=== PATIENT | male | born 1995 | race Caucasian/White ===

== ENCOUNTER 2018-08-29 15:13 | Emergency (ER) | payer MEDICAID, SELFPAY ==
[2018-08-29] VITALS (42 sets, daily range): BP systolic 125–147; BP diastolic 75–93; PULSE 83–142; RESP 9–20; TEMP 36.1; O2SAT 85–98
[2018-08-29] MEDS: Ondansetron 4 MG/2 ML VIAL IVP (15:46)
[2018-08-29] MEDS: Normal Saline 1,000 ML 1000 ML IV ×2 (15:48→17:58)
--- NOTE | 2018-08-29 15:54 | NUR.NOTE ---
MD Harden is at the bedside currently.
--- NOTE | 2018-08-29 16:07 | DI.CT_ITS ---
SYMPTOMS/DIAGNOSIS: LT SIDED ABD PAIN, ? PANCREATITIS/ABSCESS, ? FREE AIR CT SCAN OF THE ABDOMEN AND PELVIS: CT scan of the abdomen and pelvis was performed following the uneventful administration of intravenous contrast material. Comparison is 09/16/16. The lung bases are clear. There is diffuse decreased attenuation of the liver consistent with fatty infiltration. No evidence of hepatic mass is seen. The portal and superior mesenteric veins are patent. The gallbladder is negative. No biliary ductal dilatation is present. The pancreas, spleen, adrenal glands, kidneys, ureters and bladder are all unremarkable. The reproductive organs are unremarkable. The bowel shows no evidence of obstruction or inflammation. There is a normal appendix present. The abdominal aorta is of normal caliber. No significant abdominal or pelvic adenopathy, ascites or pneumoperitoneum is present. The bones are intact. IMPRESSION: 1. No evidence of an acute abdomen. 2. Hepatic steatosis.
--- NOTE | 2018-08-29 16:09 | DI.RAD_ITS ---
SYMPTOMS/DIAGNOSIS: VOMITING BLOOD, H/O ETOH ABUSE, ? FREE AIR, ? PNEUMONIA CHEST X-RAY: Portable AP view. The heart size and pulmonary vasculature are within normal limits. The lungs are clear. No effusions or pneumothoraces are identified. There is a nasogastric tube which passes into the stomach. IMPRESSION: Nasogastric tube passing into the stomach. No acute pulmonary process.
--- NOTE | 2018-08-29 16:10 | ED.GENADUL_ITS ---
Discharge Plan Disposition Patient Disposition: AGAINST MEDICAL ADVICE Condition: Fair Discharge Details Chief Complaint: ETOHWithdr Clinical Impression: Alcohol withdrawal, Hematemesis, Alcohol abuse, Transaminitis, Fatty infiltration of liver Primary Care Provider: Hernesto Beverly ED Provider: Sandi Harden Home Meds and New Rx's Prescriptions: No Action trazodone 100 mg tablet 200 mg PO HS Qty: 60 RF: 5 dextroamphetamine-amphetamine [Adderall XR] 20 mg capsule,extended release 24hr 20 mg PO DAILY Qty: 30 RF: 0 Discharge Instructions Instructions: Abuse of Alcohol (ED), Alcohol Withdrawal (ED), Hematemesis (ED) Additional Instructions: If you decide to stop drinking, you should stop drinking safely and slowly on the direction of a physician or rehab. Drink plenty of fluids and eat a well-balanced diet. Follow-up with your primary care doctor in 2 days for reevaluation. Return here immediately with any worsening or new concerning symptoms. Discharge Data Discharge Physician: Sandi Harden Medical Decision Making 23-year-old male who presents with vomiting bile and occasionally bright red blood daily for the past 3 months. States he has drank heavily daily for the past 10 years. Last drink last night. Blood pressure hypertensive, heart rate tachycardic, afebrile on arrival. Patient appears pale and tremulous. Patient vomited once in the waiting room which was bright red blood-tinged. He had one more episode of vomiting in the room without blood. His abdomen is diffusely mildly tender, increased in the left upper quadrant. Negative asterixis. Differential diagnosis includes upper GI bleed from peptic ulcer, esophageal varices, gastritis, acute alcohol withdrawal, anemia. Will place an IV, bolus IV fluids, labs, type and screen, EKG, chest x-ray, CT abdomen and pelvis, Ativan, Protonix IV and NG tube. EKG notes a rate of 103, sinus tachycardia, no acute ST elevation or depression. QTc 432. QRS 106. 1645 --NG-tube in place for approximately 60 minutes and no blood return. NG tube removed. 1715 --labs and imaging reviewed white blood cell count 15. Hemoglobin 13.8. Platelets 206. Anion gap 23.6. Bicarb 21.4. Creatinine 1.28. Magnesium 1.7. Glucose 221. AST 272. ALT 234. Troponin negative. Lipase 356. Chest x- ray and CT abdomen negative for acute findings. CT abdomen noted diffuse fatty infiltration of the liver. 1724 --Pt still shaky but heart rate improved to 90s, BP 132/82. Recommended to pt that he stay for admission for alcohol withdrawal but he is refusing. Explained to pt that we do not have beds here but we would transfer to another facility. States he does not want to stay. Will give another dose of Ativan at this time. Magnesium to finish running within the next 45 minutes. Patient states he plans on leaving with his grandmother taking him home. States he ran out of alcohol today and has no plans of stopping alcohol and hopes his grandparents stop to get alcohol on the way home. 1909 --magnesium bolus finished. Grandmother is here. Patient still is refusing to stay. His shaking has improved. His heart rate is 90s. BP 138/ 83. Patient still recommended to stay for acute alcohol withdrawal but he is refusing. The risks of and disability due to alcohol withdrawal were explained and patient fully understands and demonstrates capacity to make decisions and is refusing to stay. AMA form signed. Patient states he has outpatient resources for rehab and detox. Will send home with 1 dose of Ativan p.o. Patient instructed to call his primary care doctor on Friday to schedule follow-up appointment for reevaluation. He is instructed to return here immediately if worse. HPI General Mode of arrival: ambulatory . Date/Time Provider Initiated Documentation: 08/29/18 15:35 . Limitations to Documentation: no limitations . Information obtained by: patient . HPI Narrative: Patient is a 23-year-old male who presents to the ED with a complaint of vomiting daily for the past 3 months. Patient states he generally vomits between 2-4 times daily which consist mainly of bile and occasionally blood. States he usually vomits small amounts of bright red blood approximately 1-3 mL 3-4 times weekly. Patient vomited blood while out in the ED. He vomited once more while here in the room without blood. Patient states he drinks approximately 4-5 cans of 25 ounce beers daily. States he drank a 12 pack yesterday. States his last drink was last night. States he has no desire to stop drinking. Denies suicidal ideation. States he was last in rehab for her one 1 year ago and is not used heroin since then. He denies any other drug use. He denies fever, diarrhea, back pain, chest pain or abdominal pain. Patient states he has not sought any treatment for the symptoms over the past 3 months. States he came here today because his grandmother recommended that he be checked out. States he has been having normal bowel movements without diarrhea and brown in color. States a few weeks ago he was having black stools but this has resolved. Past medical history: ADHD, depression, narcotic drug abuse Surgical history: Right wrist surgery Social history: Smokes tobacco, daily alcohol use approximately 4-5 cans of 12 ounce beers daily, denies drug use Medications: Trazodone, Adderall Allergies: None PCP: Dr. Beverly Related Data Home Medications Medication Instructions Recorded Confirmed trazodone 100 mg tablet 200 mg PO HS #60 tab-cap 07/15/18 08/29/18 dextroamphetamine-amphetamine ER 20 mg PO DAILY #30 cap 08/03/18 08/29/18 20 mg 24hr capsule,extend release Previous Rx's Medication Instructions Recorded trazodone 100 mg tablet 200 mg PO HS #60 tab-cap 07/15/18 dextroamphetamine-amphetamine ER 20 mg PO DAILY #30 cap 08/03/18 20 mg 24hr capsule,extend release Allergies Allergy/AdvReac Type Severity Reaction Status Date / Time Sulfa (Sulfonamide Allergy Unknown Hives Unverified 08/29/18 15:27 Antibiotics) General Stated Complaint: ETOHWithdr YESSENIA: 3 Review of Systems Review of Systems All systems reviewed & are unremarkable except as noted in HPI and below Constitutional Denies chills, Denies excessive sweating, Denies fatigue, Denies fever(s), Denies weakness and Denies weight loss Eyes Reports system reviewed and no additional complaints, except as docu and Denies blurry vision ENT Denies vertigo, Denies dizziness, Denies otalgia, Denies nasal congestion, Denies sore throat and Denies throat swelling Cardiovascular Denies chest pain, Denies syncope, Denies rapid heart rate and Denies dyspnea Respiratory Denies dyspnea Gastrointestinal Denies abdominal pain, Denies diarrhea and Reports vomiting Genitourinary Denies hematuria, Denies dysuria and Denies flank pain Musculoskeletal Denies back pain and Denies joint swelling Integumentary/Breasts Denies lesions and Denies rash Neurologic Denies behavioral changes, Denies confusion, Denies vertigo, Denies dizziness, Denies syncope and Denies weakness Psychiatric Denies behavioral changes, Denies confusion and Denies depression Endocrine Denies excessive sweating and Denies fatigue Hematologic/Lymphatic Denies easy bruising and Denies lymphadenopathy Allergic/Immunologic Denies throat swelling PFSH Social History household members: other details: LIVES WTIH FATHER Smoking/Tobacco Use Status: Current every day alcohol intake: current alcohol intake frequency: 0-2 drinks per day substance use type: marijuana Surgical History Fracture, Open Treatment Exam Const General: cooperative and other (pale, shaky) Orientation: alert, awake and oriented x3 HENMT Head: normal to inspection Ears: hearing grossly normal bilaterally, external ears normal and TM's normal bilaterally General nose exam: external nose normal Face and sinus: normal facial exam Mouth: mucous membranes dry and other (dried bright red blood noted at L side of mouth ) Teeth and gingiva: dentition normal Throat: posterior oropharynx normal Eyes General: appearance normal, both eyes and all related structures Eyelids: eyelids normal Pupils: PERRL EOM: EOM intact bilaterally Neck Neck: normal visual inspection Lymphatic: no lymphadenopathy noted Chest Chest: normal inspection of the chest Resp Effort & Inspection: normal respiratory effort and able to speak in complete sentences Auscultation: clear to auscultation bilaterally Cardio Rate: tachycardic Rhythm: regular rhythm GI Inspection: normal to inspection Palpation: soft, not firm, no guarding, no hepatosplenomegaly, no masses and tender (mild - diffusely, worse in LUQ) Auscultation: normal bowel sounds Back/Spine/Pelvis Back: no CVA tenderness Skin General skin exam: no rashes or lesions noted Neuro General: alert, awake and oriented x3 Cognition: normal cognition Speech: speech normal Gait: normal gait Motor: muscle tone normal throughout Sensory Exam: no sensory deficits noted Other: no asterixis. + clonus b/l LE. Extrem General: normal to inspection, full ROM, normal capillary refill and no edema Psych Appearance: grossly normal Mental Status: mental status grossly normal Speech and Movement: speech and movement normal Affect: normal affect Thought Process: normal Course Laboratory Tests Range/Units 08/29/18 08/29/18 08/29/18 15:50 15:50 16:40 WBC (4.4-10.8) k/cumm 15.25 H RBC (4.50-6.00) m/cumm 4.54 Hgb (13.5-17.5) g/dL 13.8 Hct (40.0-50.0) % 40.4 MCV (80-95) fL 89.0 MCH (27.0-33.0) pg 30.4 MCHC (32.0-36.0) g/dL 34.2 RDW (11.8-14.1) % 13.3 Plt Count (130-400) x1000/uL 206 MPV (8.0-11.0) fL 10.7 Immature Gran % 0.2 Neutrophils % 83.9 Lymphocytes % 8.5 Monocytes % 7.1 Eosinophils % 0.0 Basophils % 0.3 Absolute Neutrophils (1.2-6.7) k/cumm 12.79 H Absolute Lymphocytes (1.2-3.4) k/cumm 1.30 Absolute Monocytes (0.11-0.7) k/cumm 1.08 H Absolute Eosinophils (0.0-0.7) k/cumm 0.00 Absolute Basophils (0.0-0.2) k/cumm 0.05 Sodium (136-145) mmol/L 134 L Potassium (3.5-5.1) mmol/L 4.0 Chloride (98-107) mmol/L 89 L Carbon Dioxide (21.0-32.0) mmol/L 21.4 Anion Gap (3-11) mmol/L 23.6 H BUN (7-18) mg/dL 12 Creatinine (0.70-1.30) mg/dL 1.28 Estimated GFR/1.73 m2 (mL/min/1.73m2) >= 60.00 Glucose (70-100) mg/dL 221 H Calcium (8.5-10.1) mg/dL 10.1 Magnesium (1.8-2.4) mg/dL 1.7 L Total Bilirubin (0.2-1.0) mg/dL 1.0 AST (15-37) U/L 272 H ALT (12-78) U/L 234 H Alkaline Phosphatase (46-116) U/L 116 Troponin I (0.00-0.06) ng/mL < 0.02 Total Protein (6.4-8.2) g/dL 8.6 H Albumin (3.4-5.0) g/dL 4.5 Lipase (73-393) U/L 356 Patient ABO/Rh A Positive Antibody Screen Negative Vital Signs Temperature 97.0 F L 08/29/18 15:24 Pulse 142 H 08/29/18 15:24 Respiratory Rate 16 08/29/18 15:24 Blood Pressure 147/89 H 08/29/18 15:24 Pulse Oximetry 94 L 08/29/18 15:24 Temperature 97.0 F L 08/29/18 15:24 Temperature Source Skin 08/29/18 15:24 Pulse 142 H 08/29/18 15:24 Respiratory Rate 16 08/29/18 15:24 Respiratory Effort Non-Labored 08/29/18 15:24 Respiratory Pattern Normal 08/29/18 15:55 Blood Pressure 147/89 H 08/29/18 15:24 Blood Pressure Position Sitting 08/29/18 15:24 Pulse Oximetry 94 L 08/29/18 15:24 Oxygen Delivery Method Room Air 08/29/18 15:24 Oxygen Flow Rate 0 08/29/18 15:24 Pain Level 0 08/29/18 15:24
[2018-08-29 16:21] LABS: Abs Immature Grans 0.03 k/cumm (0.0-0.09); Absolute Monocyte Count 1.08 k/cumm (0.11-0.7); Basophils % 0.3; HCT 40.4 % (40.0-50.0); HGB 13.8 g/dL (13.5-17.5); Immature Grans % 0.2; Lymphocytes % 8.5; Mean Corp. HGB Concentration 34.2 g/dL (32.0-36.0); Mean Corpuscular Hemoglobin 30.4 pg (27.0-33.0); Mean Platelet Volume 10.7 fL (8.0-11.0); Monocytes % 7.1; Neutrophils % 83.9; Platelet Count 206 x1000/uL (130-400); RBC 4.54 m/cumm (4.50-6.00); RBC Distribution Width 13.3 % (11.8-14.1); White Blood Cell Count 15.25 k/cumm (4.4-10.8)
[2018-08-29] MEDS: LORazepam 2 MG/ML VIAL 0.5 MG IVP (16:24)
[2018-08-29] MEDS: Pantoprazole 40 MG VIAL IVP (16:25)
--- NOTE | 2018-08-29 16:34 | DI.VRAD_ITS ---
EXAM: XR Chest, 1 View EXAM DATE/TIME: 08/29/2018 4:13 PM CLINICAL HISTORY: 23 years old, male; Signs and symptoms; Other: Vomiting blood, h/o ETOH abuse, R/O free air TECHNIQUE: XR of the chest, 1 view. COMPARISON: CR ABD FLAT UPRIGHT PA CHEST 08/14/2016 9:48 PM FINDINGS: Nasogastric tube extending into the stomach. No focal pulmonary consolidation. Cardiomediastinal silhouette within normal limits. No evidence of extraluminal air beneath the diaphragm. Costophrenic angles are sharp. IMPRESSION: 1. Nasogastric tube within the stomach. 2. No evidence of acute cardiopulmonary disease. Dictated and Authenticated by: Roberth Ching MD. Ordering:BREE CLEARY MD
[2018-08-29 16:41] LABS: Absolute Basophil Count 0.05 k/cumm (0.0-0.2); Absolute Neutrophil Count 12.79 k/cumm (1.2-6.7)
[2018-08-29 16:45] LABS: ALT 234 U/L (12-78); AST 272 U/L (15-37); Albumin 4.5 g/dL (3.4-5.0); Alkaline Phosphatase 116 U/L (46-116); Anion Gap 23.6 mmol/L (3-11); BUN 12 mg/dL (7-18); CO2 21.4 mmol/L (21.0-32.0); CREATININE 1.28 mg/dL (0.70-1.30); Calcium 10.1 mg/dL (8.5-10.1); Chloride 89 mmol/L (98-107); Glucose 221 mg/dL (70-100); Lipase 356 U/L (73-393); Magnesium 1.7 mg/dL (1.8-2.4); Sodium 134 mmol/L (136-145); Total Protein 8.6 g/dL (6.4-8.2)
--- NOTE | 2018-08-29 16:47 | NUR.NOTE ---
no blood from NG tube, tube discontinued with 's [employer] order.
[2018-08-29 16:50] LABS: Troponin I < 0.02 ng/mL (0.00-0.06)
[2018-08-29] MEDS: Omnipaque 350 MG/ML 100 ML BTL IJ (16:55)
--- NOTE | 2018-08-29 16:57 | NUR.NOTE ---
Pt. to CT scan.
--- NOTE | 2018-08-29 17:21 | DI.VRAD_ITS ---
EXAM: CT Abdomen and Pelvis With Intravenous Contrast EXAM DATE/TIME: 08/29/2018 4:08 PM CLINICAL HISTORY: 23 years old, male; Pain; Abdominal pain; Localized; Left; Patient HX: L sided abdominal pain; Additional info: R/O pancreatitis/abscess TECHNIQUE: Axial computed tomography images of the abdomen and pelvis with intravenous contrast. Coronal and sagittal reformatted images were created and reviewed. COMPARISON: CT CHEST ABD PELVIS WITH CONTRAST 07/12/2017 6:45 PM FINDINGS: Diffuse fatty infiltration of the liver. Appendix is normal. Otherwise normal appearing solid organs. No intestinal obstruction. No obstructive uropathy. No free fluid. No free air. No inflammatory changes. IMPRESSION: No specific etiology identified for the patient's symptoms. Dictated and Authenticated by: Roberth Ching MD. Ordering:BREE CLEARY MD
[2018-08-29] MEDS: MAGNESIUM SULFATE 1 GM/100 ML BAG IVPB (17:24)
[2018-08-29] MEDS: LORazepam 2 MG/ML VIAL (17:41)
--- NOTE | 2018-08-29 17:42 | NUR.NOTE ---
Md Harden at the bedside discussing risks of going home. Pt verbalizes understanding of risks of detoxing at home. 0.5mg IVP ativan adminsterd as ordered, pt. is okay waiting for IV magnesium to infuse (about 45 minutes left) prior to being discharged AMA.
[2018-08-29] MEDS: LORazepam 0.5 MG TAB PO (19:34)
== END 2018-08-29 19:34 | disposition left against medical advice (07) ==
PROVIDERS: Emergency Provider Physician Assistant; PCP Family Medicine
DX: F10.239 Alcohol dependence with withdrawal, unspecified (principal); K92.0 Hematemesis; R74.0 Nonspecific elevation of levels of transaminase and lactic acid dehydrogenase [LDH]; K70.0 Alcoholic fatty liver; R00.0 Tachycardia, unspecified; E83.42 Hypomagnesemia; Z53.29 Procedure and treatment not carried out because of patient's decision for other reasons
CPT/HCPCS: 36415; 77001; 80053; 83690; 86850; 86900; 86901; 93005; 96361; 96365; 96375; 96376; 99285; 74177; 83735; 84484; 85025; 93010; J2060; J2405; J3475; J3490

== ENCOUNTER 2018-09-04 08:49 | Outpatient (CLI) | payer MEDICAID, SELFPAY ==
[2018-09-07 10:58] LABS: Hepatitis A Antibody IgM Negative (NEGAT); Hepatitis B Core Antibody Negative (NEGAT); Hepatitis B surface Ag Negative (NEGAT); Hepatitis C Ab w Rflx HCV PCR Negative (NEGAT)
== END 2018-09-04 09:09 ==
PROVIDERS: Nurse Practitioner Family; PCP Family Medicine; Visit Provider Family Medicine
DX: F10.20 Alcohol dependence, uncomplicated (principal); Z11.59 Encounter for screening for other viral diseases
CPT/HCPCS: 36415; 86704; 86709; 86803; 87340

== ENCOUNTER 2018-11-09 13:43 | Emergency (ER) | payer MEDICAID, SELFPAY ==
[2018-11-09] VITALS (43 sets, daily range): BP systolic 128–151; BP diastolic 86–99; PULSE 79–135; RESP 9–24; TEMP 36.3–37.1; O2SAT 95–99
--- NOTE | 2018-11-09 13:59 | W.ED.GENAD ---
Discharge Plan Disposition Patient Disposition: HOME Discharge Details Chief Complaint: OD/Poison Clinical Impression: Alcoholism, Acute dehydration, Elevated liver enzymes Primary Care Provider: Hernesto Beverly ED Provider: Sloan Ballesteros Home Meds and New Rx's Prescriptions: New ondansetron 4 mg film 4 mg PO BID 5 Days Qty: 10 RF: 0 Continued trazodone 100 mg tablet 200 mg PO HS Qty: 60 RF: 5 dextroamphetamine-amphetamine [Adderall XR] 20 mg capsule,extended release 24hr 20 mg PO DAILY MDD 20mg Qty: 30 RF: 0 Discontinued dextroamphetamine-amphetamine [Adderall XR] 20 mg capsule,extended release 24hr 20 mg PO DAILY Qty: 30 RF: 0 Discharge Instructions Instructions: Dehydration (ED) Additional Instructions: Please drink small amounts of fluid often to stay hydrated. You have blood tests pending. Be sure to follow-up with your doctor. Use Zofran as prescribed. Please contact your primary care physician to arrange follow-up. Return to the ER for any worsening or new concerning symptoms. Referrals: [facility] [Outside] Sloan Ballesteros MD [Emergency Provider] - Hernesto Beverly [Primary Care Provider] - Discharge Data Discharge Date/Time-TO BE ENTERED AT DEPARTURE: 11/09/18 19:12 Medical Decision Making <Raymundo Cai MD - Last Filed: 11/09/18 14:18> ECG Data Attestation: I personally reviewed and interpreted this ECG (s) as follows: Prior ECG tracings: not available for review Interpretation: sinus rhythm (tachycardia), rate of 106, pr 130, qtc 427 <KINA Chaudhry - Last Filed: 11/10/18 08:07> Patient 23-year-old male presenting today with chief complaint of withdrawal symptoms. Is endorsing tremulousness and nausea. Lasted alcohol 2 hours ago which time he reports he had 2 beers. He did use heroin this morning. Denies any new source of heroin. He denies any chest pain or shortness of breath. Endorses chronic nausea and daily vomiting. Presents at this time his grandmother encouraged him to seek treatment. Patient denies thoughts of self harm, suicidal ideation or thoughts of harming others. On exam, patient appears anxious and moving frequently. He denies any thoughts of self-harm or harming others. He is tachycardic on exam with a rate in the 130s. Patient is hypertensive at 151/96. EKG was reviewed by Dr. Cai. Advised significant for sinus tachycardia but does not note any other acute abnormalities. Labs obtained concerning for low platelets of 114, this is atypical for the patient. Sodium is low at 129, chloride 88, carbon dioxide 19.6, anion gap of 21.4. AST, ALT elevated. These were elevated when he was seen last in August with similar values at that time. Alk phos is minimally elevated at 143. Heart rate improved after 2 L of IV saline, heart rate is currently 88. With the change in labs, plan to obtain a VBG with concern for alcoholic ketoacidosis. Patient appears much calmer, he is I discussed risks associated with his current lifestyle choices. 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 However, at this time he does not feel that he would be successful with rehab and is not interested in going. His family is pushing him to go and he reports that he will continue to consider this. He has enrolled himself previously and knows how to do this again when he is ready. Declined speaking with Discussed case with Dr. Ballesteros who is taking over care at the end of my shift. Ordered repeat BMP, patient has received approximately 2.5L of fluid as well as hepatitis panel. HPI <Raymundo Cai MD - Last Filed: 11/09/18 14:18> General Date/Time Provider Initiated Documentation: 11/09/18 13:44. Related Data Home Medications Medication Instructions Recorded Confirmed trazodone 100 mg tablet 200 mg PO HS #60 tab-cap 07/15/18 11/11/18 dextroamphetamine-amphetamine ER 20 mg PO DAILY #30 cap MDD 20mg 11/04/18 11/11/18 20 mg 24hr capsule,extend release ondansetron 4 mg PO BID 5 Days #10 each 11/09/18 11/11/18 Previous Rx's Medication Instructions Recorded trazodone 100 mg tablet 200 mg PO HS #60 tab-cap 07/15/18 dextroamphetamine-amphetamine ER 20 mg PO DAILY #30 cap MDD 20mg 11/04/18 20 mg 24hr capsule,extend release ondansetron 4 mg PO BID 5 Days #10 each 11/09/18 Allergies Allergy/AdvReac Type Severity Reaction Status Date / Time Sulfa (Sulfonamide Allergy Unknown Hives Unverified 11/11/18 08:56 Antibiotics) <KINA Chaudhry - Last Filed: 11/10/18 08:07> General Mode of arrival: ambulatory. Limitations to Documentation: no limitations. Information obtained by: patient and family. HPI Narrative: Patient is a 23 year old male, brought in by grandmother she concern for withdrawal. Reports that he uses heroin daily, he did use this morning. Also endorses drinking a 12 pack of Budweiser daily. States he last drank 2 beers approximately 2 hours prior to arrival. Endorses feeling tremulous and nauseated. States that he vomits every morning but that this is typical and has been ongoing for at least the past year. Reports that he has not drink at this large amount of alcohol since the age of 13. Endorses occasional hematemesis but none recently. He was seen here in August for similar episode. However, at that time, he was primarily complaining of hematemesis. He did not receive treatment after that. He reports he was last in rehab presently a year and a half ago with a short episode of sobriety. He denies any chest pain or shortness of breath. Aside from his one episode of emesis this morning, which she reports is typical, no further vomiting today. Denies any abdominal pain. No change in bowel or bladder habit. Denies any recent illness, no cough, cold, fevers or chills. He presents today secondary to his grandmother being concerned for his overall health and continued alcohol and drug abuse. General Stated Complaint: OD/Poison YESSENIA: 2 <KINA Chaudhry - Last Filed: 11/10/18 08:07> Constitutional Reports as per HPI, Denies chills, Denies fever(s), Denies headache(s) and Denies weakness Eyes Reports as per HPI, Denies eye discharge and Denies irritation ENT Denies headache(s) Cardiovascular Reports as per HPI, Denies chest pain and Denies dyspnea Respiratory Reports as per HPI, Denies cough and Denies dyspnea Gastrointestinal Reports as per HPI, Denies abdominal pain, Denies change in bowel habits, Reports nausea, Reports vomiting and Reports hematemesis Genitourinary Reports system reviewed and no additional complaints, except as docu (denies change in urinary habits) Integumentary/Breasts Reports as per HPI and Denies rash Neurologic Denies headache(s) and Denies weakness Psychiatric Denies anxiety, Denies change in appetite, Denies homicidal ideation and Denies suicidal ideation PFSH <Raymundo Cai MD - Last Filed: 11/09/18 14:18> Surgical History Fracture, Open Treatment Social History household members: other details: LIVES WTIH FATHER Smoking/Tobacco Use Status: Current every day alcohol intake: current alcohol intake frequency: 0-2 drinks per day substance use type: marijuana <KINA Chaudhry - Last Filed: 11/10/18 08:07> Const General: cooperative, healthy appearing, comfortable, no acute distress, well developed, well groomed and anxious Nutritional Appearance: average body habitus and well nourished Orientation: alert and awake [facility] Head: normal to inspection, normocephalic and atraumatic Ears: hearing grossly normal bilaterally, external ears normal and TM's normal bilaterally General nose exam: external nose normal and nares normal Face and sinus: normal facial exam, sinuses nontender and face symmetric Mouth: oral mucosae normal, lip normal, tongue normal, oropharynx normal and mucous membranes dry (patient appears dry on exam) Teeth and gingiva: dentition normal Throat: posterior oropharynx normal, tonsils normal and uvula midline Eyes General: appearance normal, both eyes and all related structures Neck Neck: normal visual inspection, full ROM, no lymphadenopathy and no meningeal signs Resp Effort & Inspection: normal respiratory effort, able to speak in complete sentences and no respiratory distress Auscultation: clear to auscultation bilaterally, no rales, no rhonchi and no wheezes Cardio Rate: regular rate and tachycardic Rhythm: regular rhythm Heart Sounds: S1 normal and S2 normal GI Inspection: normal to inspection Palpation: soft, no hepatosplenomegaly, no guarding and nontender Auscultation: normal bowel sounds Skin General skin exam: no rashes or lesions noted Neuro General: alert and awake Cognition: normal cognition Speech: speech normal Gait: normal gait Psych Appearance: grossly normal and well kempt Mental Status: mental status grossly normal Speech and Movement: speech and movement normal Mood: anxious mood <KINA Chaudhry - Last Filed: 11/10/18 08:07> Vital Signs Temperature 36.3 C L 11/09/18 13:44 Pulse 135 H 11/09/18 13:44 Respiratory Rate 16 11/09/18 13:44 Blood Pressure 151/96 H 11/09/18 13:44 Pulse Oximetry 95 11/09/18 13:44 Temperature 36.3 C L 11/09/18 13:44 Temperature Source Skin 11/09/18 13:44 Pulse 135 H 11/09/18 13:44 Respiratory Rate 16 11/09/18 13:44 Blood Pressure 151/96 H 11/09/18 13:44 Blood Pressure Position Sitting 11/09/18 13:44 Pulse Oximetry 95 11/09/18 13:44 Oxygen Delivery Method Room Air 11/09/18 13:44 Oxygen Flow Rate 0 11/09/18 13:44 Pain Level 0 11/09/18 13:44 Sign Out <Raymundo Cai MD - Last Filed: 11/09/18 14:18> Sign Out Data: Sign Out Comment: Care transitioned to Dr. Ballesteros with repeat BMP pending. Currently receiving IV hydration. Last updated by Soumya Goncalves PA at 11/09/18 16:35 Post-Handoff Eval: Patient received IV fluids Repeat BMP shows much improved anion gap. Tolerating PO intake. Reassessed and well appearing and requesting discharge. I reviewed all results with patient. Counseling on need for lifestyle changes was provided, patient was encouraged to seek rehab services and I referred him to [facility]. He seems minimally interested in rehab. Disposition decision was made weighing the risks and benefits of hospitalization versus outpatient treatment, the risk for further decompensation, and the patient's wishes. The patient was stable and requested discharge. Prior to discharge, my usual and customary return precautions were reviewed with the patient - this included follow-up instructions and reason to return to the emergency department if condition worsens, does not improve as expected, or other new concerns arise.
--- NOTE | 2018-11-09 14:15 | ED.GENADUL_ITS ---
Discharge Plan Disposition Patient Disposition: HOME Discharge Details Chief Complaint: OD/Poison Clinical Impression: Alcoholism, Acute dehydration, Elevated liver enzymes Primary Care Provider: Hernesto Beverly ED Provider: Sloan Ballesteros Home Meds and New Rx's Prescriptions: New ondansetron 4 mg film 4 mg PO BID 5 Days Qty: 10 RF: 0 Continued trazodone 100 mg tablet 200 mg PO HS Qty: 60 RF: 5 dextroamphetamine-amphetamine [Adderall XR] 20 mg capsule,extended release 24hr 20 mg PO DAILY MDD 20mg Qty: 30 RF: 0 Discontinued dextroamphetamine-amphetamine [Adderall XR] 20 mg capsule,extended release 24hr 20 mg PO DAILY Qty: 30 RF: 0 Discharge Instructions Instructions: Dehydration (ED) Additional Instructions: Please drink small amounts of fluid often to stay hydrated. You have blood tests pending. Be sure to follow-up with your doctor. Use Zofran as prescribed. Please contact your primary care physician to arrange follow-up. Return to the ER for any worsening or new concerning symptoms. Referrals: [facility] [Outside] Sloan Ballesteros MD [Emergency Provider] - Hernesto Beverly [Primary Care Provider] - Discharge Data Discharge Date/Time-TO BE ENTERED AT DEPARTURE: 11/09/18 19:12 Medical Decision Making <Raymundo Cai MD - Last Filed: 11/09/18 14:18> ECG Data Attestation: I personally reviewed and interpreted this ECG (s) as follows: Prior ECG tracings: not available for review Interpretation: sinus rhythm (tachycardia), rate of 106, pr 130, qtc 427 <KINA Chaudhry - Last Filed: 11/10/18 08:07> Patient 23-year-old male presenting today with chief complaint of withdrawal symptoms. Is endorsing tremulousness and nausea. Lasted alcohol 2 hours ago which time he reports he had 2 beers. He did use heroin this morning. Denies any new source of heroin. He denies any chest pain or shortness of breath. Endorses chronic nausea and daily vomiting. Presents at this time his grandmother encouraged him to seek treatment. Patient denies thoughts of self harm, suicidal ideation or thoughts of harming others. On exam, patient appears anxious and moving frequently. He denies any thoughts of self-harm or harming others. He is tachycardic on exam with a rate in the 130s. Patient is hypertensive at 151/96. EKG was reviewed by Dr. Cai. Advised significant for sinus tachycardia but does not note any other acute abnormalities. Labs obtained concerning for low platelets of 114, this is atypical for the patient. Sodium is low at 129, chloride 88, carbon dioxide 19.6, anion gap of 21.4. AST, ALT elevated. These were elevated when he was seen last in August with similar values at that time. Alk phos is minimally elevated at 143. Heart rate improved after 2 L of IV saline, heart rate is currently 88. With the change in labs, plan to obtain a VBG with concern for alcoholic ketoacidosis. Patient appears much calmer, he is I discussed risks associated with his current lifestyle choices. 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 However, at this time he does not feel that he would be successful with rehab and is not interested in going. His family is pushing him to go and he reports that he will continue to consider this. He has enrolled himself previously and knows how to do this again when he is ready. Declined speaking with Discussed case with Dr. Ballesteros who is taking over care at the end of my shift. Ordered repeat BMP, patient has received approximately 2.5L of fluid as well as hepatitis panel. HPI <Raymundo Cai MD - Last Filed: 11/09/18 14:18> General Date/Time Provider Initiated Documentation: 11/09/18 13:44 . Related Data Home Medications Medication Instructions Recorded Confirmed trazodone 100 mg tablet 200 mg PO HS #60 tab-cap 07/15/18 11/11/18 dextroamphetamine-amphetamine ER 20 mg PO DAILY #30 cap MDD 20mg 11/04/18 11/11/18 20 mg 24hr capsule,extend release ondansetron 4 mg PO BID 5 Days #10 each 11/09/18 11/11/18 Previous Rx's Medication Instructions Recorded trazodone 100 mg tablet 200 mg PO HS #60 tab-cap 07/15/18 dextroamphetamine-amphetamine ER 20 mg PO DAILY #30 cap MDD 20mg 11/04/18 20 mg 24hr capsule,extend release ondansetron 4 mg PO BID 5 Days #10 each 11/09/18 Allergies Allergy/AdvReac Type Severity Reaction Status Date / Time Sulfa (Sulfonamide Allergy Unknown Hives Unverified 11/11/18 08:56 Antibiotics) <KINA Chaudhry - Last Filed: 11/10/18 08:07> General Mode of arrival: ambulatory . Limitations to Documentation: no limitations . Information obtained by: patient and family . HPI Narrative: Patient is a 23 year old male, brought in by grandmother she concern for withdrawal. Reports that he uses heroin daily, he did use this morning. Also endorses drinking a 12 pack of Budweiser daily. States he last drank 2 beers approximately 2 hours prior to arrival. Endorses feeling tremulous and nauseated. States that he vomits every morning but that this is typical and has been ongoing for at least the past year. Reports that he has not drink at this large amount of alcohol si nce the age of 13. Endorses occasional hematemesis but none recently. He was seen here in August for similar episode. However, at that time, he was primarily complaining of hematemesis. He did not receive treatment after that. He reports he was last in rehab presently a year and a half ago with a short episode of sobriety. He denies any chest pain or shortness of breath. Aside from his one episode of emesis this morning, which she reports is typical, no further vomiting today. Denies any abdominal pain. No change in bowel or bladder habit. Denies any recent illness, no cough, cold, fevers or chills. He presents today secondary to his grandmother being concerned for his overall health and continued alcohol and drug abuse. General Stated Complaint: OD/Poison YESSENIA: 2 <KINA Chaudhry - Last Filed: 11/10/18 08:07> Constitutional Reports as per HPI, Denies chills, Denies fever(s), Denies headache(s) and Denies weakness Eyes Reports as per HPI, Denies eye discharge and Denies irritation ENT Denies headache(s) Cardiovascular Reports as per HPI, Denies chest pain and Denies dyspnea Respiratory Reports as per HPI, Denies cough and Denies dyspnea Gastrointestinal Reports as per HPI, Denies abdominal pain, Denies change in bowel habits, Reports nausea, Reports vomiting and Reports hematemesis Genitourinary Reports system reviewed and no additional complaints, except as docu (denies change in urinary habits) Integumentary/Breasts Reports as per HPI and Denies rash Neurologic Denies headache(s) and Denies weakness Psychiatric Denies anxiety, Denies change in appetite, Denies homicidal ideation and Denies suicidal ideation PFSH <Raymundo Cai MD - Last Filed: 11/09/18 14:18> Surgical History Fracture, Open Treatment Social History household members: other details: LIVES WTIH FATHER Smoking/Tobacco Use Status: Current every day alcohol intake: current alcohol intake frequency: 0-2 drinks per day substance use type: marijuana <KINA Chaudhry - Last Filed: 11/10/18 08:07> Const General: cooperative, healthy appearing, comfortable, no acute distress, well developed, well groomed and anxious Nutritional Appearance: average body habitus and well nourished Orientation: alert and awake [facility] Head: normal to inspection, normocephalic and atraumatic Ears: hearing grossly normal bilaterally, external ears normal and TM's normal bilaterally General nose exam: external nose normal and nares normal Face and sinus: normal facial exam, sinuses nontender and face symmetric Mouth: oral mucosae normal, lip normal, tongue normal, oropharynx normal and mucous membranes dry (patient appears dry on exam) Teeth and gingiva: dentition normal Throat: posterior oropharynx normal, tonsils normal and uvula midline Eyes General: appearance normal, both eyes and all related structures Neck Neck: normal visual inspection, full ROM, no lymphadenopathy and no meningeal signs Resp Effort & Inspection: normal respiratory effort, able to speak in complete sentences and no respiratory distress Auscultation: clear to auscultation bilaterally, no rales, no rhonchi and no wheezes Cardio Rate: regular rate and tachycardic Rhythm: regular rhythm Heart Sounds: S1 normal and S2 normal GI Inspection: normal to inspection Palpation: soft, no hepatosplenomegaly, no guarding and nontender Auscultation: normal bowel sounds Skin General skin exam: no rashes or lesions noted Neuro General: alert and awake Cognition: normal cognition Speech: speech normal Gait: normal gait Psych Appearance: grossly normal and well kempt Mental Status: mental status grossly normal Speech and Movement: speech and movement normal Mood: anxious mood <KINA Chaudhry - Last Filed: 11/10/18 08:07> Vital Signs Temperature 36.3 C L 11/09/18 13:44 Pulse 135 H 11/09/18 13:44 Respiratory Rate 16 11/09/18 13:44 Blood Pressure 151/96 H 11/09/18 13:44 Pulse Oximetry 95 11/09/18 13:44 Temperature 36.3 C L 11/09/18 13:44 Temperature Source Skin 11/09/18 13:44 Pulse 135 H 11/09/18 13:44 Respiratory Rate 16 11/09/18 13:44 Blood Pressure 151/96 H 11/09/18 13:44 Blood Pressure Position Sitting 11/09/18 13:44 Pulse Oximetry 95 11/09/18 13:44 Oxygen Delivery Method Room Air 11/09/18 13:44 Oxygen Flow Rate 0 11/09/18 13:44 Pain Level 0 11/09/18 13:44 Sign Out <Raymundo Cai MD - Last Filed: 11/09/18 14:18> Sign Out Data: Sign Out Comment: Care transitioned to Dr. Ballesteros with repeat BMP pending. Currently receiving IV hydration. Last updated by Soumya Goncalves PA at 11/09/18 16:35 Post-Handoff Eval: Patient received IV fluids Repeat BMP shows much improved anion gap. Tolerating PO intake. Reassessed and well appearing and requesting discharge. I reviewed all results with patient. Counseling on need for lifestyle changes was provided, patient was encouraged to seek rehab services and I referred him to [facility]. He seems minimally interested in rehab. Disposition decision was made weighing the risks and benefits of hospitalization versus outpatient treatment, the risk for further decompensation, and the patient's wishes. The patient was stable and requested discharge. Prior to discharge, my usual and customary return precautions were reviewed with the patient - this included follow-up instructions and reason to return to the emergency department if condition worsens, does not improve as expected, or other new concerns arise.
[2018-11-09] MEDS: LORazepam 2 MG/ML VIAL 1 MG IVP (14:29)
[2018-11-09] MEDS: Normal Saline 1,000 ML 1000 ML IV ×2 (14:30→15:20)
[2018-11-09] MEDS: Normal Saline Flush 10 ML SYR IVP (14:30)
[2018-11-09] MEDS: Ondansetron O.D.T. 4 MG TABEF PO (14:31)
[2018-11-09 14:33] LABS: Abs Immature Grans 0.01 k/cumm (0.0-0.09); Absolute Basophil Count 0.03 k/cumm (0.0-0.2); Absolute Eosinophil Count 0.02 k/cumm (0.0-0.7); Absolute Lymphocyte Count 0.74 k/cumm (1.2-3.4); Absolute Monocyte Count 0.42 k/cumm (0.11-0.7); Absolute Neutrophil Count 5.13 k/cumm (1.2-6.7); Basophils % 0.5; Eosinophils % 0.3; HCT 40.8 % (40.0-50.0); HGB 14.1 g/dL (13.5-17.5); Immature Grans % 0.2; Lymphocytes % 11.7; Mean Corp. HGB Concentration 34.6 g/dL (32.0-36.0); Mean Corpuscular Hemoglobin 31.1 pg (27.0-33.0); Mean Corpuscular Volume 90.1 fL (80-95); Mean Platelet Volume 10.4 fL (8.0-11.0); Monocytes % 6.6; Neutrophils % 80.7; Platelet Count 114 x1000/uL (130-400); RBC 4.53 m/cumm (4.50-6.00); RBC Distribution Width 13.7 % (11.8-14.1); White Blood Cell Count 6.35 k/cumm (4.4-10.8)
[2018-11-09 14:46] LABS: ALT 231 U/L (12-78); AST 263 U/L (15-37); Albumin 4.2 g/dL (3.4-5.0); Alkaline Phosphatase 143 U/L (46-116); Anion Gap 21.4 mmol/L (3-11); BUN 11 mg/dL (7-18); Bilirubin, Total 1.5 mg/dL (0.2-1.0); CO2 19.6 mmol/L (21.0-32.0); CREATININE 1.12 mg/dL (0.70-1.30); Chloride 88 mmol/L (98-107); Glucose 159 mg/dL (70-100); Lipase 130 U/L (73-393); Sodium 129 mmol/L (136-145); Total Protein 8.6 g/dL (6.4-8.2)
[2018-11-09 14:53] LABS: Troponin I < 0.02 ng/mL (0.00-0.06)
[2018-11-09 14:55] LABS: Acetaminophen < 2 ug/mL (10-30)
[2018-11-09 15:24] LABS: Bilirubin Small (Negative); Blood Trace-lysed (Negative); Clarity Clear; Glucose Negative (Negative); Ketones >=160 mg/dL (Negative); Leukocyte Esterase Negative (Negative); Nitrite Negative (Negative); Specific Gravity 1.025 (1.005-1.025)
[2018-11-09 15:35] LABS: Bacteria Rare HPF (Negative); Epithelial Cells Rare HPF (Negative); RBC 0-2 (0-2); WBC 0-2 HPF (0-5)
[2018-11-09 15:36] LABS: C & S Indicated? No; Casts 0-2 Hyaline LPF (Negative); Crystals Negative HPF (Negative); Mucus Trace (Negative)
[2018-11-09 15:39] LABS: BE (Venous) -1.1 mmol/L (-3-3); HCO3 (Venous) 24 mmol/L (22-28); O2 Sat (Venous) 88 % (70-80); TCO2 (Venous) 22 mmol/L (22-29); pCO2 (Venous) 39 mm/Hg (34-47); pO2 (Venous) 57 mm/Hg (28-44)
[2018-11-09] MEDS: Lactated Ringers 1,000 ML 500 ML IV (15:54)
[2018-11-09 16:20] LABS: *AMPHETAMINES SCREEN URINE POSITIVE (Negative); *BARBITURATES SCREEN URINE Negative (Negative); *BENZODIAZEPINES SCREEN URINE Negative (Negative); Cannabinoids THC Negative (Negative); Cocaine Screen,Urine Negative (Negative); METHADONE URINE SCREEN Negative (Negative); OPIATES URINE SCREEN POSITIVE (Negative)
[2018-11-09 16:26] LABS: Tricyclic Antidepressants Negative (Negative)
[2018-11-09 16:47] LABS: ETHANOL BLOOD < 3.0 mg/dL (<3)
[2018-11-09 17:15] LABS: Anion Gap 12.6 mmol/L (3-11); BUN 9 mg/dL (7-18); CO2 23.4 mmol/L (21.0-32.0); CREATININE 0.73 mg/dL (0.70-1.30); Calcium 8.8 mg/dL (8.5-10.1); Chloride 96 mmol/L (98-107); Glucose 75 mg/dL (70-100); Potassium 4.1 mmol/L (3.5-5.1); Sodium 132 mmol/L (136-145)
--- NOTE | 2018-11-10 09:48 | NUR.NOTE ---
Nursing Note: Called prescription in to [facility] as written except change as ODT instead of film. Per Dr. Cai. Sabiha Hernández.
[2018-11-11 11:36] LABS: Hepatitis A Antibody IgM Negative (NEGAT); Hepatitis B Core Antibody Negative (NEGAT); Hepatitis B surface Ag Negative (NEGAT); Hepatitis C Ab w Rflx HCV PCR Negative (NEGAT)
== END 2018-11-09 19:12 | disposition home or self-care (01) ==
PROVIDERS: Physician Assistant; Emergency Provider Student in an Organized Health Care Education/Training Program; PCP Family Medicine
DX: R11.2 Nausea with vomiting, unspecified (principal); R00.0 Tachycardia, unspecified; R03.0 Elevated blood-pressure reading, without diagnosis of hypertension; E86.0 Dehydration; F10.20 Alcohol dependence, uncomplicated; F11.23 Opioid dependence with withdrawal; R74.0 Nonspecific elevation of levels of transaminase and lactic acid dehydrogenase [LDH]; R74.8 Abnormal levels of other serum enzymes
CPT/HCPCS: 36415; 80048; 80053; 80307; 82805; 83690; 86704; 86709; 86803; 87340; 93005; 96361; 96374; 99284; 80320; 80329; 81003; 81015; 83735; 84484; 85025; 93010; 99285; J2060

== ENCOUNTER 2018-12-29 10:54 | Outpatient (CLI) | payer MEDICAID, SELFPAY ==
[2018-12-29 13:09] LABS: ALT 35 U/L (12-78); AST 23 U/L (15-37)
== END 2018-12-29 11:14 ==
PROVIDERS: PCP Family Medicine; Visit Provider Family Medicine
DX: R74.8 Abnormal levels of other serum enzymes (principal)
CPT/HCPCS: 36415; 84450; 84460

== ENCOUNTER 2019-02-21 15:54 | Observation (INO) | payer MEDICAID, SELFPAY ==
[2019-02-21] VITALS (37 sets, daily range): BP systolic 110–176; BP diastolic 47–111; PULSE 76–180; RESP 7–24; TEMP 36.4–36.7; O2SAT 88–98
--- NOTE | 2019-02-21 15:59 | W.ED.GENAD ---
Discharge Plan Disposition Patient Disposition: [facility] INPATIENT Condition: Improving Discharge Details Chief Complaint: AMS/LOC Clinical Impression: Polysubstance abuse Admit Date/Time: 02/21/19 17:44 Admit Provider: Raymundo Lopez Attending Provider: Raymundo Lopez Primary Care Provider: Hernesto Beverly ED Provider: Pedro Layton Discharge Data Discharge Date/Time-TO BE ENTERED AT DEPARTURE: 02/21/19 19:01 Medical Decision Making 24-year-old male who was found unresponsive in his home by family members. EMS was called and patient awoke to an agitated and combative states that he wanted to kill himself by jumping out the back of the ambulance. He is agitated and combative on arrival, is clearly a danger to himself. He is placed in restraints and given Haldol for agitation. He did calm following this and IV access was established, screening laboratories obtained as part of his medical work-up. He is given a liter of fluid. The patient's mother, Ms. Ventura, states that his sister found a spoon and needle in his belongings and she is fearful he may have relapsed into opiate abuse. Differential diagnosis includes acute psychosis with depression, polysubstance abuse, alcohol intoxication, dehydration, with slight abnormality. Diagnostics reveal alcohol level of 345, sodium 146 and potassium 3.1, chloride 106, bicarb 25, BUN 7, creatinine 0.9, anion gap of 14. AST is 27, ALT 19. Urine drug screen pending. Given the patients level of intoxication, voiced thoughts of self harm, his medical screening/stabilization will require further observation and metabolization of alcohol. Case discussed with Dr Lopez and patient admitted. ECG Data Attestation: I personally reviewed and interpreted this ECG (s) as follows: Interpretation: sinus tachycardia with a rate of 110, QRS is narrow, there is slight J-point elevation present in lead V2, no acute ST segment elevation. HPI General Mode of arrival: EMS. Date/Time Provider Initiated Documentation: 02/21/19 16:36. Limitations to Documentation: altered mental status. Information obtained by: EMS. History of Present Illness 24 year old M presents to the emergency department with the chief complaint of Intoxication and voicing of suicidality at home, described as moderate, Patient started experiencing this unknown No relieving factors improve symptom(s), No exacerbating factors reported . Patient did receive the following treatments prior to arrival, none Related Data Home Medications Medication Instructions Recorded Confirmed trazodone 100 mg tablet 200 mg PO HS #60 tab-cap 07/15/18 02/21/19 dextroamphetamine-amphetamine ER 20 mg PO DAILY #30 cap MDD 20mg 01/21/19 02/21/19 20 mg 24hr capsule,extend release Previous Rx's Medication Instructions Recorded trazodone 100 mg tablet 200 mg PO HS #60 tab-cap 07/15/18 dextroamphetamine-amphetamine ER 20 mg PO DAILY #30 cap MDD 20mg 01/21/19 20 mg 24hr capsule,extend release Allergies Allergy/AdvReac Type Severity Reaction Status Date / Time Sulfa (Sulfonamide Allergy Unknown Hives Unverified 02/12/19 08:38 Antibiotics) General YESSENIA: 2 Review of Systems Review of Systems Patient not cooperative with review of systems Unobtainable due to mental status PFSH Medical History Polysubstance abuse (Acute) Attention deficit disorder (Chronic 04/15/18) Alcoholism (Chronic 08/15/17) Exposure to hepatitis C (Acute) Surgical History Fracture, Open Treatment Social History Smoking/Tobacco Use Status: Current every day Tobacco: How many years used: 10 Alcohol Intake: current Alcohol Intake frequency: 3 or more drinks per day Alcohol type: hard liquor Drug use: Daily Substance use type: marijuana, crack/cocaine, heroin and amphetamines Household members: other Details: LIVES WT Paternal Do you feel safe in your relationship?: Yes Exam Narrative Exam Narrative: GEN: awake, alert. Combative and fighting with paramedics and police HEAD: Normocephalic, atraumatic ENT: Mucous membranes dry, oropharynx unremarkable, External ear exam unremarkable EYES: PERRL, EOMI. myotic bilaterally. Conjunctival injection bilaterally. Abrasion R eyelid. No periorbital swelling or tenderness NECK: Full ROM, no CODIE, no menigismus CHEST/RESP: Nontender, clear to auscultation bilateral, no wheeze/rhonchi/rales CARDIOVASCULAR: Tachycardia, no murmur, rub pat. 2+ Rad pulse bilateral ABDOMEN: Soft, nontender, no mass. +Bowel sounds EXT: Full ROM, no edema, no rash Neuro: Grossly normal neurologic exam, agitated and combative at times. Psych: Speech fluent, thoughts tangential, affect labile
--- NOTE | 2019-02-21 16:03 | ED.GENADUL_ITS ---
Discharge Plan Disposition Patient Disposition: [facility] INPATIENT Condition: Improving Discharge Details Chief Complaint: AMS/LOC Clinical Impression: Polysubstance abuse Admit Date/Time: 02/21/19 17:44 Admit Provider: Raymundo Lopez Attending Provider: Raymundo Lopez Primary Care Provider: Hernesto Beverly ED Provider: Pedro Layton Discharge Data Discharge Date/Time-TO BE ENTERED AT DEPARTURE: 02/21/19 19:01 Medical Decision Making 24-year-old male who was found unresponsive in his home by family members. EMS was called and patient awoke to an agitated and combative states that he wanted to kill himself by jumping out the back of the ambulance. He is agitated and combative on arrival, is clearly a danger to himself. He is placed in restraints and given Haldol for agitation. He did calm following this and IV access was established, screening laboratories obtained as part of his medical work-up. He is given a liter of fluid. The patient's mother, Ms. Ventura, states that his sister found a spoon and needle in his belongings and she is fearful he may have relapsed into opiate abuse. Differential diagnosis includes acute psychosis with depression, polysubstance abuse, alcohol intoxication, dehydration, with slight abnormality. Diagnostics reveal alcohol level of 345, sodium 146 and potassium 3.1, chloride 106, bicarb 25, BUN 7, creatinine 0.9, anion gap of 14. AST is 27, ALT 19. Urine drug screen pending. Given the patients level of intoxication, voiced thoughts of self harm, his medical screening/stabilization will require further observation and metabolization of alcohol. Case discussed with Dr Lopez and patient admitted. ECG Data Attestation: I personally reviewed and interpreted this ECG (s) as follows: Interpretation: sinus tachycardia with a rate of 110, QRS is narrow, there is slight J-point elevation present in lead V2, no acute ST segment elevation. HPI General Mode of arrival: EMS . Date/Time Provider Initiated Documentation: 02/21/19 16:36 . Limitations to Documentation: altered mental status . Information obtained by: EMS . History of Present Illness 24 year old M presents to the emergency department with the chief complaint of Intoxication and voicing of suicidality at home, described as moderate, Patient started experiencing this unknown No relieving factors improve symptom(s), No exacerbating factors reported . Patient did receive the following treatments prior to arrival, none Related Data Home Medications Medication Instructions Recorded Confirmed trazodone 100 mg tablet 200 mg PO HS #60 tab-cap 07/15/18 02/21/19 dextroamphetamine-amphetamine ER 20 mg PO DAILY #30 cap MDD 20mg 01/21/19 02/21/19 20 mg 24hr capsule,extend release Previous Rx's Medication Instructions Recorded trazodone 100 mg tablet 200 mg PO HS #60 tab-cap 07/15/18 dextroamphetamine-amphetamine ER 20 mg PO DAILY #30 cap MDD 20mg 01/21/19 20 mg 24hr capsule,extend release Allergies Allergy/AdvReac Type Severity Reaction Status Date / Time Sulfa (Sulfonamide Allergy Unknown Hives Unverified 02/12/19 08:38 Antibiotics) General YESSENIA: 2 Review of Systems Review of Systems Patient not cooperative with review of systems Unobtainable due to mental status PFSH Medical History Polysubstance abuse (Acute) Attention deficit disorder (Chronic 04/15/18) Alcoholism (Chronic 08/15/17) Exposure to hepatitis C (Acute) Surgical History Fracture, Open Treatment Social History Smoking/Tobacco Use Status: Current every day Tobacco: How many years used: 10 Alcohol Intake: current Alcohol Intake frequency: 3 or more drinks per day Alcohol type: hard liquor Drug use: Daily Substance use type: marijuana, crack/cocaine, heroin and amphetamines Household members: other Details: LIVES WT Paternal Do you feel safe in your relationship?: Yes Exam Narrative Exam Narrative: GEN: awake, alert. Combative and fighting with paramedics and police HEAD: Normocephalic, atraumatic ENT: Mucous membranes dry, oropharynx unremarkable, External ear exam unremarkable EYES: PERRL, EOMI. myotic bilaterally. Conjunctival injection bilaterally. Abrasion R eyelid. No periorbital swelling or tenderness NECK: Full ROM, no CODIE, no menigismus CHEST/RESP: Nontender, clear to auscultation bilateral, no wheeze/rhonchi/rales CARDIOVASCULAR: Tachycardia, no murmur, rub pat. 2+ Rad pulse bilateral ABDOMEN: Soft, nontender, no mass. +Bowel sounds EXT: Full ROM, no edema, no rash Neuro: Grossly normal neurologic exam, agitated and combative at times. Psych: Speech fluent, thoughts tangential, affect labile
[2019-02-21] MEDS: Haloperidol 5 MG/ML VIAL IM ×2 (16:17→22:49)
[2019-02-21] MEDS: Normal Saline 1,000 ML 1000 ML IV (16:35)
[2019-02-21 16:44] LABS: Abs Immature Grans 0.01 k/cumm (0.0-0.09); Absolute Basophil Count 0.04 k/cumm (0.0-0.2); Absolute Eosinophil Count 0.01 k/cumm (0.0-0.7); Absolute Lymphocyte Count 1.47 k/cumm (1.2-3.4); Absolute Monocyte Count 0.28 k/cumm (0.11-0.7); Absolute Neutrophil Count 4.28 k/cumm (1.2-6.7); Basophils % 0.7; Eosinophils % 0.2; HCT 41.6 % (40.0-50.0); Immature Grans % 0.2; Lymphocytes % 24.1; Mean Corp. HGB Concentration 33.7 g/dL (32.0-36.0); Mean Corpuscular Hemoglobin 30.6 pg (27.0-33.0); Mean Platelet Volume 9.3 fL (8.0-11.0); Monocytes % 4.6; Neutrophils % 70.2; Platelet Count 256 x1000/uL (130-400); RBC 4.57 m/cumm (4.50-6.00); RBC Distribution Width 14.2 % (11.8-14.1); White Blood Cell Count 6.09 k/cumm (4.4-10.8)
[2019-02-21 17:01] LABS: Salicylate 4.8 mg/dL (2.8-20.0)
[2019-02-21 17:03] LABS: ALT 19 U/L (12-78); AST 27 U/L (15-37); Acetaminophen < 2 ug/mL (10-30); Albumin 3.7 g/dL (3.4-5.0); Alkaline Phosphatase 100 U/L (46-116); Anion Gap 14.2 mmol/L (3-11); BUN 7 mg/dL (7-18); Bilirubin, Total 0.1 mg/dL (0.2-1.0); CO2 25.8 mmol/L (21.0-32.0); CREATININE 0.99 mg/dL (0.70-1.30); Calcium 7.9 mg/dL (8.5-10.1); Chloride 106 mmol/L (98-107); ETHANOL BLOOD 345.8 mg/dL (<3); Glucose 112 mg/dL (70-100); Potassium 3.1 mmol/L (3.5-5.1); Sodium 146 mmol/L (136-145); TSH 1.57 uIU/mL (0.358-3.74); Total Protein 7.6 g/dL (6.4-8.2)
[2019-02-21] MEDS: POTASSIUM CHLORIDE/0.9% NACL 1,000 ML 150 MEQ IV ×2 (17:35→23:54)
[2019-02-21 19:39] LABS: Bilirubin Negative (Negative); Blood Trace-intact (Negative); Clarity Clear; Glucose Negative (Negative); Ketones Negative (Negative); Leukocyte Esterase Negative (Negative); Nitrite Negative (Negative); Urobilinogen 0.2 EU/dL (Up TO 0.2)
[2019-02-21 19:47] LABS: *AMPHETAMINES SCREEN URINE Negative (Negative); *BARBITURATES SCREEN URINE Negative (Negative); *BENZODIAZEPINES SCREEN URINE Negative (Negative); Bacteria Rare HPF (Negative); C & S Indicated? No; Cannabinoids THC POSITIVE (Negative); Casts Negative LPF (Negative); Cocaine Screen,Urine Negative (Negative); Crystals Negative HPF (Negative); Epithelial Cells Rare HPF (Negative); METHADONE URINE SCREEN Negative (Negative); Mucus Trace (Negative); OPIATES URINE SCREEN Negative (Negative); Other Cells Negative (Negative); RBC 0-2 (0-2); WBC 0-2 HPF (0-5)
[2019-02-21 19:49] LABS: Tricyclic Antidepressants Negative (Negative)
--- NOTE | 2019-02-21 20:27 | HPE_ITS ---
Date of service: 02/21/19 Time of Service: 20:06 Assessment and Plan (1) Alteration in patient safety due to identified suicide risk: Current visit: Yes Status: Acute Patient with a history of polysubstance abuse who comes in intoxicated. He is displaying irrational thought processes, including trying to jump from moving ambulance. He then denies any problems with depression or suicidality, he then states he would blow his head off if he could. He then states that if he wanted to kill himself he would have done it by now. Plan at this point is to monitor in the ICU on observation with hopes that a more coherent picture will evolve once he is no longer intoxicated. Plan is for mental health consult in the a.m. once he is no longer intoxicated. (2) Polysubstance abuse: Current visit: Yes Status: Acute He states he is used multiple substances including today. He shows me track parson on his right arm including one right wrist that he says was the one he used today. Monitor for withdrawal symptoms (3) Attention deficit disorder: Current visit: Yes Status: Chronic Dr. Beverly has him on daily Adderall. We will continue with his usual daily medications including Adderall in the a.m. and Seroquel at night. (4) Alcoholism: Current visit: Yes Status: Chronic He states he has had problems with alcohol for many years. He is just out of rehab facility in November 2018. He and his mother discussed going back into a rehab facility in [place]. Will place on CIWA scoring and treat with benzodiazepines as needed. (5) Discharge planning issues: Current visit: Yes Status: Acute Plan is to admit to observation status. He is at risk for impulsive behavior years. At this point if he does try to leave we would need to likely restrain him until he is no longer intoxicated and is seen by mental health. History of Present Illness Chief Complaint: Suicidality/intoxication Narrative: This is a 24-year-old man with a known history of polysubstance abuse. He was just discharged from [facility] for an inpatient rehabilitation stay in November 2018. He admits that he has relapsed. He has been drinking alcohol on a daily basis. He is also back to using injection drugs, anything I can get. He states today he used injection drugs, he believes it was heroin, as well as 2 pints of 5 O'Clock vodka. He was markedly intoxicated and passed out. His parents found him to be unarousable and alerted EMS. When EMS arrived he became agitated and did not want to be transported to the hospital. In route to the hospital he apparently tried to escape the ambulance. He required restraints. In the emergency room he continued to be agitated and aggressive. He required continued restraints and ultimately received some Haldol. He did eventually calm down and was able to come out of restraints and was able to converse with caregivers. He is currently conversing with his mother. He is being monitored overnight in the ICU pending mental health evaluation for suicidality in the a.m. Review of Systems Review of Systems Intoxicated but alert and talkative. Constitutional Reports difficulty sleeping Eyes Denies loss of vision ENT Reports system reviewed and no additional complaints, except as docu Cardiovascular Reports system reviewed and no additional complaints, except as docu Respiratory Reports system reviewed and no additional complaints, except as docu Gastrointestinal Reports system reviewed and no additional complaints, except as docu Genitourinary Reports urinary hesitancy Comments: States he has trouble voiding Musculoskeletal Reports system reviewed and no additional complaints, except as docu Integumentary/Breasts Reports system reviewed and no additional complaints, except as docu Neurologic Reports system reviewed and no additional complaints, except as docu and Denies loss of vision Psychiatric Reports abnormal sleep pattern, Reports anxiety and Reports depression (Denies depression but says he would blow his head off) Endocrine Reports system reviewed and no additional complaints, except as docu Hematologic/Lymphatic Reports system reviewed and no additional complaints, except as docu and Denies easy bruising Allergic/Immunologic Reports system reviewed and no additional complaints, except as docu [facility] Medical History Polysubstance abuse (Acute) Attention deficit disorder (Chronic 04/15/18) Alcoholism (Chronic 08/15/17) Exposure to hepatitis C (Acute) Surgical History Fracture, Open Treatment Social History Smoking/Tobacco Use Status: Current every day Tobacco: How many years used: 10 Alcohol Intake: current Alcohol Intake frequency: 3 or more drinks per day Alcohol type: hard liquor Drug use: Daily Substance use type: marijuana, crack/cocaine, heroin and amphetamines Household members: other Details: LIVES WTIH Paternal GM Do you feel safe in your relationship?: Yes Meds Home Medications Medication Instructions Recorded Confirmed Type trazodone 100 mg tablet 200 mg PO HS #60 tab-cap 07/15/18 02/21/19 Rx dextroamphetamine-amphetamine ER 20 mg PO DAILY #30 cap MDD 20mg 01/21/19 02/21/19 Rx 20 mg 24hr capsule,extend release Allergies Allergy/AdvReac Type Severity Reaction Status Date / Time Sulfa (Sulfonamide Allergy Unknown Hives Unverified 02/12/19 08:38 Antibiotics) Exam Narrative Exam Narrative: Smells of alcohol. Defiant but cooperative, sitting in bed conversing with his mother Const General: comfortable and no acute distress Nutritional Appearance: average body habitus Orientation: alert and awake HENMT Head: normal to inspection and abrasion (Over right eyelid) Ears: hearing grossly normal bilaterally Face and sinus: normal facial exam Mouth: oral mucosae normal Eyes General: appearance normal, both eyes and all related structures Neck Neck: normal visual inspection Chest Chest: normal inspection of the chest Resp Effort & Inspection: normal respiratory effort Auscultation: clear to auscultation bilaterally Cardio Rate: regular rate Rhythm: regular rhythm Heart Sounds: S1 normal and S2 normal GI Inspection: normal to inspection Palpation: soft and nontender Back/Spine/Pelvis Back: no CVA tenderness Cervical Spine: normal cervical lordosis Thoracic/Lumbar Spine: thoracic and lumbar spine normal to inspection Skin General skin exam: no rashes or lesions noted Neuro General: moves all extremities Extrem General: normal to inspection Psych Appearance: grossly normal Speech and Movement: speech and movement normal Mood: labile mood and irritable mood Affect: labile affect, animated and anxious affect Attitude: guarded Thought Process: illogical Thought Content: no delusions, no hallucinations and suicidality Insight: limited Judgment: limited Results Labs : 02/21/19 16:29 02/21/19 16:29 Laboratory Results - last 24 hr 02/21/19 02/21/19 02/21/19 16:29 16:29 16:29 WBC 6.09 RBC 4.57 Hgb 14.0 Hct 41.6 MCV 91.0 MCH 30.6 MCHC 33.7 RDW 14.2 H Plt Count 256 MPV 9.3 Immature Gran % 0.2 Neutrophils % 70.2 Lymphocytes % 24.1 Monocytes % 4.6 Eosinophils % 0.2 Basophils % 0.7 Absolute Neutrophils 4.28 Absolute Lymphocytes 1.47 Absolute Monocytes 0.28 Absolute Eosinophils 0.01 Absolute Basophils 0.04 Sodium 146 H Potassium 3.1 L Chloride 106 Carbon Dioxide 25.8 Anion Gap 14.2 H BUN 7 Creatinine 0.99 Estimated GFR/1.73 m2 >= 60.00 Glucose 112 H Calcium 7.9 L Total Bilirubin 0.1 L AST 27 ALT 19 Alkaline Phosphatase 100 Total Protein 7.6 Albumin 3.7 TSH 1.57 Urine Color Urine Clarity Urine pH Ur Specific [place] Urine Protein Urine Ketones Urine Blood Urine Nitrite Urine Bilirubin Urine Urobilinogen Ur Leukocyte Esterase Urine RBC Urine WBC Ur Epithelial Cells Urine Crystals Urine Bacteria Urine Casts Urine Mucus Urine Other Ur Culture Indicated? Urine Glucose Salicylates 4.8 Urine Opiates Screen Urine Methadone Screen Acetaminophen < 2 L Ur Barbiturates Screen Ur Tricyclics Screen Ur Amphetamines Screen U Benzodiazepines Scrn Urine Cocaine Screen Ur THC Screen Ethyl Alcohol 345.8 02/21/19 02/21/19 19:15 19:15 WBC RBC Hgb Hct MCV MCH MCHC RDW Plt Count MPV Immature Gran % Neutrophils % Lymphocytes % Monocytes % Eosinophils % Basophils % Absolute Neutrophils Absolute Lymphocytes Absolute Monocytes Absolute Eosinophils Absolute Basophils Sodium Potassium Chloride Carbon Dioxide Anion Gap BUN Creatinine Estimated GFR/1.73 m2 Glucose Calcium Total Bilirubin AST ALT Alkaline Phosphatase Total Protein Albumin TSH Urine Color Yellow Urine Clarity Clear Urine pH 6.0 Ur Specific [place] 1.020 Urine Protein 30 H Urine Ketones Negative Urine Blood Trace-intact H Urine Nitrite Negative Urine Bilirubin Negative Urine Urobilinogen 0.2 Ur Leukocyte Esterase Negative Urine RBC 0-2 Urine WBC 0-2 Ur Epithelial Cells Rare Urine Crystals Negative Urine Bacteria Rare Urine Casts Negative Urine Mucus Trace Urine Other Negative Ur Culture Indicated? No Urine Glucose Negative Salicylates Urine Opiates Screen Negative Urine Methadone Screen Negative Acetaminophen Ur Barbiturates Screen Negative Ur Tricyclics Screen Negative Ur Amphetamines Screen Negative U Benzodiazepines Scrn Negative Urine Cocaine Screen Negative Ur THC Screen Positive Ethyl Alcohol Last Vital Signs Temp 36.4 C L 02/21/19 18:17 Pulse 96 H 02/21/19 18:53 Resp 12 02/21/19 18:17 BP 121/60 02/21/19 18:53 Pulse Ox 98 02/21/19 18:17
[2019-02-21] MEDS: traZODone 50 MG TAB 200 MG PO (23:27)
[2019-02-22] VITALS (24 sets, daily range): BP systolic 117–173; BP diastolic 61–96; PULSE 44–84; RESP 11–20; TEMP 36.5–37; O2SAT 90–98
[2019-02-22] MEDS: LORazepam 1 MG TAB PO/SL ×4 (04:42→20:08)
[2019-02-22] MEDS: POTASSIUM CHLORIDE/0.9% NACL 1,000 ML 150 MEQ IV (06:17)
[2019-02-22 07:00] LABS: Abs Immature Grans 0.01 k/cumm (0.0-0.09); Absolute Basophil Count 0.03 k/cumm (0.0-0.2); Absolute Eosinophil Count 0.08 k/cumm (0.0-0.7); Absolute Lymphocyte Count 2.24 k/cumm (1.2-3.4); Absolute Monocyte Count 0.68 k/cumm (0.11-0.7); Absolute Neutrophil Count 4.36 k/cumm (1.2-6.7); Basophils % 0.4; Eosinophils % 1.1; HGB 12.8 g/dL (13.5-17.5); Immature Grans % 0.1; Lymphocytes % 30.3; Mean Corp. HGB Concentration 32.8 g/dL (32.0-36.0); Mean Corpuscular Hemoglobin 30.2 pg (27.0-33.0); Mean Platelet Volume 9.6 fL (8.0-11.0); Monocytes % 9.2; Neutrophils % 58.9; Platelet Count 218 x1000/uL (130-400); RBC 4.24 m/cumm (4.50-6.00); RBC Distribution Width 14.2 % (11.8-14.1)
[2019-02-22 07:10] LABS: ALT 19 U/L (12-78); AST 37 U/L (15-37); Albumin 2.9 g/dL (3.4-5.0); Alkaline Phosphatase 93 U/L (46-116); Anion Gap 10.6 mmol/L (3-11); BUN 6 mg/dL (7-18); Bilirubin, Total 0.3 mg/dL (0.2-1.0); CO2 26.4 mmol/L (21.0-32.0); CREATININE 0.83 mg/dL (0.70-1.30); Calcium 8.3 mg/dL (8.5-10.1); Chloride 105 mmol/L (98-107); Glucose 84 mg/dL (70-100); Potassium 3.8 mmol/L (3.5-5.1); Sodium 142 mmol/L (136-145); Total Protein 6.4 g/dL (6.4-8.2)
[2019-02-22] MEDS: Multivitamin TAB 1 TAB PO (08:20)
[2019-02-22] MEDS: Thiamine 100 MG TAB PO (08:20)
[2019-02-22] MEDS: Acetaminophen 325 MG TAB PO (08:20)
[2019-02-22] MEDS: Folic Acid 1 MG TAB PO (08:20)
[2019-02-22] MEDS: Potassium Chloride 20 MEQ TABCR PO (09:48)
[2019-02-22] MEDS: Magnesium Oxide 400 MG TAB PO (09:48)
--- NOTE | 2019-02-22 12:27 | PHARADMIT ---
Admission Pharmacy Clinical Review POLYSUBSTANCE ABUSE, SUICIDALITY Code Status Full Code Current Weight 70 kg Renally Cleared and Narrow Therapeutic Index Meds CrCl~133ml/min QTc Value / Action Taken QTC 473 (Abnormal for age) Taking Trazodone BP Control, Fever BP 137/90 Afebrile CIWA 8 Electrolytes reviewed K+ 3.8, (dc'd IVF's with KCL) No Mag level ordered got 20meq po x1 Mag 400mg po x1 DVT Prophylaxis none Opiate Usage / Scheduled Bowel Regimen Ordered none Plt/SCr for Heparin / Enoxaparin Plt 218 SCr 0.83 INR for Warfarin H/H stable, WBC/Bands H/H 12.8/39.0 WBC 7.40 Antibiotic appropriateness Cultures and Sensitivities n/a Surgical ABX d/c within 24 hr DM control / Insulin Dosing n/a Heart Failure (Check EF%) (JOSE's, B-Block, Diuretics) BG 84 IV to PO Switch Home Meds Reviewed all ordered Home Meds Not Ordered Comments refused Adderall XR dose this morning Lorazepam ordered for CIWA protocol Mental health consult-medically cleared Alcohol level on admission 345-recently discharged from rehab facility
--- NOTE | 2019-02-22 12:35 | PGE_ITS ---
Date of Service Date of service: 02/22/19 Time of Service: 12:30 Assessment and Plan (1) Alcoholism: Current visit: Yes Status: Chronic Initally intoxicated with an alcohol level of 345, appears at his baseline this morning. Showing no signs of withdrawl, but remains on CIWA protocol. Continue to monitor. (2) Alteration in patient safety due to identified suicide risk: Current visit: Yes Status: Acute Being evaluated by Mental Health. (3) DVT prophylaxis: Current visit: Yes Status: Acute SCD's. Subjective Interval history since last seen: 24-year-old man with a past history of EtOH and polysubstance abuse, admitted from [facility] Emergency Department with diagnosis of Acute Alcohol Intoxication with SI. Mr. Caban Has a prior history of Polysubstance and EtOH abuse, and ADD. The patient presented to the ED via EMS with noted intoxication. He was discharged from [facility] for an inpatient rehab in 11/2018, since which time he has reportedly resumed drinking alcohol. He also admits to [facility], and reportedly used heroin prior to this admission, although his admission UDS is negative for Opiates. The patient was brought in after being found unarousable by his parents. EMS reported finding the patient agitated, in fact attempting to escape the ambulance en route to the hospital. He initially required restraints in the ED due to agitation and aggressive behavior, and required Haldol as well. This morning the patient is feeling vastly improved. Mental Health has been consulted and will be meeting with patient later today. No overnight events reported. Remains afebrile. Exam Narrative Exam Narrative: General: Patient appears comfortable, AAOX3, NAD Neck: Supple CV: Regular, nontachycardic, S1S2, No rubs, murmurs, or gallops. Pulmonary: Clear to auscultation bilaterally, no crackles, wheezing, or rhonchi Abdomen: + Bowel Sounds, soft, nontender, nondistended Vascular: No lower extremity edema Psych: Normal mood and affect. Objective Objective Clinical Data: Abnormal lab results 02/21/19 02/21/19 02/21/19 Range/Units 16:29 16:29 16:29 RBC (4.50-6.00) m/cumm Hgb (13.5-17.5) g/dL Hct (40.0-50.0) % RDW 14.2 H (11.8-14.1) % Sodium 146 H (136-145) mmol/L Potassium 3.1 L (3.5-5.1) mmol/L Anion Gap 14.2 H (3-11) mmol/L BUN (7-18) mg/dL Glucose 112 H (70-100) mg/dL Calcium 7.9 L (8.5-10.1) mg/dL Total Bilirubin 0.1 L (0.2-1.0) mg/dL Albumin (3.4-5.0) g/dL Urine Protein (Negative) mg/dL Urine Blood (Negative) Acetaminophen < 2 L (10-30) ug/mL 02/21/19 02/22/19 02/22/19 Range/Units 19:15 06:25 06:25 RBC 4.24 L (4.50-6.00) m/cumm Hgb 12.8 L (13.5-17.5) g/dL Hct 39.0 L (40.0-50.0) % RDW 14.2 H (11.8-14.1) % Sodium (136-145) mmol/L Potassium (3.5-5.1) mmol/L Anion Gap (3-11) mmol/L BUN 6 L (7-18) mg/dL Glucose (70-100) mg/dL Calcium 8.3 L (8.5-10.1) mg/dL Total Bilirubin (0.2-1.0) mg/dL Albumin 2.9 L (3.4-5.0) g/dL Urine Protein 30 H (Negative) mg/dL Urine Blood Trace-intact H (Negative) Acetaminophen (10-30) ug/mL Vital Signs Temperature 36.6 C 02/22/19 07:30 Temperature Source Temporal Artery Scan 02/22/19 07:30 Pulse 67 02/22/19 10:00 Pulse 71 02/22/19 10:00 Respiratory Rate 16 02/22/19 10:00 Respiratory Effort Non-Labored 02/22/19 07:30 Respiratory Depth Normal 02/22/19 07:30 Respiratory Pattern Normal 02/22/19 07:30 Blood Pressure 137/90 02/22/19 10:00 Blood Pressure Mean 102 02/22/19 10:00 Blood Pressure Position Supine 02/22/19 07:30 Pulse Oximetry 95 02/22/19 07:33 Oxygen Delivery Method Room Air 02/22/19 07:30 Oxygen Flow Rate 0 02/22/19 07:30 Pain Level 0 02/22/19 09:20 Intake & Output 02/21/19 02/22/19 02/22/19 23:59 11:59 23:59 Intake Total 2187.5 / 2187.5 2020.0 / 2020.0 Output Total 500 / 500 1900 / 1900 Balance 1687.5 / 1687.5 120.0 / 120.0 Weight 70 kg 70 kg Intake: IV 1947.5 / 1947.5 1310.0 / 1310.0 Oral 240 / 240 710 / 710 Output: Urine 500 / 500 1900 / 1900 Other: Urine Color Yellow Yellow Urine Appearance Clear Clear Urine Odor Normal None Comment pt voided 200ml, PVR 10ml. Pt states he feels less pressure now. mixed with loose stool Stool Characteristics Liquid Brown Voiding Methods Bedside Commode Laboratory Results WBC 7.40 k/cumm (4.4-10.8) 02/22/19 06:25 RBC 4.24 m/cumm (4.50-6.00) L 02/22/19 06:25 Hgb 12.8 g/dL (13.5-17.5) L 02/22/19 06:25 Hct 39.0 % (40.0-50.0) L 02/22/19 06:25 MCV 92.0 fL (80-95) 02/22/19 06:25 MCH 30.2 pg (27.0-33.0) 02/22/19 06:25 MCHC 32.8 g/dL (32.0-36.0) 02/22/19 06:25 RDW 14.2 % (11.8-14.1) H 02/22/19 06:25 Plt Count 218 x1000/uL (130-400) 02/22/19 06:25 MPV 9.6 fL (8.0-11.0) 02/22/19 06:25 Immature Gran % 0.1 02/22/19 06:25 Neutrophils % 58.9 02/22/19 06:25 Lymphocytes % 30.3 02/22/19 06:25 Monocytes % 9.2 02/22/19 06:25 Eosinophils % 1.1 02/22/19 06:25 Basophils % 0.4 02/22/19 06:25 Absolute Neutrophils 4.36 k/cumm (1.2-6.7) 02/22/19 06:25 Absolute Lymphocytes 2.24 k/cumm (1.2-3.4) 02/22/19 06:25 Absolute Monocytes 0.68 k/cumm (0.11-0.7) 02/22/19 06:25 Absolute Eosinophils 0.08 k/cumm (0.0-0.7) 02/22/19 06:25 Absolute Basophils 0.03 k/cumm (0.0-0.2) 02/22/19 06:25 Sodium 142 mmol/L (136-145) 02/22/19 06:25 Potassium 3.8 mmol/L (3.5-5.1) D 02/22/19 06:25 Chloride 105 mmol/L (98-107) 02/22/19 06:25 Carbon Dioxide 26.4 mmol/L (21.0-32.0) 02/22/19 06:25 Anion Gap 10.6 mmol/L (3-11) 02/22/19 06:25 BUN 6 mg/dL (7-18) L 02/22/19 06:25 Creatinine 0.83 mg/dL (0.70-1.30) 02/22/19 06:25 Estimated GFR/1.73 m2 >= 60.00 (mL/min/1.73m2) 02/22/19 06:25 Glucose 84 mg/dL (70-100) 02/22/19 06:25 Calcium 8.3 mg/dL (8.5-10.1) L 02/22/19 06:25 Total Bilirubin 0.3 mg/dL (0.2-1.0) 02/22/19 06:25 AST 37 U/L (15-37) 02/22/19 06:25 ALT 19 U/L (12-78) 02/22/19 06:25 Alkaline Phosphatase 93 U/L (46-116) 02/22/19 06:25 Total Protein 6.4 g/dL (6.4-8.2) 02/22/19 06:25 Albumin 2.9 g/dL (3.4-5.0) L 02/22/19 06:25 TSH 1.57 uIU/mL (0.358-3.74) 02/21/19 16:29 Urine Color Yellow (Yellow) 02/21/19 19:15 Urine Clarity Clear 02/21/19 19:15 Urine pH 6.0 (5-8) 02/21/19 19:15 Ur Specific [place] 1.020 (1.005-1.025) 02/21/19 19:15 Urine Protein 30 mg/dL (Negative) H 02/21/19 19:15 Urine Ketones Negative mg/dL (Negative) 02/21/19 19:15 Urine Blood Trace-intact (Negative) H 02/21/19 19:15 Urine Nitrite Negative (Negative) 02/21/19 19:15 Urine Bilirubin Negative (Negative) 02/21/19 19:15 Urine Urobilinogen 0.2 EU/dL (Up TO 0.2) 02/21/19 19:15 Ur Leukocyte Esterase Negative (Negative) 02/21/19 19:15 Urine RBC 0-2 (0-2) 02/21/19 19:15 Urine WBC 0-2 HPF (0-5) 02/21/19 19:15 Ur Epithelial Cells Rare HPF (Negative) 02/21/19 19:15 Urine Crystals Negative HPF (Negative) 02/21/19 19:15 Urine Bacteria Rare HPF (Negative) 02/21/19 19:15 Urine Casts Negative LPF (Negative) 02/21/19 19:15 Urine Mucus Trace (Negative) 02/21/19 19:15 Urine Other Negative (Negative) 02/21/19 19:15 Ur Culture Indicated? No 02/21/19 19:15 Urine Glucose Negative mg/dL (Negative) 02/21/19 19:15 Salicylates 4.8 mg/dL (2.8-20.0) 02/21/19 16:29 Urine Opiates Screen Negative (Negative) 02/21/19 19:15 Urine Methadone Screen Negative (Negative) 02/21/19 19:15 Acetaminophen < 2 ug/mL (10-30) L 02/21/19 16:29 Ur Barbiturates Screen Negative (Negative) 02/21/19 19:15 Ur Tricyclics Screen Negative (Negative) 02/21/19 19:15 Ur Amphetamines Screen Negative (Negative) 02/21/19 19:15 U Benzodiazepines Scrn Negative (Negative) 02/21/19 19:15 Urine Cocaine Screen Negative (Negative) 02/21/19 19:15 Ur THC Screen Positive (Negative) 02/21/19 19:15 Ethyl Alcohol 345.8 mg/dL (<3) 02/21/19 16:29
--- NOTE | 2019-02-22 13:09 | PDOC.MHCN ---
Date of service: 02/22/19 Time of Service: 13:09 Mental Health Crisis Note Presenting Issue How did you arrive at the ED and why did you come: Paulie arrived at the emergency department at [facility] yesterday by ambulance due to alcohol intoxication and suicidal statements. Precipitating Factors Paulie denies current suicidal ideation and states he does not remember much of yesterday. He admits to at times thinking I could end it and it would be peaceful but states he would not act on those thoughts because of his family. Paulie states he lives with his grandparents, is not currently employed or in school, and spends his days at home watching television and getting drunk and/or high. He denies having friends or having any activities he enjoys doing. Paulie was recently at [facility] for rehab (Nov 2018) but relapsed a few weeks after returning home. Disposition BEHAVIOR: Cooperative. EYE CONTACT: Good. MOOD: Depressed. AFFECT: Flat. APPETITE: Reported as poor. Says he smokes pot to help improve his appetite. SLEEP(trouble falling/staying asleep: Reported as poor but is prescribed Trazodone to help with sleep. Plan Plan is to seek a voluntary hospitalization for mood stabilization and treatment of substance abuse. A referral is faxed to [facility] for review. Signature Clinician's Name/Title: Julieth Montano BA, [facility] Area Field Manager
--- NOTE | 2019-02-22 13:26 | PDOC.MHCN_ITS ---
Date of service: 02/22/19 Time of Service: 13:09 Mental Health Crisis Note Presenting Issue How did you arrive at the ED and why did you come: Paulie arrived at the emergency department at [facility] yesterday by ambulance due to alcohol intoxication and suicidal statements. Precipitating Factors Paulie denies current suicidal ideation and states he does not remember much of yesterday. He admits to at times thinking I could end it and it would be peaceful but states he would not act on those thoughts because of his family. Paulie states he lives with his grandparents, is not currently employed or in school, and spends his days at home watching television and getting drunk and/or high. He denies having friends or having any activities he enjoys doing. Paulie was recently at [facility] for rehab (Nov 2018) but relapsed a few weeks after returning home. Disposition BEHAVIOR: Cooperative. EYE CONTACT: Good. MOOD: Depressed. AFFECT: Flat. APPETITE: Reported as poor. Says he smokes pot to help improve his appetite. SLEEP(trouble falling/staying asleep: Reported as poor but is prescribed Trazodone to help with sleep. Plan Plan is to seek a voluntary hospitalization for mood stabilization and treatment of substance abuse. A referral is faxed to [facility] for review. Signature Clinician's Name/Title: Julieth Montano BA, [facility] Product Marketer
--- NOTE | 2019-02-22 14:41 | PDOC.CMPRO ---
Care Management Progress Note Paulie is voluntary to Psychiatric Stabilization today only. He verbalizes wanting to either transfer for stabilization or discharge to home. Paulie is sitting up in bed, makes good eye contact and is appropriate in interaction. He has been appropriate in all interactions since arriving at [facility]; and demonstrated appropriate coping and communication skills, articulating his or her needs and concerns and is fully engaged during staff interactions. Paulie requires no restrictions due to his ongoing cooperation. He does have CPSO as ordered by Dr. Layton upon admission for direct supervision. Anticipate Paulie will voluntarily discharge to [facility] today or return home this evening with his grandmother if bed is unavailable. Paulie shares that he attends daily AA meetings and reports attending AA yesterday prior to drinking. He reports participating at [facility] for inpatient rehab and discharging home in November. He reports a few weeks of abstinence prior to resumption of using substances. He shares worries of withdrawing from heroin, and states using heroin yesterday. He reports living with his grandmother, Fely in [place] and identifies her as a main support and that she provides transportation to his AA meetings. He is unaware of NA meetings in the community. GREGORY spoke with Julieth of [facility] who reports Paulie meets criteria for inpatient stabilization but is only voluntary through the day and if unable to transfer today will return home per his wishes. Paulie confirms this information during CM meeting. Julieth reports Paulie does not meet criteria for involuntary status. Julieth shares that [place] is reviewing Paulie for admission, GREGORY spoke with [facility] admissions who reports waiting for a RN to review referral. GREGORY notifies modern and contemporary art curator GREGORY Vasquez of possibility of need to coordinate transportation with [facility] Security through [email or web address] in the event Paulie is accepted this evening.
--- NOTE | 2019-02-22 17:05 | NUR.NOTE ---
Pt Transferred from ICU room 219 to room 217 on med/surg. Nursing Note:
--- NOTE | 2019-02-22 17:53 | CMPROGNOTE_ITS ---
Care Management Progress Note Paulie is voluntary to Psychiatric Stabilization today only. He verbalizes wanting to either transfer for stabilization or discharge to home. Paulie is sitting up in bed, makes good eye contact and is appropriate in interaction. He has been appropriate in all interactions since arriving at [facility]; and demonstrated appropr iate coping and communication skills, articulating his or her needs and concerns and is fully engaged during staff interactions. Paulie requires no restrictions due to his ongoing cooperation. He does have CPSO as ordered by Dr. Layton upon admission for direct supervision. Anticipate Paulie will voluntarily discharge to [facility] today or return home this evening with his grandmother if bed is unavailable. Paulie shares that he attends daily AA meetings and reports attending AA yesterday prior to drinking. He reports participating at [facility] for inpatient rehab and discharging home in November. He reports a few weeks of abstinence prior to resumption of using substances. He shares worries of withdrawing from heroin, and states using heroin yesterday. He reports living with his grandmother, Fely in [place] and identifies her as a main support and that she provides transportation to his AA meetings. He is unaware of NA meetings in the community. GREGORY spoke with Julieth of [facility] who reports Paulie meets criteria for inpatient stabilization but is only voluntary through the day and if unable to transfer today will return home per his wishes. Paulie confirms this information during CM meeting. Julieth reports Paulie does not meet criteria for involuntary status. Julieth shares that [place] is reviewing Paulie for admission, GREGORY spoke with [facility] admissions who reports waiting for a RN to review referral. GREGORY notifies construction field engineer GREGORY Vasquez of possibility of need to coordinate transportation with [facility] through [employer] in the event Paulie is accepted this evening.
--- NOTE | 2019-02-22 20:02 | PDOC.CMPRO ---
- If Service Date Differs Date of service: 02/22/19 Time of Service: 20:02 Care Management Progress Note Paulie is voluntary to Psychiatric Stabilization today only. He verbalizes wanting to either transfer for stabilization or discharge to home. Paulie is sitting up in bed, makes good eye contact and is appropriate in interaction. He has been appropriate in all interactions since arriving at [facility]; and demonstrated appropriate coping and communication skills, articulating his or her needs and concerns and is fully engaged during staff interactions. Paulie was evaluated by mental health [facility] and found not to be suicidal per their report (please see note). Paulie requires no restrictions due to his ongoing cooperation. He does have CPSO as ordered by Dr. Layton upon admission for direct supervision and continued by hospitalist. Anticipate Paulie will voluntarily discharge to [facility] after the oracle reviews the referral. GREGORY contacted [facility] and they will follow up with in the morning regarding the referral. Facility is concerned r/t his behaviors in the ED while he was intoxicated. [facility] would like to allow for one more day without agitated behaviors. SAFETY PLAN: [address] 1. Paulie will remain in his own clothing and may have belongings at the bedside. 2. Will remain in room under direct supervision of one-on-one staff at all times provided by TRINH, PRINTING PRESS[employer] coordinator of evaluation as ordered by provider. 3. No dietary restrictions 4. Follow [facility] Management of the Admitted Behavioral Health Patient policy. 5. Paulie may shower 6. Paulie may have the television, and activities including coloring, cards, and books crayons. 7. Paulie may have use of the phone and no restriction on visitors. 9. Due to VOLUNTARY status, if patient wishes to leave [facility], the [facility] stock worker and deliverer must be contacted to re-evaluate patient prior to patient exiting the building. .
[2019-02-22] MEDS: Nicotine 2 MG GUM CH (20:10)
[2019-02-23 03:05] VITALS: BP 147/90; PULSE 61; RESP 16; TEMP 36.2; O2SAT 99
[2019-02-23 07:56] VITALS: BP 146/84; PULSE 75; RESP 18; TEMP 36.7; O2SAT 96
[2019-02-23] MEDS: Thiamine 100 MG TAB PO (07:57)
[2019-02-23] MEDS: Folic Acid 1 MG TAB PO (07:57)
[2019-02-23] MEDS: Multivitamin TAB 1 TAB PO (07:57)
[2019-02-23] MEDS: Nicotine 2 MG GUM CH ×2 (07:57→11:48)
[2019-02-23] MEDS: LORazepam 1 MG TAB PO/SL ×2 (08:28→11:57)
--- NOTE | 2019-02-23 10:11 | W.INMHPGNOTE ---
Date of service: 02/23/19 Time of Service: 10:11 Mental Health Crisis Note Presenting Issue How did you arrive at the ED and why did you come: Paulie arrived at [facility] due to substance intoxication and suicidality. Precipitating Factors Paulie denies all symptoms of withdrawal. He presents with some mild tremors in his limbs, but he denies nausea, sweats, or changes in mood or affect. He has insight into his depression and still identifies wanting to go inpatient for treatment. He does not present with signs of thought disturbance, paranoia, or delusional thinking. He shares some insight into his situation and identifies getting treatment as something he needs to do. He still seems to have passive suicidal ideation, but does not report of intent or serious planning for suicide at this time when he discusses it in a hospital setting. Disposition BEHAVIOR: slightly anxious, pacing, but sticking with plan of care at this time EYE CONTACT: good MOOD: anxious AFFECT: melancholic to slightly restless/anxious APPETITE: good SLEEP(trouble falling/staying asleep: fair Plan Proceed with voluntary admission process to [facility] or [facility]. Continue to hold at [facility] until placement is complete. Signature Clinician's Name/Title: Avelino Fabian MA [facility]
--- NOTE | 2019-02-23 10:18 | MHPN_ITS ---
Date of service: 02/23/19 Time of Service: 10:11 Mental Health Crisis Note Presenting Issue How did you arrive at the ED and why did you come: Paulie arrived at [facility] due to substance intoxication and suicidality. Precipitating Factors Paulie denies all symptoms of withdrawal. He presents with some mild tremors in his limbs, but he denies nausea, sweats, or changes in mood or affect. He has insight into his depression and still identifies wanting to go inpatient for treatment. He does not present with signs of thought disturbance, paranoia, or delusional thinking. He shares some insight into his situation and identifies getting treatment as something he needs to do. He still seems to have passive suicidal ideation, but does not report of intent or serious planning for suicide at this time when he discusses it in a hospital setting. Disposition BEHAVIOR: slightly anxious, pacing, but sticking with plan of care at this time EYE CONTACT: good MOOD: anxious AFFECT: melancholic to slightly restless/anxious APPETITE: good SLEEP(trouble falling/staying asleep: fair Plan Proceed with voluntary admission process to [facility] or [facility]. Continue to hold at [facility] until placement is complete. Signature Clinician's Name/Title: Avelino Fabian MA [facility]
[2019-02-23 11:00] LABS: ETHANOL BLOOD < 3.0 mg/dL (<3)
--- NOTE | 2019-02-23 12:00 | W.PM.DS.N ---
Date of service: 02/23/19 Time of Service: 12:00 DS: Diagnosis Discharge Diagnosis (1) Alcoholism: Status: Chronic (2) Alteration in patient safety due to identified suicide risk: Status: Acute Discharge Plan Disposition Patient Disposition: [facility] Condition: Improving Discharge Details Reason For Visit: POLYSUBSTANCE ABUSE/SUICIDALITY Admit Date/Time: 02/21/19 17:44 Admit Provider: Raymundo Lopez Attending Provider: Raymundo Lopez Primary Care Provider: Hernesto Beverly Hospital Course Hospital Course: CC: Intoxication HPI: 24-year-old man with a past history of EtOH and polysubstance abuse, admitted from [facility] Emergency Department on 02/23 with diagnosis of Acute Alcohol Intoxication with SI. Mr. Caban Has a prior history of Polysubstance and EtOH abuse, and ADD. The patient presented to the ED via EMS with noted intoxication. He was discharged from [facility] for an inpatient rehab in 11/2018, since which time he has reportedly resumed drinking alcohol. He also admits to [facility], and reportedly used heroin prior to this admission, although his admission UDS is negative for Opiates. The patient was brought in after being found unarousable by his parents at home. EMS reported finding the patient agitated, in fact attempting to escape the ambulance en route to the hospital. He initially required both physical and chemical restraints in the ED due to agitation and aggressive behavior, and was referred for admission as a result. Following his initial presentation the patient has been feeling vastly improved, and not suicidal. Mental Health was consulted and has been involved in the patient's care. No overnight events reported. Remains afebrile. Hospital Course: (1) Alcoholism: Initally intoxicated with an alcohol level of 345, appears at his baseline again this morning. Showing no signs of withdrawl clinically, but was maintained on the CIWA protocol. Given patient's alcohol and drug abuse history, depression, as well as his initial suicidality he has been accepted in transfer to [facility] Home Meds and New Rx's Prescriptions: New multivitamin [Multiple Vitamins] Tablet 1 tab PO DAILY Qty: 0 RF: 0 nicotine (polacrilex) [Nicorelief] 2 mg Gum 2 mg CH Q2H PRN PRNQty: 0 RF: 0 folic acid 1 mg Tablet 1 mg PO DAILY Qty: 0 RF: 0 thiamine mononitrate (vit B1) [Vitamin B-1 (mononitrate)] 100 mg Tablet 100 mg PO DAILY Qty: 0 RF: 0 Continued trazodone 100 mg tablet 200 mg PO HS Qty: 60 RF: 5 dextroamphetamine-amphetamine [Adderall XR] 20 mg capsule,extended release 24hr 20 mg PO DAILY MDD 20mg Qty: 30 RF: 0 Discharge Instructions Activity:: Activity as Tolerated Equipment/Supplies:: No Equipment Needed Diet:: As Tolerated Discharge Orders Discharge Orders: Discharge Order (Routine); Ordered 02/23/19 Ordered By: Jaun Francisco Gaxiola DS: Data Vitals/I&O Vitals and I&O: Vital Signs Temperature 36.7 C 02/23/19 07:56 Temperature Source Tympanic 02/23/19 07:56 Pulse 75 02/23/19 07:56 Pulse Rhythm Regular 02/23/19 09:30 Pulse 47 L 02/22/19 16:00 Respiratory Rate 18 02/23/19 07:56 Respiratory Effort Non-Labored 02/23/19 09:30 Respiratory Depth Normal 02/23/19 09:30 Respiratory Pattern Normal 02/23/19 09:30 Blood Pressure 146/84 H 02/23/19 07:56 Blood Pressure Mean 107 02/22/19 16:00 Blood Pressure Position Sitting 02/22/19 14:50 Pulse Oximetry 96 02/23/19 07:56 Oxygen Delivery Method Room Air 02/23/19 07:56 Oxygen Flow Rate 0 02/23/19 07:56 Pain Level 0 02/23/19 07:56 Intake & Output 02/22/19 02/23/19 02/23/19 23:59 11:59 23:59 Intake Total 720 / 2750.0 300 / 300 Output Total 1500 / 3400 Balance -780 / -650.0 300 / 300 Intake: Oral 720 / 1430 300 / 300 Output: Urine 1500 / 3400 Other: Urine Color Pale Yellow Urine Appearance Clear Clear Urine Odor Normal Comment Just voided now to bedside commode. Pt reports voiding x1. Voiding Methods Bedside Commode Toilet Labs on day of discharge: Labs from last 24 hours 02/23/19 10:35 Ethyl Alcohol < 3.0 PFSH Medical History Polysubstance abuse (Acute) Attention deficit disorder (Chronic 04/15/18) Alcoholism (Chronic 08/15/17) Exposure to hepatitis C (Acute) Surgical History Fracture, Open Treatment Social History Smoking/Tobacco Use Status: Current every day Tobacco: How many years used: 10 Alcohol Intake: current Alcohol Intake frequency: 3 or more drinks per day Alcohol type: hard liquor Drug use: Daily Substance use type: marijuana, crack/cocaine, heroin and amphetamines Household members: other Details: LIVES WTIH Paternal GM Do you feel safe in your relationship?: Yes
--- NOTE | 2019-02-23 12:07 | DSE_ITS ---
Date of service: 02/23/19 Time of Service: 12:00 DS: Diagnosis Discharge Diagnosis (1) Alcoholism: Status: Chronic (2) Alteration in patient safety due to identified suicide risk: Status: Acute Discharge Plan Disposition Patient Disposition: [facility] Condition: Improving Discharge Details Reason For Visit: POLYSUBSTANCE ABUSE/SUICIDALITY Admit Date/Time: 02/21/19 17:44 Admit Provider: Raymundo Lopez Attending Provider: Raymundo Lopez Primary Care Provider: Hernesto Beverly Hospital Course Hospital Course: CC: Intoxication HPI: 24-year-old man with a past history of EtOH and polysubstance abuse, admitted from [facility] Emergency Department on 02/23 with diagnosis of Acute Alcohol Intoxication with SI. Mr. Caban Has a prior history of Polysubstance and EtOH abuse, and ADD. The patient presented to the ED via EMS with noted intoxication. He was discharged from [facility] for an inpatient rehab in 11/2018, since which time he has reportedly resumed drinking alcohol. He also admits to [facility], and reportedly used heroin prior to this admission, although his admission UDS is negative for Opiates. The patient was brought in after being found unarousable by his parents at home. EMS reported finding the patient agitated, in fact attempting to escape the ambulance en route to the hospital. He initially required both physical and chemical restraints in the ED due to agitation and aggressive behavior, and was referred for admission as a result. Following his initial presentation the patient has been feeling vastly improved, and not suicidal. Mental Health was consulted and has been involved in the patient's care. No overnight events reported. Remains afebrile. Hospital Course: (1) Alcoholism: Initally intoxicated with an alcohol level of 345, appears at his baseline again this morning. Showing no signs of withdrawl clinically, but was maintained on the CIWA protocol. Given patient's alcohol and drug abuse history, depression, as well as his initial suicidality he has been accepted in transfer to [facility] Care[facility] Home Meds and New Rx's Prescriptions: New multivitamin [Multiple Vitamins] Tablet 1 tab PO DAILY Qty: 0 RF: 0 nicotine (polacrilex) [Nicorelief] 2 mg Gum 2 mg CH Q2H PRN PRNQty: 0 RF: 0 folic acid 1 mg Tablet 1 mg PO DAILY Qty: 0 RF: 0 thiamine mononitrate (vit B1) [Vitamin B-1 (mononitrate)] 100 mg Tablet 100 mg PO DAILY Qty: 0 RF: 0 Continued trazodone 100 mg tablet 200 mg PO HS Qty: 60 RF: 5 dextroamphetamine-amphetamine [Adderall XR] 20 mg capsule,extended release 24hr 20 mg PO DAILY MDD 20mg Qty: 30 RF: 0 Discharge Instructions Activity:: Activity as Tolerated Equipment/Supplies:: No Equipment Needed Diet:: As Tolerated Discharge Orders Discharge Orders: Discharge Order (Routine); Ordered 02/23/19 Ordered By: Juan Francisco Gaxiola DS: Data Vitals/I&O Vitals and I&O: Vital Signs Temperature 36.7 C 02/23/19 07:56 Temperature Source Tympanic 02/23/19 07:56 Pulse 75 02/23/19 07:56 Pulse Rhythm Regular 02/23/19 09:30 Pulse 47 L 02/22/19 16:00 Respiratory Rate 18 02/23/19 07:56 Respiratory Effort Non-Labored 02/23/19 09:30 Respiratory Depth Normal 02/23/19 09:30 Respiratory Pattern Normal 02/23/19 09:30 Blood Pressure 146/84 H 02/23/19 07:56 Blood Pressure Mean 107 02/22/19 16:00 Blood Pressure Position Sitting 02/22/19 14:50 Pulse Oximetry 96 02/23/19 07:56 Oxygen Delivery Method Room Air 02/23/19 07:56 Oxygen Flow Rate 0 02/23/19 07:56 Pain Level 0 02/23/19 07:56 Intake & Output 02/22/19 02/23/19 02/23/19 23:59 11:59 23:59 Intake Total 720 / 2750.0 300 / 300 Output Total 1500 / 3400 Balance -780 / -650.0 300 / 300 Intake: Oral 720 / 1430 300 / 300 Output: Urine 1500 / 3400 Other: Urine Color Pale Yellow Urine Appearance Clear Clear Urine Odor Normal Comment Just voided now to bedside commode. Pt reports voiding x1. Voiding Methods Bedside Commode Toilet Labs on day of discharge: Labs from last 24 hours 02/23/19 10:35 Ethyl Alcohol < 3.0 PFSH Medical History Polysubstance abuse (Acute) Attention deficit disorder (Chronic 04/15/18) Alcoholism (Chronic 08/15/17) Exposure to hepatitis C (Acute) Surgical History Fracture, Open Treatment Social History Smoking/Tobacco Use Status: Current every day Tobacco: How many years used: 10 Alcohol Intake: current Alcohol Intake frequency: 3 or more drinks per day Alcohol type: hard liquor Drug use: Daily Substance use type: marijuana, crack/cocaine, heroin and amphetamines Household members: other Details: LIVES WTIH Paternal GM Do you feel safe in your relationship?: Yes
== END 2019-02-23 12:28 | disposition short-term general hospital (02) ==
LOC: ER 17:53 → ICU 18:55 → MS 02-22 23:23 → ICU 02-25 10:02
PROVIDERS: Admitting Provider Family Medicine; Emergency Provider Emergency Medicine; PCP Family Medicine; Visit Provider Internal Medicine
DX: F10.229 Alcohol dependence with intoxication, unspecified (principal); R45.851 Suicidal ideations; F32.9 Major depressive disorder, single episode, unspecified; F19.10 Other psychoactive substance abuse, uncomplicated; R45.1 Restlessness and agitation; F98.8 Other specified behavioral and emotional disorders with onset usually occurring in childhood and adolescence
CPT/HCPCS: 36415; 36416; 80053; 80307; 82962; 93005; 96360; 96361; 96372; 99223; 99232; 99238; 99285; 80320; 80329; 81003; 81015; 84443; 85025; 93010; 99217; 99220; 99225; 99284; G0378; J1630

== ENCOUNTER 2019-12-17 01:13 | Outpatient (CLI) | payer MEDICAID, SELFPAY ==
[2019-12-17 11:04] LABS: HCT 42.1 % (40.0-50.0); HGB 13.9 g/dL (13.5-17.5); Mean Corpuscular Volume 90.7 fL (80-95); Mean Platelet Volume 9.7 fL (8.0-11.0); Platelet Count 272 x1000/uL (130-400); RBC 4.64 m/cumm (4.50-6.00); RBC Distribution Width 13.2 % (11.8-14.1); White Blood Cell Count 8.49 k/cumm (4.4-10.8)
[2019-12-17 12:02] LABS: Albumin 4.1 g/dL (3.4-5.0); Anion Gap 12.8 mmol/L (3-11); BUN 6 mg/dL (7-18); CO2 26.2 mmol/L (21.0-32.0); CREATININE 0.77 mg/dL (0.70-1.30); Calcium 9.5 mg/dL (8.5-10.1); Calculated LDL 125 mg/dL (<100); Chloride 99 mmol/L (98-107); Cholesterol 217 mg/dL (<200); Glucose 101 mg/dL (74-106); HDL Cholesterol 66 mg/dL (40-60); Potassium 4.2 mmol/L (3.5-5.1); Sodium 138 mmol/L (136-145); Triglyceride 133 mg/dL (<150)
[2019-12-20 10:49] LABS: HIV-1/2 Ag & Ab Screen Negative (Negative)
[2019-12-20 10:50] LABS: Hep B Core Antibody Negative (Negative)
[2019-12-20 11:06] LABS: Hepatitis C Ab w Rflx HCV PCR Negative (Negative)
== END 2019-12-17 01:33 ==
PROVIDERS: PCP Family Medicine; Visit Provider Family Medicine
DX: E78.5 Hyperlipidemia, unspecified (principal); F19.10 Other psychoactive substance abuse, uncomplicated; Z00.00 Encounter for general adult medical examination without abnormal findings; Z11.4 Encounter for screening for human immunodeficiency virus [HIV]; Z11.59 Encounter for screening for other viral diseases
CPT/HCPCS: 36415; 80048; 80061; 85027; 86704; 86803; 87389; 82040

== ENCOUNTER 2020-03-03 09:10 | Outpatient (CLI) | payer MEDICAID, SELFPAY ==
[2020-03-04 15:54] LABS: COVID-19 RT-PCR UVMMC Result Negative (Negative)
== END 2020-03-03 09:30 ==
PROVIDERS: PCP Family Medicine; Visit Provider Family Medicine
DX: Z11.59 Encounter for screening for other viral diseases (principal)
CPT/HCPCS: U0003

== ENCOUNTER 2020-05-09 09:09 | Inpatient (IN) | payer MEDICAID, SELFPAY ==
[2020-05-09] VITALS (118 sets, daily range): BP systolic 120–151; BP diastolic 68–102; PULSE 53–125; RESP 7–20; TEMP 36.7–37.4; O2SAT 90–99
--- NOTE | 2020-05-09 09:00 | RT.EKG_ITS ---
APPROVED REPORT Exam: Resting ECG Patient Location: E HR:96 bpm ECG Measurements Heart Rate 96 AXIS OH 121 P 80 QRSd 106 QRS 92 QT 346 T 61 QTc 438 <Conclusion> Sinus arrhythmia...V-rate 69-112, variation>10% EKG shows sinus rhythm at 96 with sinus arrhythmia, normal axis, no STEMI, significant artifact, nond iagnostic EKG
[2020-05-09] MEDS: Ondansetron 4 MG/2 ML VIAL IV (09:24)
[2020-05-09] MEDS: LORazepam 2 MG/ML VIAL 1 MG IVP ×2 (09:24→09:31)
[2020-05-09] MEDS: Normal Saline Flush 10 ML SYR IVP ×2 (09:25→09:31)
[2020-05-09] MEDS: Normal Saline 1,000 ML 1000 ML IV (09:25)
--- NOTE | 2020-05-09 09:30 | DI.RAD_ITS ---
EXAM: XR PORTABLE CHEST AP CLINICAL HISTORY: cough. TECHNIQUE: 2D digital imaging was performed. COMPARISON: CR XR line placement PICC/CVA from 08/29/2018 FINDINGS: LUNGS: Clear. No pleural abnormality seen. HEART: Normal. MEDIASTINUM: Normal. OTHER FINDINGS: None. IMPRESSION: No acute pulmonary findings. DATA REPOSITORY: RADIATION DOSE DELIVERED:
--- NOTE | 2020-05-09 09:33 | ED.GENADUL_ITS ---
Discharge Plan Disposition Patient Disposition: OTHER Condition: Stable Discharge Details Chief Complaint: ETOHWithdr Clinical Impression: Alcohol withdrawal Admit Date/Time: 05/09/20 11:58 Admit Provider: Calvin Lugo Attending Provider: Calvin Lugo Primary Care Provider: Hernesto Beverly ED Provider: Calvin Davis Hospital Course Hospital Course: Mr Caban is a 25 year old male with PMHx of alcohol abuse as well as opioid abuse, currently on suboxone, ADD, who was admitted to [facility] ICU under the hospitalist service on 05/09/2020 with alcohol withdrawal. He did not have alcohol withdrawal seizures, but did require scheduled oxazepam and treatment with phenobarbital. His condition did improve significantly by 05/13/2020, at which point he was transferred out of the ICU. All scheduled benzodiazepines have been stopped, and the patient is not requiring any additional doses. Of big concern on this admission was patient's difficulty walking, which improved with cessation of scheduled oxazepam as well as addition of IV thiamine, suggesting that the patient might have had a Wernicke's encephalopathy as well. The patient initially participated with PT and had difficulty keeping his balance, but by the afternoon of 05/14/2020, he is not requiring any assistive devices. He will require ongoing thiamine supplementation. He is medically stable for discharge. He has made a connection with a recovery unit operator with whom he will follow up as outpatient. He is not interested in inpatient substance abuse rehab. Care for patient as well as completion of his discharge paperwork on day of discharge took 45 minutes. Discharge Data Discharge Date/Time-TO BE ENTERED AT DEPARTURE: 05/09/20 15:44 Medical Decision Making <KINA Purdy - Last Filed: 05/09/20 12:44> 25-year-old gentleman with history of polysubstance abuse, presents to the ER this morning and alcohol withdrawal. Has been drinking a half of gallon of vodka daily for the past several months, last drink around 3:00 this morning. He presents appearing anxious, mild tremor, dry heaving, tachycardia, and unable to take his Suboxone this morning. Patient has had alcohol withdrawal seizures in the past. Seizure pads place as a precaution. IV access obtained, given 1 mg IV Ativan, 4 IV Zofran, 1 L IV fluid. I did discuss the case with Dr. Ballesteros. Given patient's mild dry cough, will obtain work-up including chest x- ray. There was no significant response to the 1 mg of Ativan, a second milligram was given. Initial CIWA score of 22, additional 2 mg IV Ativan given. Heart rate is now in the 80s. Patient reports his nausea has improved. He morning dose of Suboxone was ordered. Chest x-ray unremarkable. Laboratory values reveal white blood cell 5.04 hemoglobin 13.4 hematocrit 39.4 platelet count 181. Potassium 3.2 anion gap 11.7, mag of 1.4. Will replenish mag and potassium. LFTs slightly elevated. Urinalysis pending Given his initial presentation, CIWA score of 22, history of alcohol withdrawal seizure, I do believe that admission to our facility for alcohol withdrawal is reasonable. Will speak with our hospitalist team. Repeat CIWA score 8. Patient was given a liter of lactated Ringer's. I spoke with Dr. Lugo who will accept admission and recommends a loading dose of 260 phenobarbital. At the moment the ICU was at capacity and they are in the process of transferring the patient and potentially moving someone from the ICU to the general floor. Patient will be held in the ER until this is completed. I will place initial admission orders. Patient given oral folate, thiamine, multivitamin. COVID obtained and pending Spoke with Dr. Ballesteros regarding the patient, given his repeat score was 8 and he was resting comfortably, she wanted to speak with Dr. Lion regarding the phenobarbital. After their discussion, that order will not be completed here in the ER. Medical Records Medical records reviewed: Yes I reviewed the patient's medical records. Imaging Data Radiologic Study: Attestation: I personally reviewed and interpreted this imaging study as follows: Imaging: X-Ray My impression: Chest x-ray negative Lab Data Lab results reviewed: Yes I reviewed the patient's lab results. Lab results narrative: Laboratory Tests Range/Units 05/09/20 05/09/20 09:46 09:46 WBC (4.4-10.8) k/cumm 5.04 RBC (4.50-6.00) m/cumm 4.44 L Hgb (13.5-17.5) g/dL 13.4 L Hct (40.0-50.0) % 39.4 L MCV (80-95) fL 88.7 MCH (27.0-33.0) pg 30.2 MCHC (32.0-36.0) g/dL 34.0 RDW (11.8-14.1) % 14.3 H Plt Count (130-400) x1000/uL 181 MPV (8.0-11.0) fL 9.1 Immature Gran % % 0.2 Neutrophils % 77.8 Lymphocytes % 13.9 Monocytes % 6.7 Eosinophils % 1.0 Basophils % 0.4 Absolute Neutrophils (1.2-6.7) k/cumm 3.92 Absolute Lymphocytes (1.2-3.4) k/cumm 0.70 L Absolute Monocytes (0.11-0.7) k/cumm 0.34 Absolute Eosinophils (0.0-0.7) k/cumm 0.05 Absolute Basophils (0.0-0.2) k/cumm 0.02 Sodium (136-145) mmol/L 139 Potassium (3.5-5.1) mmol/L 3.2 L Chloride (98-107) mmol/L 99 Carbon Dioxide (21.0-32.0) mmol/L 28.3 Anion Gap (3-11) mmol/L 11.7 H BUN (7-18) mg/dL 3 L Creatinine (0.70-1.30) mg/dL 0.87 Estimated GFR/1.73 m2 (mL/min/1.73m2) >= 60.00 Glucose (74-106) mg/dL 128 H Calcium (8.5-10.1) mg/dL 8.7 Magnesium (1.8-2.4) mg/dL 1.4 L Total Bilirubin (0.2-1.0) mg/dL 0.4 AST (15-37) U/L 156 H ALT (16-63) U/L 119 H Alkaline Phosphatase (46-116) U/L 129 H Total Protein (6.4-8.2) g/dL 8.0 Albumin (3.4-5.0) g/dL 3.6 Lipase (73-393) U/L 130 Ethyl Alcohol (<3) mg/dL 54.6 ECG Data Attestation: I personally reviewed and interpreted this ECG (s) as follows: Interpretation: EKG reviewed and interpreted with Dr. Ballesteros. Please see her official read. Sinus rhythm, ventricular rate of 96. No STEMI. <Kathy Ballesteros MD - Last Filed: 05/15/20 08:20> I have seen and examined the patient and agree with the history and exam as per the PA. Review of systems per PA. Briefly, Paulie Caban is a 25-year-old man with a history of IV drug use in the past now on Suboxone, current heavy alcohol use with last drink at 3 AM this morning. Patient feeling that he is going into alcohol withdrawal. History of seizures with alcohol withdrawal. Sewall score initially 22. Patient given a total of 4 mg of Ativan per CIWA protocol in addition to IV fluid bolus. Plan for admission for alcohol withdrawal. Exam/history is not consistent at this time with sepsis, meningitis, encephalitis, acute intracranial process. Repeat CIWA score 8 after meds, Pt resting comfortably. Pt reassessed, CIWA 2. Given initial high dose of Ativan, patient resting comfortably, stating that he feels significantly improved when awaken, will hold patient's daily Suboxone dose at this time to prevent oversedation. We will also defer phenobarbital at this time given CIWA score and patient sleeping in the emergency department. I have spent greater than 35 minutes of critical care time with this patient, including frequent bedside reassessments, discussions with consultants. Medical Records Medical records reviewed: Yes I reviewed the patient's medical records. Lab Data Lab results reviewed: Yes I reviewed the patient's lab results. ECG Data Attestation: I personally reviewed and interpreted this ECG (s) as follows: Interpretation: EKG shows sinus rhythm at 96 with sinus arrhythmia, normal axis, no STEMI, significant artifact, nondiagnostic EKG HPI <KINA Purdy - Last Filed: 05/09/20 12:44> General Mode of arrival: ambulatory . Date/Time Provider Initiated Documentation: 05/09/20 09:13 . Limitations to Documentation: no limitations . Information obtained by: patient . HPI Narrative: This is a 25-year-old gentleman with history of alcohol abuse, IV drug use, currently on Suboxone, presenting to the ER today for alcohol withdrawal. He reports for the past few months he has been drinking approximately half a gallon of vodka daily, his last drink was around 3 AM this morning. Subsequently he now is feeling shaky, experiencing nausea and vomiting, but no seizure activity. Denies blood in his vomit. Patient reports that he had withdrawals from alcohol and heroin in 2018, had withdrawal seizures, and then was admitted to a detox facility. He has been clean from heroin since that time. He was unable to take his Suboxone this morning between 8 and 9 like he typically would because of his nausea and vomiting. He denies any recent illness or trauma. He denies any other drug use. He does smoke cigarettes daily. Denies headache, visual changes, sore throat, chest pain, shortness of breath, diarrhea, constipation, numbness, tingling, weakness. He does report a mild dry cough. Related Data Home Medications Medication Instructions Recorded Confirmed trazodone 100 mg tablet 200 mg PO HS #60 tab-cap 12/07/19 05/09/20 buprenorphine 8 mg-naloxone 2 mg 1 film SL DAILY 12/15/19 05/09/20 sublingual film sertraline 25 mg tablet 25 mg PO DAILY #30 tab 03/06/20 05/09/20 dextroamphetamine-amphetamine ER 20 mg PO DAILY #30 cap MDD 20mg 05/03/20 05/09/20 20 mg 24hr capsule,extend release folic acid 1 mg PO DAILY #30 tab 05/14/20 magnesium oxide 400 mg PO BID #10 tab 05/14/20 multivitamin [Multiple Vitamins] 1 tab PO DAILY #30 tab 05/14/20 nicotine 21 mg TRANSDERMAL DAILY #30 ea 05/14/20 thiamine HCl (vitamin B1) 100 mg PO DAILY #30 tab 05/14/20 thiamine HCl (vitamin B1) 500 mg PO TID #15 tab 05/14/20 Previous Rx's Medication Instructions Recorded trazodone 100 mg tablet 200 mg PO HS #60 tab-cap 12/07/19 sertraline 25 mg tablet 25 mg PO DAILY #30 tab 03/06/20 dextroamphetamine-amphetamine ER 20 mg PO DAILY #30 cap MDD 20mg 05/03/20 20 mg 24hr capsule,extend release folic acid 1 mg PO DAILY #30 tab 05/14/20 magnesium oxide 400 mg PO BID #10 tab 05/14/20 multivitamin [Multiple Vitamins] 1 tab PO DAILY #30 tab 05/14/20 nicotine 21 mg TRANSDERMAL DAILY #30 ea 05/14/20 thiamine HCl (vitamin B1) 100 mg PO DAILY #30 tab 05/14/20 thiamine HCl (vitamin B1) 500 mg PO TID #15 tab 05/14/20 Allergies Allergy/AdvReac Type Severity Reaction Status Date / Time Sulfa (Sulfonamide Allergy Unknown Hives Unverified 05/09/20 09:20 Antibiotics) General Stated Complaint: ETOHWithdr YESSENIA: 2 Review of Systems <KINA Purdy - Last Filed: 05/09/20 12:44> Constitutional Constitutional: Denies chills, Denies fatigue, Denies fever(s), Reports headache(s) and Denies weakness Eyes Eyes: Denies change in vision ENT Ears, Nose, Mouth, and Throat: Reports headache(s) and Denies sore throat Cardiovascular Cardiovascular: Denies chest pain and Denies dyspnea Respiratory Respiratory: Reports cough, Denies dyspnea and Denies wheezing Gastrointestinal Gastrointestinal: Reports abdominal pain, Denies diarrhea, Reports nausea and Reports vomiting Musculoskeletal Musculoskeletal: Denies back pain, Denies myalgias, Denies numbness and Denies tingling Integumentary/Breasts Skin/Breast: Denies rash Neurologic Neurologic: Reports headache(s), Denies numbness, Denies tingling and Denies weakness Psychiatric Psychiatric: Reports anxiety Endocrine Endocrine: Denies fatigue Allergic/Immunologic Allergic/Immunologic: Denies wheezing PFSH <KINA Purdy - Last Filed: 05/09/20 12:44> Medical History Alcoholism (Chronic 08/15/17) start revia Attention deficit disorder (Chronic 04/15/18) continue adderall as directed Exposure to hepatitis C (Acute) serology neg 10/2018 Polysubstance abuse (Acute) Surgical History Fracture, Open Treatment CAROLE ARREOLA; RIGHT DISTAL RADIUS Family History Mother Alcohol abuse History of Father Alcohol abuse history of Sister No problems noted. Son Alcohol abuse history of Asthma Maternal Grandfather , age 76 No problems noted. Social History (Updated 05/09/20 @ 18:40 by Calvin Lugo) Smoking/Tobacco Use Status: Current every day Tobacco Type: cigarettes and smokeless tobacco Tobacco: How many years used: 10 Smokeless tobacco user: chewing tobacco (and smoking) Quit status: considering quitting Second Hand Exposure: Yes Alcohol Intake: current Alcohol Intake frequency: other Alcohol type: beer and hard liquor Details: Drinks a half a gallon of vodka per day Drug use: Occasionally Substance use type: former substance user, marijuana, crack/cocaine, heroin and amphetamines Details: Occasional marijuana Caregiver/Support person: No Household members: other Details: LIVES WTIH Paternal GM Communication Needs: None Pets and animals: No Sexually active: Yes Do you think of yourself as: bisexual Current gender identity: male What is your relationship status?: never How often do you talk on the phone with friends or family?: once per week How often do you get together with friends or relatives?: once per week How often do you attend protestant or spiritism services?: decline to answer Do you belong to any clubs or organized social groups?: no Panel score (0-1 are the most socially isolated patients): 0 What type of physical activity do you participate in: other Duration: 60-90 minutes/day Frequency: 3-4 times per week Rose/Latter-Day: chr Seatbelt use: sometimes Drive intox or ride w/intox concrete pile 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 operator: No Do you feel safe in your relationship?: Yes Exam <KINA Purdy - Last Filed: 05/09/20 12:44> Const General: cooperative, in distress, anxious and diaphoretic (Slightly) Orientation: alert, awake and oriented x3 HENMT Head: normal to inspection, no palpable skull fracture, normocephalic and atraumatic Face and sinus: normal facial exam Mouth: moist mucous membranes abnormal (Dry mucous membranes) Throat: posterior oropharynx normal Eyes General: appearance normal, both eyes and all related structures Alignment and Position: alignment normal Periorbital: periorbital findings normal Eyelids: eyelids normal Conjunctivae: conjunctivae normal Sclera: sclerae normal Cornea: corneas normal Pupils: PERRL EOM: EOM intact bilaterally Direct ophthalmoscopy: normal light reflex Neck Neck: normal visual inspection, full ROM, no meningeal signs, trachea midline, supple and nontender Resp Effort & Inspection: normal respiratory effort and able to speak in complete sentences Auscultation: clear to auscultation bilaterally Cardio Rate: tachycardic (112) Rhythm: regular rhythm GI Inspection: normal to inspection and other (Occasional dry heave) Palpation: soft, not firm, no guarding and tender in the epigastrum (Mild); with no rebound tenderness Auscultation: normal bowel sounds Back/Spine/Pelvis Back: No back tenderness Skin General skin exam: no rashes or lesions noted Neuro General: patient alert, patient awake, patient oriented x3, moves all extremities, no focal motor deficits and other (Mild tremor noted) Cranial Nerves: CN's II-XI intact bilaterally Cognition: normal cognition Speech: speech normal Gait: normal gait Motor: muscle tone normal throughout and strength 5/5 throughout Sensory Exam: no sensory deficits noted Extrem General: normal to inspection, full ROM, capillary refill normal, no pedal edema and no calf tenderness Psych Appearance: grossly normal Mental Status: mental status grossly normal Course <KINA Purdy - Last Filed: 05/09/20 12:44> Vital Signs Vital signs: Vital Signs Temperature 37.1 C 05/09/20 09:11 Pulse 125 H 05/09/20 09:11 Respiratory Rate 20 05/09/20 09:11 Blood Pressure 149/99 H 05/09/20 09:11 Pulse Oximetry 96 05/09/20 09:11 Temperature 37.1 C 05/09/20 09:11 Temperature Source Skin 05/09/20 09:11 Pulse 125 H 05/09/20 09:11 Respiratory Rate 20 05/09/20 09:11 Respiratory Effort 05/09/20 09:14 Respiratory Pattern Normal 05/09/20 09:14 Blood Pressure 149/99 H 05/09/20 09:11 Blood Pressure Position Sitting 05/09/20 09:11 Pulse Oximetry 96 05/09/20 09:11 Oxygen Delivery Method Room Air 05/09/20 09:11 Oxygen Flow Rate 0 05/09/20 09:11 Pain Level 3 05/09/20 09:11 Critical Care Time <KINA Purdy - Last Filed: 05/09/20 12:44> Critical Care Time Critical Care Time: Yes Total Critical Care Time: 45 Attestation: Upon my evaluation, this patient had a high probability of clinically significant, life-threatening deterioration due to their current medical conditions, which required my direct attention, intervention, and personal management. I have personally provided greater than 30 minutes of critical care time exclusive of the time spend on separately billable procedures. Time includes obtaining a history, examining the patient, pulse oximetry, review of laboratory data, radiology results, discussion with consultants, arranging urgent treatment with development of a management plan, evaluation of patient's response to treatment, and monitoring for potential decompensation. Interventions were performed as documented above.
[2020-05-09] MEDS: LORazepam 2 MG/ML VIAL IVP ×2 (09:54→16:21)
[2020-05-09 10:00] LABS: Abs Immature Grans 0.01 k/cumm (0.0-0.09); Absolute Basophil Count 0.02 k/cumm (0.0-0.2); Absolute Eosinophil Count 0.05 k/cumm (0.0-0.7); Absolute Monocyte Count 0.34 k/cumm (0.11-0.7); Absolute Neutrophil Count 3.92 k/cumm (1.2-6.7); Basophils % 0.4; HCT 39.4 % (40.0-50.0); HGB 13.4 g/dL (13.5-17.5); Immature Grans % 0.2 %; Lymphocytes % 13.9; Mean Corpuscular Hemoglobin 30.2 pg (27.0-33.0); Mean Corpuscular Volume 88.7 fL (80-95); Mean Platelet Volume 9.1 fL (8.0-11.0); Monocytes % 6.7; Neutrophils % 77.8; Platelet Count 181 x1000/uL (130-400); RBC 4.44 m/cumm (4.50-6.00); RBC Distribution Width 14.3 % (11.8-14.1); White Blood Cell Count 5.04 k/cumm (4.4-10.8)
[2020-05-09 10:09] LABS: ALT 119 U/L (16-63); AST 156 U/L (15-37); Albumin 3.6 g/dL (3.4-5.0); Alkaline Phosphatase 129 U/L (46-116); Anion Gap 11.7 mmol/L (3-11); BUN 3 mg/dL (7-18); Bilirubin, Total 0.4 mg/dL (0.2-1.0); CO2 28.3 mmol/L (21.0-32.0); CREATININE 0.87 mg/dL (0.70-1.30); Calcium 8.7 mg/dL (8.5-10.1); Chloride 99 mmol/L (98-107); ETHANOL BLOOD 54.6 mg/dL (<3); Glucose 128 mg/dL (74-106); Lipase 130 U/L (73-393); Magnesium 1.4 mg/dL (1.8-2.4); Potassium 3.2 mmol/L (3.5-5.1); Sodium 139 mmol/L (136-145)
[2020-05-09] MEDS: Lactated Ringers 1,000 ML 1000 ML IV (10:25)
[2020-05-09] MEDS: MAGNESIUM SULFATE 1 GM/100 ML BAG IVPB (10:45)
[2020-05-09] MEDS: Potassium Chloride 20 MEQ TABCR 40 MEQ PO ×2 (10:46→20:37)
[2020-05-09] MEDS: DEXTROSE 5%-0.45% SALINE 1,000 ML 30 ML IV (12:07)
[2020-05-09] MEDS: Thiamine 100 MG TAB PO (12:23)
[2020-05-09] MEDS: Multivitamin TAB 1 TAB PO (12:23)
[2020-05-09] MEDS: Folic Acid 1 MG TAB PO (12:23)
[2020-05-09] MEDS: Ondansetron 4 MG/2 ML VIAL IVP (15:04)
[2020-05-09 15:22] LABS: Bilirubin Negative (Negative); Blood Negative (Negative); Clarity Clear (Clear); Glucose Negative (Negative); Ketones Negative (Negative); Leukocyte Esterase Negative (Negative); Nitrite Negative (Negative); Specific Gravity 1.015 (1.005-1.025); pH 8.5 (5-8)
[2020-05-09 15:37] LABS: *AMPHETAMINES SCREEN URINE Negative (Negative); *BARBITURATES SCREEN URINE Negative (Negative); *BENZODIAZEPINES SCREEN URINE Negative (Negative); Cannabinoids THC Negative (Negative); Cocaine Screen,Urine Negative (Negative); METHADONE URINE SCREEN Negative (Negative); OPIATES URINE SCREEN Negative (Negative)
[2020-05-09 15:40] LABS: Tricyclic Antidepressants Negative (Negative)
[2020-05-09] MEDS: PHENobarbital 130 MG/ML VIAL 260 MG IVP (17:42)
--- NOTE | 2020-05-09 18:04 | W.PM.HP.N ---
Date of service: 05/09/20 Time of Service: 18:05 Assessment and Plan Assessment and plan (1) Alcohol withdrawal: Status: Chronic Assessment and plan: Continue IV fluid hydration and correcting his electrolytes including further magnesium and potassium supplementation. We will repeat his labs in the morning. Continue with thiamine folic acid and multivitamin supplementation. If he is unable to take p.o. then we will continue with a banana bag. We will place him on program doses of Serax and use PRN oral Ativan or IV Valium as needed based on his CIWA scores. We will start him on phenobarbital loading dose and then use PRN phenobarbital 130 to 260 mg IV every 30 minutes as needed for severe agitation with a CIWA score over 20. Anticipated length of stay 3 to 5 days. (2) History of substance abuse: Status: Chronic Assessment and plan: Continue his outpatient Suboxone treatment while hospitalized. (3) Exposure to hepatitis C: Status: Acute Assessment and plan: We will get an acute hepatitis profile (4) DVT prophylaxis: Status: Acute Assessment and plan: Will prophylax with enoxaparin 40 mg subcutaneously every 24 hours. (5) Discharge planning issues: Status: Acute Assessment and plan: Will ask case management to make appropriate referrals for follow-up alcohol treatment upon discharge History of Present Illness History of Present Illness Chief Complaint: Alcohol withdrawal Narrative: 25-year-old male with a past medical history of alcohol withdrawal, IV drug abuse who is currently on Suboxone treatment program is brought to the emergency department by his grandfather due to symptoms of acute alcohol withdrawal including nausea and vomiting and tremors and diaphoresis. Patient's had a history of acute alcohol withdrawal seizures in the past. Patient's been drinking a half a gallon of vodka a day for the last several months. He has been a drinker since the age of [age] years old. He has been in previous treatment programs including [facility] as recent as 2018. He is indicated that he wants help and going through withdrawal safely. In the emergency department he was initially given Ativan 1 mg IV and then given a subsequent 2 mg IV dose. He was also given 40 mEq of potassium chloride for a low potassium level of 3.2. He was given magnesium bolus 1 g IV for a low magnesium level of 1.4. He was also given a fluid bolus of lactated Ringer's x1000 mL. He had a prolonged stay in the emergency department as we had a lack of ICU beds but has since come up to the intensive care unit this afternoon for further treatment of his acute alcohol withdrawal. His CIWA score on presentation emergency department was a 22 but he came down to a level of 8. I did recommend loading dose of phenobarbital turned 60 mg IV in the emergency department but they refrain from doing so because he was somnolent after the lorazepam. Patient is indicated wish to undergo hepatitis screening test because he has been with a woman who is positive for hepatitis C. He denies any other symptoms of STDs sepsis penile discharge or penile ulceration. Review of Systems All systems reviewed & are unremarkable except as noted in HPI and below [facility] Medical History Alcoholism (Chronic 08/15/17) start revia Attention deficit disorder (Chronic 04/15/18) continue adderall as directed Exposure to hepatitis C (Acute) serology neg 10/2018 Polysubstance abuse (Acute) Surgical History Fracture, Open Treatment CAROLE ARREOLA; RIGHT DISTAL RADIUS Family History Mother Alcohol abuse History of Father Alcohol abuse history of Sister No problems noted. Son Alcohol abuse history of Asthma Maternal Grandfather , age 76 No problems noted. Social History (Updated 05/09/20 @ 18:40 by Calvin Lugo) Smoking/Tobacco Use Status: Current every day Tobacco Type: cigarettes and smokeless tobacco Tobacco: How many years used: 10 Smokeless tobacco user: chewing tobacco (and smoking) Quit status: considering quitting Second Hand Exposure: Yes Alcohol Intake: current Alcohol Intake frequency: other Alcohol type: beer and hard liquor Details: Drinks a half a gallon of vodka per day Drug use: Occasionally Substance use type: former substance user, marijuana, crack/cocaine, heroin and amphetamines Details: Occasional marijuana Caregiver/Support person: No Household members: other Details: LIVES [facility] Paternal GM Communication Needs: None Pets and animals: No Sexually active: Yes Do you think of yourself as: bisexual Current gender identity: male What is your relationship status?: never How often do you talk on the phone with friends or family?: once per week How often do you get together with friends or relatives?: once per week How often do you attend scientologist or druze services?: decline to answer Do you belong to any clubs or organized social groups?: no Panel score (0-1 are the most socially isolated patients): 0 What type of physical activity do you participate in: other Duration: 60-90 minutes/day Frequency: 3-4 times per week Rose/Anglican: chr Seatbelt use: sometimes Drive intox or ride w/intox personal driver: No Do you feel safe in your relationship?: Yes Meds Home Medications and Allergies Home Medications Medication Instructions Recorded Confirmed Type trazodone 100 mg tablet 200 mg PO HS #60 tab-cap 12/07/19 05/09/20 Rx buprenorphine 8 mg-naloxone 2 mg 1 film SL DAILY 12/15/19 05/09/20 History sublingual film sertraline 25 mg tablet 25 mg PO DAILY #30 tab 03/06/20 05/09/20 Rx dextroamphetamine-amphetamine ER 20 mg PO DAILY #30 cap MDD 20mg 05/03/20 05/09/20 Rx 20 mg 24hr capsule,extend release Allergies Allergy/AdvReac Type Severity Reaction Status Date / Time Sulfa (Sulfonamide Allergy Unknown Hives Unverified 05/09/20 09:20 Antibiotics) Exam Narrative Exam Narrative: Young male with bloodshot eyes dry mucous membranes. Scalp with some pustules at the hair follicles. Patient is alert oriented to place and circumstance but not to time. He was confused about when his last drink was. He thought it was Friday night and that he had come in on Friday where is it appears that his last drink was yesterday and let up to 3 AM this morning. Neck is supple nontender no JVD normal carotid pulses no bruits no thyromegaly. Lungs clear to auscultation. Heart regular rate and rhythm without murmur rub or gallop. Abdomen soft and nontender no organomegaly normal bowel sounds. Extremities without peripheral cyanosis or edema. He has a tremor in his hands while trying to pick up and delivery driver his phone and pull up his calendar on his phone. Skin is nondiaphoretic Neuro exam as noted above he is alert and oriented person place and circumstance but not exactly to the day of the week. He has no facial asymmetry no dysarthric speech extraocular motions intact pupils equally round reactive. Normal range of motion and strength in both upper and lower extremities normal sensation to light touch. Positive tremor in both hands. Results Labs Result diagrams: 05/09/20 09:46 05/09/20 09:46 Labs: Laboratory Results - last 24 hr 05/09/20 05/09/20 05/09/20 09:46 09:46 15:10 WBC 5.04 RBC 4.44 L Hgb 13.4 L Hct 39.4 L MCV 88.7 MCH 30.2 MCHC 34.0 RDW 14.3 H Plt Count 181 MPV 9.1 Immature Gran % 0.2 Neutrophils % 77.8 Lymphocytes % 13.9 Monocytes % 6.7 Eosinophils % 1.0 Basophils % 0.4 Absolute Neutrophils 3.92 Absolute Lymphocytes 0.70 L Absolute Monocytes 0.34 Absolute Eosinophils 0.05 Absolute Basophils 0.02 Sodium 139 Potassium 3.2 L Chloride 99 Carbon Dioxide 28.3 Anion Gap 11.7 H BUN 3 L Creatinine 0.87 Estimated GFR/1.73 m2 >= 60.00 Glucose 128 H Calcium 8.7 Magnesium 1.4 L Total Bilirubin 0.4 AST 156 H ALT 119 H Alkaline Phosphatase 129 H Total Protein 8.0 Albumin 3.6 Lipase 130 Urine Color Urine Clarity Urine pH Ur Specific [place] Urine Protein Urine Ketones Urine Blood Urine Nitrite Urine Bilirubin Urine Urobilinogen Ur Leukocyte Esterase Urine Glucose Urine Opiates Screen Negative Urine Methadone Screen Negative Ur Barbiturates Screen Negative Ur Tricyclics Screen Negative Ur Amphetamines Screen Negative U Benzodiazepines Scrn Negative Urine Cocaine Screen Negative Ur THC Screen Negative Ethyl Alcohol 54.6 05/09/20 15:10 WBC RBC Hgb Hct MCV MCH MCHC RDW Plt Count MPV Immature Gran % Neutrophils % Lymphocytes % Monocytes % Eosinophils % Basophils % Absolute Neutrophils Absolute Lymphocytes Absolute Monocytes Absolute Eosinophils Absolute Basophils Sodium Potassium Chloride Carbon Dioxide Anion Gap BUN Creatinine Estimated GFR/1.73 m2 Glucose Calcium Magnesium Total Bilirubin AST ALT Alkaline Phosphatase Total Protein Albumin Lipase Urine Color Yellow Urine Clarity Clear Urine pH 8.5 H Ur Specific [place] 1.015 Urine Protein Negative Urine Ketones Negative Urine Blood Negative Urine Nitrite Negative Urine Bilirubin Negative Urine Urobilinogen 4.0 H Ur Leukocyte Esterase Negative Urine Glucose Negative Urine Opiates Screen Urine Methadone Screen Ur Barbiturates Screen Ur Tricyclics Screen Ur Amphetamines Screen U Benzodiazepines Scrn Urine Cocaine Screen Ur THC Screen Ethyl Alcohol Last Vital Signs Temp 37.4 C 05/09/20 16:10 Pulse 57 L 05/09/20 18:02 Resp 13 05/09/20 18:02 BP 138/97 H 05/09/20 18:02 Pulse Ox 98 05/09/20 18:02 COVID-19 Screening Have you,or household,traveled outside [place] in last 14 days?: No Had IN PERSON contact w/suspected or confirmed C-19 person: No
[2020-05-09] MEDS: MAGNESIUM SULFATE 2 GM/50 ML BAG IVPB ×2 (20:12→22:06)
[2020-05-09] MEDS: Magnesium Oxide 400 MG TAB PO (20:12)
[2020-05-09] MEDS: PHENobarbital 130 MG/ML VIAL IVP (20:38)
[2020-05-09] MEDS: MAGNESIUM SULFATE 8.12 MEQ, MULTIVITAMIN 10 ML, THIAMINE 100 MG, FOLIC ACID 1 MG in Nor... 168.867 MG IV (21:29)
[2020-05-09] MEDS: diazePAM 10 MG/2 ML SYR IVP (21:35)
[2020-05-09 23:28] LABS: COVID-19 RT-PCR UVMMC Result Negative (Negative)
[2020-05-10] VITALS (81 sets, daily range): BP systolic 112–156; BP diastolic 70–106; PULSE 52–94; RESP 7–29; TEMP 36.6–37.1; O2SAT 37–100
[2020-05-10] MEDS: LORazepam 2 MG/ML VIAL IVP (00:12)
--- NOTE | 2020-05-10 09:11 | PGE_ITS ---
Date of Service Date of service: 05/10/20 Time of Service: 09:11 Assessment and Plan Assessment and plan (1) Alcohol withdrawal: Status: Chronic Assessment and plan: Continue IV fluid hydration. We will give him nicotine replacement. We will resume his Suboxone treatment for his narcotic abstinence program. Continue with program doses of his Serax along with PRN dosing of p.o. or IV benzodiazepines and or phenobarbital. Anticipate his stay to last 3 to 5 days to get him through the alcohol withdrawal. Today's day #2 (2) History of substance abuse: Status: Chronic Assessment and plan: Continue his outpatient Suboxone treatment while hospitalized. (3) Exposure to hepatitis C: Status: Acute Assessment and plan: We will get an acute hepatitis profile (4) DVT prophylaxis: Status: Acute Assessment and plan: Will prophylax with enoxaparin 40 mg subcutaneously every 24 hours. (5) Discharge planning issues: Status: Acute Assessment and plan: Will ask case management to make appropriate referrals for follow-up alcohol treatment upon discharge Subjective Subjective Interval history since last seen: Patient seems to be doing well with his acute alcohol withdrawal. CIWA scores are 4-5 this morning. He did peak at a score of 22 last night around 9:30 PM. He was given Valium 10 mg IV instead of the phenobarbital. He also ramped up to a score of 11 around 1130 last night and was treated with Ativan 3 mg IV. I have educated nursing staff regarding the use of phenobarbital as it has a much smoother action and more predictable therapeutic levels than benzodiazepines. I think if he is scoring high in his CIWA scale he should be treated with phenobarbital 130 mg up to 260 mg per dose with a total cumulative dose of no more than 20 mg/kg. So far he is only had 390 mg as a loading dose yesterday afternoon. Nursing staff called his narcotic clinic at [facility] in [facility] and he currently takes Suboxone 8 mg-2 mg sublingual daily. I am going to reorder his Suboxone and also provide him in Nicotrol inhaler. Exam Narrative Exam Narrative: Young male who is lying in bed sleepy but arousable and answering questions appropriately. He is nondiaphoretic he still has a tremor in his hands. Lungs are clear to auscultation Heart is regular rate and rhythm. Abdomen soft and nontender. Objective Objective Clinical Data: Abnormal lab results 05/09/20 05/09/20 05/09/20 Range/Units 09:46 09:46 15:10 RBC 4.44 L (4.50-6.00) m/cumm Hgb 13.4 L (13.5-17.5) g/dL Hct 39.4 L (40.0-50.0) % RDW 14.3 H (11.8-14.1) % Absolute Lymphocytes 0.70 L (1.2-3.4) k/cumm Potassium 3.2 L (3.5-5.1) mmol/L Anion Gap 11.7 H (3-11) mmol/L BUN 3 L (7-18) mg/dL Glucose 128 H (74-106) mg/dL Magnesium 1.4 L (1.8-2.4) mg/dL AST 156 H (15-37) U/L ALT 119 H (16-63) U/L Alkaline Phosphatase 129 H (46-116) U/L Urine pH 8.5 H (5-8) Urine Urobilinogen 4.0 H (Up TO 0.2) EU/dL Vital Signs Temperature 36.7 C 05/10/20 07:30 Temperature Source Temporal Artery Scan 05/10/20 07:30 Pulse 62 05/10/20 08:31 Pulse 66 05/10/20 08:31 Respiratory Rate 12 05/10/20 08:31 Respiratory Effort Non-Labored 05/10/20 07:30 Respiratory Depth Normal 05/10/20 07:30 Respiratory Pattern Normal 05/10/20 07:30 Blood Pressure 140/89 05/10/20 08:31 Blood Pressure Mean 101 05/10/20 08:31 Blood Pressure Position Supine 05/10/20 07:30 Pulse Oximetry 98 05/10/20 08:01 Oxygen Delivery Method Room Air 05/10/20 07:30 Oxygen Flow Rate 0 05/10/20 07:30 Fraction of Inspired Oxygen (FIO2) 21 05/09/20 16:25 Pain Level 0 05/10/20 07:30 Intake & Output 05/09/20 05/09/20 05/10/20 11:59 23:59 11:59 Intake Total 2100 / 2482.5 382.5 / 2482.5 2076.4 / 2076.4 Output Total 1150 / 1150 1300 / 1300 Balance 2100 / 1332.5 -767.5 / 1332.5 776.4 / 776.4 Weight 61.235 kg 64.1 kg Intake: IV 2100 / 2242.5 142.5 / 2242.5 2076.4 / 2076.4 Oral 240 / 240 Output: Urine 1150 / 1150 1300 / 1300 Other: Urine Color Yellow Yellow Urine Appearance Clear Clear Urine Odor None None Comment Pt is requesting to be tested for STD's pt did not specify, Dr Lugo made aware. Voiding Methods Urinal Urinal Laboratory Results WBC 5.04 k/cumm (4.4-10.8) 05/09/20 09:46 RBC 4.44 m/cumm (4.50-6.00) L 05/09/20 09:46 Hgb 13.4 g/dL (13.5-17.5) L 05/09/20 09:46 Hct 39.4 % (40.0-50.0) L 05/09/20 09:46 MCV 88.7 fL (80-95) 05/09/20 09:46 MCH 30.2 pg (27.0-33.0) 05/09/20 09:46 MCHC 34.0 g/dL (32.0-36.0) 05/09/20 09:46 RDW 14.3 % (11.8-14.1) H 05/09/20 09:46 Plt Count 181 x1000/uL (130-400) 05/09/20 09:46 MPV 9.1 fL (8.0-11.0) 05/09/20 09:46 Immature Gran % 0.2 % 05/09/20 09:46 Neutrophils % 77.8 05/09/20 09:46 Lymphocytes % 13.9 05/09/20 09:46 Monocytes % 6.7 05/09/20 09:46 Eosinophils % 1.0 05/09/20 09:46 Basophils % 0.4 05/09/20 09:46 Absolute Neutrophils 3.92 k/cumm (1.2-6.7) 05/09/20 09:46 Absolute Lymphocytes 0.70 k/cumm (1.2-3.4) L 05/09/20 09:46 Absolute Monocytes 0.34 k/cumm (0.11-0.7) 05/09/20 09:46 Absolute Eosinophils 0.05 k/cumm (0.0-0.7) 05/09/20 09:46 Absolute Basophils 0.02 k/cumm (0.0-0.2) 05/09/20 09:46 Sodium 139 mmol/L (136-145) 05/09/20 09:46 Potassium 3.2 mmol/L (3.5-5.1) L 05/09/20 09:46 Chloride 99 mmol/L (98-107) 05/09/20 09:46 Carbon Dioxide 28.3 mmol/L (21.0-32.0) 05/09/20 09:46 Anion Gap 11.7 mmol/L (3-11) H 05/09/20 09:46 BUN 3 mg/dL (7-18) L 05/09/20 09:46 Creatinine 0.87 mg/dL (0.70-1.30) 05/09/20 09:46 Estimated GFR/1.73 m2 >= 60.00 (mL/min/1.73m2) 05/09/20 09:46 Glucose 128 mg/dL (74-106) H 05/09/20 09:46 Calcium 8.7 mg/dL (8.5-10.1) 05/09/20 09:46 Magnesium 1.4 mg/dL (1.8-2.4) L 05/09/20 09:46 Total Bilirubin 0.4 mg/dL (0.2-1.0) 05/09/20 09:46 AST 156 U/L (15-37) H 05/09/20 09:46 ALT 119 U/L (16-63) H 05/09/20 09:46 Alkaline Phosphatase 129 U/L (46-116) H 05/09/20 09:46 Total Protein 8.0 g/dL (6.4-8.2) 05/09/20 09:46 Albumin 3.6 g/dL (3.4-5.0) 05/09/20 09:46 Lipase 130 U/L (73-393) 05/09/20 09:46 Urine Color Yellow (Yellow) 05/09/20 15:10 Urine Clarity Clear (Clear) 05/09/20 15:10 Urine pH 8.5 (5-8) H 05/09/20 15:10 Ur Specific [place] 1.015 (1.005-1.025) 05/09/20 15:10 Urine Protein Negative mg/dL (Negative) 05/09/20 15:10 Urine Ketones Negative mg/dL (Negative) 05/09/20 15:10 Urine Blood Negative (Negative) 05/09/20 15:10 Urine Nitrite Negative (Negative) 05/09/20 15:10 Urine Bilirubin Negative (Negative) 05/09/20 15:10 Urine Urobilinogen 4.0 EU/dL (Up TO 0.2) H 05/09/20 15:10 Ur Leukocyte Esterase Negative (Negative) 05/09/20 15:10 Urine Glucose Negative mg/dL (Negative) 05/09/20 15:10 Urine Opiates Screen Negative (Negative) 05/09/20 15:10 Urine Methadone Screen Negative (Negative) 05/09/20 15:10 Ur Barbiturates Screen Negative (Negative) 05/09/20 15:10 Ur Tricyclics Screen Negative (Negative) 05/09/20 15:10 Ur Amphetamines Screen Negative (Negative) 05/09/20 15:10 U Benzodiazepines Scrn Negative (Negative) 05/09/20 15:10 Urine Cocaine Screen Negative (Negative) 05/09/20 15:10 Ur THC Screen Negative (Negative) 05/09/20 15:10 Ethyl Alcohol 54.6 mg/dL (<3) 05/09/20 09:46 COVID-19 PCR Negative (Negative) 05/09/20 12:20 Nasopharyn COVID-19 PCR Not Applicable 05/09/20 12:20 Ref Test Perform Site [facility] 05/09/20 12:20
[2020-05-10] MEDS: Magnesium Oxide 400 MG TAB PO ×2 (10:02→20:19)
[2020-05-10] MEDS: Thiamine 100 MG TAB PO (10:02)
[2020-05-10] MEDS: Folic Acid 1 MG TAB PO (10:03)
[2020-05-10] MEDS: Multivitamin TAB 1 TAB PO (10:03)
[2020-05-10] MEDS: Buprenorphine/Naloxone 8 mg/2 mg FILM 1 EACH SL (10:03)
[2020-05-10] MEDS: PHENobarbital 130 MG/ML VIAL 260 MG IVP (10:36)
--- NOTE | 2020-05-10 10:43 | NUR.NOTE ---
Pt verbalizing desire to leave AMA. Dr. Lugo notified, order received for phenobarbital 260 mg iv, dose was delivered as ordered.
[2020-05-10 11:36] LABS: ALT 203 U/L (16-63); AST 509 U/L (15-37); Albumin 3.5 g/dL (3.4-5.0); Alkaline Phosphatase 173 U/L (46-116); Anion Gap 6.4 mmol/L (3-11); BUN 4 mg/dL (7-18); Bilirubin, Direct 0.28 mg/dL (0.00-0.20); Bilirubin, Total 0.8 mg/dL (0.2-1.0); CO2 28.6 mmol/L (21.0-32.0); CREATININE 0.72 mg/dL (0.70-1.30); Calcium 9.1 mg/dL (8.5-10.1); Chloride 98 mmol/L (98-107); Glucose 116 mg/dL (74-106); Magnesium 2.3 mg/dL (1.8-2.4); PHOSPHORUS 2.5 mg/dL (2.6-4.7); Potassium 4.4 mmol/L (3.5-5.1); Sodium 133 mmol/L (136-145); Total Protein 7.6 g/dL (6.4-8.2)
[2020-05-10] MEDS: Nicotine 21 MG/24 HR PATCH TD ×2 (15:42→21:08)
[2020-05-10] MEDS: LORazepam 1 MG TAB PO/SL ×2 (15:43→20:18)
--- NOTE | 2020-05-10 16:34 | PDOC.CMIN ---
- If Service Date Differs Date of service: 05/10/20 Time of Service: 16:35 Care Management Initial Assess REASON FOR HOSPITALIZATION:: Alcohol Withdrawal PAST MEDICAL HISTORY/PAST SURGICAL HISTORY:: Medical History . Alcoholism (Chronic 08/15/17). start revia. Attention deficit disorder (Chronic 04/15/18). continue adderall as directed. Exposure to hepatitis C (Acute). serology neg 10/2018. Polysubstance abuse (Acute). Surgical History . Fracture, Open Treatment. CAROLE ARREOLA; RIGHT DISTAL RADIUS PREVIOUS FUNCTIONAL STATUS/SOCIAL/FAMILY SUPPORTS:: Paulie lives with his grandmother in [place]. He is independent at baseline. CURRENT FUNCTIONAL STATUS:: Due to sedation, Paulie was unable to participate and engage with CM today. Per report, he had a high CIWA score (22) overnight. Today it was down to 4-5. Per RN, he was talking about leaving AMA, but is now sleeping. CM will contact a assistant women's basketball coach and discuss rehab options with Paulie once he is able to engage. CM will continue to follow. ADVANCE DIRECTIVES:: None on file. Has patient been provided with info about the portal/API?: No Did the patient sign up for the portal?: No CODE STATUS:: Full Code INSURANCE COVERAGE / FINANCIAL ISSUES:: [employer] CURRENT HOME/COMMUNITY SERVICES/EQUIPMENT:: No known current services or equipment. PRIMARY CARE PHYSICIAN:: Hernesto Beverly POTENTIAL DISCHARGE NEEDS:: Evaluations for further needs, follow up appointments PATIENT/FAMILY EDUCATION NEEDS:: Review discharge instructions regarding activity levels and medications, discussion of self care needs including ask me three ANTICIPATED BARRIERS TO DISCHARGE:: None identified. TRANSPORTATION:: Via private vehicle PLAN:: Anticipate Paulie will return home when medically cleared. He will be connected to a assistant women's basketball coach and CM will discuss rehab options locally. He will be driven home via private vehicle, [facility]. CM will continue to follow.
[2020-05-10] MEDS: PHENobarbital 130 MG/ML VIAL IVP (23:00)
[2020-05-11] VITALS (50 sets, daily range): BP systolic 120–148; BP diastolic 71–89; PULSE 58–138; RESP 7–22; TEMP 36.4–36.7; O2SAT 88–100
--- NOTE | 2020-05-11 08:13 | PHA.REVIEW ---
Pharmacy Admission Review - Admission Clinical Review (Last Reviewed 05/09/20 @ 18:39 by Calvin Lugo) Exposure to hepatitis C (Acute) DVT prophylaxis (Acute) Discharge planning issues (Acute) Sulfa (Sulfonamide Antibiotics) Allergy (Unknown, Unverified 05/09/20 09:20) Hives Height 5 ft 8 in Weight 62.3 kg - Renal Dosing Renal Dosing: BUN 4 mg/dL (7-18) L 05/10/20 08:18 Creatinine 0.72 mg/dL (0.70-1.30) 05/10/20 08:18 Medications needing adjustments: Reviewed - Anticoagulation Anticoagulation: Hgb 13.4 g/dL (13.5-17.5) L 05/09/20 09:46 Hct 39.4 % (40.0-50.0) L 05/09/20 09:46 Plt Count 181 x1000/uL (130-400) 05/09/20 09:46 Creatinine 0.72 mg/dL (0.70-1.30) 05/10/20 08:18 DVT Prohphylaxis: Intervened Medications: Enoxaparin (Progress note states lmwh but not ordered, will notify MD) Therapeutic Anticoagulation: N/A - Opiate Usage Evaluate Pain Scale/Pains Meds: Reviewed Scheduled Bowel Reg ordered if on Opiates?: No - Relevant Labs Sodium 133 mmol/L (136-145) L 05/10/20 08:18 Potassium 4.4 mmol/L (3.5-5.1) D 05/10/20 08:18 Chloride 98 mmol/L (98-107) 05/10/20 08:18 Phosphorus 2.5 mg/dL (2.6-4.7) L 05/10/20 08:18 Magnesium 2.3 mg/dL (1.8-2.4) 05/10/20 08:18 Electrolytes, C-Reactive P, ESR: Reviewed - DM Control DM Control: Glucose 116 mg/dL (74-106) H 05/10/20 08:18 Insulin Dosing: Reviewed - Heart Failure/TX EF%, JOSE's, B-Blockers, Diuretics: N/A - BP Control BP Control: Blood Pressure 133/100 Blood Pressure 128/90 Blood Pressure 133/92 Blood Pressure 143/97 Blood Pressure 128/90 Blood Pressure 134/88 If elevated: Reviewed - IV to PO Switch IV Medications: Reviewed - Home Meds Home Med List reviewed: Reviewed Relevent Home Meds Not ordered & why?: Adderall, sertraline, trazodone -- holding for now while exp etoh withdrawal with CIWA protocol - Current meds Current Medication Order Review: Reviewed
--- NOTE | 2020-05-11 09:15 | PGE_ITS ---
Date of Service Date of service: 05/11/20 Time of Service: 09:16 Assessment and Plan Assessment and plan (1) Alcohol withdrawal: Status: Chronic Assessment and plan: Day #3 of acute alcohol withdrawal treatment. Patient is rather lethargic this morning. However he did receive some Ativan for his CIWA score of 10., Start reducing his scheduled doses of Serax. Continue PRN treatment of Ativan and/or Valium and/or phenobarbital based on his CIWA score. (2) History of substance abuse: Status: Chronic Assessment and plan: Continue his outpatient Suboxone treatment while hospitalized. (3) Exposure to hepatitis C: Status: Acute Assessment and plan: Hepatitis profile pending (4) DVT prophylaxis: Status: Acute Assessment and plan: Patient is a low risk for DVT as the patient is quite restless and frequently gets out of bed and even while in bed he is often moving about. (5) Discharge planning issues: Status: Acute Assessment and plan: Case management is indicated that they are arranging a disaster recovery coordinator to help him with his alcoholism upon discharge from the hospital. Subjective Subjective Interval history since last seen: Patient has CIWA score up to 20 last night but has since been scoring between 3 and 4 through the rest of the night until this morning when he scored a 10. He was treated with Ativan and is now lethargic but arousable. He is oriented to person place and circumstance and according to nursing staff oriented to the month but had a look at his phone to figure out the date of the month. This point I think warranted day #3 of his alcohol withdrawal number to start decreasing the amount of scheduled Serax that he receives. He will continue to receive as needed Ativan and/or Valium and/or phenobarbital for his acute alcohol withdrawal. Exam Narrative Exam Narrative: Young male who is sitting up in bed in bed sleepy but arousable and answering questions appropriately. He is nondiaphoretic he no tremor in his hands. Lungs are clear to auscultation Heart is regular rate and rhythm. Abdomen soft and nontender. Objective Objective Clinical Data: Abnormal lab results 05/10/20 Range/Units 08:18 Sodium 133 L (136-145) mmol/L BUN 4 L (7-18) mg/dL Glucose 116 H (74-106) mg/dL Phosphorus 2.5 L (2.6-4.7) mg/dL Conjugated Bilirubin 0.28 H (0.00-0.20) mg/dL AST 509 H (15-37) U/L ALT 203 H (16-63) U/L Alkaline Phosphatase 173 H (46-116) U/L Vital Signs Temperature 36.6 C 05/11/20 04:00 Temperature Source Temporal Artery Scan 05/11/20 04:00 Pulse 66 05/11/20 04:00 Pulse 65 05/11/20 01:30 Respiratory Rate 14 05/11/20 04:00 Respiratory Effort 05/11/20 04:00 Respiratory Depth Normal 05/11/20 04:00 Respiratory Pattern Normal 05/10/20 15:55 Blood Pressure 133/100 H 05/10/20 23:01 Blood Pressure Mean 108 05/10/20 23:01 Blood Pressure Position Supine 05/11/20 04:00 Pulse Oximetry 97 05/11/20 04:00 Oxygen Delivery Method Room Air 05/11/20 04:00 Oxygen Flow Rate 0 05/11/20 04:00 Fraction of Inspired Oxygen (FIO2) 21 05/09/20 16:25 Pain Level 0 05/11/20 04:00 Intake & Output 05/10/20 05/10/20 05/11/20 11:59 23:59 11:59 Intake Total 3642.9 / 4857.483 1214.583 / 4857.483 1000 / 1000 Output Total 1300 / 1600 300 / 1600 2300 / 2300 Balance 2342.9 / 3257.483 914.583 / 3257.483 -1300 / -1300 Weight 62.3 kg Intake: IV 3642.9 / 4607.483 964.583 / 4607.483 1000 / 1000 Oral 250 / 250 Output: Urine 1300 / 1600 300 / 1600 2300 / 2300 Other: Urine Color Yellow Yellow Yellow Urine Appearance Clear Clear Clear Urine Odor None None Comment voiding in urinal. urine clear dark yelena voiding in urinal. urine clear dark yelena Voiding Methods Urinal Urinal Urinal Laboratory Results WBC 5.04 k/cumm (4.4-10.8) 05/09/20 09:46 RBC 4.44 m/cumm (4.50-6.00) L 05/09/20 09:46 Hgb 13.4 g/dL (13.5-17.5) L 05/09/20 09:46 Hct 39.4 % (40.0-50.0) L 05/09/20 09:46 MCV 88.7 fL (80-95) 05/09/20 09:46 MCH 30.2 pg (27.0-33.0) 05/09/20 09:46 MCHC 34.0 g/dL (32.0-36.0) 05/09/20 09:46 RDW 14.3 % (11.8-14.1) H 05/09/20 09:46 Plt Count 181 x1000/uL (130-400) 05/09/20 09:46 MPV 9.1 fL (8.0-11.0) 05/09/20 09:46 Immature Gran % 0.2 % 05/09/20 09:46 Neutrophils % 77.8 05/09/20 09:46 Lymphocytes % 13.9 05/09/20 09:46 Monocytes % 6.7 05/09/20 09:46 Eosinophils % 1.0 05/09/20 09:46 Basophils % 0.4 05/09/20 09:46 Absolute Neutrophils 3.92 k/cumm (1.2-6.7) 05/09/20 09:46 Absolute Lymphocytes 0.70 k/cumm (1.2-3.4) L 05/09/20 09:46 Absolute Monocytes 0.34 k/cumm (0.11-0.7) 05/09/20 09:46 Absolute Eosinophils 0.05 k/cumm (0.0-0.7) 05/09/20 09:46 Absolute Basophils 0.02 k/cumm (0.0-0.2) 05/09/20 09:46 Sodium 133 mmol/L (136-145) L 05/10/20 08:18 Potassium 4.4 mmol/L (3.5-5.1) D 05/10/20 08:18 Chloride 98 mmol/L (98-107) 05/10/20 08:18 Carbon Dioxide 28.6 mmol/L (21.0-32.0) 05/10/20 08:18 Anion Gap 6.4 mmol/L (3-11) 05/10/20 08:18 BUN 4 mg/dL (7-18) L 05/10/20 08:18 Creatinine 0.72 mg/dL (0.70-1.30) 05/10/20 08:18 Estimated GFR/1.73 m2 >= 60.00 (mL/min/1.73m2) 05/10/20 08:18 Glucose 116 mg/dL (74-106) H 05/10/20 08:18 Calcium 9.1 mg/dL (8.5-10.1) 05/10/20 08:18 Phosphorus 2.5 mg/dL (2.6-4.7) L 05/10/20 08:18 Magnesium 2.3 mg/dL (1.8-2.4) 05/10/20 08:18 Total Bilirubin 0.8 mg/dL (0.2-1.0) 05/10/20 08:18 Conjugated Bilirubin 0.28 mg/dL (0.00-0.20) H 05/10/20 08:18 AST 509 U/L (15-37) H 05/10/20 08:18 ALT 203 U/L (16-63) H 05/10/20 08:18 Alkaline Phosphatase 173 U/L (46-116) H 05/10/20 08:18 Total Protein 7.6 g/dL (6.4-8.2) 05/10/20 08:18 Albumin 3.5 g/dL (3.4-5.0) 05/10/20 08:18 Lipase 130 U/L (73-393) 05/09/20 09:46 Urine Color Yellow (Yellow) 05/09/20 15:10 Urine Clarity Clear (Clear) 05/09/20 15:10 Urine pH 8.5 (5-8) H 05/09/20 15:10 Ur Specific [place] 1.015 (1.005-1.025) 05/09/20 15:10 Urine Protein Negative mg/dL (Negative) 05/09/20 15:10 Urine Ketones Negative mg/dL (Negative) 05/09/20 15:10 Urine Blood Negative (Negative) 05/09/20 15:10 Urine Nitrite Negative (Negative) 05/09/20 15:10 Urine Bilirubin Negative (Negative) 05/09/20 15:10 Urine Urobilinogen 4.0 EU/dL (Up TO 0.2) H 05/09/20 15:10 Ur Leukocyte Esterase Negative (Negative) 05/09/20 15:10 Urine Glucose Negative mg/dL (Negative) 05/09/20 15:10 Urine Opiates Screen Negative (Negative) 05/09/20 15:10 Urine Methadone Screen Negative (Negative) 05/09/20 15:10 Ur Barbiturates Screen Negative (Negative) 05/09/20 15:10 Ur Tricyclics Screen Negative (Negative) 05/09/20 15:10 Ur Amphetamines Screen Negative (Negative) 05/09/20 15:10 U Benzodiazepines Scrn Negative (Negative) 05/09/20 15:10 Urine Cocaine Screen Negative (Negative) 05/09/20 15:10 Ur THC Screen Negative (Negative) 05/09/20 15:10 Ethyl Alcohol 54.6 mg/dL (<3) 05/09/20 09:46 COVID-19 PCR Negative (Negative) 05/09/20 12:20 Nasopharyn COVID-19 PCR Not Applicable 05/09/20 12:20 Ref Test Perform Site [place] [facility] 05/09/20 12:20
[2020-05-11] MEDS: Buprenorphine/Naloxone 8 mg/2 mg FILM 1 EACH SL (09:33)
[2020-05-11] MEDS: LORazepam 1 MG TAB PO/SL ×4 (09:34→21:40)
[2020-05-11] MEDS: Magnesium Oxide 400 MG TAB PO ×2 (09:35→21:25)
[2020-05-11] MEDS: Nicotine 21 MG/24 HR PATCH TD (09:35)
[2020-05-11] MEDS: Multivitamin TAB 1 TAB PO (09:35)
[2020-05-11] MEDS: Folic Acid 1 MG TAB PO (09:35)
[2020-05-11] MEDS: Thiamine 100 MG TAB PO (09:35)
[2020-05-11 10:44] LABS: HBs Antibody, Qual Positive (See Note); HBs Antibody, Quant 22.5 mIU/mL (See Note); Hepatitis B Core Antibody Negative (Negative); Hepatitis B surface Ag Negative (Negative); Hepatitis C Ab w Rflx HCV PCR Negative (Negative)
[2020-05-11] MEDS: PHENobarbital 130 MG/ML VIAL IVP ×3 (14:05→23:35)
[2020-05-11] MEDS: Water,Injection,Sterile 10 ML VIAL ×2 (14:05→15:49)
[2020-05-11] MEDS: Normal Saline Flush 10 ML SYR IVP ×2 (14:05→18:35)
--- NOTE | 2020-05-11 14:20 | CMPROGNOTE_ITS ---
- If Service Date Differs Date of service: 05/11/20 Time of Service: 14:20 Care Management Progress Note S/O: Paulie was lying in bed when CM met with him. He stated that he does want to stop drinking, saying if I didn't, I wouldn't be here. He stated that he has been to rehab three times and has no interest in going back. He stated that as soon as he leaves, he buys alcohol, thinking that he can just have one, then just two, then three.... He reported that he thinks that he will from his alcohol use if he doesn't stop. CM asked if he was suicidal, which he denied. He stated that he wants to live, but he can't imagine not drinking at this time. He declined talking with the development coach. CM contacted the development coach to ask if they will reach out to him tomorrow when he is not as sedated. Paulie stated that he will stay tonight, but he wants to leave tomorrow. CM will continue to follow. A: Paulie is a 25 year old male admitted to [facility] on 05/09/20 with alcohol withdrawal. P: Anticipate Paulie will return home when medically cleared. He has discussed leaving AMA with his RN, but has stayed due to the increase in risk at this point of his withdrawal. CM requested to be contacted by RN if he attempts to leave AMA. Anticipate he will be driven home via private vehicle by family. CM will connect him with the development coach. CM will continue to follow.
--- NOTE | 2020-05-11 17:21 | NUR.NOTE ---
The patient can have up to 20mg/kg of phenobarbital (Total: 1246mg) @20x62.3kg). He has had three 260mg doses 05/10-05/11 = 780mg Nursing Note:
[2020-05-11] MEDS: LORazepam 2 MG/ML VIAL IVP (18:34)
[2020-05-11] MEDS: Lactated Ringers 1,000 ML 85 ML IV (19:26)
[2020-05-11] MEDS: diazePAM 10 MG/2 ML SYR IVP (19:36)
[2020-05-12] VITALS (59 sets, daily range): BP systolic 102–147; BP diastolic 61–104; PULSE 59–149; RESP 7–24; TEMP 36.4–37.2; O2SAT 88–97
[2020-05-12] MEDS: diazePAM 10 MG/2 ML SYR IVP (02:22)
[2020-05-12] MEDS: LORazepam 2 MG/ML VIAL IVP (03:12)
[2020-05-12] MEDS: Lactated Ringers 1,000 ML 85 ML IV ×2 (06:53→18:17)
[2020-05-12] MEDS: Magnesium Oxide 400 MG TAB PO ×2 (07:45→20:19)
[2020-05-12] MEDS: Thiamine 100 MG TAB PO (07:46)
[2020-05-12] MEDS: Multivitamin TAB 1 TAB PO (07:46)
[2020-05-12] MEDS: Buprenorphine/Naloxone 8 mg/2 mg FILM 1 EACH SL (07:46)
[2020-05-12] MEDS: Nicotine 21 MG/24 HR PATCH TD (07:46)
[2020-05-12] MEDS: Folic Acid 1 MG TAB PO (07:46)
[2020-05-12] MEDS: PHENobarbital 130 MG/ML VIAL IVP (07:47)
--- NOTE | 2020-05-12 08:32 | PGE_ITS ---
Date of Service Date of service: 05/12/20 Time of Service: 08:32 Assessment and Plan Assessment and plan (1) Alcohol withdrawal: Status: Chronic Assessment and plan: Day #4 of acute alcohol withdrawal treatment. Patient is rather lethargic this morning. However he did receive some phenobarbital 260 mg IV about 1/2 hr ago., continue Serax at higher dose of 30 mg QID for another 24 hours then start to taper his dose as his agitation improves. dc phenobarbital as he is now at the maximum recommended cumulative dose. continue to monitor in ICU for now since he is still requiring iv dosing of Ativan for his agitation. (2) History of substance abuse: Status: Chronic Assessment and plan: Continue his outpatient Suboxone treatment while hospitalized. (3) Exposure to hepatitis C: Status: Acute Assessment and plan: Hepatitis profile pending (4) DVT prophylaxis: Status: Acute Assessment and plan: Patient is a low risk for DVT as the patient is quite restless and frequently gets out of bed and even while in bed he is often moving about therefore I do not feel that he requires lovenox coverage. (5) Discharge planning issues: Status: Acute Assessment and plan: Case management is indicated that they are arranging a hitting coach to help him with his alcoholism upon discharge from the hospital. Subjective Subjective Interval history since last seen: Patient became more agitated during the night and required increasing doses of benzodiazepines. CIWA scores range between 12 and 23. He is now reached a cumulative dose on his phenobarbital of 1430 mg which is still within the safe cumulative dose (cumulative dose of 20 to 30 mg /kg, which would be 1280 mg to 1920 mg). I am discontinuing any further phenobarbital doses. Last night I increased his scheduled dosing of Serax to 30 mg QID. Exam Narrative Exam Narrative: Young male who was sleeping when I walked in the room but awakened with tactile stimulation but not with calling his name. Once I had him awakened he was RASS scale of -1. awakens w/ tactile stimulation and will sit up on his own and mumbles incoherently Lungs: clear heart: RRR w/o m,r,g abd: soft, nontender Neuro: voluntarily moves all 4 extremities, verbalizes but not able to answer my questions in any coherent manner (per nursing he was just medicate 1/2 hr ago), no tremors, no diaphoresis Objective Objective Clinical Data: Vital Signs Temperature 36.6 C 05/12/20 04:08 Temperature Source Temporal Artery Scan 05/12/20 04:08 Pulse 72 05/12/20 04:08 Pulse 74 05/12/20 04:01 Respiratory Rate 18 05/12/20 04:08 Respiratory Effort 05/12/20 04:08 Respiratory Depth Normal 05/12/20 04:08 Respiratory Pattern Normal 05/12/20 04:08 Blood Pressure 102/61 05/12/20 04:08 Blood Pressure Mean 74 05/12/20 04:08 Blood Pressure Position Supine 05/12/20 04:08 Pulse Oximetry 91 L 05/12/20 04:08 Oxygen Delivery Method Room Air 05/12/20 04:08 Oxygen Flow Rate 0 05/12/20 04:08 Fraction of Inspired Oxygen (FIO2) 05/09/20 16:25 Pain Level 0 05/12/20 04:08 Comment 05/11/20 13:58 Intake & Output 05/11/20 05/11/20 05/12/20 11:59 23:59 11:59 Intake Total 1441.667 / 1521.667 80 / 1521.667 973.25 / 973.25 Output Total 2300 / 2925 625 / 2925 Balance -858.333 / -1403.333 -545 / -1403.333 973.25 / 973.25 Weight 62.3 kg Intake: IV 1441.667 / 1471.667 30 / 1471.667 973.25 / 973.25 Oral 50 / 50 Output: Urine 2300 / 2925 625 / 2925 Other: Urine Color Yellow Yellow Urine Appearance Clear Clear Urine Odor Normal Comment Pt voiding into urinal at bedside voids in urinal voids in urinal Voiding Methods Urinal Urinal Laboratory Results WBC 5.04 k/cumm (4.4-10.8) 05/09/20 09:46 RBC 4.44 m/cumm (4.50-6.00) L 05/09/20 09:46 Hgb 13.4 g/dL (13.5-17.5) L 05/09/20 09:46 Hct 39.4 % (40.0-50.0) L 05/09/20 09:46 MCV 88.7 fL (80-95) 05/09/20 09:46 MCH 30.2 pg (27.0-33.0) 05/09/20 09:46 MCHC 34.0 g/dL (32.0-36.0) 05/09/20 09:46 RDW 14.3 % (11.8-14.1) H 05/09/20 09:46 Plt Count 181 x1000/uL (130-400) 05/09/20 09:46 MPV 9.1 fL (8.0-11.0) 05/09/20 09:46 Immature Gran % 0.2 % 05/09/20 09:46 Neutrophils % 77.8 05/09/20 09:46 Lymphocytes % 13.9 05/09/20 09:46 Monocytes % 6.7 05/09/20 09:46 Eosinophils % 1.0 05/09/20 09:46 Basophils % 0.4 05/09/20 09:46 Absolute Neutrophils 3.92 k/cumm (1.2-6.7) 05/09/20 09:46 Absolute Lymphocytes 0.70 k/cumm (1.2-3.4) L 05/09/20 09:46 Absolute Monocytes 0.34 k/cumm (0.11-0.7) 05/09/20 09:46 Absolute Eosinophils 0.05 k/cumm (0.0-0.7) 05/09/20 09:46 Absolute Basophils 0.02 k/cumm (0.0-0.2) 05/09/20 09:46 Sodium 133 mmol/L (136-145) L 05/10/20 08:18 Potassium 4.4 mmol/L (3.5-5.1) D 05/10/20 08:18 Chloride 98 mmol/L (98-107) 05/10/20 08:18 Carbon Dioxide 28.6 mmol/L (21.0-32.0) 05/10/20 08:18 Anion Gap 6.4 mmol/L (3-11) 05/10/20 08:18 BUN 4 mg/dL (7-18) L 05/10/20 08:18 Creatinine 0.72 mg/dL (0.70-1.30) 05/10/20 08:18 Estimated GFR/1.73 m2 >= 60.00 (mL/min/1.73m2) 05/10/20 08:18 Glucose 116 mg/dL (74-106) H 05/10/20 08:18 Calcium 9.1 mg/dL (8.5-10.1) 05/10/20 08:18 Phosphorus 2.5 mg/dL (2.6-4.7) L 05/10/20 08:18 Magnesium 2.3 mg/dL (1.8-2.4) 05/10/20 08:18 Total Bilirubin 0.8 mg/dL (0.2-1.0) 05/10/20 08:18 Conjugated Bilirubin 0.28 mg/dL (0.00-0.20) H 05/10/20 08:18 AST 509 U/L (15-37) H 05/10/20 08:18 ALT 203 U/L (16-63) H 05/10/20 08:18 Alkaline Phosphatase 173 U/L (46-116) H 05/10/20 08:18 Total Protein 7.6 g/dL (6.4-8.2) 05/10/20 08:18 Albumin 3.5 g/dL (3.4-5.0) 05/10/20 08:18 Lipase 130 U/L (73-393) 05/09/20 09:46 Urine Color Yellow (Yellow) 05/09/20 15:10 Urine Clarity Clear (Clear) 05/09/20 15:10 Urine pH 8.5 (5-8) H 05/09/20 15:10 Ur Specific [place] 1.015 (1.005-1.025) 05/09/20 15:10 Urine Protein Negative mg/dL (Negative) 05/09/20 15:10 Urine Ketones Negative mg/dL (Negative) 05/09/20 15:10 Urine Blood Negative (Negative) 05/09/20 15:10 Urine Nitrite Negative (Negative) 05/09/20 15:10 Urine Bilirubin Negative (Negative) 05/09/20 15:10 Urine Urobilinogen 4.0 EU/dL (Up TO 0.2) H 05/09/20 15:10 Ur Leukocyte Esterase Negative (Negative) 05/09/20 15:10 Urine Glucose Negative mg/dL (Negative) 05/09/20 15:10 Urine Opiates Screen Negative (Negative) 05/09/20 15:10 Urine Methadone Screen Negative (Negative) 05/09/20 15:10 Ur Barbiturates Screen Negative (Negative) 05/09/20 15:10 Ur Tricyclics Screen Negative (Negative) 05/09/20 15:10 Ur Amphetamines Screen Negative (Negative) 05/09/20 15:10 U Benzodiazepines Scrn Negative (Negative) 05/09/20 15:10 Urine Cocaine Screen Negative (Negative) 05/09/20 15:10 Ur THC Screen Negative (Negative) 05/09/20 15:10 Ethyl Alcohol 54.6 mg/dL (<3) 05/09/20 09:46 COVID-19 PCR Negative (Negative) 05/09/20 12:20 Nasopharyn COVID-19 PCR Not Applicable 05/09/20 12:20 Hep Bs Antigen Negative (Negative) 05/10/20 10:55 Hep Bs Antibody Positive (See Note) 05/10/20 10:55 Hep Bs Antibody, Quant 22.5 mIU/mL (See Note) 05/10/20 10:55 Hep B Core Total Ab Negative (Negative) 05/10/20 10:55 Hepatitis C Antibody Negative (Negative) 05/10/20 10:55 Ref Test Perform Site [place] [facility] 05/09/20 12:20
--- NOTE | 2020-05-12 09:32 | PDOC.CMPRO ---
- If Service Date Differs Date of service: 05/12/20 Time of Service: 09:33 Care Management Progress Note S/O: Paulie remains in the ICU being treated for alcohol withdrawal. His CIWA scores have been between 3 and 12 during the day today. He is drowsy, lethargic and confused per nursing. CM was unable to meet with him since he was sleeping each time a visit was attempted. CM will continue to follow. A: Paulie is a 25 year old male admitted to [facility] on 05/09/20 with alcohol withdrawal. P: Anticipate Paulie will return home when medically cleared. He discussed leaving AMA with his RN yesterday, but has not made similar statements today.Anticipate he will be driven home via private vehicle by family. CM will continue to support patient, famaily and discharge planning needs/concerns.
--- NOTE | 2020-05-12 14:24 | NUR.NOTE ---
Pt assisted to chair, bed linen changed. Pt barely able to sit upright, was supported by staff. Pt has not voided uet this shift, was encouraged to do so, but was unable at this time. BTB with 2 assist. Took meds as ordered with encouragement to drink fluids.
--- NOTE | 2020-05-12 14:33 | W.NUTCONSULT ---
Date of service: 05/12/20 Time of Service: 14:34 Nutritional Consult ASSESSMENT: 25 year old male with long hx of alcohol abuse admitted into ICU for alcohol withdrawl. BMI wnl. Appears well nourished prior to admit. Meds include MVI, folic acid, thiamin for repletion. Has become progressively lethargic since admit. PO intake since admission have been minimal, mostly just sips of water. Receving lactated ringers for hydration. Will have adequate stores of nutrients for up to 5 days of minimal intake. Protein Calorie Malnutrition diagnosed after 7 days of minimal intake (<300 kcal). By 05/14/20, will need to consider enteral nutrition support if po intake does not significantly improve and provide at least 500-800 kcal per day. Estimated Needs: [id number] kcal, 62-74 g protein, 1800 ml fluid. NUTRITIONAL DIAGNOSIS: Inadequate oral intake of calories, protein and fat due to lethargy secondary to alcohol withdral INTERVENTION: continue regular diet and offer beverages/meals/snacks when awake. MONITORING AND EVALUATION: consider enteral nutrition support by 05/14/20 if po remains minimal. Time Spent in Nutritional Counseling and Treatment: 0 time spent face to face
[2020-05-12] MEDS: Lactated Ringers 1,000 ML 125 ML IV (22:05)
[2020-05-13] VITALS (42 sets, daily range): BP systolic 108–165; BP diastolic 58–98; PULSE 49–127; RESP 3–22; TEMP 36.3–36.8; O2SAT 96–98
[2020-05-13 01:01] LABS: ALT 265 U/L (16-63); AST 255 U/L (15-37); Albumin 3.1 g/dL (3.4-5.0); Alkaline Phosphatase 282 U/L (46-116); Anion Gap 9.3 mmol/L (3-11); BUN 9 mg/dL (7-18); Bilirubin, Total 0.9 mg/dL (0.2-1.0); CO2 24.7 mmol/L (21.0-32.0); CREATININE 0.59 mg/dL (0.70-1.30); Calcium 8.8 mg/dL (8.5-10.1); Chloride 96 mmol/L (98-107); Glucose 80 mg/dL (74-106); Sodium 130 mmol/L (136-145); Total Protein 7.4 g/dL (6.4-8.2)
[2020-05-13 01:03] LABS: Potassium 5.2 mmol/L (3.5-5.1)
[2020-05-13 01:04] LABS: Magnesium 1.7 mg/dL (1.8-2.4)
[2020-05-13] MEDS: Lactated Ringers 1,000 ML 125 ML IV ×3 (02:49→20:55)
[2020-05-13] MEDS: Thiamine 100 MG TAB PO (08:38)
[2020-05-13] MEDS: Multivitamin TAB 1 TAB PO (08:38)
[2020-05-13] MEDS: Nicotine 21 MG/24 HR PATCH TD (08:39)
[2020-05-13] MEDS: Magnesium Oxide 400 MG TAB PO ×2 (08:39→20:55)
[2020-05-13] MEDS: MAGNESIUM SULFATE 1 GM/100 ML BAG IVPB (08:39)
[2020-05-13] MEDS: Folic Acid 1 MG TAB PO (08:39)
[2020-05-13] MEDS: Buprenorphine/Naloxone 8 mg/2 mg FILM 1 EACH SL (08:39)
[2020-05-13 09:51] LABS: Anion Gap 8.6 mmol/L (3-11); BUN 8 mg/dL (7-18); CO2 29.4 mmol/L (21.0-32.0); CREATININE 0.73 mg/dL (0.70-1.30); Chloride 95 mmol/L (98-107); Glucose 127 mg/dL (74-106); Potassium 3.9 mmol/L (3.5-5.1); Sodium 133 mmol/L (136-145)
--- NOTE | 2020-05-13 10:57 | PGE_ITS ---
Date of Service Date of service: 05/13/20 Time of Service: 10:57 Assessment and Plan Assessment and plan (1) Alcohol withdrawal: Status: Chronic Assessment and plan: Appears oversedated this morning. Will back off of scheduled oxazepam. Would monitor in the ICU through the remainder of day in case he starts to ramp up. (2) History of substance abuse: Status: Chronic Assessment and plan: Continue suboxone (3) Exposure to hepatitis C: Status: Acute Assessment and plan: Hep C antibody is negative. Hep B surface antibody positive indicating immunized status. (4) Depression: Status: Suspected Assessment and plan: Right now this is difficult to confirm, as the patient likely has a component of a substance-induced mood disorder. However, he does have a history of cutting and may benefit and may benefit from mental health when he is able to participate, whether that be as inpatient or outpatient. There are no active sucidal statements that he is making at this time. (5) Ambulatory dysfunction: Status: Acute Assessment and plan: Possibly partially due to being oversedated. Back off of scheduled oxazepam and reassess. (6) DVT prophylaxis: Status: Acute Assessment and plan: Patient not very ambulatory today - start at least TEDs. (7) Discharge planning issues: Status: Acute Assessment and plan: Not safe for discharge home today based on ambulatory dysfunction alone. He also needs to eat. He might require acute vs subacute rehab. In addition, I suspect the patient has an underlying psychiatric disorder that may benefit from being evaluated by mental health once the patient is off scheduled benzos and finished withdrawing. He does have a disaster recovery consultant, but I do no think that he is ready to participate in that conversation yet. Subjective Subjective Interval history since last seen: All I want to do is sleep. CIWA 3 this am. Somnolent. Not eating. Denies dizziness, chest pain, shortness of breath. Not answering about nausea. Did very poorly with PT - had difficulty maneuvering a walker - not felt to be safe for discharge home at all, would benefit from rehab. Cried with PT. Patient did mention to nursing that he wanted to go home. Exam Narrative Exam Narrative: General: somnolent tearful male, falling asleep custodial through a sentence, A&Ox3, appears depressed; has signs of healed cuts on his arms. HEENT: EOMI, dry MM Heart: RRR, no m/r/g Lungs: CTAB Abdomen: soft, nontender, nondistended Extremities: no e/c/c BLE's Objective Objective Clinical Data: Abnormal lab results 05/13/20 05/13/20 05/13/20 Range/Units 00:35 00:35 09:30 Sodium 130 L 133 L (136-145) mmol/L Potassium 5.2 H (3.5-5.1) mmol/L Chloride 96 L 95 L (98-107) mmol/L Creatinine 0.59 L (0.70-1.30) mg/dL Glucose 127 H (74-106) mg/dL Magnesium 1.7 L (1.8-2.4) mg/dL AST 255 H (15-37) U/L ALT 265 H (16-63) U/L Alkaline Phosphatase 282 H (46-116) U/L Albumin 3.1 L (3.4-5.0) g/dL Vital Signs Temperature 36.7 C 05/13/20 08:00 Temperature Source Temporal Artery Scan 05/13/20 08:00 Pulse 67 05/13/20 06:01 Pulse 66 05/13/20 06:01 Respiratory Rate 14 05/13/20 06:01 Respiratory Effort Non-Labored 05/13/20 08:00 Respiratory Depth Normal 05/13/20 08:00 Respiratory Pattern Normal 05/13/20 08:00 Blood Pressure 131/83 05/13/20 06:01 Blood Pressure Mean 95 05/13/20 06:01 Blood Pressure Position Supine 05/12/20 12:00 Pulse Oximetry 96 05/12/20 21:30 Oxygen Delivery Method Room Air 05/13/20 08:00 Oxygen Flow Rate 0 05/13/20 08:00 Fraction of Inspired Oxygen (FIO2) 21 05/09/20 16:25 Pain Level 0 05/13/20 08:00 Comment 05/11/20 13:58 Intake & Output 05/12/20 05/12/20 05/13/20 11:59 23:59 11:59 Intake Total 1123.25 / 3196.667 2073.417 / 3196.667 1560.834 / 1560.834 Output Total 1500 / 1500 2125 / 2125 Balance 1123.25 / 1696.667 573.417 / 1696.667 -564.166 / -564.166 Intake: IV 973.25 / 2296.667 1323.417 / 2296.667 1320.834 / 1320.834 Oral 150 / 900 750 / 900 240 / 240 Output: Urine 1500 / 1500 2125 / 2125 Other: Urine Color Dark Sarah Light Sarah Urine Appearance Clear Clear Urine Odor Strong Normal Comment voids in urinal no void yet this shift. Voiding Methods Bedside Commode Urinal Urinal Laboratory Results WBC 5.04 k/cumm (4.4-10.8) 05/09/20 09:46 RBC 4.44 m/cumm (4.50-6.00) L 05/09/20 09:46 Hgb 13.4 g/dL (13.5-17.5) L 05/09/20 09:46 Hct 39.4 % (40.0-50.0) L 05/09/20 09:46 MCV 88.7 fL (80-95) 05/09/20 09:46 MCH 30.2 pg (27.0-33.0) 05/09/20 09:46 MCHC 34.0 g/dL (32.0-36.0) 05/09/20 09:46 RDW 14.3 % (11.8-14.1) H 05/09/20 09:46 Plt Count 181 x1000/uL (130-400) 05/09/20 09:46 MPV 9.1 fL (8.0-11.0) 05/09/20 09:46 Immature Gran % 0.2 % 05/09/20 09:46 Neutrophils % 77.8 05/09/20 09:46 Lymphocytes % 13.9 05/09/20 09:46 Monocytes % 6.7 05/09/20 09:46 Eosinophils % 1.0 05/09/20 09:46 Basophils % 0.4 05/09/20 09:46 Absolute Neutrophils 3.92 k/cumm (1.2-6.7) 05/09/20 09:46 Absolute Lymphocytes 0.70 k/cumm (1.2-3.4) L 05/09/20 09:46 Absolute Monocytes 0.34 k/cumm (0.11-0.7) 05/09/20 09:46 Absolute Eosinophils 0.05 k/cumm (0.0-0.7) 05/09/20 09:46 Absolute Basophils 0.02 k/cumm (0.0-0.2) 05/09/20 09:46 Sodium 133 mmol/L (136-145) L 05/13/20 09:30 Potassium 3.9 mmol/L (3.5-5.1) D 05/13/20 09:30 Chloride 95 mmol/L (98-107) L 05/13/20 09:30 Carbon Dioxide 29.4 mmol/L (21.0-32.0) 05/13/20 09:30 Anion Gap 8.6 mmol/L (3-11) 05/13/20 09:30 BUN 8 mg/dL (7-18) 05/13/20 09:30 Creatinine 0.73 mg/dL (0.70-1.30) 05/13/20 09:30 Estimated GFR/1.73 m2 >= 60.00 (mL/min/1.73m2) 05/13/20 09:30 Glucose 127 mg/dL (74-106) H 05/13/20 09:30 Calcium 9.0 mg/dL (8.5-10.1) 05/13/20 09:30 Phosphorus 2.5 mg/dL (2.6-4.7) L 05/10/20 08:18 Magnesium 1.7 mg/dL (1.8-2.4) L 05/13/20 00:35 Total Bilirubin 0.9 mg/dL (0.2-1.0) 05/13/20 00:35 Conjugated Bilirubin 0.28 mg/dL (0.00-0.20) H 05/10/20 08:18 AST 255 U/L (15-37) H 05/13/20 00:35 ALT 265 U/L (16-63) H 05/13/20 00:35 Alkaline Phosphatase 282 U/L (46-116) H 05/13/20 00:35 Total Protein 7.4 g/dL (6.4-8.2) 05/13/20 00:35 Albumin 3.1 g/dL (3.4-5.0) L 05/13/20 00:35 Lipase 130 U/L (73-393) 05/09/20 09:46 Urine Color Yellow (Yellow) 05/09/20 15:10 Urine Clarity Clear (Clear) 05/09/20 15:10 Urine pH 8.5 (5-8) H 05/09/20 15:10 Ur Specific [place] 1.015 (1.005-1.025) 05/09/20 15:10 Urine Protein Negative mg/dL (Negative) 05/09/20 15:10 Urine Ketones Negative mg/dL (Negative) 05/09/20 15:10 Urine Blood Negative (Negative) 05/09/20 15:10 Urine Nitrite Negative (Negative) 05/09/20 15:10 Urine Bilirubin Negative (Negative) 05/09/20 15:10 Urine Urobilinogen 4.0 EU/dL (Up TO 0.2) H 05/09/20 15:10 Ur Leukocyte Esterase Negative (Negative) 05/09/20 15:10 Urine Glucose Negative mg/dL (Negative) 05/09/20 15:10 Urine Opiates Screen Negative (Negative) 05/09/20 15:10 Urine Methadone Screen Negative (Negative) 05/09/20 15:10 Ur Barbiturates Screen Negative (Negative) 05/09/20 15:10 Ur Tricyclics Screen Negative (Negative) 05/09/20 15:10 Ur Amphetamines Screen Negative (Negative) 05/09/20 15:10 U Benzodiazepines Scrn Negative (Negative) 05/09/20 15:10 Urine Cocaine Screen Negative (Negative) 05/09/20 15:10 Ur THC Screen Negative (Negative) 05/09/20 15:10 Ethyl Alcohol 54.6 mg/dL (<3) 05/09/20 09:46 COVID-19 PCR Negative (Negative) 05/09/20 12:20 Nasopharyn COVID-19 PCR Not Applicable 05/09/20 12:20 Hep Bs Antigen Negative (Negative) 05/10/20 10:55 Hep Bs Antibody Positive (See Note) 05/10/20 10:55 Hep Bs Antibody, Quant 22.5 mIU/mL (See Note) 05/10/20 10:55 Hep B Core Total Ab Negative (Negative) 05/10/20 10:55 Hepatitis C Antibody Negative (Negative) 05/10/20 10:55 Ref Test Perform Site [facility] lab 05/09/20 12:20
--- NOTE | 2020-05-13 10:58 | IN_ITS ---
Date of service: 05/13/20 Time of Service: 10:15 PT Notes Visit Reasons: ALCOHOL WITHDRAWAL Inpatient Physical Therapy Evaluation Date: 05/13/2020 Referring Doctor: Jayde Negrete MD PT Orders: PT CONSULT: Limited ability Precautions: Unsteady, high risk for falls, standard Patient Profile/Admitting Diagnosis: Patient receiving ICU treatment during alcohol detox, medically sedated due to seizure response with detox. Risk of alcoholism. Patient resilient inpatient care PMHX: Medical History Alcoholism (Chronic 08/15/17) start revia Attention deficit disorder (Chronic 04/15/18) continue adderall as directed Exposure to hepatitis C (Acute) serology neg 10/2018 Polysubstance abuse (Acute) Surgical History Fracture, Open Treatment CAROLE ARREOLA; RIGHT DISTAL RADIUS Social History/Home Situation: Reports to live with his grandparents Current Functional Limitations: Requires max assist for all transfers and ambulation, supervision with bed mobility. High fall risk Equipment Owned/DME: None Subjective: Patient wishes to go home and have his mother help him recover. He denies any pain. He feels like the room is spinning. Objective: General Observation: Eyes rolled back, very pale, perspiring, does not make eye contact, slurred speech, he is very emotional and teary when realizing how functionally limited he is, unsteady. He is donning telemetry and IV. Mental Status: Alert to person and . Does not answer to place. Very sleepy, slow and unclear response to questions, lethargic. Very emotional and depressed. Pain: None Vital Signs: BP 136/91, HR 101. Heart rate increases to 130 with 20 feet of ambulation ROM: Right Upper Extremity: Active achieves 90 degrees flexion and abduction, with active assisted were able to achieve full motion Left Upper Extremity: Active achieves 90 degrees flexion and abduction, with active assisted able to achieve full motion Right Lower Extremity: WNL Left Lower Extremity: WNL Strength: Right Upper Extremity: Flexion abduction 3/5 to 90 degrees, but then does not have enough strength to go beyond that. At 90 degrees when applying resistance he demonstrates about a 3/5 strength. Does not respond to commands well to test rotation. Demonstrating at least 3/5 strength of the elbows and wrists all planes, again not responding well to commands. Left Upper Extremity: Comparable to right upper extremity Right Lower Extremity: Hip flexion 3/5, quad and hamstring 3+/5, does not respond to commands for dorsiflexion plantarflexion assistance. Demonstrate patient able to do a quick bridge demonstrating some glue activation with bed mobility Left Lower Extremity: Comparable with right lower extremity Sensation: Patient confused to questioning, not clear Bed Mobility/Transfers: Bed mobility requires supervision Sit to stand mod assist x1, FWW Stand to sit mod assist x1, FWW Gait: Max assist x1, FWW, x15 feet, slow speed. When turning around and returning to patient room, patient increase his speed, as he is anxious to return to bed and demonstrates more motivation. Balance: Static Sitting: Poor Dynamic Sitting: Poor Static Standing: Poor Dynamic Standing: Poor Special Tests: Mobility Limitations Standardized Measure [facility] AM-PAC 6 clicks Basic Mobility Inpatient Short Form: Raw Score: 13 Standardized Score: 64% disability Four stage balance test: Fails to stage I, requiring contact-guard throughout. Patient high risk for falls. Romberg: Not attempted, due to clear observation of unsteadiness, and patient would fail. Informed Consent/Education: Patient instructed in purpose of PT consult and plan of care. Assessment: Patient is a 25 year old male referred to physical therapy services with the diagnosis of alcohol withdrawal. Patient presents with clinical signs and symptoms consistent with referred diagnosis, contributing to findings of limited functional ability and impairments of gait unsteadiness, high fall risk, and global weakness and motor control impairment. Impairments are contributing to the following functional limitations: Of inability to complete independent functional tasks impaired to independent premorbid level of function, dependt on max assist for all transfers and ambulation, wheeled walker for ambulation, and high fall risk. [facility] score 64% disability, and immediately failed to stage 4 balance test. Patient is assessed as a High 17285 complexity based on the following: History: See comorbidities Examination: See above impairments and functional rotations Presentation: Evolving Decision Making: Moderate Goals: Goals X1 week 1. Supine-Sit independent 2. Sit-Supine independent 3. Sit-Stand contact-guard x1 4. Stand-Sit contact-guard x1 5. Bed-Chair contact-guard x1 6. Chair-Bed contact-guard x1 7. Gait supervision with walker, x50 feet 8. Stairs 5, with use of rail, contact-guard 9. Independent with home exercise program 10. Balance improved passing stage 3 of stage 4 balance test, and demonstrating good static standing and sitting balance. Plan of Care/Treatment Plan: 1-2x/day, 7 days/week x 1 week. Plan of care has been reviewed with the NERVE SPECIALIST providing the service under Physical Therapy direction. Initiate Physical Therapy intervention for strengthening, bed mobility, transfers, gait, stairs, balance training, use of assistive device. DISCHARGE RECOMMENDATIONS: Due to patient's age and medical diagnosis, prognosis is hard to determine at the time. If he does not progress toward his goals steadily, subacute rehab may be more appropriate, but if he transitions more to an independent level transition home will be safe. Alcohol rehabilitation highly recommended. TREATMENT CODE/TIME: 71275, 30 minutes
--- NOTE | 2020-05-13 14:44 | NUR.NOTE ---
Pt's father in to visit at 1300. Pt crying, talking with dad. was able to get oob and ambulate with father, walker and this RN to covid door in the ICU, and then btb. Antonia activity fiay, was quite tired and settled in for a nap.
--- NOTE | 2020-05-13 18:35 | PDOC.CMPRO ---
- If Service Date Differs Date of service: 05/13/20 Time of Service: 18:36 Care Management Progress Note S/O: Paulie remained in the ICU being treated for alcohol withdrawal. This afternoon orders for transfer to Med-Surg were entered by the provider Paulie's CIWA scores have been between 3 and 5 during the day today. He is less drowsy, but remains confused. His actions are delayed and hesitant, such as when eating lunch it took him several minutes for his hand to reach his sandwich and several more to put it to his mouth. Paulie was evaluated by PT this morning and was found to be weak, unsteady and unsafe on his feet. CM will continue to follow. A: Paulie is a 25 year old male admitted to [facility] on 05/09/20 with alcohol withdrawal. P: Disposition is unclear at this time as Paulie is extremely weak and unsteady. PT suggests he may benefit from rehab and/or an alcohol rehabilitation program. CM will continue to support patient, family and discharge planning needs/concerns.
--- NOTE | 2020-05-13 23:38 | NUR.NOTE ---
Pt threw serax pill across the room and told me fuck off. Nursing Note:
[2020-05-14] VITALS (8 sets, daily range): BP systolic 146–180; BP diastolic 92–98; PULSE 51–62; RESP 6–21; TEMP 36.7; O2SAT 97
[2020-05-14 07:02] LABS: Anion Gap 8.6 mmol/L (3-11); BUN 5 mg/dL (7-18); CO2 29.4 mmol/L (21.0-32.0); CREATININE 0.53 mg/dL (0.70-1.30); Calcium 8.9 mg/dL (8.5-10.1); Chloride 97 mmol/L (98-107); Glucose 77 mg/dL (74-106); Magnesium 1.8 mg/dL (1.8-2.4); Potassium 3.7 mmol/L (3.5-5.1); Sodium 135 mmol/L (136-145)
[2020-05-14] MEDS: Buprenorphine/Naloxone 8 mg/2 mg FILM 1 EACH SL (08:17)
[2020-05-14] MEDS: Nicotine 21 MG/24 HR PATCH TD (08:17)
--- NOTE | 2020-05-14 08:17 | PGE_ITS ---
Date of Service Date of service: 05/14/20 Time of Service: 11:53 Assessment and Plan Assessment and plan (1) Alcohol withdrawal: Status: Acute Assessment and plan: D/c scheduled oxazepam and continue to monitor on CIWA. Transferred to med surg status yesterday afternoon. I am putting him on IV thiamine given the extent of his imbalance. (2) History of substance abuse: Status: Chronic Assessment and plan: Continue suboxone (3) Exposure to hepatitis C: Status: Acute Assessment and plan: Hep C antibody is negative. Hep B surface antibody positive indicating immunized status. (4) Depression: Status: Suspected Assessment and plan: Right now this is difficult to confirm, as the patient likely has a component of a substance-induced mood disorder. However, he does have a history of cutting and may benefit from mental health when he is able to participate as outpatient. There are no active sucidal statements that he is making at this time. (5) Ambulatory dysfunction: Status: Acute Assessment and plan: Possibly partially due to being oversedated, but cerebellar dysfunction due to Wernicke's is also possible. Start IV thiamine. Scheduled oxazepam d/c'ed. Continue PT. (6) DVT prophylaxis: Status: Acute Assessment and plan: Continue TEDs and encourage ambulation. (7) Discharge planning issues: Status: Acute Assessment and plan: Not safe for discharge home today based on ambulatory dysfunction. If the patient were to leave the hospital today, it would be against medical advice. The patient verbalizes understanding. Subjective Subjective Interval history since last seen: Denies dizziness, chest pain, shortness of breath, nausea. Affect brighter, still uncoordinated. Did poorly with PT this morning, still very unsteady. Paulie argues with me that he does not see why this is a problem with him going home. We talked about the risk of falls and possibly even . We talked about him leaving, if he decided to do this, being AMA. Father brought [employer] breakfast, which he did eat partially. Offensive with nursing. To me, he states that he is worried about staying here so long that he will snap, and then we will have to call the mail service coordinator on him. Scheduled serax d/c'ed this am - maximum CIWA scores 3-4. Awake enough to talk to assistant womens volleyball coach today. Does not want to consider going to inpatient alcohol rehab. Exam Narrative Exam Narrative: General: somnolent tearful male, A&Ox3, much more awake and speaking/annouciating better. HEENT: EOMI, dry MM Heart: RRR, no m/r/g Lungs: CTAB Abdomen: soft, nontender, nondistended Extremities: no e/c/c BLE's Objective Objective Clinical Data: Abnormal lab results 05/13/20 05/14/20 Range/Units 09:30 06:30 Sodium 133 L 135 L (136-145) mmol/L Chloride 95 L 97 L (98-107) mmol/L BUN 5 L (7-18) mg/dL Creatinine 0.53 L (0.70-1.30) mg/dL Glucose 127 H (74-106) mg/dL Vital Signs Temperature 36.8 C 05/13/20 19:00 Temperature Source Tympanic 05/13/20 19:00 Pulse 96 H 05/13/20 20:50 Pulse Rhythm Regular 05/13/20 23:29 Pulse 54 L 05/14/20 04:00 Respiratory Rate 6 L 05/14/20 04:00 Respiratory Effort Non-Labored 05/13/20 23:29 Respiratory Depth Normal 05/13/20 23:29 Respiratory Pattern Normal 05/13/20 23:29 Blood Pressure 116/78 05/13/20 20:50 Blood Pressure Mean 88 05/13/20 20:50 Blood Pressure Position Supine 05/13/20 15:30 Pulse Oximetry 98 05/13/20 19:00 Oxygen Delivery Method Room Air 05/13/20 19:00 Oxygen Flow Rate 0 05/13/20 19:00 Fraction of Inspired Oxygen (FIO2) 21 05/09/20 16:25 Pain Level 0 05/13/20 19:00 Comment 05/11/20 13:58 Intake & Output 05/13/20 05/13/20 05/14/20 11:59 23:59 11:59 Intake Total 1560.834 / 2760.834 1200 / 2760.834 100 / 100 Output Total 2725 / 5625 2900 / 5625 1200 / 1200 Balance -1164.166 / -2864.166 -1700 / -2864.166 -1100 / -1100 Intake: IV 1320.834 / 2320.834 1000 / 2320.834 0 / 0 Oral 240 / 440 200 / 440 100 / 100 Output: Urine 2725 / 5625 2900 / 5625 1200 / 1200 Other: Urine Color Light Sarah Light Sarah Yellow Urine Appearance Clear Clear Clear Urine Odor Normal Normal Normal Comment oob to sit on commode and use urinal for 950cc's of clear, light colored yellow urine with negative dipstick Voiding Methods Urinal Urinal Laboratory Results WBC 5.04 k/cumm (4.4-10.8) 05/09/20 09:46 RBC 4.44 m/cumm (4.50-6.00) L 05/09/20 09:46 Hgb 13.4 g/dL (13.5-17.5) L 05/09/20 09:46 Hct 39.4 % (40.0-50.0) L 05/09/20 09:46 MCV 88.7 fL (80-95) 05/09/20 09:46 MCH 30.2 pg (27.0-33.0) 05/09/20 09:46 MCHC 34.0 g/dL (32.0-36.0) 05/09/20 09:46 RDW 14.3 % (11.8-14.1) H 05/09/20 09:46 Plt Count 181 x1000/uL (130-400) 05/09/20 09:46 MPV 9.1 fL (8.0-11.0) 05/09/20 09:46 Immature Gran % 0.2 % 05/09/20 09:46 Neutrophils % 77.8 05/09/20 09:46 Lymphocytes % 13.9 05/09/20 09:46 Monocytes % 6.7 05/09/20 09:46 Eosinophils % 1.0 05/09/20 09:46 Basophils % 0.4 05/09/20 09:46 Absolute Neutrophils 3.92 k/cumm (1.2-6.7) 05/09/20 09:46 Absolute Lymphocytes 0.70 k/cumm (1.2-3.4) L 05/09/20 09:46 Absolute Monocytes 0.34 k/cumm (0.11-0.7) 05/09/20 09:46 Absolute Eosinophils 0.05 k/cumm (0.0-0.7) 05/09/20 09:46 Absolute Basophils 0.02 k/cumm (0.0-0.2) 05/09/20 09:46 Sodium 135 mmol/L (136-145) L 05/14/20 06:30 Potassium 3.7 mmol/L (3.5-5.1) 05/14/20 06:30 Chloride 97 mmol/L (98-107) L 05/14/20 06:30 Carbon Dioxide 29.4 mmol/L (21.0-32.0) 05/14/20 06:30 Anion Gap 8.6 mmol/L (3-11) 05/14/20 06:30 BUN 5 mg/dL (7-18) L 05/14/20 06:30 Creatinine 0.53 mg/dL (0.70-1.30) L 05/14/20 06:30 Estimated GFR/1.73 m2 >= 60.00 (mL/min/1.73m2) 05/14/20 06:30 Glucose 77 mg/dL (74-106) D 05/14/20 06:30 Calcium 8.9 mg/dL (8.5-10.1) 05/14/20 06:30 Phosphorus 2.5 mg/dL (2.6-4.7) L 05/10/20 08:18 Magnesium 1.8 mg/dL (1.8-2.4) 05/14/20 06:30 Total Bilirubin 0.9 mg/dL (0.2-1.0) 05/13/20 00:35 Conjugated Bilirubin 0.28 mg/dL (0.00-0.20) H 05/10/20 08:18 AST 255 U/L (15-37) H 05/13/20 00:35 ALT 265 U/L (16-63) H 05/13/20 00:35 Alkaline Phosphatase 282 U/L (46-116) H 05/13/20 00:35 Total Protein 7.4 g/dL (6.4-8.2) 05/13/20 00:35 Albumin 3.1 g/dL (3.4-5.0) L 05/13/20 00:35 Lipase 130 U/L (73-393) 05/09/20 09:46 Urine Color Yellow (Yellow) 05/09/20 15:10 Urine Clarity Clear (Clear) 05/09/20 15:10 Urine pH 8.5 (5-8) H 05/09/20 15:10 Ur Specific [place] 1.015 (1.005-1.025) 05/09/20 15:10 Urine Protein Negative mg/dL (Negative) 05/09/20 15:10 Urine Ketones Negative mg/dL (Negative) 05/09/20 15:10 Urine Blood Negative (Negative) 05/09/20 15:10 Urine Nitrite Negative (Negative) 05/09/20 15:10 Urine Bilirubin Negative (Negative) 05/09/20 15:10 Urine Urobilinogen 4.0 EU/dL (Up TO 0.2) H 05/09/20 15:10 Ur Leukocyte Esterase Negative (Negative) 05/09/20 15:10 Urine Glucose Negative mg/dL (Negative) 05/09/20 15:10 Urine Opiates Screen Negative (Negative) 05/09/20 15:10 Urine Methadone Screen Negative (Negative) 05/09/20 15:10 Ur Barbiturates Screen Negative (Negative) 05/09/20 15:10 Ur Tricyclics Screen Negative (Negative) 05/09/20 15:10 Ur Amphetamines Screen Negative (Negative) 05/09/20 15:10 U Benzodiazepines Scrn Negative (Negative) 05/09/20 15:10 Urine Cocaine Screen Negative (Negative) 05/09/20 15:10 Ur THC Screen Negative (Negative) 05/09/20 15:10 Ethyl Alcohol 54.6 mg/dL (<3) 05/09/20 09:46 COVID-19 PCR Negative (Negative) 05/09/20 12:20 Nasopharyn COVID-19 PCR Not Applicable 05/09/20 12:20 Hep Bs Antigen Negative (Negative) 05/10/20 10:55 Hep Bs Antibody Positive (See Note) 05/10/20 10:55 Hep Bs Antibody, Quant 22.5 mIU/mL (See Note) 05/10/20 10:55 Hep B Core Total Ab Negative (Negative) 05/10/20 10:55 Hepatitis C Antibody Negative (Negative) 05/10/20 10:55 Ref Test Perform Site [place] [facility] lab 05/09/20 12:20
[2020-05-14] MEDS: Folic Acid 1 MG TAB PO (08:26)
[2020-05-14] MEDS: Thiamine 100 MG TAB PO (08:26)
[2020-05-14] MEDS: Multivitamin TAB 1 TAB PO (08:26)
[2020-05-14] MEDS: Magnesium Oxide 400 MG TAB PO (08:26)
--- NOTE | 2020-05-14 10:13 | PT.INTREAT ---
Date of service: 05/14/20 Time of Service: 10:13 PT Notes Visit Reasons: ALCOHOL WITHDRAWAL Inpatient Physical Therapy Treatment Note [facility] Date: 05/14/2020 PRECAUTIONS: Fall SUBJECTIVE: Paulie is agreeable to participating in PT. He is not very talkative this morning. OBJECTIVE: Patient started to cry during seated rest, but did not verbalize reason. PAIN: No complaints of pain BED MOBILITY/TRANSFERS Supine-sit: I Sit-stand: CGA Stand-sit: CGA GAIT Assistive Device: FWW Weight bearing: Full Assist: Min A-Mod A Distance: 60' x2 Deviation: Step-through instruction, assist for continuous FWW advancement, slow pace, seated rest x3 minutes STAIRS: Up/down 3x4 and 2x6 using B rails and a step-to pattern with Min A. Patient demonstrates LOB x1, he requires constant cueing for appropriate sequence. ASSESSMENT: Patient tolerated session without complaint. She requires CGA for ambulation due to instances of leaning backward. She would benefit from continued global strengthening as well as gait training for improvement and progression towards independence with mobility. PLAN: Continue with PTs POC TREATMENT CODE/TIME: 20 minutes; 70034
[2020-05-14] MEDS: THIAMINE 500 MG in Normal Saline 100 ML 200 MG IVPB (12:38)
[2020-05-14] MEDS: Lactated Ringers 1,000 ML 125 ML IV (12:41)
--- NOTE | 2020-05-14 15:15 | W.PM.DS.N ---
Date of service: 05/14/20 Time of Service: 15:15 DS: Diagnosis Discharge Diagnosis (1) Alcohol withdrawal: Status: Resolved (2) History of substance abuse: Status: Chronic (3) Exposure to hepatitis C: Status: Acute (4) Depression: Status: Suspected (5) Ambulatory dysfunction: Status: Resolved (6) Hypokalemia: Status: Acute (7) Hypomagnesemia: Status: Acute (8) Tobacco abuse: Status: Acute (9) COVID-19 ruled out by laboratory testing: Status: Acute Discharge Plan Disposition Patient Disposition: HOME Condition: Stable Discharge Details Chief Complaint: ETOHWithdr Clinical Impression: Alcohol withdrawal Reason For Visit: ALCOHOL WITHDRAWAL Admit Date/Time: 05/09/20 11:58 Admit Provider: Calvin Lugo Attending Provider: Calvin Lugo Primary Care Provider: Hernesto Beverly ED Provider: Calvin Davis Hospital Course Hospital Course: Mr Caban is a 25 year old male with PMHx of alcohol abuse as well as opioid abuse, currently on suboxone, ADD, who was admitted to [facility] ICU under the hospitalist service on 05/09/2020 with alcohol withdrawal. He did not have alcohol withdrawal seizures, but did require scheduled oxazepam and treatment with phenobarbital. His condition did improve significantly by 05/13/2020, at which point he was transferred out of the ICU. All scheduled benzodiazepines have been stopped, and the patient is not requiring any additional doses. Of big concern on this admission was patient's difficulty walking, which improved with cessation of scheduled oxazepam as well as addition of IV thiamine, suggesting that the patient might have had a Wernicke's encephalopathy as well. The patient initially participated with PT and had difficulty keeping his balance, but by the afternoon of 05/14/2020, he is not requiring any assistive devices. He will require ongoing thiamine supplementation. He is medically stable for discharge. He has made a connection with a motor coach tour operator with whom he will follow up as outpatient. He is not interested in inpatient substance abuse rehab. Care for patient as well as completion of his discharge paperwork on day of discharge took 45 minutes. Home Meds and New Rx's Prescriptions: New multivitamin [Multiple Vitamins] Tablet 1 tab PO DAILY Qty: 30 RF: 0 magnesium oxide 400 mg (241.3 mg magnesium) Tablet 400 mg PO BID Qty: 10 RF: 0 nicotine 21 mg/24 hr Patch 24 Hour 21 mg transdermal DAILY Qty: 30 RF: 0 folic acid 1 mg Tablet 1 mg PO DAILY Qty: 30 RF: 0 thiamine HCl (vitamin B1) 500 mg tablet 500 mg PO TID Qty: 15 RF: 0 thiamine HCl (vitamin B1) 100 mg tablet 100 mg PO DAILY Qty: 30 RF: 0 Continued buprenorphine-naloxone [Suboxone] 8-2 mg film 1 film SL DAILY RF: 0 trazodone 100 mg tablet 200 mg PO HS Qty: 60 RF: 5 sertraline 25 mg tablet 25 mg PO DAILY Qty: 30 RF: 5 dextroamphetamine-amphetamine [Adderall XR] 20 mg capsule,extended release 24hr 20 mg PO DAILY MDD 20mg Qty: 30 RF: 0 Discharge Instructions Instructions: Thiamine (Vitamin B-1) (By mouth), How to Stop Smoking (DC), Abuse of Alcohol (DC), Alcohol Dependence (DC) Additional Instructions: You must stop drinking and attempt to stop smoking. Contact your motor coach tour operator for further sobriety strategies in the community. Return to the hospital with any fever, bleeding, chest pain, or shortness of breath. Your COVID-19 and hepatitis tests were negative. Care Plan Goals: Home with the support of the motor coach tour operator. Referrals: Hernesto Beverly [Primary Care Provider] - Activity:: Activity as Tolerated Equipment/Supplies:: No Equipment Needed Diet:: As Tolerated Discharge Orders Discharge Orders: Discharge Order (Routine); Ordered 05/14/20 Ordered By: Jayde Negrete DS: Summary Status at Discharge Functional status at discharge: independent ambulation Overall status at discharge: patient is back to baseline Mental Status: mental status grossly normal Speech and Movement: speech and movement normal Mood: congruent mood Affect: normal affect Exam Narrative Exam Narrative: General: male, A&Ox3, much more awake and speaking/annouciating better than yesterday. HEENT: EOMI, dry MM Heart: RRR, no m/r/g Lungs: CTAB Abdomen: soft, nontender, nondistended Extremities: no e/c/c BLE's Psych Mental Status: mental status grossly normal Speech and Movement: speech and movement normal Mood: congruent mood Affect: normal affect DS: Data Vitals/I&O Vitals and I&O: Vital Signs Temperature 36.7 C 05/14/20 08:15 Temperature Source Temporal Artery Scan 05/14/20 08:15 Pulse 51 L 05/14/20 07:36 Pulse Rhythm Regular 05/14/20 08:15 Pulse 56 L 05/14/20 08:30 Respiratory Rate 9 L 05/14/20 08:30 Respiratory Effort Non-Labored 05/14/20 08:15 Respiratory Depth Normal 05/14/20 08:15 Respiratory Pattern Normal 05/14/20 08:15 Blood Pressure 180/98 H 05/14/20 07:36 Blood Pressure Mean 117 05/14/20 07:36 Blood Pressure Position Supine 05/13/20 15:30 Pulse Oximetry 97 05/14/20 08:15 Oxygen Delivery Method Room Air 05/14/20 08:15 Oxygen Flow Rate 0 05/14/20 08:15 Fraction of Inspired Oxygen (FIO2) 21 05/09/20 16:25 Pain Level 0 05/13/20 19:00 Comment 05/11/20 13:58 Intake & Output 05/13/20 05/14/20 05/14/20 23:59 11:59 23:59 Intake Total 1200 / 2760.834 350 / 1442.5 1092.5 / 1442.5 Output Total 2900 / 5625 1800 / 1800 Balance -1700 / -2864.166 -1450 / -357.5 1092.5 / -357.5 Intake: IV 1000 / 2320.834 0 / 1092.5 1092.5 / 1092.5 Oral 200 / 440 350 / 350 Output: Urine 2900 / 5625 1800 / 1800 Other: Urine Color Light Sarah Yellow Urine Appearance Clear Clear Urine Odor Normal None Comment oob to sit on commode and use urinal for 950cc's of clear, light colored yellow urine with negative dipstick Voiding Methods Urinal Urinal Data Completed and Pending Completed studies during hospitalization [Text1]: CXR 05/09/2020: No acute pulmonary findings. Labs on day of discharge: Labs from last 24 hours 05/14/20 06:30 Sodium 135 L Potassium 3.7 Chloride 97 L Carbon Dioxide 29.4 Anion Gap 8.6 BUN 5 L Creatinine 0.53 L Estimated GFR/1.73 m2 >= 60.00 Glucose 77 D Calcium 8.9 Magnesium 1.8 PFSH Medical History Alcoholism (Chronic 08/15/17) start revia Attention deficit disorder (Chronic 04/15/18) continue adderall as directed Exposure to hepatitis C (Acute) serology neg 10/2018 Polysubstance abuse (Acute) Surgical History Fracture, Open Treatment CAROLE ARREOLA; RIGHT DISTAL RADIUS Family History Mother Alcohol abuse History of Father Alcohol abuse history of Sister No problems noted. Son Alcohol abuse history of Asthma Maternal Grandfather , age 76 No problems noted. Social History (Updated 05/09/20 @ 18:40 by Calvin Lugo) Smoking/Tobacco Use Status: Current every day Tobacco Type: cigarettes and smokeless tobacco Tobacco: How many years used: 10 Smokeless tobacco user: chewing tobacco (and smoking) Quit status: considering quitting Second Hand Exposure: Yes Alcohol Intake: current Alcohol Intake frequency: other Alcohol type: beer and hard liquor Details: Drinks a half a gallon of vodka per day Drug use: Occasionally Substance use type: former substance user, marijuana, crack/cocaine, heroin and amphetamines Details: Occasional marijuana Caregiver/Support person: No Household members: other Details: [facility] Paternal GM Communication Needs: None Pets and animals: No Sexually active: Yes Do you think of yourself as: bisexual Current gender identity: male What is your relationship status?: never How often do you talk on the phone with friends or family?: once per week How often do you get together with friends or relatives?: once per week How often do you attend yazidism or buddhism services?: decline to answer Do you belong to any clubs or organized social groups?: no Panel score (0-1 are the most socially isolated patients): 0 What type of physical activity do you participate in: other Duration: 60-90 minutes/day Frequency: 3-4 times per week Rose/Mosque: chr Seatbelt use: sometimes Drive intox or ride w/intox carry all driver: No Do you feel safe in your relationship?: Yes
--- NOTE | 2020-05-14 16:51 | CMDISCH_ITS ---
- If Service Date Differs Date of service: 05/14/20 Time of Service: 16:51 LACE Index Scoring Tool - Questions: Length of Stay (in days): 4 - 6 Acuity (Admit via E.D.?): Yes E.D. Visits: 1 - Answers: Total Score: 8 Risk of Readmission: Low Risk Care Management Discharge Reason for Hospitalization: Alcohol Withdrawal Discharge Plan: Paulie will be discharged home with no services. He has been connected with a Director Of Development And Marketing . He will follow up with his PCP and discharge plan of care. Paulie will transport with his mother via private vehicle. Patient/Family Education Needs: Discharge plan, limitations, follow up plan, Ask Me Three.
--- NOTE | 2020-05-18 15:07 | PT.INDS ---
Date of service: 05/18/20 PT Notes Visit Reasons: ALCOHOL WITHDRAWAL Inpatient Physical Therapy Discharge Summary Dates: 05/18/2020 Dates of Service: 05/13/2020 through 05/14/2020 This is a clinical summary of care provided on the duration of dates listed above. No charge was made in the completion of this documentation. Referring Doctor: Jayde Negrete MD PT Orders: PT CONSULT: Limited ability Precautions: Unsteady, high risk for falls, standard Patient Profile/Admitting Diagnosis: Patient receiving ICU treatment during alcohol detox, medically sedated due to seizure response with detox. Risk of alcoholism. Patient resilient inpatient care PMHX: Medical History Alcoholism (Chronic 08/15/17) start revia Attention deficit disorder (Chronic 04/15/18) continue adderall as directed Exposure to hepatitis C (Acute) serology neg 10/2018 Polysubstance abuse (Acute) Surgical History Fracture, Open Treatment CAROLE ARREOLA; RIGHT DISTAL RADIUS Social History/Home Situation: Reports to live with his grandparents Current Functional Limitations: Requires max assist for all transfers and ambulation, supervision with bed mobility. High fall risk Equipment Owned/DME: None Subjective: NT Objective: General Observation: Eyes rolled back, very pale, perspiring, does not make eye contact, slurred speech, he is very emotional and teary when realizing how functionally limited he is, unsteady. He is donning telemetry and IV. Mental Status: Alert to person and . Does not answer to place. Very sleepy, slow and unclear response to questions, lethargic. Very emotional and depressed. Pain: None Vital Signs: BP 136/91, HR 101. Heart rate increases to 130 with 20 feet of ambulation ROM: Right Upper Extremity: Active achieves 90 degrees flexion and abduction, with active assisted were able to achieve full motion Left Upper Extremity: Active achieves 90 degrees flexion and abduction, with active assisted able to achieve full motion Right Lower Extremity: WNL Left Lower Extremity: WNL Strength: Right Upper Extremity: Flexion abduction 3/5 to 90 degrees, but then does not have enough strength to go beyond that. At 90 degrees when applying resistance he demonstrates about a 3/5 strength. Does not respond to commands well to test rotation. Demonstrating at least 3/5 strength of the elbows and wrists all planes, again not responding well to commands. Left Upper Extremity: Comparable to right upper extremity Right Lower Extremity: Hip flexion 3/5, quad and hamstring 3+/5, does not respond to commands for dorsiflexion plantarflexion assistance. Demonstrate patient able to do a quick bridge demonstrating some glue activation with bed mobility Left Lower Extremity: Comparable with right lower extremity Sensation: Patient confused to questioning, not clear Bed Mobility/Transfers: Bed mobility requires supervision Sit to stand CGA, FWW Stand to sit CGA, FWW Gait: Mod assist x1, FWW, x 60 feet x 2. Decreased nraayan. Step-through gait pattern. Assist needed for continued walker advancement. Brown three 4-inch steps and two 6-inch steps while holding onto bilateral rails with step-to pattern requiring minimal assist with LOB x1 requiring constant VC for correct sequence. Balance: Static Sitting: Poor Dynamic Sitting: Poor Static Standing: Poor Dynamic Standing: Poor Informed Consent/Education: Patient instructed in purpose of PT consult and plan of care. Assessment: Paulie continues to require physical assistance for all mobility ADL performance due to unsteadiness. Will benefit from home health PT services in order to regain prior level of function. Goals: Goals X1 week 1. Supine-Sit independent MET 2. Sit-Supine independent MET 3. Sit-Stand contact-guard x1 MET 4. Stand-Sit contact-guard x1 MET 5. Bed-Chair contact-guard x1 MET 6. Chair-Bed contact-guard x1 MET 7. Gait supervision with walker, x50 feet NOT MET 8. Stairs 5, with use of rail, contact-guard NOT MET 9. Independent with home exercise program NOT MET 10. Balance improved passing stage 3 of stage 4 balance test, and demonstrating good static standing and sitting balance. NOT MET DISCHARGE RECOMMENDATIONS: Patient will benefit from home health PT services in order to progress mobility level using least restrictive assistive ambulatory device, assess home safety, identify additional equipment needs, and establish a functional maintenance program that will increase ability of patient to remain at home. TREATMENT CODE/TIME: IA Thank you for the opportunity to participate in the care of this patient. Letty Quinn PT, DPT, CLT [facility] [place], [place]
== END 2020-05-14 17:10 | disposition home or self-care (01) | DRG 897 ==
LOC: ER 10:35 → ICU 15:53
PROVIDERS: Admitting Provider Internal Medicine; Emergency Provider Physician Assistant; PCP Family Medicine; Visit Provider Internal Medicine
DX: F10.239 Alcohol dependence with withdrawal, unspecified (principal); F11.20 Opioid dependence, uncomplicated; E51.2 Wernicke's encephalopathy; Z20.5 Contact with and (suspected) exposure to viral hepatitis; R26.2 Difficulty in walking, not elsewhere classified; F10.24 Alcohol dependence with alcohol-induced mood disorder; E87.6 Hypokalemia; F32.9 Major depressive disorder, single episode, unspecified; E83.42 Hypomagnesemia; Z72.0 Tobacco use; Z03.818 Encounter for observation for suspected exposure to other biological agents ruled out; F98.8 Other specified behavioral and emotional disorders with onset usually occurring in childhood and adolescence; Z71.3 Dietary counseling and surveillance; R40.0 Somnolence; T42.4X5A Adverse effect of benzodiazepines, initial encounter; Z91.5 Personal history of self-harm
CPT/HCPCS: 36415; 36416; 76942; 80048; 80053; 80076; 80307; 82962; 83690; 86704; 86706; 86803; 87340; 93005; 96361; 96365; 96375; 96376; 97163; 97530; 99223; 99232; 99233; 99239; 99291; U0003; 71045; 80320; 81003; 83735; 84100; 85025; 93010; J2060; J2405; J2560; J3360; J3475

== ENCOUNTER 2021-02-12 03:14 | Outpatient (CLI) | payer MEDICAID, SELFPAY ==
[2021-02-12 13:00] LABS: ALT 24 U/L (16-63); AST 19 U/L (15-37); Alkaline Phosphatase 77 U/L (46-116); Anion Gap 7.8 mmol/L (3-11); Bilirubin, Direct 0.1 mg/dL (0.0-0.2); Bilirubin, Total 0.2 mg/dL (0.2-1.0); CO2 29.2 mmol/L (21.0-32.0); Chloride 104 mmol/L (98-107); Potassium 4.6 mmol/L (3.5-5.1); Sodium 141 mmol/L (136-145); Total Protein 7.6 g/dL (6.4-8.2)
== END 2021-02-12 03:15 | disposition home or self-care (01) ==
LOC: LOS 03:15
PROVIDERS: PCP Family Medicine; Visit Provider Family Medicine
DX: E87.1 Hypo-osmolality and hyponatremia (principal); G72.89 Other specified myopathies
CPT/HCPCS: 36415; 80051; 80076

== ENCOUNTER 2021-05-17 01:56 | Outpatient (CLI) | payer MEDICAID, SELFPAY ==
--- NOTE | 2021-05-17 09:10 | DI.MRI_ITS ---
Exam(s) MR IAC BRAIN WO/W EXAM: MR IAC BRAIN WO/W CLINICAL HISTORY: LT SN HEARING LOSS, H90.42 TECHNIQUE: Multiplanar multisequence MRI of the brain was performed. Both noninfused and contrast i nfused sequences were performed. IV Contrast injected was 14 cc Dotarem. IAC protocol was performed, including high-resolution sub millimeters slice T2 weighted sequence thro ugh the internal auditory canals. COMPARISON: No exams were available for comparison FINDINGS: CEREBRAL PARENCHYMA: No evidence of intracranial hemorrhage, mass effect nor shift of midline structu re. No extraaxial fluid collections. Ventricles are not enlarged nor shifted. There is no significant focal signal abnormality in the cerebellar hemispheres nor within the shannon, m idbrain, and thalami. There is no abnormal signal abnormality in the periventricular white matter. There are no ring enhancing lesions in the brain. There is no abnormal meningeal enhancement. INTERNAL AUDITORY CANALS: There is no evidence of mass at the level the cerebellopontine angle and no evidence of intra canalicular neuroma-schwannoma. The 7th and 8th cranial nerves within the interna l auditory canals appear unremarkable and without abnormal enhancement. PITUITARY GLAND: No mass nor parasellar abnormality. No obvious abnormality in the cavernous sinuses. FLOW VOIDS: The expected flow void are noted. No evidence of obvious aneurysm nor obvious vascular ma lformation. PARANASAL SINUSES: There is a 10 x 10 millimeter focus of mucosal signal abnormality in the anterior floor of the left maxillary sinus which is most probably a post inflammatory retention cyst. There i s no associated fluid level. The remainder of the paranasal sinuses are clear. ORBITS: No obvious abnormal findings. IMPRESSION: 1. No significant intracranial findings on this MRI scan of the brain. 2. No abnormal enhancing intracranial finding. 3. No evidence of acoustic neuroma/schwannoma 4. Small 1 cm post inflammatory retention cysts noted in the anterior aspect of the left maxillary s inus. No associated fluid level within the sinus. Other paranasal sinuses are clear. DATA REPOSITORY:
[2021-05-17] MEDS: Gadoterate meglumine 20 ML VIAL 14 ML IVP (09:21)
== END 2021-05-17 02:16 ==
PROVIDERS: PCP Family Medicine; Visit Provider Otolaryngology
DX: M27.40 Unspecified cyst of jaw; H90.42 Sensorineural hearing loss, unilateral, left ear, with unrestricted hearing on the contralateral side
CPT/HCPCS: 70553

== ENCOUNTER 2022-06-19 02:38 | Outpatient (CLI) | payer MEDICAID, SELFPAY | END 2022-06-19 02:39 | disposition home or self-care (01) | LOC: LOS 02:38 | PROVIDERS: PCP Family Medicine; Visit Provider Family Medicine | DX: R69 Illness, unspecified (principal) | CPT/HCPCS: 36415; 80053; 84443; 85025 ==

== ENCOUNTER 2022-06-25 03:30 | Outpatient (CLI) | payer MEDICAID, SELFPAY ==
[2022-06-25 10:09] LABS: Abs Immature Grans 0.01 10^3/uL (0.0-0.06); Absolute Basophil Count 0.03 10^3/uL (0.0-0.2); Absolute Eosinophil Count 0.23 10^3/uL (0.0-0.7); Absolute Lymphocyte Count 1.51 10^3/uL (1.2-3.4); Absolute Monocyte Count 0.39 10^3/uL (0.1-0.8); Absolute Neutrophil Count 3.72 10^3/uL (1.2-6.7); Basophils % 0.5; Eosinophils % 3.9; HGB 11.6 g/dL (13.5-17.5); Immature Grans % 0.2; Lymphocytes % 25.6; MCH 28.2 pg (27.0-33.0); MCHC 33.1 % (32.0-36.0); MCV 85 fL (80-95); MPV 9.9 fL (8.0-11.0); Monocytes % 6.6; Neutrophils % 63.2; Platelet Count 274 10^3/uL (130-400); RBC 4.11 10^6/uL (4.36-5.78); RDW 13.2 % (11.8-14.1); RDW-SD 41.1 fL; WBC 5.89 10^3/uL (4.4-10.8)
[2022-06-25 10:50] LABS: ALT 23 U/L (16-63); AST 18 U/L (15-37); Albumin 3.8 g/dL (3.4-5.0); Alkaline Phosphatase 84 U/L (46-116); Anion Gap 9.4 mmol/L (3-11); BUN 17 mg/dL (7-18); Bilirubin, Total 0.3 mg/dL (0.2-1.0); CO2 30.6 mmol/L (21.0-32.0); Calcium 9.1 mg/dL (8.5-10.1); Chloride 101 mmol/L (98-107); Estimated GFR 106.45 (mL/min/1.73m2); Glucose 120 mg/dL (74-106); Potassium 4.1 mmol/L (3.5-5.1); Sodium 141 mmol/L (136-145); TSH (W/Ref FT4) 0.76 uIU/mL (0.36-3.74); Total Protein 8.7 g/dL (6.4-8.2)
[2022-06-25 15:49] LABS: Lab Add On Test DONE
[2022-06-25 16:57] LABS: Iron 30 ug/dL (65-175); Total Iron Binding Capacity 256 ug/dL (250-450); Transferrin Sat 12 % (20-55)
[2022-06-25 17:21] LABS: Ferritin 104 ng/mL (26-388); Vitamin B12 687 pg/mL (193-986)
== END 2022-06-25 03:31 | disposition home or self-care (01) ==
LOC: LBO 03:30
PROVIDERS: PCP Family Medicine; Visit Provider Family Medicine
DX: R10.9 Unspecified abdominal pain (principal); E03.9 Hypothyroidism, unspecified; D64.9 Anemia, unspecified
CPT/HCPCS: 36415; 80053; 82607; 82728; 83540; 83550; 84443; 85025

== ENCOUNTER → 2022-06-27 04:26 | Outpatient (CLI) | payer MEDICAID, SELFPAY ==
--- NOTE | 2022-06-27 07:45 | DI.CT_ITS ---
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 TECHNIQUE: Imaging Protocol: Axial computed tomography images with coronal and sagittal reformatted images were created and reviewed COMPARISON: CT HEAD AND CSPINE W/O CONTRAST from 07/12/2017 FINDINGS: There are no skull fractures nor fluid in the visualized paranasal sinuses. There is no evidence of intracranial hemorrhage, mass effect, or shift of midline structures. There are no extra-axial fluid collections. The ventricles are not enlarged or shifted and there is no blo od within the ventricular system nor within the basal cisterns. IMPRESSION: No acute intracranial findings on this noninfused CT scan of the brain. No significant change compar ed to prior CT scan of June 2017. If clinically indicated follow-up MRI can be performed. RADIATION DOSE DELIVERED: 770.94mGy.cm Total DLP DATA REPOSITORY: All CT scans at this facility are submitted to the National Radiology Data Registry (NRDR) Dose Index Registry (DIR) with the [employer] (ACR). RADIATION OPTIMIZATION: All CT scans at this facility use at least one of these dose optimization te chniques: automated exposure control; mA and/or kV adjustment per patient size (includes targeted exa ms where dose is matched to clinical indication); or iterative reconstruction.
== END ==
PROVIDERS: PCP Family Medicine; Visit Provider Family Medicine
DX: R51.9 Headache, unspecified (principal)
CPT/HCPCS: 70450

== ENCOUNTER → 2022-07-29 12:35 | Outpatient (CLI) | payer MEDICAID, SELFPAY ==
--- NOTE | 2022-07-29 11:00 | DI.RAD_ITS ---
Exam(s) XR RIBS LT W PA LAT CHEST CLINICAL HISTORY SWELLING, MASS LUMP--R22.2, R/O RIB vs MASS. COMPARISON: CR XR PORTABLE CHEST AP from 05/09/2020 TECHNIQUE:: PA and lateral views of the chest and four views of the left ribs were performed. FINDINGS: LUNGS: Clear. No pleural abnormality seen. HEART: Normal. MEDIASTINUM: Normal. BONES: No displaced rib fracture is seen. No compression fractures are seen in the thoracic spine. No bony destructive lesion is seen. OTHER FINDINGS: None. IMPRESSION: 1. Unremarkable radiographic appearance of the left ribs. 2. No acute pulmonary findings.
--- OUTSIDE RECORDS SUMMARY | 2022-07-29 12:42 | XMS_ITS | Encounter Summary ---
:1995 Author Organization [facility] Address [address] [place] [address] Care Team Providers Name Role Phone James Charlton MD Primary Care Provider Encounter Details Date Type Department Care Team Description 07/12/2017 Hospital Encounter Radiology Library at [facility] Miranda MD Pain [facility] [place] [address] [place] [address] [phone] (Wo rk) Social History Tobacco Use Types Packs/Day Years Used Date Never Assessed Sex Assigned at Date Recorded Not on file documented as of this encounter Plan of Treatment Not on filedocumented as of this encounter Procedures Procedure Name Priority Date/Time Associated Diagnosis Comme nts FILM LIBRARY Routine 07/12/2017 12:05 AM Pain Results for this STORAGE ONLY CT EDT procedure ar e in HEAD AND SPINE the results section. documented in this encounter Results Film Library- Storage Only CT Head And Spine (07/12/2017 12:05 AM EDT) Specimen (Source) Anatomical Location Collection Method / Collectio n Time Received Time / Laterality Volume Narrative [facility] - 07/12/2017 7:43 PM EDT This exam is for storage only and is aut o-finalizing. Bassam Miranda MD IMG FILM LIBRARY ORDERABLES Performing Organization Address City/State/ZIP Code Phon e Number [place], [place] documented in this encounter Visit Diagnoses Diagnosis Pain Generalized pain documented in this encounter Care Teams Criminal Psychologist Relationship Specialty Start Date End Date James Charlton MD PCP - General 09/18/10 11/26/18 [place] [address] documented as of this encounter
--- OUTSIDE RECORDS SUMMARY | 2022-07-29 12:42 | XMS_ITS | Encounter Summary ---
:1995 Author Organization [facility] Address [address] [address] Care Team Providers Name Role Phone James Charlton MD Primary Care Provider Encounter Details Date Type Department Care Team Description 07/12/2017 Hospital Encounter Radiology Library at [facility] MD Pain [facility] [place] [address] [place] [address] [phone] (Wo rk) Social History Tobacco Use Types Packs/Day Years Used Date Never Assessed Sex Assigned at Date Recorded Not on file documented as of this encounter Plan of Treatment Not on filedocumented as of this encounter Procedures Procedure Name Priority Date/Time Associated Diagnosis Comme nts FILM LIBRARY Routine 07/12/2017 12:00 AM Pain Results for this STORAGE ONLY DX EDT procedure ar e in WRIST the results section. documented in this encounter Results Film Library- Storage Only DX Wrist (07/12/2017 12:00 AM EDT) Specimen (Source) Anatomical Location Collection Method / Collectio n Time Received Time / Laterality Volume Narrative [facility] - 07/12/2017 7:43 PM EDT This exam is for storage only and is aut o-finalizing. Bassam Miranda MD IMG FILM LIBRARY ORDERABLES Performing Organization Address City/State/ZIP Code Phon e Number [place], [place] documented in this encounter Visit Diagnoses Diagnosis Pain Generalized pain documented in this encounter Care Teams Paper Coating Supervisor Relationship Specialty Start Date End Date James Charlton MD PCP - General 09/18/10 11/26/18 [place] [address] (work) documented as of this encounter
--- OUTSIDE RECORDS SUMMARY | 2022-07-29 12:42 | XMS_ITS | Encounter Summary ---
:1995 Author Organization [facility] [id number] Care Team Providers Name Role Phone Hernesto Beverly MD Primary Care Provider [phone] Reason for Visit Reason Comments Alcohol Problem Encounter Details Date Type Department Care Team Description 11/27/2018 Emergency Emergency Department Isidro Chi MD [facility] [place] [address] [place] [address] [phone] (Wo rk) Social History Tobacco Use Types Packs/Day Years Used Date Never Assessed Alcohol Use Standard Drinks/Week Comments Yes 0 (1 standard drink = 0.6 oz pure alcoho l) Sex Assigned at Date Recorded Not on file documented as of this encounter Last Filed Vital Signs Vital Sign Reading Time Taken Comments Blood Pressure 112/69 11/27/2018 7:31 PM EST Pulse 97 11/27/2018 7:31 PM EST Temperature 37 ??C (98.6 ??F) 11/27/2018 7:31 PM EST Respiratory Rate 18 11/27/2018 7:31 PM EST Oxygen Saturation 99% 11/27/2018 7:31 PM EST Inhaled Oxygen Concentration - - Weight 59 kg (130 lb) 11/27/2018 5:50 PM EST Height 170.2 cm (5' 7) 11/27/2018 5:50 PM EST Body Mass Index 20.36 11/27/2018 5:50 PM EST documented in this encounter Discharge Instructions Discharge InstructionsUday Tovar MD - 11/27/2018 7:17 PM EST You presented to the emergency department with concern for alcohol intoxication. We believe you are safe to go to [facility] rehab at this time. We do not believe that you are at risk of seizures at this time as you are not having any withdrawal symptoms. You scored a 0 on the withdrawal symptom CIWA scale. Please see the attachment regarding alcohol and drug problems and reasons to return or call for help. Please go directly to [facility] and notify them if you have begun to have any withdrawalsymptoms. AttachmentsThe following attachments cannot be sent through Care Everywhere. Alcohol and Drug Problems ([place])Alcohol Use Disorder: General Info ([place]) documented in this encounter ED Notes Remberto Burris RN - 11/27/2018 7:41 PM EST Discharge information discussed with pt, who verbalized understanding. Ambulated from ED with steadygait. Uday Tovar MD - 11/27/2018 7:17 PM EST ED Resident Note Solomon Caban is an 23 y.o. male who presents to the ED with: Chief Complaint Patient presents with ??? Alcohol Problem I saw this patient on 11/27/2018. History is from patient. HPI Solomon Caban is a 23 y.o. male with a past medical history significant for alcoholism and alcohol withdrawals and drug abuse who presents to the Emergency Department with alcohol problem. Patientreports that he has been checked into [facility] it today when they requested that he come to the emergency department prior to their admission. He denies having any medical complaints today. He reports that he last drank alcohol at 10:30 AM this morning. He denies have any tremors, diaphoresis, agitation, visual or auditory hallucinations, or tactile sensations. He also denies fever, chills, nausea, vomiting, chest pain, or shortness of breath. Review of Systems: Review of Systems Constitutional: Negative for chills and fever. HENT: Negative for nosebleeds, rhinorrhea and sore throat. Eyes: Negative for pain and visual disturbance. Respiratory: Negative for shortness of breath and wheezing. Cardiovascular: Negative for chest pain and leg swelling. Gastrointestinal: Negative for abdominal pain, anal bleeding, blood in stool, constipation, diarrhea, nausea and vomiting. Endocrine: Negative for cold intolerance and heat intolerance. Genitourinary: Negative for dysuria, flank pain and hematuria. Musculoskeletal: Negative for back pain and neck pain. Skin: Negative for rash. Neurological: Negative for syncope and headaches. Physical Exam: Patient Vitals for the past 24 hrs: BP Pulse Resp SpO2 Height Weight 11/27/18 1750 131/78 96 20 98 % 170.2 cm (5' 7) 59 kg (130 lb) GEN: Alert and conversant, no acute distress. HEENT: Normocephalic, atraumatic. PERRLA, EOMI. Oropharynx clear, pink, and moist, without discharge. Septum midline. PULM: Clear to auscultation bilaterally, no wheezes, rales, or rhonchi. CV: Regular rate and rhythm, no murmurs, rubs, or gallups. ABD: Soft, non-distended, non-tender. No rigidity, rebound, or guarding. MSK: No gross deformities. NEURO: AAOx3. No gross CN deficits. Moves extremities equally. PSYCH: Normal mood and thought pattern. SKIN: No visible rashes or wounds. ED Course: - Patient seen under the supervision of the attending physician. - Medications, allergies, and past medical history reviewed. No results found for this or any previous visit (from the past 24 hour(s)). Assessment and Plan: 23 y.o. male with a past medical history significant for alcoholism and alcohol withdrawals and drugabuse who presents to the Emergency Department with alcohol problem. Vital signs are stable presentation. Physical exam was unremarkable. I completed a CIWA assessment score on the patient and he scored 0. I am not concerned for alcohol withdrawal seizures at this time given that his last drink was less than 12hr ago and he is currently not having any withdrawal symptoms. I am also not concerned for him being acutely intoxicated given that he was completely appropriate during my history and physicalexam. I believe that he is safe to be discharged from the emergency department at this time. I discussed this case with Tristen Ventura who stated that they could treat his alcohol withdrawal symptoms with benzodiazepines and that they could also complete lab work at their facility as needed. They did not have any further requests of the emergency department. Return precautions were verbally discussed and written in discharge instructions. The patient expressed understanding that they could come back to the ED at any time and agreed to the follow-up plan. Uday Tovar MD Resident 11/28/18 0233 Associated attestation - Isidro Reis MD - 11/28/2018 1:02 PM EST ED ATTENDING ATTESTATION NOTE The patient was seen in conjunction with the resident physician. I have independently performed the gilbert portions of the history and physical exam. I have personally reviewed nursing notes, vital signs,and diagnostic studies including labs, imaging studies and EKGs. I have discussed the details of the case with the resident and agree with the assessment and plan as described in the resident's note. Michelle Major - 11/27/2018 6:21 PM EST ED Note: Patient accepted Mental Health Director services Patient accepted follow up visit with Mental Health Director Patient declined/accepted narcan administration education - NA Patient declined/accepted free narcan kit - NA documented in this encounter Miscellaneous Notes ED Triage - Angy Acevedo RN - 11/27/2018 5:50 PM EST Pt arrives ambulatory with steady gait. A&Ox4 speaking in full sentences. Pt reports drinking everyday since he was 13. Reports he admitted to detox two years ago and had a seizure. Attempted to [facility] who sent him here. Reports he drinks a fifth a day, sometimes more. Has not attempted to stop drinking since his seizure. Last drink around 1230 today. Reports occasionally opoid pill use. Respirations even and non labored. No tremors noted. NAD at this time. documented in this encounter Plan of Treatment Not on filedocumented as of this encounter Visit Diagnoses Diagnosis Alcoholism Other and unspecified alcohol dependence , unspecified drinking behavior documented in this encounter Care Teams Blind Escort Relationship Specialty Start Date End Date Hernesto Beverly MD PCP - General Family Medicine 11/27/[address] [place] [address] documented as of this encounter
--- OUTSIDE RECORDS SUMMARY | 2022-07-29 12:42 | XMS_ITS | Encounter Summary ---
:1995 Author Organization [facility] Address [address] [place] [address] Care Team Providers Name Role Phone James Charlton MD Primary Care Provider Encounter Details Date Type Department Care Team Description 07/12/2017 Hospital Encounter Radiology Library at [facility]en Miranda MD Pain [facility] [place] [address] [place] [address] [phone] (Wo rk) Social History Tobacco Use Types Packs/Day Years Used Date Never Assessed Sex Assigned at Date Recorded Not on file documented as of this encounter Plan of Treatment Not on filedocumented as of this encounter Procedures Procedure Name Priority Date/Time Associated Diagnosis Comme nts FILM LIBRARY Routine 07/12/2017 12:20 AM Pain Results for this STORAGE ONLY CT EDT procedure ar e in CHEST ABDOMEN the results PELVIS section. documented in this encounter Results Film Library- Storage Only CT Chest Abdomen Pelvis (07/12/2017 12:20 AM EDT) Specimen (Source) Anatomical Location Collection Method / Collectio n Time Received Time / Laterality Volume Narrative [facility] - 07/12/2017 7:44 PM EDT This exam is for storage only and is aut o-finalizing. Bassam Miranda MD IMG FILM LIBRARY ORDERABLES Performing Organization Address City/State/ZIP Code Phon e Number [place], [place] documented in this encounter Visit Diagnoses Diagnosis Pain Generalized pain documented in this encounter Care Teams Basting Cleaner Relationship Specialty Start Date End Date James Charlton MD PCP - General 09/18/10 11/26/[place] [address] documented as of this encounter
--- OUTSIDE RECORDS SUMMARY | 2022-07-29 12:42 | XMS_ITS | Encounter Summary ---
:1995 [place] [address] Care Team Providers Name Role Phone Hernesto Beverly MD Primary Care Provider [phone] Encounter Details Date Type Department Care Team Description 09/03/2019 Notes Only [facility]it [facility] Hector Major [facility] [place] [address] Social History Tobacco Use Types Packs/Day Years Used Date Never Assessed Alcohol Use Standard Drinks/Week Comments Yes 0 (1 standard drink = 0.6 oz pure alcoho l) Sex Assigned at Date Recorded Not on file documented as of this encounter Progress Notes Michelle Major - 09/03/2019 3:06 PM EST INFORMATION SYSTEMS PLANNER FOLLOW UP: Did the patient paticipate in scheduled follow up?: Yes Follow up was conducted via:: Phone call The following was completed in this follow up encounter:: Patient entered treatment (patient currently engaged with medication assisted recovery) Patient's motivation to pursue recovery options:: Low Was another follow up scheduled?: No Reason another follow up was not scheduled:: Service complete, no further contact documented in this encounter Plan of Treatment Not on filedocumented as of this encounter Visit Diagnoses Not on filedocumented in this encounter Care Teams Automotive Drivability Technician Relationship Specialty Start Date End Date Hernesto Beverly MD PCP - General Family Medicine 11/27/[address] [place] [address] documented as of this encounter
== END ==
PROVIDERS: PCP Family Medicine; Visit Provider Nurse Practitioner Family
DX: R22.2 Localized swelling, mass and lump, trunk (principal)
CPT/HCPCS: 71046; 71100

== ENCOUNTER 2023-10-25 10:16 | Emergency (ER) | payer MEDICAID, SELFPAY ==
[2023-10-25 10:41] VITALS: BP 99/47; PULSE 64; RESP 18; TEMP 36.4; O2SAT 99
[2023-10-25 10:44] VITALS: RESP 16
--- NOTE | 2023-10-25 11:35 | ED.GENADUL_ITS ---
Discharge Plan Disposition Patient Disposition: Eloped Condition: Stable Discharge Details Chief Complaint: GenMedical Clinical Impression: Active substance abuse Primary Care Provider: Hernesto Beverly ED Provider: Gold Mireles Home Meds and New Rx's Prescriptions: No Action buprenorphine-naloxone [Suboxone] 8-2 mg film 1 film SL DAILY trazodone 100 mg tablet 300 mg PO .pm Qty: 90 11RF Rx Instructions: 300 mg pm dextroamphetamine-amphetamine [Adderall XR] 20 mg capsule,extended release 24hr 20 mg PO DAILY MDD 20mg Qty: 28 0RF Medical Decision Making 28-year-old male presents for evaluation of bilateral feet in the setting of injecting crack cocaine into his feet veins, father here encouraging patient to seek inpatient rehabilitation, bilateral feet showing multiple areas of injection sites, in various stages of healing, no induration no erythema no purulence no fluctuance, warm well-perfused extremities sensate, DP pulse intact ambulatory without assistance, no evidence of active infection or foreign body, patient reluctant to seek inpatient rehabilitation at this time was counseled extensively by addiction development coach Shanelle who has given him resources. Patient's father endorses that he was told by the [facility] to come here for transfer to inpatient status however I was able to contact [facility] and they deny these instructions and in fact informing that they have no room. Again patient himself as an adult with complete decision making capabilities of sound mind no current intoxication currently does not want to be inpatient rehab. Allowing father and son to speak in room to decide what they would like to do. If patient decides that he would like to seek rehabilitation we would hold him here until clinical social work therapist can arrange placement at rehab center. Given hemodynamically stability afebrile state without signs of active infection will not pursue labs and imaging. 11: 57 patient and family have left department. HPI General Date/Time Provider Initiated Documentation: 10/25/23 11:05 . HPI Narrative: 28-year-old male history of polysubstance abuse, presents for evaluation of bilateral feet swelling in the setting of shooting crack cocaine into his feet veins. Denies fevers chills nausea vomiting or other systemic signs of illness. Is currently in the Suboxone program. Father is urging him to consider inpatient rehabilitation. Patient himself is reluctant. Chronic depression without SI or HI Related Data Home Medications Medication Instructions Recorded Confirmed buprenorphine 8 mg-naloxone 2 mg 1 film sublingual DAILY 12/15/19 10/25/23 sublingual film (Suboxone) trazodone 100 mg tablet 300 mg (3 x 100 mg) PO .pm #90 05/21/23 10/25/23 tab-caps dextroamphetamine-amphetamine ER 20 mg PO DAILY #28 caps 10/09/23 10/25/23 20 mg 24hr capsule,extend release (Adderall XR) Previous Rx's Medication Instructions Recorded trazodone 100 mg tablet 300 mg (3 x 100 mg) PO .pm #90 05/21/23 tab-caps dextroamphetamine-amphetamine ER 20 mg PO DAILY #28 caps 10/09/23 20 mg 24hr capsule,extend release (Adderall XR) Allergies Allergy/AdvReac Type Severity Reaction Status Date / Time Sulfa (Sulfonamide Allergy Unknown Hives Verified 10/25/23 10:40 Antibiotics) General Stated Complaint: GenMedical YESSENIA: 4 Review of Systems Narrative: Review of Systems Constitutional: negative Eyes: negative ENT: negative Cardiovascular: negative Respiratory: negative Gastrointestinal: negative : negative Musculoskeletal: Feet swelling Skin: negative Neurologic: negative Psych: negative PFSH All Active Problems (Updated 10/25/23 @ 11:58 by Gold Mireles MD) Active substance abuse (Acute) Anemia (Chronic) Frequent headaches (Acute) Weight loss (Acute) Sensorineural hearing loss (SNHL) of left ear with unrestricted hearing of right ear (Acute) Shoulder pain, right (Acute) Sensation of fullness in left ear (Acute) Chronic headache (Acute) Tobacco abuse (Acute) Hypomagnesemia (Acute) Hypokalemia (Acute) COVID-19 ruled out by laboratory testing (Acute) Exposure to hepatitis C (Acute) serology neg 10/2018 DVT prophylaxis (Acute) Discharge planning issues (Acute) Alteration in patient safety due to identified suicide risk (Acute) Polysubstance abuse (Acute) History of substance abuse (Chronic 09/09/17) Attention deficit disorder (Acute 04/15/18) continue adderall as directed Alcoholism (Chronic 08/15/17) start revia Surgical History Fracture, Open Treatment CAROLE ARREOLA; RIGHT DISTAL RADIUS Family History Mother Alcohol abuse History of Father Alcohol abuse history of Sister No problems noted. Son Alcohol abuse history of Asthma Maternal Grandfather , age 76 No problems noted. Social History Smoking/Tobacco Use Status: Current every day Tobacco Type: cigarettes and smokeless tobacco Tobacco: How many years used: 10 Smokeless tobacco user: chewing tobacco (and smoking) Quit status: not considering quitting Second Hand Exposure: Yes Smoking risk assessment performed?: Yes Alcohol Intake: current Alcohol Intake frequency: a few times a month Alcohol type: beer Drug use: Binges Substance use type: marijuana and crack/cocaine Details: Occasional marijuana Caregiver/Support person: No Household members: family Housing: house Communication Needs: Hard of Hearing Do you need help understanding health information?: Never Pets and animals: No Sexually active: Yes Do you think of yourself as: straight/heterosexual Current gender identity: male What is your relationship status?: refused to answer How often do you talk on the phone with friends or family?: never How often do you get together with friends or relatives?: never How often do you attend yarsanism or cheondoism services?: decline to answer Do you belong to any clubs or organized social groups?: no Panel score (0-1 are the most socially isolated patients): 0 What type of physical activity do you participate in: none and other Frequency: does not exercise Seatbelt use: sometimes Helmet use: Yes Helmet use: always Drive intox or ride w/intox security patrol driver: No Do you feel safe at home: Yes Do you feel safe in your relationship?: Yes Exam Narrative Exam Narrative: Physical Examination General: alert, awake, cooperative, resting comfortably, no acute distress HEENT: normocephalic, atraumatic; PERRL, EOM intact, conjunctiva normal; no nasal discharge; moist mucous membranes, oral and pharyngeal mucosa normal, tolerating secretions Neck: supple, trachea midline; full ROM Chest: normal to inspection Respiratory: normal respiratory effort, speaking in full sentences Skin: Multiple areas of injection sites along dorsum lateral and medial aspect of bilateral feet, no induration no erythema no warmth no fluctuance no pu rulence Neuro: AAOx3, normal speech, moving all extremities Extremities: Moving all extremities DP pulses intact no appreciable edema, ambulatory without assistance Psych: Appropriate mood and affect Course Vital Signs Vital signs: Vital Signs Temperature 36.4 C 10/25/23 10:41 Pulse 64 10/25/23 10:41 Respiratory Rate 18 10/25/23 10:41 Blood Pressure 99/47 L 10/25/23 10:41 Pulse Oximetry 99 10/25/23 10:41 Temperature 36.4 C 10/25/23 10:41 Temperature Source Oral 10/25/23 10:41 Pulse 64 10/25/23 10:41 Respiratory Rate 16 10/25/23 10:44 Respiratory Effort Normal, Non-Labored 10/25/23 10:44 Respiratory Pattern Normal 10/25/23 10:44 Blood Pressure 99/47 L 10/25/23 10:41 Pulse Oximetry 99 10/25/23 10:41 Pain Level 6 10/25/23 10:41 PAWSS Have you Been Recently Intoxicated or Drunk Within the Last 30 days?: No Have you Ever Experienced Previous Episodes of Alcohol Withdrawal?: Yes Have you ever Experienced Withdrawal Seizures?: Yes Have you ever Experienced Delirium Tremens(DT)s?: Yes Have you ever undergone Alcohol Rehabilitation Treatment (i.e, inpt ot outpatient treatment programs)?: Yes Have you ever Experienced Blackouts?: Yes Have you ever Combined Alcohol with other Downers within the last 90 days?: No Have you ever Combined Alcohol with any other Substance of Abuse during the last 90 days?: Yes Positive Blood Alcohol level on Presentation? [PCS.BAL]: No Evidence of Increased Autonomic Activity (i.e. HR>120, tremor, sweating, agitation, nausea)?: No Result: 7
== END 2023-10-25 11:45 | disposition left against medical advice (07) ==
PROVIDERS: Emergency Provider Emergency Medicine; PCP Family Medicine
DX: R22.43 Localized swelling, mass and lump, lower limb, bilateral (principal); F14.10 Cocaine abuse, uncomplicated; F32.A Depression, unspecified; F17.210 Nicotine dependence, cigarettes, uncomplicated; F17.220 Nicotine dependence, chewing tobacco, uncomplicated
CPT/HCPCS: 99282

== ENCOUNTER 2024-02-13 08:23 | Emergency (ER) | payer MEDICAID, SELFPAY ==
[2024-02-13 08:27] VITALS: BP 152/84; PULSE 116; RESP 16; TEMP 37.2; O2SAT 98
--- NOTE | 2024-02-13 08:30 | RT.EKG_ITS ---
APPROVED REPORT Exam: Resting ECG Reason for Exam: tachycardia Patient Location: E HR:111 bpm ECG Measurements Heart Rate 111 AXIS NE 140 P 73 QRSd 107 QRS 94 QT 340 T 15 QTc 463 Conclusion Sinus tachycardia...rate> 99 Right atrial enlargement...P>0.25mV 2 lds or<-0.24mV aVR/aVL Borderline ST elevation, anterior leads...ST >0.15mV in V1-V4 sinus tachycardia, normal axis, normal intervals, ST depresions inferior leads, consider ST elevation V2
--- NOTE | 2024-02-13 08:32 | W.ED.GENAD ---
Discharge Plan Disposition Patient Disposition: Home Condition: Stable Discharge Details Clinical Impression: Allergic reaction Primary Care Provider: Hernesto Beverly ED Provider: Remberto Feliciano Home Meds and New Rx's Prescriptions: Continued buprenorphine-naloxone [Suboxone] 8-2 mg film 1 film SL DAILY trazodone 100 mg tablet 300 mg PO .pm Qty: 90 3RF Rx Instructions: 300 mg pm Discharge Instructions Instructions: General Allergic Reaction (ED) Additional Instructions: You were seen in the emergency department for your possible allergic reaction, you had no wheezing or hives on arrival, we did give you a Benadryl and another antihistamine called famotidine. You had some EKG changes that may be related to your crack cocaine use. Laboratory workup shows no damage to your heart and your heart rate did normalize with no further abnormalities. You are mildly anemic. Otherwise your laboratory workup is benign. Please follow-up with your primary care provider, return to the ED for any emergent concerns including allergic reactions, chest pain, palpitations, I urge you to stop using substances. Stand Alone Forms: Work Release Referrals: [facility] [Outside] Hernesto Beverly MD [Primary Care Provider] - Discharge Data Discharge Date/Time-TO BE ENTERED AT DEPARTURE: 02/13/24 10:05 HPI General Date/Time Provider Initiated Documentation: 02/13/24 08:31. HPI Narrative: 28 year-old male presents to ED today by POV/ambulating with a chief complaint of possible allergic reaction at work with onset 30 minutes ago. Quality described as had full body hives that resolved, and his tongue feels tingly, no radiation to current hives, SOB, tongue/lip swelling, nausea/vomiting. Severity is described as moderate. Palliating factors include nothing specific attempted. Provoking factors include unknown allergen. Events leading up to the incident/Associated Symptoms: Patient did engage in crack cocaine use last night. Patient not anticoagulated. Related Data Home Medications Medication Instructions Recorded Confirmed buprenorphine 8 mg-naloxone 2 mg 1 film sublingual DAILY 12/15/19 01/07/24 sublingual film (Suboxone) trazodone 100 mg tablet 300 mg (3 x 100 mg) PO .pm #90 01/08/24 01/08/24 tab-caps Previous Rx's Medication Instructions Recorded trazodone 100 mg tablet 300 mg (3 x 100 mg) PO .pm #90 01/08/24 tab-caps Allergies Allergy/AdvReac Type Severity Reaction Status Date / Time Sulfa (Sulfonamide Allergy Unknown Hives Verified 01/07/24 13:47 Antibiotics) General Stated Complaint: Allergic YESSENIA: 4 Review of Systems All systems reviewed & are unremarkable except as noted in HPI and below Exam Narrative Exam Narrative: GENERAL APPEARANCE: Well-nourished, non-toxic, awake and alert, atraumatic, no acute distress. SKIN: Warm, pink, dry, intact, without rashes/lesions/ulcerations. HEAD: Normocephalic, atraumatic, normal hair distribution for gender/age. EYES: Pupils PERRLA, EOMs intact without nystagmus, normal conjunctiva, no exudates on lids/lashes. ENT: Nares patent, no circumoral cyanosis, no facial swelling, no tongue swelling, no lip swelling NECK: Supple, trachea midline, painless cervical ROM. LUNGS/CHEST: Lungs CTA bilaterally- no wheezing diffusely, non-labored respirations, normal A/P diameter, symmetrical expansion, no chest wall deformity HEART (CV/PV): Regular rate and rhythm without murmur, no peripheral edema, no JVD. ABDOMEN: Soft, non-distended, no guarding. MSK: Normal ROM, no swelling/deformity to bilateral UEs or LEs, moving all extremities without weakness, no cyanosis, spine midline without tenderness, normal curvature. NEURO: Mental Status AAOx4 - alert to person, place, time, events No facial droop, no forehead involvement. Motor: No focal weakness - strength 5/5 in bilateral UEs and LEs, proximal and distal, symmetric. Sensory: sensation intact to light touch globally. Gait normal: patient ambulated without ataxia into ED room. PSYCH: euthymic, cooperative, pleasant, appropriate speech Course Vital Signs Vital signs: Vital Signs Temperature 37.2 C 02/13/24 08:27 Pulse 116 H 02/13/24 08:27 Respiratory Rate 16 02/13/24 08:27 Blood Pressure 152/84 H 02/13/24 08:27 Pulse Oximetry 98 02/13/24 08:27 Temperature 37.2 C 02/13/24 08:27 Pulse 116 H 02/13/24 08:27 Respiratory Rate 16 02/13/24 08:27 Respiratory Effort Normal 02/13/24 08:30 Respiratory Pattern Normal 02/13/24 08:30 Blood Pressure 152/84 H 02/13/24 08:27 Blood Pressure Position Sitting 02/13/24 08:27 Pulse Oximetry 98 02/13/24 08:27 Oxygen Delivery Method Room Air 02/13/24 08:27 Oxygen Flow Rate 0 02/13/24 08:27 Medical Decision Making This dictation utilizes [id number] dictation software and may contain unedited grammatical errors. 28 y/o M presents to ED today with a chief complaint of possible allergic reaction 30 minutes ago at work, hives and tongue tingling- denies known allergen, did use crack cocaine last night. Symptoms resolved prior to arrival. Patient denies nausea/vomiting, denies shortness of breath/wheezing. Patients' medical history: noncontributory. Family and social history: noncontributory. Pertinent exam findings / vital signs include no wheezing, no lip/tongue abnormalities, no skin rash. Differential / pathologies of concern include allergic reaction. Diagnostic studies of: -none. Interventions of: -benadryl & famotidine, obs. ED Course/Assessment/Plan: 28-year-old male states he had an allergic reaction with hives at work 30 minutes ago that resolved spontaneously, has no other symptoms at this time, endorses tongue tingling without any observable abnormality. I did provide Benadryl and famotidine and observe the patient for a period of time with no progression of his symptoms. Did provide a work note, do not suspect serious allergic reaction, strict return criteria for any shortness of breath, facial swelling, difficulty swallowing. Findings not consistent with anaphylaxis. Disposition of allergic reaction. Patient verbalized understanding of the plan and return to ED criteria and engaged in shared decision making. Medical Records Medical records reviewed: Yes I reviewed the patient's medical records. Quality:SDOH Health Related Social Needs: No Data to Display PFSH All Active Problems (Updated 02/13/24 @ 09:53 by KINA Brizuela) Allergic reaction (Acute) Anxiety disorder (Acute) Anemia (Chronic) Frequent headaches (Acute) Weight loss (Acute) Sensorineural hearing loss (SNHL) of left ear with unrestricted hearing of right ear (Acute) Shoulder pain, right (Acute) Sensation of fullness in left ear (Acute) Chronic headache (Acute) Tobacco abuse (Acute) Hypomagnesemia (Acute) Hypokalemia (Acute) COVID-19 ruled out by laboratory testing (Acute) Exposure to hepatitis C (Acute) serology neg 10/2018 DVT prophylaxis (Acute) Discharge planning issues (Acute) Alteration in patient safety due to identified suicide risk (Acute) Polysubstance abuse (Acute) History of substance abuse (Chronic 09/09/17) Attention deficit disorder (Acute 04/15/18) continue adderall as directed Alcoholism (Chronic 08/15/17) start revia Surgical History Fracture, Open Treatment CAROLE ARREOLA; RIGHT DISTAL RADIUS Family History Mother Alcohol abuse History of Father Alcohol abuse history of Sister No problems noted. Son Alcohol abuse history of Asthma Maternal Grandfather , age 76 No problems noted. Social History Smoking/Tobacco Use Status: Current every day Tobacco Type: cigarettes and smokeless tobacco Tobacco: How many years used: 10 Smokeless tobacco user: chewing tobacco (and smoking) Quit status: not considering quitting Second Hand Exposure: Yes Smoking risk assessment performed?: Yes Alcohol Intake: current Alcohol Intake frequency: a few times a month Alcohol type: beer Drug use: Binges Substance use type: marijuana and crack/cocaine Details: Occasional marijuana Caregiver/Support person: No Household members: family Housing: house Communication Needs: Hard of Hearing Do you need help understanding health information?: Never Pets and animals: No Sexually active: Yes Do you think of yourself as: straight/heterosexual Current gender identity: male What is your relationship status?: refused to answer How often do you talk on the phone with friends or family?: never How often do you get together with friends or relatives?: never How often do you attend yazdanism or anabaptism services?: decline to answer Do you belong to any clubs or organized social groups?: no Panel score (0-1 are the most socially isolated patients): 0 What type of physical activity do you participate in: none and other Frequency: does not exercise Seatbelt use: sometimes Helmet use: Yes Helmet use: always 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
[2024-02-13] MEDS: Famotidine 20 MG TAB PO (08:45)
[2024-02-13] MEDS: diphenhydrAMINE 25 MG CAP PO (08:45)
[2024-02-13] MEDS: Normal Saline 1,000 ML 1000 ML IV (09:07)
[2024-02-13 09:09] VITALS: PULSE 104; RESP 15; O2SAT 97
[2024-02-13 09:10] VITALS: PULSE 98; RESP 13; O2SAT 99
[2024-02-13 09:12] LABS: Abs Immature Grans 0.04 10^3/uL (0.0-0.06); Absolute Basophil Count 0.02 10^3/uL (0.0-0.2); Absolute Lymphocyte Count 0.73 10^3/uL (1.2-3.4); Absolute Monocyte Count 0.21 10^3/uL (0.1-0.8); Absolute Neutrophil Count 10.44 10^3/uL (1.2-6.7); Basophils % 0.2; HCT 34.9 % (40.0-50.0); HGB 11.7 g/dL (13.5-17.5); Immature Grans % 0.3; Lymphocytes % 6.4; MCH 29.2 pg (27.0-33.0); MCHC 33.5 % (32.0-36.0); MCV 87 fL (80-95); Monocytes % 1.8; Neutrophils % 91.3; Platelet Count 316 10^3/uL (130-400); RBC 4.01 10^6/uL (4.36-5.78); RDW 12.4 % (11.8-14.1); RDW-SD 39.8 fL; WBC 11.44 10^3/uL (4.4-10.8)
[2024-02-13 09:16] VITALS: BP 121/82; PULSE 94; PULSE 98; RESP 11; O2SAT 98
[2024-02-13 09:20] VITALS: PULSE 97; RESP 12; O2SAT 99
[2024-02-13 09:36] LABS: ALT 23 U/L (16-63); AST 22 U/L (15-37); Albumin 4.1 g/dL (3.4-5.0); Alkaline Phosphatase 69 U/L (46-116); Anion Gap 10.1 mmol/L (3-11); BUN 15 mg/dL (7-18); Bilirubin, Total 0.8 mg/dL (0.2-1.0); CO2 30.9 mmol/L (21.0-32.0); Calcium 9.1 mg/dL (8.5-10.1); Chloride 97 mmol/L (98-107); Creatine Kinase 87 U/L (39-308); Estimated GFR 105.79 (mL/min/1.73m2); Glucose 134 mg/dL (74-106); Lipase 14 U/L (16-77); NT-proBNP 50 pg/mL (<300); Potassium 3.5 mmol/L (3.5-5.1); Sodium 138 mmol/L (136-145)
[2024-02-13 09:37] LABS: Troponin I < 50 ng/L (< or =60)
--- NOTE | 2024-02-13 09:45 | RT.EKG_ITS ---
APPROVED REPORT Exam: Resting ECG Reason for Exam: repeat, resolved tachycardia Patient Location: E HR:81 bpm ECG Measurements Heart Rate 81 AXIS SD 153 P 70 QRSd 106 QRS 92 QT 376 T 58 QTc 438 Conclusion Sinus rhythm...normal P axis, V-rate 60- 99 ST elev, probable normal early repol pattern...ST elevation, age<55 sinus rhtyhm, normal axis, normal intervals, non ischemic
== END 2024-02-13 10:05 | disposition home or self-care (01) ==
PROVIDERS: Emergency Provider Physician Assistant; PCP Family Medicine
DX: R25.1 Tremor, unspecified (principal); T78.40XA Allergy, unspecified, initial encounter; R03.0 Elevated blood-pressure reading, without diagnosis of hypertension; F14.90 Cocaine use, unspecified, uncomplicated; F17.200 Nicotine dependence, unspecified, uncomplicated
CPT/HCPCS: 80053; 82550; 83690; 93005; 96360; 99284; 83880; 84484; 85025; 93010; 99283

== ENCOUNTER 2024-03-01 08:20 | Emergency (ER) | payer OTHER, SELFPAY ==
[2024-03-01 08:37] VITALS: BP 119/73; PULSE 99; RESP 18; TEMP 37.3; O2SAT 97
--- NOTE | 2024-03-01 08:49 | W.ED.GENAD ---
Discharge Plan Disposition Patient Disposition: Home Condition: Improving Discharge Details Chief Complaint: Laceration Clinical Impression: Hand laceration Primary Care Provider: Hernesto Beverly ED Provider: Gold Mireles Home Meds and New Rx's Prescriptions: No Action buprenorphine-naloxone [Suboxone] 8-2 mg film 1 film SL DAILY trazodone 100 mg tablet 300 mg PO .pm Qty: 90 3RF Rx Instructions: 300 mg pm Discharge Instructions Instructions: Laceration (ED) Stand Alone Forms: Work Release HPI General Date/Time Provider Initiated Documentation: 03/01/24 08:46. HPI Narrative: 29-year-old male presents after lacerating the dorsal aspect of his right hand on a staple at work. Was bleeding before arrival now hemostatic. Last tetanus shot within the last year. Related Data Home Medications Medication Instructions Recorded Confirmed buprenorphine 8 mg-naloxone 2 mg 1 film sublingual DAILY 12/15/19 02/24/24 sublingual film (Suboxone) trazodone 100 mg tablet 300 mg (3 x 100 mg) PO .pm #90 01/08/24 02/24/24 tab-caps Previous Rx's Medication Instructions Recorded trazodone 100 mg tablet 300 mg (3 x 100 mg) PO .pm #90 01/08/24 tab-caps Allergies Allergy/AdvReac Type Severity Reaction Status Date / Time Sulfa (Sulfonamide Allergy Unknown Hives Verified 02/26/24 11:11 Antibiotics) General Stated Complaint: Laceration YESSENIA: 5 Review of Systems Narrative: Review of Systems Constitutional: negative Eyes: negative ENT: negative Cardiovascular: negative Respiratory: negative Gastrointestinal: negative : negative Musculoskeletal: negative Skin: Hand laceration Neurologic: negative Psych: negative Exam Narrative Exam Narrative: Physical Examination General: alert, awake, cooperative, resting comfortably, no acute distress HEENT: normocephalic, atraumatic Neck: supple, trachea midline; full ROM Chest: normal to inspection Respiratory: normal respiratory effort, speaking in full sentences Skin: See extremity Neuro: AAOx3, normal speech, moving all extremities Extremities: Right hand: 1 cm superficial laceration to dorsal aspect of fourth metacarpal region, hemostatic no foreign bodies, full flexion extension intact in fingers, sensation medial radial and ulnar nerve distribution intact, radial pulse intact. Psych: Appropriate mood and affect Course Vital Signs Vital signs: Vital Signs Temperature 37.3 C 03/01/24 08:37 Pulse 99 H 03/01/24 08:37 Respiratory Rate 18 03/01/24 08:37 Blood Pressure 119/73 03/01/24 08:37 Pulse Oximetry 97 03/01/24 08:37 Temperature 37.3 C 03/01/24 08:37 Temperature Source Tympanic 03/01/24 08:37 Pulse 99 H 03/01/24 08:37 Respiratory Rate 18 03/01/24 08:37 Blood Pressure 119/73 03/01/24 08:37 Blood Pressure Position Sitting 03/01/24 08:37 Pulse Oximetry 97 03/01/24 08:37 Oxygen Delivery Method Room Air 03/01/24 08:37 Oxygen Flow Rate 0 03/01/24 08:37 Pain Level 0 03/01/24 08:37 Procedures Laceration Laceration 1: Site: hand Side (If applicable): right Size (cm): 1 Description: linear Depth: simple, single layer Local Anesthetic: other anesthetic (LET) Pre-repair: wound explored, irrigated extensively and deep structures intact Skin layer closed with: vicryl Size (cm): 4-0 Number of sutures: 1 Medical Decision Making 21-year-old male presents with 1 cm laceration to dorsal aspect of right hand over fourth metacarpal region, hemostatic no foreign bodies appreciated neurovascular exam of limb intact flexion extension intact, afebrile nontoxic. Will administer topical LET, will irrigate wound, will closed with absorbable Vicryl. No evidence of neurovascular compromise no evidence of infection. Home care instruction return precautions to be given. Tenderness booster up-to-date Wound irrigated extensively with normal saline, 1 x 4-0 Vicryl simple interrupted. Wound wrapped. Home care instructions and return precautions given Quality:SDOH Health Related Social Needs: No Data to Display PFSH All Active Problems (Updated 03/01/24 @ 09:33 by Gold Mireles MD) Hand laceration (Acute) Rash (Acute) Allergic reaction (Acute) Anxiety disorder (Acute) Anemia (Chronic) Frequent headaches (Acute) Weight loss (Acute) Sensorineural hearing loss (SNHL) of left ear with unrestricted hearing of right ear (Acute) Shoulder pain, right (Acute) Sensation of fullness in left ear (Acute) Chronic headache (Acute) Tobacco abuse (Acute) Hypomagnesemia (Acute) Hypokalemia (Acute) COVID-19 ruled out by laboratory testing (Acute) Exposure to hepatitis C (Acute) serology neg 10/2018 DVT prophylaxis (Acute) Discharge planning issues (Acute) Alteration in patient safety due to identified suicide risk (Acute) Polysubstance abuse (Acute) History of substance abuse (Chronic 09/09/17) Attention deficit disorder (Acute 04/15/18) continue adderall as directed Alcoholism (Chronic 08/15/17) start revia Surgical History Fracture, Open Treatment CAROLE ARREOLA; RIGHT DISTAL RADIUS Family History Mother Alcohol abuse History of Father Alcohol abuse history of Sister No problems noted. Son Alcohol abuse history of Asthma Maternal Grandfather , age 76 No problems noted. Social History Smoking/Tobacco Use Status: Current every day Tobacco Type: cigarettes and smokeless tobacco Tobacco: How many years used: 10 Smokeless tobacco user: chewing tobacco (and smoking) Quit status: not considering quitting Second Hand Exposure: Yes Smoking risk assessment performed?: Yes Alcohol Intake: current Alcohol Intake frequency: a few times a month Alcohol type: beer Drug use: Binges Substance use type: marijuana and crack/cocaine Details: Occasional marijuana Caregiver/Support person: No Household members: family Housing: house Communication Needs: Hard of Hearing Do you need help understanding health information?: Never Pets and animals: No Sexually active: Yes Do you think of yourself as: straight/heterosexual Current gender identity: male What is your relationship status?: refused to answer How often do you talk on the phone with friends or family?: never How often do you get together with friends or relatives?: never How often do you attend moravian or uatsdin services?: decline to answer Do you belong to any clubs or organized social groups?: no Panel score (0-1 are the most socially isolated patients): 0 What type of physical activity do you participate in: none and other Frequency: does not exercise Seatbelt use: sometimes Helmet use: Yes Helmet use: always 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
[2024-03-01] MEDS: Lidocaine/Epinephri/Tetracaine Topical Gel 3 ML TP (09:02)
== END 2024-03-01 10:02 | disposition home or self-care (01) ==
PROVIDERS: Emergency Provider Emergency Medicine; PCP Family Medicine
DX: S61.411A Laceration without foreign body of right hand, initial encounter (principal); Y99.0 Civilian activity done for income or pay; W23.0XXA Caught, crushed, jammed, or pinched between moving objects, initial encounter
CPT/HCPCS: 12001

== ENCOUNTER 2024-06-23 03:49 | Outpatient (CLI) | payer MEDICAID, SELFPAY ==
[2024-06-23 12:51] LABS: HCT 38.1 % (40.0-50.0); HGB 12.3 g/dL (13.5-17.5); MCH 29.3 pg (27.0-33.0); MCHC 32.3 % (32.0-36.0); MCV 91 fL (80-95); MPV 9.1 fL (8.0-11.0); Platelet Count 324 10^3/uL (130-400); RDW 13.7 % (11.8-14.1); RDW-SD 45.6 fL; WBC 6.08 10^3/uL (4.4-10.8)
[2024-06-23 13:16] LABS: Hemoglobin A1C 5.5 % (<5.7)
[2024-06-23 13:40] LABS: Iron 73 ug/dL (65-175)
[2024-06-23 14:06] LABS: ALT 36 U/L (16-63); AST 22 U/L (15-37); Albumin 3.9 g/dL (3.4-5.0); Alkaline Phosphatase 70 U/L (46-116); Anion Gap 7.5 mmol/L (3-11); BUN 17 mg/dL (7-18); CO2 31.5 mmol/L (21.0-32.0); CREATININE 0.9 mg/dL (0.70-1.30); Calcium 9.3 mg/dL (8.5-10.1); Chloride 101 mmol/L (98-107); Estimated GFR 119.31 (mL/min/1.73m2); Ferritin 77 ng/mL (26-388); Glucose 98 mg/dL (74-106); Potassium 4.4 mmol/L (3.5-5.1); Sodium 140 mmol/L (136-145); TSH (W/Ref FT4) 0.92 uIU/mL (0.36-3.74); Total Protein 7.5 g/dL (6.4-8.2); Vitamin B12 541 pg/mL (193-986)
== END 2024-06-23 03:50 | disposition home or self-care (01) ==
LOC: LBO 03:49
PROVIDERS: PCP Family Medicine; Visit Provider Family Medicine
DX: R53.83 Other fatigue (principal); R10.9 Unspecified abdominal pain; E03.9 Hypothyroidism, unspecified; D64.9 Anemia, unspecified; E11.51 Type 2 diabetes mellitus with diabetic peripheral angiopathy without gangrene
CPT/HCPCS: 36415; 80053; 85027; 82607; 82728; 83036; 83540; 84443

== ENCOUNTER 2024-08-30 01:49 | Outpatient (CLI) | payer MEDICAID, SELFPAY ==
--- NOTE | 2024-08-30 09:30 | DI.CT_ITS ---
Exam(s) CT CHEST HIGH RESOLUTION EXAM: CT CHEST HIGH RESOLUTION CLINICAL HISTORY: SOB, hemoptysis,r04.2. TECHNIQUE: Imaging protocol: Axial computed tomography images were obtained and coronal and sagittal reformatted images were created and reviewed. Additional 1 millimeter axial images were performed at 10 millimeter intervals during expiration. Computer aided detection (CAD) was utilized. CONTRAST MATERIAL: Noncontrast COMPARISON: CT CHEST ABD PELVIS WITH CONTRAST from 07/12/2017 CR XR RIBS LT W PA LAT CHEST from 07/29/2022 FINDINGS: Pulmonary parenchyma: Mild tree-in-bud opacities seen in posterior inferior right upper lobe, inferio r right middle lobe as well as right lung base. No consolidation. No suspicious mass. No air trappi ng. Interstitial changes: None. Emphysema: None. Tracheobronchial tree: Mild peribronchial thickening. Minimal opacities in the medial left lower lob e. No mucous plugging. No bronchiectasis . Pleura: No effusion or pneumothorax. Heart: The heart is not dilated. The coronary arteries show no calcifications. Aorta: Thoracic aorta non-dilated. No atherosclerotic changes. Lymph nodes: Stable small lymph nodes noted in both axilla and mediastinum. Bones: No degenerative changes are seen. No evidence of compression fracture. Upper abdomen: Unremarkable. Soft tissues: Unremarkable. IMPRESSION: Mild bronchial thickening and multifocal tree-in-bud opacities, greater in the right upper and lower lobes. The findings may be associated with infectious or inflammatory etiologies. RADIATION DOSE DELIVERED: Total DLP Total DLP DATA REPOSITORY: All CT scans at this facility are submitted to the National Radiology Data Registry (NRDR) Dose Index Registry (DIR) with the [employer] (A[employer]). RADIATION OPTIMIZATION: All CT scans at this facility use at least one of these dose optimization te chniques: automated exposure control; mA and/or kV adjustment per patient size (includes targeted exa ms where dose is matched to clinical indication); or iterative reconstruction.
== END 2024-08-30 02:09 ==
LOC: DI 01:49
PROVIDERS: PCP Family Medicine; Visit Provider Emergency Medicine
DX: R04.2 Hemoptysis (principal); R91.8 Other nonspecific abnormal finding of lung field
CPT/HCPCS: 71250

== ENCOUNTER 2024-11-17 14:32 | Inpatient (IN) | payer MEDICAID, SELFPAY ==
[2024-11-17] VITALS (21 sets, daily range): BP systolic 114–177; BP diastolic 69–95; PULSE 54–130; RESP 7–25; TEMP 35.8–37.1; O2SAT 91–99
--- NOTE | 2024-11-17 14:45 | DI.CT_ITS ---
Exam(s) CT HEAD CERVICAL SPINE WO EXAM: CT HEAD CERVICAL SPINE WO CLINICAL HISTORY: seizure, fall. TECHNIQUE: Imaging Protocol: Axial computed tomography images with coronal and sagittal reformatted images were created and reviewed COMPARISON: CT CT HEAD WO from 06/27/2022 FINDINGS: Head CT Ventricles and Extra axial spaces: Normal in size and morphology for the patient's age. Hemorrhage: None. Cerebral parenchyma: No evidence of mass or acute infarct. Midline shift: None. Brainstem/Cerebellum: Normal. Calvarium: Normal. Visualized Paranasal sinuses/Mastoids: Clear. Soft tissues: Unremarkable. Cervical Spine CT BONES: Vertebral body heights are maintained. Alignment is normal. There is no evidence of acute frac ture. SOFT TISSUES: No paraspinal hematoma. The airway appears intact. No pneumothorax is seen at the lung apices. IMPRESSION: Head CT: No acute abnormality. C-spine CT: Degenerative changes, no acute abnormality. RADIATION DOSE DELIVERED: Total DLP DATA REPOSITORY: All CT scans at this facility are submitted to the National Radiology Data Registry (NRDR) Dose Index Registry (DIR) with the [employer] (ACR). RADIATION OPTIMIZATION: All CT scans at this facility use at least one of these dose optimization te chniques: automated exposure control; mA and/or kV adjustment per patient size (includes targeted exa ms where dose is matched to clinical indication); or iterative reconstruction.
--- NOTE | 2024-11-17 14:53 | W.ED.GENAD ---
Discharge Plan Disposition Patient Disposition: Admit to [facility] Condition: Serious Discharge Details Clinical Impression: Generalized seizure, Alcohol withdrawal seizure Primary Care Provider: Hernesto Beverly ED Provider: Sloan Ballesteros Home Meds and New Rx's Prescriptions: No Action buprenorphine-naloxone [Suboxone] 8-2 mg film 1 film SL DAILY amitriptyline 25 mg tablet 25 mg PO DAILY Qty: 30 2RF trazodone 100 mg tablet 300 mg PO .pm Qty: 90 6RF Rx Instructions: 300 mg pm HPI General Mode of arrival: ambulatory. Date/Time Provider Initiated Documentation: 11/17/24 14:42. Limitations to Documentation: no limitations. Information obtained by: patient. HPI Narrative: 29-year-old male with multiple medical problems including history of substance abuse, IV drug use in the past, on buprenorphine, alcohol use disorder, was sober for some time and has been drinking heavily over the past month. Last drink was yesterday. Today he developed nausea, vomiting and diarrhea and then a syncopal episode with full body shaking. He continues to have severe shaking at this time. He denies headache. Patient did fall during the syncopal episode. Unclear if head trauma or neck injury. Related Data Home Medications ?Medication ?Instructions ?Recorded ?Confirmed buprenorphine 8 mg-naloxone 2 mg 1 film sublingual DAILY 12/15/19 08/31/24 sublingual film (Suboxone) trazodone 100 mg tablet 300 mg (3 x 100 mg) PO .pm #90 06/03/24 08/31/24 tab-caps amitriptyline 25 mg tablet 25 mg PO DAILY #30 tabs 08/31/24 08/31/24 Previous Rx's ?Medication ?Instructions ?Recorded trazodone 100 mg tablet 300 mg (3 x 100 mg) PO .pm #90 06/03/24 tab-caps amitriptyline 25 mg tablet 25 mg PO DAILY #30 tabs 08/31/24 Allergies Allergy/AdvReac Type Severity Reaction Status Date / Time Sulfa (Sulfonamide Allergy Unknown Hives Verified 08/31/24 13:36 Antibiotics) General Stated Complaint: Dizzy/Sync YESSENIA: 2 Review of Systems All systems reviewed & are unremarkable except as noted in HPI and below Constitutional Constitutional: Denies fever(s) and Denies headache(s) ENT Ears, Nose, Mouth, and Throat: Denies headache(s) Neurologic Neurologic: Reports as per HPI, Denies headache(s), Denies localized weakness, Reports convulsions and Reports tremor(s) Exam Const General: cooperative and anxious Orientation: alert, awake, oriented to person and oriented to place [facility] Head: normocephalic and atraumatic Mouth: moist mucous membranes Eyes Conjunctivae: normal conjunctivae Sclera: normal sclerae Neck Neck: trachea midline and supple Resp Auscultation: clear to auscultation bilaterally, no rales, no rhonchi and no wheezes Cardio Rate: tachycardic Rhythm: regular rhythm GI Palpation: soft, not firm, no guarding, no masses, not rigid and nontender Skin General skin exam: no rashes or lesions noted Neuro General: patient alert and patient awake Cognition: normal cognition Motor: tremor (full body, seems worse on right) Extrem General: no edema Psych Appearance: grossly normal Mood: anxious mood Affect: anxious affect Course Vital Signs Vital signs: Vital Signs Temperature 36.6 C 11/17/24 14:42 Pulse 130 H 11/17/24 14:42 Respiratory Rate 25 H 11/17/24 14:42 Blood Pressure 177/95 H 11/17/24 14:42 Pulse Oximetry 94 11/17/24 14:42 Temperature 36.6 C 11/17/24 14:42 Temperature Source Oral 11/17/24 14:42 Pulse 130 H 11/17/24 14:42 Respiratory Rate 25 H 11/17/24 14:42 Blood Pressure 177/95 H 11/17/24 14:42 Blood Pressure Position Supine 11/17/24 14:42 Pulse Oximetry 94 11/17/24 14:42 Oxygen Delivery Method Room Air 11/17/24 14:42 Oxygen Flow Rate 0 11/17/24 14:42 Pain Level 0 11/17/24 14:42 Medical Decision Making 1458 --29-year-old male with multiple medical problems including history of substance abuse, opioid use disorder on buprenorphine, alcohol use disorder, sober for years and then drinking heavily over the past 1 month, here with full body tremor, syncopal episode and generalized seizure, nausea, vomiting and diarrhea. Patient is tachycardic and hypertensive. Last alcoholic drink was yesterday. Suspect severe acute alcohol withdrawal and likely withdrawal seizure. Plan to initiate phenobarbital protocol. I will give banana bag with thiamine. Consider acute intracranial hemorrhage and C-spine injury given fall with unknown injury. Plan to obtain CT imaging. 1618 --tremors completely resolved after bolus of phenobarbital. BP and HR improved. Patient now noting he is being treated with antibiotics for tuberculosis. He is unsure as to what antibiotic. I reviewed clinic record from most recent visit 08/31/[address] Beverly and there is no note of antibiotic Unclear current treatment status. Plan to maintain airborne precautions. Labs reviewed and transaminitis noted. I called and spoke with Dr. Mcadams, on-call hospitalist, discussed ED presentation and course, he will except the patient for admission. CT head and C-spine currently being performed and pending at time of admission. Lab Data Lab results reviewed: Yes I reviewed the patient's lab results. Labs: Laboratory Tests Range/Units 11/17/24 11/17/24 15:08 15:49 WBC Cancelled 6.21 RBC Cancelled 4.09 L Hgb Cancelled 12.2 L Hct Cancelled 37.0 L MCV Cancelled 91 MCH Cancelled 29.8 MCHC Cancelled 33.0 RDW Cancelled 14.9 H Plt Count Cancelled 196 MPV Cancelled 9.4 Immature Gran % Cancelled 0.3 Neutrophils % Cancelled 82.1 Band Neutrophils % Cancelled Lymphocytes % Cancelled 9.2 Atypical Lymphs % Cancelled Monocytes % Cancelled 7.2 Eosinophils % Cancelled 0.6 Basophils % Cancelled 0.6 Metamyelocytes % Cancelled Myelocytes % Cancelled Promyelocytes % Cancelled Other Cells % Cancelled Nucleated RBC % Cancelled 0.0 Absolute Neutrophils Cancelled 5.09 Absolute Lymphocytes Cancelled 0.57 L Absolute Monocytes Cancelled 0.45 Absolute Eosinophils Cancelled 0.04 Absolute Basophils Cancelled 0.04 RBC Morphology Cancelled Polychromasia Cancelled Hypochromasia Cancelled Poikilocytosis Cancelled Basophilic Stippling Cancelled Anisocytosis Cancelled Microcytosis Cancelled Macrocytosis Cancelled Spherocytes Cancelled Tear Drop Cells Cancelled Ovalocytes Cancelled Stomatocytes Cancelled [place] Bodies Cancelled [place] Cells/Echinocytes Cancelled Acanthocytes (Spur) Cancelled Schistocytes Cancelled Sodium Cancelled 139 Potassium Cancelled 4.1 Chloride Cancelled 100 Carbon Dioxide Cancelled 32.5 H Anion Gap Cancelled 6.5 BUN Cancelled 13 Creatinine Cancelled 0.8 Est GFR (CKD-EPI 2020) Cancelled 123.63 Glucose Cancelled 117 H Calcium Cancelled 9.5 Magnesium Cancelled 1.9 Total Bilirubin Cancelled 0.65 AST Cancelled 403 H ALT Cancelled 301 H Alkaline Phosphatase Cancelled 166 H Troponin I Cancelled < 4 Total Protein Cancelled 7.7 Albumin Cancelled 4.1 Quality:SDOH Health Related Social Needs: No Data to Display Critical Care Time Critical Care Time Critical Care Time: Yes Total Critical Care Time: 45 Attestation: I spent greater than 45 minutes addressing this patient's immediate life threats. Please see MDM section of note. This time was spent engaged in work directly related to the patient's care, exclusive of separate procedures, and failure to initiate these interventions would have likely resulted in clinically significant or life threatening deterioration in the patient's condition. PFSH All Active Problems (Updated 11/17/24 @ 16:22 by Sloan Ballesteros MD) Alcohol withdrawal seizure (Acute) Generalized seizure (Acute) Chronic insomnia (Acute) Hemoptysis (Acute) Rash (Acute) Anxiety disorder (Acute) Anemia (Chronic) Frequent headaches (Acute) Weight loss (Acute) Sensorineural hearing loss (SNHL) of left ear with unrestricted hearing of right ear (Acute) Shoulder pain, right (Acute) Sensation of fullness in left ear (Acute) Chronic headache (Acute) Tobacco abuse (Acute) Hypomagnesemia (Acute) Hypokalemia (Acute) COVID-19 ruled out by laboratory testing (Acute) Exposure to hepatitis C (Acute) serology neg 10/2018 DVT prophylaxis (Acute) Discharge planning issues (Acute) Alteration in patient safety due to identified suicide risk (Acute) Polysubstance abuse (Acute) History of substance abuse (Chronic 09/09/17) Attention deficit disorder (Acute 04/15/18) continue adderall as directed Alcoholism (Chronic 08/15/17) start revia Surgical History Fracture, Open Treatment CAROLE ARREOLA; RIGHT DISTAL RADIUS Family History Mother Alcohol abuse History of Father Alcohol abuse history of Sister No problems noted. Son Alcohol abuse history of Asthma Maternal Grandfather , age 76 No problems noted. Social History Smoking/Tobacco Use Status: Current every day Tobacco Type: cigarettes and smokeless tobacco Tobacco: How many years used: 10 Smokeless tobacco user: chewing tobacco (and smoking) Quit status: not considering quitting Second Hand Exposure: Yes Smoking risk assessment performed?: Yes Alcohol Intake: current Alcohol Intake frequency: a few times a month Alcohol type: beer Drug use: Occasionally Substance use type: marijuana and crack/cocaine Details: Occasional marijuana, has not used cocaine in x1 week per patients. GIULIANA, RN 11/17/24 Caregiver/Support person: No Household members: family Housing: house Communication Needs: Hard of Hearing Do you need help understanding health information?: Never Pets and animals: No Sexually active: Yes Do you think of yourself as: straight/heterosexual Current gender identity: male What is your relationship status?: refused to answer How often do you talk on the phone with friends or family?: never How often do you get together with friends or relatives?: never How often do you attend anabaptist or buddhism services?: decline to answer Do you belong to any clubs or organized social groups?: no Panel score (0-1 are the most socially isolated patients): 0 What type of physical activity do you participate in: none and other Frequency: does not exercise Seatbelt use: sometimes Helmet use: Yes Helmet use: always Drive intox or ride w/intox livery car driver: No Do you feel safe at home: Yes Do you feel safe in your relationship?: Yes
[2024-11-17 16:01] LABS: Abs Immature Grans 0.02 10^3/uL (0.0-0.06); Absolute Basophil Count 0.04 10^3/uL (0.0-0.2); Absolute Eosinophil Count 0.04 10^3/uL (0.0-0.7); Absolute Lymphocyte Count 0.57 10^3/uL (1.2-3.4); Absolute Monocyte Count 0.45 10^3/uL (0.1-0.8); Absolute Neutrophil Count 5.09 10^3/uL (1.2-6.7); Basophils % 0.6 %; Eosinophils % 0.6 %; HGB 12.2 g/dL (13.5-17.5); Immature Grans % 0.3 %; Lymphocytes % 9.2 %; MCH 29.8 pg (27.0-33.0); MCV 91 fL (80-95); MPV 9.4 fL (8.0-11.0); Monocytes % 7.2 %; Neutrophils % 82.1 %; Platelet Count 196 10^3/uL (130-400); RBC 4.09 10^6/uL (4.36-5.78); RDW 14.9 % (11.8-14.1); RDW-SD 49.5 fL; WBC 6.21 10^3/uL (4.4-10.8)
[2024-11-17 16:13] LABS: ALT 301 U/L (16-63); AST 403 U/L (15-37); Albumin 4.1 g/dL (3.4-5.0); Alkaline Phosphatase 166 U/L (46-116); Anion Gap 6.5 mmol/L (3-11); BUN 13 mg/dL (7-18); Bilirubin, Total 0.65 mg/dL (0.2-1.0); CO2 32.5 mmol/L (21.0-32.0); CREATININE 0.8 mg/dL (0.70-1.30); Calcium 9.5 mg/dL (8.5-10.1); Chloride 100 mmol/L (98-107); Estimated GFR 123.63 (mL/min/1.73m2); Glucose 117 mg/dL (74-106); Magnesium 1.9 mg/dL (1.8-2.4); Potassium 4.1 mmol/L (3.5-5.1); Sodium 139 mmol/L (136-145); Total Protein 7.7 g/dL (6.4-8.2)
[2024-11-17 16:14] LABS: Troponin I < 4 ng/L (<or=76)
--- NOTE | 2024-11-17 16:39 | HPE_ITS ---
Date of service: 11/17/24 Time of Service: 16:40 Assessment and Plan Assessment and plan (1) Alcohol withdrawal seizure: Status: Acute Assessment and plan: The patient has no history of seizures but might have experienced a vasovagal episode prompting is shakes and syncope but in the setting were the patient is an daily drinker as well as phenobarbital treatment initiating in the ED being effective at stopping the patient's shake, we will continue to proceed with phenobarbital regimen in the setting of EtOH withdrawal. We will do the 10 mg/kg protocol due to a prediction of alcohol withdrawal severity scale at 5 for this patient if we consider this acute episode as EtOH withdrawal seizure Continue phenobarbital protocol as per orders? Teleneuroconsultation pending Telemetry and echo in the setting of syncopal episode EtOH assessment every 2 hours x 48 hours Vital signs every 2 hours Neuro assessment every 4 hours Parameters to hold administration of part of the phenobarbital loading dose as per the phenobarbital protocol in [facility] discussed with clinical lead RN . (2) Generalized seizure: Status: Acute Assessment and plan: Head and neck CT were negative for any acute findings And as above (3) Alcohol withdrawal: Status: Resolved Assessment and plan: As above (4) Syncope: Status: Chronic Assessment and plan: As above Echo pending On telemetry (5) History of TB skin testing: Status: Acute Assessment and plan: Patient reporting PPD test positive over 5 months ago and have been treated with 1 anti-infectious medicine with completion of treatment Also reporting being told that he was not contagious as per provider. Most likely latent TB was treated? no report of recent hemoptysis, fever, daily night sweats. Standard precautions (6) Chronic insomnia: Status: Acute Assessment and plan: Continue home med regimen (7) Polysubstance abuse: Status: Acute Assessment and plan: Continue home Suboxone dose (8) DVT prophylaxis: Status: Acute Assessment and plan: On low molecular weight heparin (9) Discharge planning issues: Status: Acute Assessment and plan: Discharge home when medically stable Discussed with Dr. Wilkerson History of Present Illness History of Present Illness Chief Complaint: EtOH withdrawal /seizure N arrative: This 29-year-old male patient with a past medical history significant for polysubstance abuse, IV drug use on buprenorphine, EtOH use disorder, past alcohol withdrawal episode with intubation in the ICU 3 years ago, sobriety for over 2 years and resumption of IV drinking daily for the past month presented to ED at [facility] for evaluation of nausea, vomiting, diarrhea followed by an syncopal episode with full body shaking. On arrival to the ED the patient was still exhibiting shakes. No reports of headache. In the ED patient received a dose of phenobarbital 260 mg IV upon which the shakes subsided. Head and neck CT showed no acute finding except for chronic degenerative changes in the neck area. Blood work was unremarkable except for mild transaminitis. The patient as had his last drink last night and concern for alcohol withdrawal seizures the hospitalist was consulted and the patient admitted to the medical surgical floor for evaluation and management of EtOH withdrawal, new onset seizures that might be related to alcohol withdrawal, and syncope. In the ED the patient continued be treated with phenobarbital protocol and received an additional 200 mg of phenobarbital IV. When met the patient confirmed his full CODE STATUS. The patient mentioned having had a positive PPD about 5 months ago and being treated on 1 on the infectious medicine which completed and was also told that it was not contagious by provider. The patient most likely has latent TB. Patient reported that last drink was yesterday as he did not have any available alcoholic drink at his office today.. Patient reports frequent night sweats without fever or chills he smokes 1 to 2 packs a day had had hemoptysis but not recently. Patient reports episode been precipitated by the urge to have bowel movement upon which he had soft stools and started vomiting then felt overwhelmingly anxious with change in vision including floaters and a feeling of dizziness and disassociation (slow motion); then blacked out and fell face down.The patient denies hemoptysis, hematemesis, dysuria. No report of chest pain. The patient denies previous cardiac history reports history of left-sided lung nodule with no follow-up conducted; denies GI history and history of seizures. Review of Systems All systems reviewed & are unremarkable except as noted in HPI and below PFSH All Active Problems (Updated 11/17/24 @ 20:12 by Amy Solano APRN) Syncope (Chronic) History of TB skin testing (Acute) Alcohol withdrawal seizure (Acute) Generalized seizure (Acute) Chronic insomnia (Acute) Hemoptysis (Acute) Rash (Acute) Anxiety disorder (Acute) Anemia (Chronic) Frequent headaches (Acute) Weight loss (Acute) Sensorineural hearing loss (SNHL) of left ear with unrestricted hearing of right ear (Acute) Shoulder pain, right (Acute) Sensation of fullness in left ear (Acute) Chronic headache (Acute) Tobacco abuse (Acute) Hypomagnesemia (Acute) Hypokalemia (Acute) COVID-19 ruled out by laboratory testing (Acute) Exposure to hepatitis C (Acute) serology neg 10/2018 DVT prophylaxis (Acute) Discharge planning issues (Acute) Alteration in patient safety due to identified suicide risk (Acute) Polysubstance abuse (Acute) History of substance abuse (Chronic 09/09/17) Attention deficit disorder (Acute 04/15/18) continue adderall as directed Alcoholism (Chronic 08/15/17) start revia Surgical History Fracture, Open Treatment CAROLE ARREOLA; RIGHT DISTAL RADIUS Family History Mother Alcohol abuse History of Father Alcohol abuse history of Sister No problems noted. Son Alcohol abuse history of Asthma Maternal Grandfather , age 76 No problems noted. Social History Smoking/Tobacco Use Status: Current every day Tobacco Type: cigarettes and smokeless tobacco Tobacco: How many years used: 10 Smokeless tobacco user: chewing tobacco (and smoking) Quit status: not considering quitting Second Hand Exposure: Yes Smoking risk assessment performed?: Yes Alcohol Intake: current Alcohol Intake frequency: a few times a month Alcohol type: beer Drug use: Current Sobriety Substance use type: marijuana and crack/cocaine Details: Occasional marijuana, has not used cocaine in x1 week per patients. GIULIANA, RN 11/17/24 Caregiver/Support person: No Household members: family Housing: house Communication Needs: Hard of Hearing Do you need help understanding health information?: Never Pets and animals: No Sexually active: Yes Do you think of yourself as: straight/heterosexual Current gender identity: male What is your relationship status?: refused to answer How often do you talk on the phone with friends or family?: never How often do you get together with friends or relatives?: never How often do you attend jain or voodoo services?: decline to answer Do you belong to any clubs or organized social groups?: no Panel score (0-1 are the most socially isolated patients): 0 What type of physical activity do you participate in: none and other Frequency: does not exercise Seatbelt use: sometimes Helmet use: Yes Helmet use: always Drive intox or ride w/intox experienced truck driver: No Do you feel safe at home: Yes Do you feel safe in your relationship?: Yes Meds Allergies and Home Medications Allergies Allergy/AdvReac Type Severity Reaction Status Date / Time Sulfa (Sulfonamide Allergy Unknown Hives Verified 08/31/24 13:36 Antibiotics) Home Medications ?Medication ?Instructions ?Recorded ?Confirmed ?Type buprenorphine 8 mg-naloxone 2 mg 1 film sublingual DAILY 12/15/19 11/17/24 History sublingual film (Suboxone) trazodone 100 mg tablet 300 mg (3 x 100 mg) PO .pm #90 06/03/24 11/17/24 Rx tab-caps amitriptyline 25 mg tablet 25 mg PO DAILY #30 tabs 08/31/24 11/17/24 Rx Exam Narrative Exam Narrative: Constitutional The patient is lying in stretcher without acute distress, . HENMT: Head is atraumatic, normocephalic, no lymphadenopathy. Facial structures with normal appearance Eyes: Well aligned, intact ROM Neck: Normal ROM, no meningeal signs Neuro:alert and oriented to self, person, place and situation. No neurological focal deficit, PERRLA B-4, cranial nerves II to XII intact. Resp: Normal respiratory pattern, speaks in full sentences, unlabored breathing, clear lung bilaterally Cardio: regular rhythm, S1, S2, no murmur, capillary refill<3 sec., bilateral radial and dorsalis pedis pulses are positive, palpable GI: Abdomen is not distended, soft and non tender, bowel sounds are present : Negative Costovertebral angle tenderness Back/spine/Pelvis: No back tenderness, normal alignment Integumentary: No skin lesions or rash Extremities: strength 5/5 to bilateral lower and right upper extremities- 4/5 to ANURAG -sensation intact no drift Psych: RASS 0, congruent mood and normal affect. Results Labs 11/17/24 15:49 11/17/24 15:49 Labs: Laboratory Results - last 24 hr 11/17/24 11/17/24 15:08 15:49 WBC Cancelled 6.21 RBC Cancelled 4.09 L Hgb Cancelled 12.2 L Hct Cancelled 37.0 L MCV Cancelled 91 MCH Cancelled 29.8 MCHC Cancelled 33.0 RDW Cancelled 14.9 H Plt Count Cancelled 196 MPV Cancelled 9.4 Immature Gran % Cancelled 0.3 Neutrophils % Cancelled 82.1 Band Neutrophils % Cancelled Lymphocytes % Cancelled 9.2 Atypical Lymphs % Cancelled Monocytes % Cancelled 7.2 Eosinophils % Cancelled 0.6 Basophils % Cancelled 0.6 Metamyelocytes % Cancelled Myelocytes % Cancelled Promyelocytes % Cancelled Other Cells % Cancelled Nucleated RBC % Cancelled 0.0 Absolute Neutrophils Cancelled 5.09 Absolute Lymphocytes Cancelled 0.57 L Absolute Monocytes Cancelled 0.45 Absolute Eosinophils Cancelled 0.04 Absolute Basophils Cancelled 0.04 RBC Morphology Cancelled Polychromasia Cancelled Hypochromasia Cancelled Poikilocytosis Cancelled Basophilic Stippling Cancelled Anisocytosis Cancelled Microcytosis Cancelled Macrocytosis Cancelled Spherocytes Cancelled Tear Drop Cells Cancelled Ovalocytes Cancelled Stomatocytes Cancelled [place] Bodies Cancelled [place] Cells/Echinocytes Cancelled Acanthocytes (Spur) Cancelled Schistocytes Cancelled Sodium Cancelled 139 Potassium Cancelled 4.1 Chloride Cancelled 100 Carbon Dioxide Cancelled 32.5 H Anion Gap Cancelled 6.5 BUN Cancelled 13 Creatinine Cancelled 0.8 Est GFR (CKD-EPI 2020) Cancelled 123.63 Glucose Cancelled 117 H Calcium Cancelled 9.5 Magnesium Cancelled 1.9 Total Bilirubin Cancelled 0.65 AST Cancelled 403 H ALT Cancelled 301 H Alkaline Phosphatase Cancelled 166 H Troponin I Cancelled < 4 Total Protein Cancelled 7.7 Albumin Cancelled 4.1 Last Vital Signs Temp 36.6 C 11/17/24 14:42 Pulse 84 11/17/24 16:10 Resp 8 L 11/17/24 16:10 BP 141/83 H 11/17/24 16:01 Pulse Ox 91 L 11/17/24 16:10 PAWSS Have you Been Recently Intoxicated or Drunk Within the Last 30 days?: Yes Have you Ever Experienced Previous Episodes of Alcohol Withdrawal?: Yes Have you ever Experienced Withdrawal Seizures?: Yes Have you ever Experienced Delirium Tremens(DT)s?: Yes Have you ever undergone Alcohol Rehabilitation Treatment (i.e, inpt ot outpatient treatment programs)?: Yes Have you ever Experienced Blackouts?: Yes Have you ever Combined Alcohol with other Downers within the last 90 days?: No Have you ever Combined Alcohol with any other Substance of Abuse during the last 90 days?: Yes Result: 8 Time Spent Time spent with Patient: >75 minutes Time was spent: preparing to see the patient(eg.review tests), obtaining and/or reviewing separately otained hiistory, ordering medications,tests, procedures, referring, communicating with other health child care education coordinator, indepentently interpreting results, counseling the patient and care coordination
[2024-11-17] MEDS: MULTIVITAMIN 10 ML, THIAMINE 100 MG, FOLIC ACID 1 MG in DEXTROSE 5%-0.45% SALINE 1,000 ML 42 ML IV (17:21)
--- NOTE | 2024-11-17 18:04 | W.PC.ACHO ---
Registration Status: Primary Language: Preferred Language: ED Information & Data Chief Complaint Dizzy/Sync 11/17/24 15:19 Chief Complaint Dizzy/Sync 11/17/24 15:02 Triage Note Pt reportedly felt weak, 11/17/24 14:42 called 911, blacked out. Pt has been having shaking. Hx of alchol detox with ICU admission. Has been sober for years. About 1 motnh ago began drinking regularly ( beer) 10-12 per day. Last alcohol was this AM around midnight. Pt has GI upset, diarrhea, and severe shakes. (Last Reviewed 11/17/24 @ 14:56 by Sloan Ballesteros MD) Fracture, Open Treatment Most Recent Vital Signs Temperature 36.6 C 11/17/24 14:42 Temperature Source Oral 11/17/24 14:42 Pulse 70 11/17/24 17:31 Pulse 77 11/17/24 17:31 Respiratory Rate 10 L 11/17/24 17:31 Respiratory Effort Normal, Non-Labored 11/17/24 15:13 Respiratory Depth Normal 11/17/24 15:13 Respiratory Pattern Normal 11/17/24 15:30 Blood Pressure 122/75 11/17/24 17:31 Blood Pressure Mean 87 11/17/24 17:31 Blood Pressure Position Supine 11/17/24 14:42 Pulse Oximetry 92 11/17/24 17:31 Oxygen Delivery Method Room Air 11/17/24 14:42 Oxygen Flow Rate 0 11/17/24 14:42 Pain Level 0 11/17/24 14:42 Allergies Sulfa (Sulfonamide Antibiotics) Allergy (Unknown, Verified 08/31/24 13:36) Hives Precautions Isolation Seizure precaution 11/17/24 15:19 Active Medications Generic Name Dose Route Start Last Admin Trade Name Freq PRN Reason Stop Dose Admin Multivitamins 10 ml/ Thiamine 1,011.2 mls @ 42 mls/hr 11/17/24 17:10 11/17/24 17:21 HCl 100 mg/ Folic Acid 1 mg/ IV 42 mls/hr Dextrose/Sodium Chloride DAILY JUAN ALBERTO Administration IV IV Catheter Type [Right Saline Lock Antecubital] IV Catheter Gauge [Right 18 Antecubital] Diagnostics 11/17/24 11/17/24 Range/Units 15:49 15:08 WBC 6.21 Cancelled RBC 4.09 L Cancelled Hgb 12.2 L Cancelled Hct 37.0 L Cancelled MCV 91 Cancelled MCH 29.8 Cancelled MCHC 33.0 Cancelled RDW 14.9 H Cancelled Plt Count 196 Cancelled MPV 9.4 Cancelled Immature Gran % 0.3 Cancelled Neutrophils % 82.1 Cancelled Band Neutrophils % Cancelled Lymphocytes % 9.2 Cancelled Atypical Lymphs % Cancelled Monocytes % 7.2 Cancelled Eosinophils % 0.6 Cancelled Basophils % 0.6 Cancelled Metamyelocytes % Cancelled Myelocytes % Cancelled Promyelocytes % Cancelled Other Cells % Cancelled Nucleated RBC % 0.0 Cancelled Absolute Neutrophils 5.09 Cancelled Absolute Lymphocytes 0.57 L Cancelled Absolute Monocytes 0.45 Cancelled Absolute Eosinophils 0.04 Cancelled Absolute Basophils 0.04 Cancelled RBC Morphology Cancelled Polychromasia Cancelled Hypochromasia Cancelled Poikilocytosis Cancelled Basophilic Stippling Cancelled Anisocytosis Cancelled Microcytosis Cancelled Macrocytosis Cancelled Spherocytes Cancelled Tear Drop Cells Cancelled Ovalocytes Cancelled Stomatocytes Cancelled [place] Bodies Cancelled [place] Cells/Echinocytes Cancelled Acanthocytes (Spur) Cancelled Schistocytes Cancelled Sodium 139 Cancelled Potassium 4.1 Cancelled Chloride 100 Cancelled Carbon Dioxide 32.5 H Cancelled Anion Gap 6.5 Cancelled BUN 13 Cancelled Creatinine 0.8 Cancelled Est GFR (CKD-EPI 2020) 123.63 Cancelled Glucose 117 H Cancelled Calcium 9.5 Cancelled Magnesium 1.9 Cancelled Total Bilirubin 0.65 Cancelled AST 403 H Cancelled ALT 301 H Cancelled Alkaline Phosphatase 166 H Cancelled Troponin I < 4 Cancelled Total Protein 7.7 Cancelled Albumin 4.1 Cancelled Intake and Output - 24 Hour Total 11/17/24 14:24 thru 11/17/24 15:44 Intake Total 62 Balance 62 Weight 63.775 kg Intake: IV 62 Falls Risk Assessment History of Falls Admit Due to Fall 11/17/24 15:13 Contributing Factors No Factors 11/17/24 15:13 Ambulatory Aids Independent 11/17/24 15:13 Tubes/Lines None 11/17/24 15:13 Gait Evaluation No gait disturbance 11/17/24 15:13 Cognition No cognitive impairment 11/17/24 15:13 Fall Total Score 25 11/17/24 15:13 Level of Risk Moderate Risk 11/17/24 15:13 Problems (Last Reviewed 11/17/24 @ 14:56 by Sloan Ballesteros MD) Alcohol withdrawal seizure (Acute) Generalized seizure (Acute) v v v v v v v v v Sending and/or Receiving Nurses: Please use comment section below to note any information pertinent to the patient hand-off not included above. Information / Comments: Report called [id number]. Admitted ETOCH withdrawal, last known drink was yesterday. 18 G R AC. First dose phenobarbital in ED, second bag to be hung prior to arrival to floor. Report received from: Sarah Jackson RN
[2024-11-17] MEDS: PHENobarbital 200 MG in Normal Saline 50 ML 100 MG IVPB ×2 (18:20→21:20)
[2024-11-17] MEDS: traZODone 100 MG TAB 300 MG PO (21:18)
[2024-11-17] MEDS: Enoxaparin 40 MG/0.4 ML SYR SC (21:19)
[2024-11-17] MEDS: Normal Saline Flush 10 ML SYR IVP (21:51)
[2024-11-18] VITALS (9 sets, daily range): BP systolic 102–133; BP diastolic 70–90; PULSE 57–68; RESP 16–18; TEMP 36.4–37.1; O2SAT 95–98
--- NOTE | 2024-11-18 | DI.RAD_ITS ---
Exam(s) XR HAND LT LIMITED EXAM: XR HAND LT LIMITED CLINICAL HISTORY: needle broke in arm- needs MRI. TECHNIQUE: 2D digital imaging was performed. COMPARISON: CR RIGHT WRIST COMPLETE from 07/12/2017 FINDINGS: Two views. PO2 sensor on the index finger. No evidence of fracture or dislocation. Bone density normal. No osseous lesions. Soft tissues reve al no evidence of radiopaque foreign body. IMPRESSION: No significant osseous findings. No radiopaque foreign bodies evident. DATA REPOSITORY: RADIATION DOSE DELIVERED:
--- NOTE | 2024-11-18 | DI.RAD_ITS ---
Exam(s) XR FOREARM LT EXAM: XR FOREARM LT CLINICAL HISTORY: broken needle. TECHNIQUE: 2D digital imaging was performed. COMPARISON: CR XR HUMERUS RT from 11/18/2024 FINDINGS: Two views: No evidence of fracture nor other osseous findings in the forearm bones. Soft tissues left forearm a ppear unremarkable with no radiopaque foreign bodies. IMPRESSION: No significant findings. No radiopaque foreign bodies evident. DATA REPOSITORY: RADIATION DOSE DELIVERED:
--- NOTE | 2024-11-18 | DI.MRI_ITS ---
Exam(s) MR BRAIN WO/W EXAM: MR BRAIN WO/W CLINICAL HISTORY: SEIZURE. TECHNIQUE: Multiplanar multisequence MRI of the brain was performed. CONTRAST MATERIAL: IV Contrast: 12 ML of Dotarem contrast administered. COMPARISON: MR MR IAC BRAIN WO/W from 05/17/2021 FINDINGS: VENTRICLES AND EXTRA AXIAL SPACES: Normal in size and morphology for the patient's age. HEMORRHAGE: None. CEREBRAL PARENCHYMA: No focus of restricted diffusion to suggest acute infarct. No space-occupying le los identified. The temporal horns are symmetric. No abnormal white matter signal lesions. BRAINSTEM/CEREBELLUM: Normal. CALVARIUM: Normal. ENHANCEMENT: No suspicious enhancement identified. VISUALIZED PARANASAL SINUSES/MASTOIDS: Small mucous retention cyst at the floor of the left maxillary sinus. Orbits: Unremarkable. Pituitary: Not enlarged. Vasculature: Normal flow voids. IMPRESSION: Unremarkable MRI of the brain. DATA REPOSITORY:
--- NOTE | 2024-11-18 | DI.RAD_ITS ---
Exam(s) XR FOREARM RT EXAM: XR FOREARM RT CLINICAL HISTORY: broken needle. TECHNIQUE: 2D digital imaging was performed. COMPARISON: CR XR FOREARM LT from 11/18/2024 FINDINGS: Two views No evidence of acute fracture. There is volar fixation plate in the distal radius noted from prior h ealed fracture. No new osseous findings. There is also no evidence of radiopaque foreign body in th e soft tissues of the forearm and wrist. IMPRESSION: No acute osseous findings. No radiopaque foreign body in the soft tissues of the forearm. DATA REPOSITORY: RADIATION DOSE DELIVERED:
--- NOTE | 2024-11-18 | DI.RAD_ITS ---
Exam(s) XR HUMERUS RT EXAM: XR HUMERUS RT CLINICAL HISTORY: broken needle. TECHNIQUE: 2D digital imaging was performed. COMPARISON: CR XR HUMERUS LT from 11/18/2024 FINDINGS: Two views No evidence fracture nor osseous lesions. Bone density normal. There is an intravenous in place. There is no metallic foreign body in the upper arm soft tissues. IMPRESSION: No foreign body seen. DATA REPOSITORY: RADIATION DOSE DELIVERED:
--- NOTE | 2024-11-18 | DI.RAD_ITS ---
Exam(s) XR HAND RT LIMITED EXAM: XR HAND RT LIMITED CLINICAL HISTORY: needle broke in arm- needs MRI. TECHNIQUE: 2D digital imaging was performed. COMPARISON: CR XR HAND LT LIMITED from 11/18/2024 FINDINGS: Two views There is a volar fixation plate in the distal radius at healed fracture site this level. No evidence of acute fracture. Bone density normal. No osseous lesions. On the lateral view there are few sub cutaneous soft tissue densities in the 2nd-index finger, dorsal to the proximal aspect of the middle phalanx. There is no metallic foreign body evident in the soft tissues. IMPRESSION: No acute osseous findings. No radiopaque metallic foreign body. DATA REPOSITORY: RADIATION DOSE DELIVERED:
--- NOTE | 2024-11-18 | DI.RAD_ITS ---
Exam(s) XR CHEST 2V PA LATERAL EXAM: XR CHEST 2V PA LATERAL CLINICAL HISTORY: broken needle. TECHNIQUE: 2D digital imaging was performed. COMPARISON: CR XR RIBS LT W PA LAT CHEST from 07/29/2022 FINDINGS: 2 views: Heart size is normal. The mediastinum is not widened. Lungs are clear. No infiltrates nor pleural effusions. No radiopaque foreign body, as per request. IMPRESSION: No acute pulmonary findings.No metallic foreign body, as per request. DATA REPOSITORY: RADIATION DOSE DELIVERED:
--- NOTE | 2024-11-18 | DI.RAD_ITS ---
Exam(s) XR HUMERUS LT EXAM: XR HUMERUS LT CLINICAL HISTORY: broken needle. TECHNIQUE: 2D digital imaging was performed. COMPARISON: No exams were available for comparison FINDINGS: Two views No evidence of humerus fracture nor bone lesion of the humerus. There is no radiopaque foreign body the soft tissues, as per request, IMPRESSION: No radiopaque foreign body evident in upper arm. DATA REPOSITORY: RADIATION DOSE DELIVERED:
[2024-11-18 07:28] LABS: Abs Immature Grans 0.02 10^3/uL (0.0-0.06); Absolute Basophil Count 0.03 10^3/uL (0.0-0.2); Absolute Eosinophil Count 0.13 10^3/uL (0.0-0.7); Absolute Lymphocyte Count 1.23 10^3/uL (1.2-3.4); Absolute Monocyte Count 0.44 10^3/uL (0.1-0.8); Absolute Neutrophil Count 1.94 10^3/uL (1.2-6.7); Basophils % 0.8 %; Eosinophils % 3.4 %; HCT 34.4 % (40.0-50.0); HGB 11.4 g/dL (13.5-17.5); Immature Grans % 0.5 %; Lymphocytes % 32.5 %; MCH 30.2 pg (27.0-33.0); MCHC 33.1 % (32.0-36.0); MCV 91 fL (80-95); MPV 10.4 fL (8.0-11.0); Monocytes % 11.6 %; Neutrophils % 51.2 %; Platelet Count 179 10^3/uL (130-400); RBC 3.77 10^6/uL (4.36-5.78); RDW-SD 50.6 fL; WBC 3.79 10^3/uL (4.4-10.8)
[2024-11-18 07:49] LABS: ALT 262 U/L (16-63); AST 326 U/L (15-37); Albumin 3.5 g/dL (3.4-5.0); Alkaline Phosphatase 141 U/L (46-116); Anion Gap 6.9 mmol/L (3-11); BUN 11 mg/dL (7-18); Bilirubin, Total 0.88 mg/dL (0.2-1.0); CO2 31.1 mmol/L (21.0-32.0); CREATININE 0.7 mg/dL (0.70-1.30); Calcium 8.6 mg/dL (8.5-10.1); Chloride 103 mmol/L (98-107); Estimated GFR 128.71 (mL/min/1.73m2); Glucose 85 mg/dL (74-106); Potassium 3.4 mmol/L (3.5-5.1); Sodium 141 mmol/L (136-145); Total Protein 6.7 g/dL (6.4-8.2)
[2024-11-18] MEDS: Buprenorphine/Naloxone 8 mg/2 mg FILM 1 EACH SL (08:40)
[2024-11-18] MEDS: Normal Saline Flush 10 ML SYR IVP (08:41)
--- NOTE | 2024-11-18 09:00 | DI.US_ITS ---
APPROVED REPORT EXAM: Comprehensive 2D, Doppler, and color-flow Echocardiogram Patient Location: In-Patient Room/Bed: [address] [employer] Consultant: Isabella Thomas RDCS (AE) Indications: Syncope Other Information Study Quality: Good Conclusion Normal left ventricular wall thickness and chamber size. Ejection fraction is 60%. Wall motion is n ormal Normal right ventricular size and function Both atria are normal in size There are no structural valvular abnormalities Trace aortic regurgitation Wall motion Left Ventricle The left ventricle is normal size. The left ventricular systolic function is normal. The left ventric ular ejection fraction is within the normal range. There is normal left ventricular wall thickness. T here is normal LV segmental wall motion. There is no ventricular septal defect visualized. LVEF is 60 %. Right Ventricle The right ventricle is normal size. The right ventricular systolic function is normal. Atria The left atrium size is normal. The right atrium size is normal. The interatrial septum is intact wit h no evidence for an atrial septal defect. Aortic Valve The aortic valve is normal in structure. Aortic valve is trileaflet. There is no aortic valvular sten osis. Trace aortic regurgitation. Mitral Valve The mitral valve is normal in structure. No evidence of mitral valve stenosis. Trace mitral regurgita tion. Tricuspid Valve The tricuspid valve is normal in structure. There is no tricuspid valve stenosis. Trace tricuspid reg urgitation. Unable to assess PA pressure. Pulmonic Valve The pulmonary valve is normal in structure. There is no pulmonic valvular stenosis. Mild pulmonic reg urgitation. Great Vessels The aortic root is normal in size. The ascending aorta is normal in size. Aortic arch is not well vis ualized. IVC is normal in size and collapses >50% with inspiration. Pericardium There is no pericardial effusion. 2D Dimensions IVSD d PLAX 0.70 cm M: 0.6-1.2 Ao Root d 3.12 cm M: 3.1 - 3.7 LVPW d PLAX 0.74 cm M: 0.6 - 1.2 Ao Asc Diam d 2.92 cm M: 2.6 - 3.4 LVID d PLAX 4.83 cm M: 4.2 - 5.8 LVDs 3.23 cm M: 2.5 - 4.0 LV EF Teichholz 61.6 % FS 33.10 % LV EDV (Teich) 109.3 mL LV ESV (Teich) 42.0 mL M-Mode TAPSE 1.98 cm (M/F) >1.7 Auto EF LV EDV A4C 101.0 mL LV EDV A2C 165.1 mL LV EDV BP 131.3 mL LV ESV A4C 41.4 mL LV ESV A2C 68.7 mL LV ESV BP 54.0 mL LVEF(%) A4C 59.0 % LVEF(%) A2C 58.4 % LVEF(%) BP 58.9 % LV SV A4C 59.6 ml LV SV A2C 96.4 ml LV SV BP 77.3 ml LV CO A4C 3.2 L/min LV CO A2C 5.3 L/min LV CO BP 4.3 L/min HR A4C 53.90 BPM HR A2C 54.86 BPM LV EDV Index (BP) LA Volume LA Length A4C 4.9 cm LA Length A2C 4.5 cm LA Area A4C s 16.75 cm2 LA Area A2C s 16.32 cm2 LA Vol A4C A-L 48.24 mL LA Vol A2C A-L 50.73 mL LA Vol Biplane A-L 52.1 mL LA Vol/BSA A4C A-L LA Vol/BSA A2C A-L LA Vol/BSA BP A-L 30.3 mL/m2 LA Vol A4C MOD 44.4 mL LA Vol A2C MOD 45.9 mL LA Vol BP MOD 47.4 mL RA Volume RA Area A4C 15.3 cm2 RA ESV A4C (A-L) 48.2mL RA Vol/BSA A4C A-L RA Length A4C 4.1 cm RA ESV A4C (MOD) 43.2mL LV Diastology MV E' medial 0.134 (>0.07 m/s) MV E Vmax 0.90 (0.4-1.3 m/s) MV E/E' MED 6.70 (<14) MV A Vmax 0.60 (0.4-1.3 m/s) MV E' lateral 0.154 (>0.1 m/s) E/A Ratio 1.5 MV E/E' LAT 5.80 (<14) MV E' Average 0.144 m/s MV E/E'(average) 6.22 Aortic Valve AoV Vmax 1.23 m/s LVOT Vmax 1.05 m/s AoV Peak Grad 6.0 mmHg LVOT Peak Grad 4.4 mmHg AoV Area (Vmax) 2.79 cm2 LVOT VTI 0.215 m AoV VTI 0.298 m LVOT Mean Grad 2.5 mmHg AoV Mean Ivan. 0.88 m/s LVOT SV 70.15 mL AoV Mean Grad 3.5 mmHg LVOT Diam s 2.00 cm AoV Area (VTI) 2.36 cm2 AV Regurg Peak Gr. 6.04 mmHg Velocity Ratio 0.85 Mitral Valve MV DT 221 (160-240 msec) MV Vmax TIPS 0.93 m/s MV Mean Grad 1.0 (<2mmHg) MV VTI 0.307 m Pulmonary Valve PV Vmax 0.82 (0.5-1.5 m/s) RVOT Vmax 0.67 m/s PV Peak Grad 2.7 mmHg RVOT Peak Gr. 1.8 mmHg PV Mean Ivan 0.59 m/s RVOT VTI 0.191 m PV Mean Grad 1.6 mmHg RVOT Mean Gr. 1.2 mmHg Tricuspid Valve RA Pressure 3.00 mmHg TV S' 0.15 m/s
--- NOTE | 2024-11-18 09:26 | W.PM.PROGNOT ---
Date of Service Date of service: 11/18/24 Time of Service: 09:26 Assessment and Plan Assessment and plan (1) Alcohol withdrawal seizure: Status: Acute Assessment and plan: Presented without history of seizures with ongoing seizure-like activity in the ED aborted after phenobarbital IV given. Overnight patient received IV phenobarbital as per EtOH withdrawal protocol and total loading dose was completed with the 10 mg/kg dosing due to a prediction of alcohol withdrawal severity scale at 5 for this patient if we consider this acute episode as EtOH withdrawal seizure . Patient remains seizure-like activity free with a RASS score above 1. Echocardiogram was completed syncopal episode status post nausea vomiting diarrhea was also considered. Echocardiogram conclusions were: Normal left ventricular wall thickness and chamber size. Ejection fraction is 60%. Wall motion is normal Normal right ventricular size and function Both atria are normal in size There are no structural valvular abnormalities Trace aortic regurgitation Telemetry overnight remains in a sinusal rhythm heart rate 50s to 60s without mention of tacky arrhythmia Head and neck CT were negative for any acute findings Teleneuroconsultation ordered and pending: If determined to be real onset no seizures who might have to do an MRI and decide on antiepileptic drugs regimen Recommendations as per Dr. Carlin : MRI of the brain with and without as well as EEG -Also as per neurology the patient most likely had a syncopal episode after nausea vomiting and diarrhea with a vasovagal episode with convulsive syncope. If the patient desires to taper should be conducted over multiple days -with a minimum of 5 days. Telemetry and echo in the setting of syncopal episode Continue EtOH assessment every 2 hours x 48 hours CIWA score around 3 today Vital signs every 2 hours Continue neuro assessment every 4 hours (2) Generalized seizure: Status: Acute Assessment and plan: And as above (3) Alcohol withdrawal: Status: Resolved Assessment and plan: As above (4) Syncope: Status: Chronic Assessment and plan: As above Echocardiogram completed and mostly normal Continue telemetry (5) History of TB skin testing: Status: Acute Assessment and plan: As previously dictated admission note, patient reporting PPD test positive over 5 months ago and have been treated with 1 anti-infectious medicine with completion of treatment. Also reporting being told that he was not contagious as per provider. Most likely latent TB was treated? no report of recent hemoptysis, fever, daily night sweats. Standard precautions (6) Chronic insomnia: Status: Acute Assessment and plan: On home medicine regimen (7) Polysubstance abuse: Status: Acute Assessment and plan: Continue home Suboxone dose It seems that the patient takes 12/3 mg then another 2/0.5 mg (8) DVT prophylaxis: Status: Acute Assessment and plan: Continue Lovenox (9) Discharge planning issues: Status: Acute Assessment and plan: Discharge home when medically stable Discussed with Dr. Wilkerson Subjective Subjective Patient reports: no new complaints, feels better, tolerating liquids well, tolerating a regular diet, voiding w/o difficulty and afebrile; denies diarrhea, nausea, vomiting or shortness of breath Interval history since last seen: Reported sleeping well without any other tremors overnight, no feeling of disassociation but reports ongoing anxiety Exam Narrative Exam Narrative: Constitutional In bed and appears comfortable HENMT: Facial structures with normal appearance Eyes: Well aligned, intact ROM Neuro:alert and oriented x 3 unable to state precise date but notes end of October 2024, cranial nerves II to XII are still intact exam Resp: Clear lung bilaterally Cardio: Telemetry sinus bradycardia heart rate 56, S1, S2, no murmur, positive pulses to all 4 extremities GI: Abdomen is not distended, soft and non tender, bowel sounds are present : Negative Costovertebral angle tenderness Back/spine/Pelvis: No back tenderness, normal alignment Integumentary: No skin lesions or rash seen on exposed skin Extremities: strength 5/5 to bilateral lower and right upper extremities- 4/5 to ANURAG -sensation intact no drift Psych: RASS 0, congruent mood and normal affect. Objective Last Vital Signs Temp 37.1 C 11/18/24 07:49 Pulse 57 L 11/18/24 07:49 Resp 18 11/18/24 07:49 BP 120/83 11/18/24 07:49 Pulse Ox 98 11/18/24 07:49 Laboratory Results - last 24 hr 11/17/24 11/17/24 11/18/24 15:08 15:49 06:10 WBC Cancelled 6.21 3.79 L RBC Cancelled 4.09 L 3.77 L Hgb Cancelled 12.2 L 11.4 L Hct Cancelled 37.0 L 34.4 L MCV Cancelled 91 91 MCH Cancelled 29.8 30.2 MCHC Cancelled 33.0 33.1 RDW Cancelled 14.9 H 15.0 H Plt Count Cancelled 196 179 MPV Cancelled 9.4 10.4 Immature Gran % Cancelled 0.3 0.5 Neutrophils % Cancelled 82.1 51.2 Band Neutrophils % Cancelled Lymphocytes % Cancelled 9.2 32.5 Atypical Lymphs % Cancelled Monocytes % Cancelled 7.2 11.6 Eosinophils % Cancelled 0.6 3.4 Basophils % Cancelled 0.6 0.8 Metamyelocytes % Cancelled Myelocytes % Cancelled Promyelocytes % Cancelled Other Cells % Cancelled Nucleated RBC % Cancelled 0.0 0.0 Absolute Neutrophils Cancelled 5.09 1.94 Absolute Lymphocytes Cancelled 0.57 L 1.23 Absolute Monocytes Cancelled 0.45 0.44 Absolute Eosinophils Cancelled 0.04 0.13 Absolute Basophils Cancelled 0.04 0.03 RBC Morphology Cancelled Polychromasia Cancelled Hypochromasia Cancelled Poikilocytosis Cancelled Basophilic Stippling Cancelled Anisocytosis Cancelled Microcytosis Cancelled Macrocytosis Cancelled Spherocytes Cancelled Tear Drop Cells Cancelled Ovalocytes Cancelled Stomatocytes Cancelled [place] Bodies Cancelled [place] Cells/Echinocytes Cancelled Acanthocytes (Spur) Cancelled Schistocytes Cancelled Sodium Cancelled 139 141 Potassium Cancelled 4.1 3.4 L Chloride Cancelled 100 103 Carbon Dioxide Cancelled 32.5 H 31.1 Anion Gap Cancelled 6.5 6.9 BUN Cancelled 13 11 Creatinine Cancelled 0.8 0.7 Est GFR (CKD-EPI 2020) Cancelled 123.63 128.71 Glucose Cancelled 117 H 85 Calcium Cancelled 9.5 8.6 Magnesium Cancelled 1.9 2.0 Total Bilirubin Cancelled 0.65 0.88 AST Cancelled 403 H 326 H ALT Cancelled 301 H 262 H Alkaline Phosphatase Cancelled 166 H 141 H Troponin I Cancelled < 4 Total Protein Cancelled 7.7 6.7 Albumin Cancelled 4.1 3.5 PAWSS Have you Been Recently Intoxicated or Drunk Within the Last 30 days?: Yes Have you Ever Experienced Previous Episodes of Alcohol Withdrawal?: Yes Have you ever Experienced Withdrawal Seizures?: No Have you ever Experienced Delirium Tremens(DT)s?: No Have you ever undergone Alcohol Rehabilitation Treatment (i.e, inpt ot outpatient treatment programs)?: Yes Have you ever Experienced Blackouts?: Yes Have you ever Combined Alcohol with other Downers within the last 90 days?: Yes Have you ever Combined Alcohol with any other Substance of Abuse during the last 90 days?: Yes Positive Blood Alcohol level on Presentation? [PCS.BAL]: Yes Evidence of Increased Autonomic Activity (i.e. HR>120, tremor, sweating, agitation, nausea)?: Yes Result: 8 Time Spent with Patient Time Spent with Patient: >50 minutes Time was spent: preparing to see the patient(eg.review tests), obtaining and/or reviewing separately otained hiistory, ordering medications,tests, procedures, referring, communicating with other health patient care technician instructor, indepentently interpreting results, counseling the patient and care coordination
[2024-11-18] MEDS: Nicotine 21 MG/24 HR PATCH TD (11:30)
[2024-11-18] MEDS: Thiamine 100 MG TAB PO (11:31)
[2024-11-18] MEDS: Multivitamin TAB 1 TAB PO (11:31)
[2024-11-18] MEDS: Folic Acid 1 MG TAB PO (11:31)
[2024-11-18] MEDS: Buprenorphine/Naloxone 4 mg/1 mg FILM 1 EACH SL (11:31)
[2024-11-18] MEDS: Gadoterate meglumine 20 ML VIAL 12 ML IVP (15:57)
[2024-11-18] MEDS: Normal Saline Flush 10 ML SYR IJ (15:58)
--- NOTE | 2024-11-18 16:25 | CHAPLAIN ---
I had a brief visit with Paulie, explained my role and offered support. Paulie was in bed, on his phone. It was dark in the room. Paulie was polite and pleasant.
--- NOTE | 2024-11-18 16:34 | PDOC.CMIN ---
Date of service: 11/18/24 Time of Service: 16:34 Care Management Initial Assmt Initial Assessment Reason for Hospitalization: New onset seizure, ETOH w/d Functional Status/Living Situation Patient Presentation: Paulie was sitting up in bed when CM met with him. He stated that he is generally independent; he lives in [place] with his grandfather. He stated that his grandmother goes to [place] for the winter, but also lives with them in the summer. He is currently unemployed, but used to work for the [employer] [place]. CM asked if he was open to learning about resources or support for alcohol use, which he declined. He was waiting for a teleneuro consult at the time, but asked CM about when he would be able to discharge. CM informed the provider of his wish to be discharged home as soon as possible. CM will continue to follow. Town of Residence: [place] Resides with: Other (grandfather) Significant Other/Family: Local Natural Supports: Grandparents were noted as supportive Employment Status: Unemployed Instrumental Activities of Daily Living (ADLs): Independent Medications Medication Management: No Issues/Barriers identified Advance Directives Advance Directives: Do you have an Advance Directive: N 05/28/21 10:15 AD On File at [facility]: N 05/28/21 10:15 Date Asked 11/17/24 11/17/24 14:42 AD Date Reviewed COLST On File at [facility] COLST Date Scanned Code Status Resuscitation Status Full Code Insurance Coverage/Financial Issues Insurance: [facility] Care Team Visit Care Team Role Provider Type Hernesto Beverly MD Primary Care Provider [facility] STAFF PHYSICIAN Sloan Ballesteros MD Emergency Provider [facility] STAFF PHYSICIAN Keith Wilkerson Admit Provider [facility] STAFF PHYSICIAN Attending Provider Discharge Potential Discharge Needs: PCP F/U Appt Anticipated Barriers to Discharge: None Identified Patient/Family Education Needs: Review discharge instructions, discuss Ask Me Three Transportation: Private vehicle Plan: Anticipate Paulie will return home once medically cleared. He will transport home via private vehicle by family. He will follow up with his PCP and discharge plan of care. CM will continue to follow. Social Determinants of Health Screening Social Determinants of Health last assessed: 11/18/24 Will the Patient Participate in the Screening?: Yes Do you worry about having a steady place to live?: no Problems where you live: no known problems In the past 12 months, have you had to go without electric, gas, oil or water in your home?: no Have you or anyone in your house had to go without enough food to eat?: no Has lack of transportation kept you from medical appointments or from doing things needed for daily living?: no Has anyone in your life made you feel unsafe or unsupported?: no How hard is it for you to pay for the very basics like food, housing, medical care, and heating? Would you say it is:: Not hard at all Do you want help finding or keeping work or a job?: I do not need or want help If for any reason you need help with day-to-day activities such as bathing, preparing meals, shopping, managing finances, etc., do you get the help you need?: I don?t need any help How often do you feel lonely or isolated from those around you?: Never Do you speak a language other than Tajik at home?: No Does the patient want assistance with any of the above?: No PFSH All Active Problems (Updated 11/17/24 @ 20:12 by Amy Solano APRN) Syncope (Chronic) History of TB skin testing (Acute) Alcohol withdrawal seizure (Acute) Generalized seizure (Acute) Chronic insomnia (Acute) Hemoptysis (Acute) Rash (Acute) Anxiety disorder (Acute) Anemia (Chronic) Frequent headaches (Acute) Weight loss (Acute) Sensorineural hearing loss (SNHL) of left ear with unrestricted hearing of right ear (Acute) Shoulder pain, right (Acute) Sensation of fullness in left ear (Acute) Chronic headache (Acute) Tobacco abuse (Acute) Hypomagnesemia (Acute) Hypokalemia (Acute) COVID-19 ruled out by laboratory testing (Acute) Exposure to hepatitis C (Acute) serology neg 10/2018 DVT prophylaxis (Acute) Discharge planning issues (Acute) Alteration in patient safety due to identified suicide risk (Acute) Polysubstance abuse (Acute) History of substance abuse (Chronic 09/09/17) Attention deficit disorder (Acute 04/15/18) continue adderall as directed Alcoholism (Chronic 08/15/17) start revia Surgical History Fracture, Open Treatment CAROLE ARREOLA; RIGHT DISTAL RADIUS Family History Mother Alcohol abuse History of Father Alcohol abuse history of Sister No problems noted. Son Alcohol abuse history of Asthma Maternal Grandfather , age 76 No problems noted. Social History Smoking/Tobacco Use Status: Current every day Tobacco Type: cigarettes and smokeless tobacco Tobacco: How many years used: 10 Smokeless tobacco user: chewing tobacco (and smoking) Quit status: not considering quitting Second Hand Exposure: Yes Smoking risk assessment performed?: Yes Alcohol Intake: current Alcohol Intake frequency: a few times a month Alcohol type: beer Drug use: Current Sobriety Substance use type: marijuana and crack/cocaine Details: Occasional marijuana, has not used cocaine in x1 week per patients. GIULIANA RN 11/17/24 Caregiver/Support person: No Household members: family Housing: house Communication Needs: Hard of Hearing Do you need help understanding health information?: Never Pets and animals: No Sexually active: Yes Do you think of yourself as: straight/heterosexual Current gender identity: male What is your relationship status?: refused to answer How often do you talk on the phone with friends or family?: never How often do you get together with friends or relatives?: never How often do you attend latter day or catholic services?: decline to answer Do you belong to any clubs or organized social groups?: no Panel score (0-1 are the most socially isolated patients): 0 What type of physical activity do you participate in: none and other Frequency: does not exercise Seatbelt use: sometimes Helmet use: Yes Helmet use: always Drive intox or ride w/intox tour bus driver: No Do you feel safe at home: Yes Do you feel safe in your relationship?: Yes
--- NOTE | 2024-11-18 17:27 | W.PM.DS.N ---
Date of service: 11/18/24 Time of Service: 17:27 DS: Diagnosis Discharge Diagnosis (1) Alcohol withdrawal seizure: Status: Acute (2) Generalized seizure: Status: Acute (3) Alcohol withdrawal: Status: Resolved (4) Syncope: Status: Chronic (5) History of TB skin testing: Status: Acute (6) Chronic insomnia: Status: Acute (7) Polysubstance abuse: Status: Acute (8) DVT prophylaxis: Status: Acute (9) Discharge planning issues: Status: Acute Discharge Plan Disposition Patient Disposition: Home Condition: Improving Discharge Details Reason For Visit: New onset Seizure, ETOH w/d Admit Date/Time: 11/17/24 16:45 Admit Provider: Keith Wilkerson Attending Provider: Keith Wilkerson Primary Care Provider: Hernesto Beverly Hospital Course Hospital Course: This 29-year-old male patient with a past medical history significant for polysubstance abuse, IV drug use on buprenorphine, EtOH use disorder, past alcohol withdrawal episode with intubation in the ICU 3 years ago, sobriety for over 2 years and resumption of IV drinking daily for the past month presented to ED at [facility] for evaluation of nausea, vomiting, diarrhea followed by an syncopal episode with full body shaking. On arrival to the ED the patient was still exhibiting shakes. No reports of headache. In the ED patient received a dose of phenobarbital 260 mg IV upon which the shakes subsided. Head and neck CT showed no acute finding except for chronic degenerative changes in the neck area. Blood work was unremarkable except for mild transaminitis. The patient as had his last drink last night and concern for alcohol withdrawal seizures the hospitalist was consulted and the patient admitted to the medical surgical floor for evaluation and management of EtOH withdrawal, new onset seizures that might be related to alcohol withdrawal, and syncope. In the ED the patient continued be treated with phenobarbital protocol and received an additional 200 mg of phenobarbital IV. During the stay, the patient received the complete dose of phenobarbital as per 10 mg/kg protocol. The patient had no recurrent episode with initial symptoms. Teleneuro consult was completed with recommendation for MRI and an EEG to rule out seizure versus syncopal episode due to vasovagal event with convulsive syncope. MRI was completed without any abnormal findings. Patient was scheduled for an EEG on 11/19/2024 but refused to stay overnight. EtOH consumption discussed with patient and patient stated that alcohol was the only substance that was helping him with his anxiety. Desire to reduce drinking with addition of medicine such as naltrexone, topiramate or gabapentin discussed and the patient answer was I do not know . He nevertheless verbalized his intention to discuss this further with his primary care practitioner. Patient will be discharged home and will need to follow-up with his primary care practitioner within 7 days of discharge. He has an EEG scheduled for 4 11/19/2024 at 1 PM. Home Meds and New Rx's Prescriptions: New multivitamin [Multiple Vitamins] Tablet 1 tab PO DAILY Qty: 30 0RF thiamine mononitrate (vit B1) [Vitamin B-1 (mononitrate)] 100 mg Tablet 100 mg PO DAILY Qty: 30 0RF folic acid 1 mg Tablet 1 mg PO DAILY Qty: 30 0RF Continued buprenorphine-naloxone [Suboxone] 8-2 mg film 1 film SL DAILY trazodone 100 mg tablet 300 mg PO .pm Qty: 90 6RF Rx Instructions: 300 mg pm No Action amitriptyline 25 mg tablet 25 mg PO DAILY Qty: 30 2RF Discharge Instructions Referrals: Hernesto Beverly MD [Primary Care Provider] - (Follow up needed within 7 days of discharge please ) Activity:: Activity as Tolerated Equipment/Supplies:: No Equipment Needed Diet:: As Tolerated Discharge Orders Other Ambulatory Orders: EEG(Regular) (Routine) Timeframe: 20241119 Facility: [facility] - Location: OUTPATIENT - MULTIPLE LOCS Ordered By: Amy Solano DS: Summary Time Spent with Patient providing and/or coordinating discharge services: Greater than 30 minutes Status at Discharge Functional status at discharge: independent ambulation Overall status at discharge: patient is back to baseline Mental Status: mental status grossly normal Speech and Movement: speech and movement normal Mood: congruent mood Affect: normal affect Quality:SDOH Health Related Social Needs: No Data to Display Exam Narrative Exam Narrative: Constitutional In bed and appears comfortable HENMT: Facial structures with normal appearance Eyes: Well aligned, intact ROM Neuro:alert and oriented x 3 unable to state precise date but notes end of October 2024, cranial nerves II to XII are still intact exam Resp: Clear lung bilaterally Cardio: Telemetry sinus bradycardia heart rate 56, S1, S2, no murmur, positive pulses to all 4 extremities GI: Abdomen is not distended, soft and non tender, bowel sounds are present : Negative Costovertebral angle tenderness Back/spine/Pelvis: No back tenderness, normal alignment Integumentary: No skin lesions or rash seen on exposed skin Extremities: strength 5/5 to bilateral lower and right upper extremities- 4/5 to ANURAG -sensation intact no drift Psych: RASS 0, congruent mood and normal affect. Psych Mental Status: mental status grossly normal Speech and Movement: speech and movement normal Mood: congruent mood Affect: normal affect DS: Data Vitals/I&O Vitals and I&O: Vital Signs Temperature 36.8 C 11/18/24 16:35 Temperature Source Temporal Artery Scan 11/18/24 16:35 Pulse 62 11/18/24 16:35 Pulse Rhythm Regular 11/17/24 18:43 Pulse 77 11/17/24 17:31 Respiratory Rate 18 11/18/24 16:35 Respiratory Effort Normal, Non-Labored 11/17/24 18:43 Respiratory Depth Normal 11/17/24 18:43 Respiratory Pattern Normal 11/17/24 18:43 Blood Pressure 133/87 11/18/24 16:35 Blood Pressure Mean 87 11/17/24 17:31 Blood Pressure Position Supine 11/17/24 14:42 Pulse Oximetry 98 11/18/24 16:35 Oxygen Delivery Method Room Air 11/18/24 16:35 Oxygen Flow Rate 0 11/18/24 16:35 Pain Level 0 11/18/24 12:08 Intake & Output 11/17/24 11/18/24 11/18/24 23:59 11:59 23:59 Intake Total 215.6770 / 215.6770 Balance 215.6770 / 215.6770 Weight 62.233 kg Intake: IV 215.6770 / 215.6770 Other: Urine Color Dark Sarah Urine Appearance Clear Clear Urine Odor None Stool Size Moderate Stool Characteristics Soft Data Completed and Pending Labs on day of discharge: Labs from last 24 hours 11/18/24 06:10 WBC 3.79 L RBC 3.77 L Hgb 11.4 L Hct 34.4 L MCV 91 MCH 30.2 MCHC 33.1 RDW 15.0 H Plt Count 179 MPV 10.4 Immature Gran % 0.5 Neutrophils % 51.2 Lymphocytes % 32.5 Monocytes % 11.6 Eosinophils % 3.4 Basophils % 0.8 Nucleated RBC % 0.0 Absolute Neutrophils 1.94 Absolute Lymphocytes 1.23 Absolute Monocytes 0.44 Absolute Eosinophils 0.13 Absolute Basophils 0.03 Sodium 141 Potassium 3.4 L Chloride 103 Carbon Dioxide 31.1 Anion Gap 6.9 BUN 11 Creatinine 0.7 Est GFR (CKD-EPI 2020) 128.71 Glucose 85 Calcium 8.6 Magnesium 2.0 Total Bilirubin 0.88 AST 326 H ALT 262 H Alkaline Phosphatase 141 H Total Protein 6.7 Albumin 3.5 PFSH All Active Problems (Updated 11/17/24 @ 20:12 by Amy Solano APRN) Syncope (Chronic) History of TB skin testing (Acute) Alcohol withdrawal seizure (Acute) Generalized seizure (Acute) Chronic insomnia (Acute) Hemoptysis (Acute) Rash (Acute) Anxiety disorder (Acute) Anemia (Chronic) Frequent headaches (Acute) Weight loss (Acute) Sensorineural hearing loss (SNHL) of left ear with unrestricted hearing of right ear (Acute) Shoulder pain, right (Acute) Sensation of fullness in left ear (Acute) Chronic headache (Acute) Tobacco abuse (Acute) Hypomagnesemia (Acute) Hypokalemia (Acute) COVID-19 ruled out by laboratory testing (Acute) Exposure to hepatitis C (Acute) serology neg 10/2018 DVT prophylaxis (Acute) Discharge planning issues (Acute) Alteration in patient safety due to identified suicide risk (Acute) Polysubstance abuse (Acute) History of substance abuse (Chronic 09/09/17) Attention deficit disorder (Acute 04/15/18) continue adderall as directed Alcoholism (Chronic 08/15/17) start revia Surgical History Fracture, Open Treatment CAROLE ARREOLA; RIGHT DISTAL RADIUS Family History Mother Alcohol abuse History of Father Alcohol abuse history of Sister No problems noted. Son Alcohol abuse history of Asthma Maternal Grandfather , age 76 No problems noted. Social History Smoking/Tobacco Use Status: Current every day Tobacco Type: cigarettes and smokeless tobacco Tobacco: How many years used: 10 Smokeless tobacco user: chewing tobacco (and smoking) Quit status: not considering quitting Second Hand Exposure: Yes Smoking risk assessment performed?: Yes Alcohol Intake: current Alcohol Intake frequency: a few times a month Alcohol type: beer Drug use: Current Sobriety Substance use type: marijuana and crack/cocaine Details: Occasional marijuana, has not used cocaine in x1 week per patients. GIULIANA RN 11/17/24 Caregiver/Support person: No Household members: family Housing: house Communication Needs: Hard of Hearing Do you need help understanding health information?: Never Pets and animals: No Sexually active: Yes Do you think of yourself as: straight/heterosexual Current gender identity: male What is your relationship status?: refused to answer How often do you talk on the phone with friends or family?: never How often do you get together with friends or relatives?: never How often do you attend roman catholic or jehovah's witness services?: decline to answer Do you belong to any clubs or organized social groups?: no Panel score (0-1 are the most socially isolated patients): 0 What type of physical activity do you participate in: none and other Frequency: does not exercise Seatbelt use: sometimes Helmet use: Yes Helmet use: always Drive intox or ride w/intox national dedicated truck driver: No Do you feel safe at home: Yes Do you feel safe in your relationship?: Yes Time Spent with Patient Time Spent with Patient: 70-84 minutes4 Time was spent: preparing to see the patient(eg.review tests), obtaining and/or reviewing separately otained hiistory, ordering medications,tests, procedures, referring, communicating with other health healthcare marketer, indepentently interpreting results, counseling the patient and care coordination
== END 2024-11-18 18:14 | disposition home or self-care (01) | DRG 897 ==
LOC: ER 16:22 → MS 18:30
PROVIDERS: Nurse Practitioner Acute Care; Admitting Provider Family Medicine; Emergency Provider Student in an Organized Health Care Education/Training Program; PCP Family Medicine; Visit Provider Family Medicine
DX: F10.239 Alcohol dependence with withdrawal, unspecified (principal); R04.2 Hemoptysis; R56.9 Unspecified convulsions; F51.04 Psychophysiologic insomnia; F19.10 Other psychoactive substance abuse, uncomplicated; R55 Syncope and collapse; R19.7 Diarrhea, unspecified; R11.2 Nausea with vomiting, unspecified; R74.01 Elevation of levels of liver transaminase levels; R61 Generalized hyperhidrosis; F17.210 Nicotine dependence, cigarettes, uncomplicated; W19.XXXA Unspecified fall, initial encounter; F41.9 Anxiety disorder, unspecified; R51.9 Headache, unspecified; R76.11 Nonspecific reaction to tuberculin skin test without active tuberculosis; D64.9 Anemia, unspecified; H90.42 Sensorineural hearing loss, unilateral, left ear, with unrestricted hearing on the contralateral side; E83.42 Hypomagnesemia; E87.6 Hypokalemia; F98.8 Other specified behavioral and emotional disorders with onset usually occurring in childhood and adolescence; F17.220 Nicotine dependence, chewing tobacco, uncomplicated; F14.90 Cocaine use, unspecified, uncomplicated; F12.90 Cannabis use, unspecified, uncomplicated
CPT/HCPCS: 00123; 36415; 70553; 80053; 96365; 96367; 99291; J1650; 70450; 71046; 72125; 73060; 73090; 73120; 83735; 84484; 85025; 93306; 99223; 99239; J2560; J3411

== ENCOUNTER 2024-12-15 13:44 | Outpatient (CLI) | payer MEDICAID, SELFPAY ==
--- NOTE | 2024-12-15 | DI.RAD_ITS ---
Exam(s) XR CHEST 2V PA LATERAL EXAM: XR CHEST 2V PA LATERAL CLINICAL HISTORY: GRETTA, J06.9. TECHNIQUE: 2D digital imaging was performed. COMPARISON: CR XR CHEST 2V PA LATERAL from 11/18/2024 FINDINGS: 2 views: Heart size is normal. The mediastinum is not widened. Lungs are clear. No infiltrates nor pleural effusions. IMPRESSION: No acute pulmonary findings.No significant radiographic change compared to 11/18/2024. DATA REPOSITORY: RADIATION DOSE DELIVERED:
== END 2024-12-15 14:04 ==
LOC: DI 13:45
PROVIDERS: PCP Family Medicine; Visit Provider Nurse Practitioner
DX: J06.9 Acute upper respiratory infection, unspecified (principal)
CPT/HCPCS: 71046

== ENCOUNTER 2025-02-13 14:15 | Inpatient (IN) | payer MEDICAID, SELFPAY ==
[2025-02-13] VITALS (58 sets, daily range): BP systolic 112–155; BP diastolic 84–101; PULSE 93–180; RESP 8–25; TEMP 36.8–37.2; O2SAT 82–98
--- NOTE | 2025-02-13 14:15 | RT.EKG_ITS ---
APPROVED REPORT Exam: Resting ECG Reason for Exam: tachycardia Patient Location: E HR:118 bpm ECG Measurements Heart Rate 118 AXIS MN 124 P 74 QRSd 95 QRS 93 QT 346 T 5 QTc 485 Conclusion Sinus tachycardia [address] changes no stemi
--- NOTE | 2025-02-13 14:30 | DI.CT_ITS ---
Exam(s) CT CHEST/ABD/PEL W EXAM: CT CHEST/ABD/PEL W CLINICAL HISTORY: cough, vomiting, LLQ pain x 1 week. TECHNIQUE: Imaging Protocol: Axial computed tomography images with coronal and sagittal reformatted images were created and reviewed CONTRAST MATERIAL: Intravenous: Omnipaque 350 Contrast volume:80 mL Oral: None COMPARISON: CT RENAL COLIC WO CONTRAST from 09/16/[address] CHEST HIGH RESOLUTION from 08/30/2024 FINDINGS: CHEST: LUNGS: There are multiple foci of patchy infiltrate in both lower lobes, somewhat more prominent on t he left side but significant bilaterally. There is relative sparing of the upper lobes and right mid dle lobe as well as the left lung lingular segment. There are no pleural effusions. No significant findings in the trachea and mainstem bronchi.. No central pulmonary emboli identified. MEDIASTINUM: There is no hilar nor mediastinal adenopathy. Visualized thyroid unremarkable. CARDIAC: Heart size is normal. There is no pericardial effusion.Caliber of the thoracic aorta is wit hin normal limits. No dissection. OSSEOUS: No significant osseous lesions.No shift of the interventricular septum.. ABDOMEN: There is no ascites. LIVER: Liver size is prominent and liver is very hypodense implying severe steatosis. This was not e vident in 2016. There no discrete focal hepatic lesions nor dilatation of intrahepatic ducts. No ev idence of Budd-Chiari thrombosis intrahepatic veins nor of the intrahepatic IVC and intrahepatic port al veins are also patent. GALLBLADDER/BILIARY: The gallbladder is mildly distended but not edematous and does not contain radio paque calculi. The CBD is not dilated. PANCREAS: No evidence of pancreatic mass nor dilatation of the pancreatic duct. SPLEEN: Spleen is not enlarged. There are no intrasplenic lesions. Splenic and portal veins are العلي nt. ADRENALS: There are no significant adrenal masses. KIDNEYS: No calculi nor hydronephrosis. No solid renal masses. No cysts evident. ABDOMINAL AORTA: Abdominal aorta is not enlarged. LYMPH NODES: There is no retroperitoneal nor paraaortic adenopathy. ABDOMINAL WALL: No evidence of significant anterior abdominal wall nor inguinal hernia. GI: There is no evidence of bowel obstruction.No free air. PELVIS: LYMPH NODES: There is no intrapelvic nor inguinal adenopathy. GI: There is radiopaque material in the cecum. No evidence of appendicitis. There is radiopaque mat erial within the sigmoid. No evidence of sigmoid diverticular disease. Mild wall thickening which m ay be due to incomplete distension versus subtle colitis in the sigmoid. URINARY BLADDER: There is mild uniform thickening of the urinary bladder wall. No gas within the da dder lumen. No intraluminal calculi nor clots nor masses. REPRODUCTIVE: Prostate size normal. Seminal vesicles are slightly prominent and hypodense but unchan ged from 2016. there is no obturator nor other intrapelvic adenopathy. There is no free fluid in the dependent aspect of the pelvis. OSSEOUS: No fractures. No significant osseous lesions. Sacroiliac joints appear unremarkable. 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 No significant osseous lesions. No disc space na rrowing nor obvious abnormality in the thoracic and lumbar vertebrae and sacrum. No disc height loss nor endplate destruction.. No listhesis. IMPRESSION: 1. There are significant patchy infiltrates in both lower lobes, somewhat more prominent on the left side. There are no pleural effusions and no intrathoracic adenopathy. 2. Hepatomegaly and prominent hepatic steatosis. No discrete focal hepatic lesions. Normal spleen s ize. No ascites. 3. Somewhat distended gallbladder lumen. No calcified gallstones noted. No gallbladder wall edema n or dilatation of the CBD. 4. Other findings as above. Report called by myself to ER provider 02/13/2025 at 5 p.m. RADIATION DOSE DELIVERED: 173.78mGy.cm Total DLP DATA REPOSITORY: All CT scans at this facility are submitted to the National Radiology Data Registry (NRDR) Dose Index Registry (DIR) with the [employer] (ACR). RADIATION OPTIMIZATION: All CT scans at this facility use at least one of these dose optimization te chniques: automated exposure control; mA and/or kV adjustment per patient size (includes targeted exa ms where dose is matched to clinical indication); or iterative reconstruction.
[2025-02-13] MEDS: LORazepam 2 MG/ML VIAL (14:45)
--- NOTE | 2025-02-13 14:48 | ED.GENADUL_ITS ---
Discharge Plan Disposition Patient Disposition: Admit to [facility] Discharge Details Clinical Impression: Alcoholism, Alcohol withdrawal seizure Primary Care Provider: Hernesto Beverly ED Provider: Maame Santo Home Meds and New Rx's Prescriptions: No Action buprenorphine-naloxone [Suboxone] 8-2 mg film 1 film SL DAILY trazodone 100 mg tablet 300 mg PO .pm Qty: 90 6RF Rx Instructions: 300 mg pm multivitamin [Multiple Vitamins] Tablet 1 tab PO DAILY Qty: 30 0RF thiamine mononitrate (vit B1) [Vitamin B-1 (mononitrate)] 100 mg Tablet 100 mg PO DAILY Qty: 30 0RF folic acid 1 mg Tablet 1 mg PO DAILY Qty: 30 0RF buprenorphine-naloxone [Suboxone] 12-3 mg film 1 film Patient Comments: PLACE ONE FILM UNDER THE TONGUE AND ALLOW TO DISSOLVE ONCE DAILY HPI General Date/Time Provider Initiated Documentation: 02/13/25 14:29 . HPI Narrative: Paulie is a 29 year old male who presents to the emergency department today for evaluation of nausea, vomiting every 30 minutes, diarrhea, and left lower quadrant abdominal pain x 1 week. He also admits to consistent headaches and dizziness since starting new medications prescribed by psychiatrist 1 week ago. Denies fever/chills, congestion, chest pain, shortness of breath, blood in sto ol, change in bladder function. He is a chronic alcoholic, drinking 1212 ounce beers daily over 24-hour period. He has been vomiting every 1/2 hour, so has been vomiting up his beer. Unable to hold down any food. Past medical history is significant for history of polysubstance abuse, alcoholism, ADD, depression. Grandfather is at bedside. Physical exam remarkable for diaphoretic and tachycardic patient who appears pale and ill-appearing. Tachycardia noted, normal heart sounds. Abdomen is soft, nondistended, tender to palpation to the lower abdomen LLQ > RLQ, no ecchymosis, rigidity, or guarding. Coarse lung sounds scattered throughout. Occasional dry cough. Patient does occasionally retch and vomit during exam. Moving all extremities equally. D/dx includes but is not limited to: EtOH withdrawal, gastroenteritis, electrolyte imbalance, dehydration, partial bowel obstruction, diverticulitis/other colitis I independently interpreted the following tests: CBC notable for leukocytosis, white cell count 13.85. Mild hyponatremia, sodium 130; hypochloremia with chloride 87. Anion gap 24.8. LFTs elevated (total bili 1.4 today vs 0.88 11/18/24; AST 317 today vs 326 11/18/24; ALT 540 today vs 141 on 11/18/24). Coags reassuring, within normal range. CPK slightly elevated at 457. EKG notable for tachycardia rate 118, nonspecific ST changes/possibly rate related. No STEMI. Normal intervals. Shortly after arrival to the emergency department (approx 1445), he had a tonic- clonic seizure with eye deviation to L lasting approximately 1 minute, patient was breathing spontaneously throughout this, no cyanosis. Seizure ended without intervention. Paulie received 4 mg IM lorazepam after seizure while IV access was being established. He admits to a history of alcohol withdrawal seizures, phenobarbital bolus initiated, along with banana bag. I did review previous hospitalization records from late October, in which patient was admitted for alcohol withdrawal and managed on phenobarbital. Grandfather reports that he has not been eating since he got home, is not sure how to make him start eating food again. Handoff report given to KINA Martinez evening VALDEMAR. CT chest/abdomen/pelvis pending. Dr. Puente aware of patient; patient to be formally presented after workup complete. Related Data Home Medications ?Medication ?Instructions ?Recorded ?Confirmed folic acid 1 mg tablet 1 mg PO DAILY #30 tabs 11/18/24 02/13/25 multivitamin (Multiple Vitamins 1 tab PO DAILY #30 tabs 11/18/24 02/13/25 tablet) thiamine mononitrate (vit B1) 100 100 mg PO DAILY #30 tabs 11/18/24 02/13/25 mg tablet (Vitamin B-1 (mononitrate)) trazodone 100 mg tablet 300 mg (3 x 100 mg) PO .pm #90 01/26/25 02/13/25 tab-caps buprenorphine 12 mg-naloxone 3 mg 1 film sublingual DAILY 02/13/25 02/13/25 sublingual film (Suboxone) buprenorphine 2 mg-naloxone 0.5 mg 1 film sublingual DAILY 02/13/25 02/13/25 sublingual film (Suboxone) hydroxyzine HCl 25 mg tablet 25 mg PO TID 02/13/25 02/13/25 Previous Rx's ?Medication ?Instructions ?Recorded folic acid 1 mg tablet 1 mg PO DAILY #30 tabs 11/18/24 multivitamin (Multiple Vitamins 1 tab PO DAILY #30 tabs 11/18/24 tablet) thiamine mononitrate (vit B1) 100 100 mg PO DAILY #30 tabs 11/18/24 mg tablet (Vitamin B-1 (mononitrate)) trazodone 100 mg tablet 300 mg (3 x 100 mg) PO .pm #90 01/26/25 tab-caps Allergies Allergy/AdvReac Type Severity Reaction Status Date / Time Sulfa (Sulfonamide Allergy Unknown Hives Verified 02/13/25 15:11 Antibiotics) General Stated Complaint: Abd Prob YESSENIA: 2 Review of Systems Narrative: See HPI Exam Const General: cooperative, no acute distress, diaphoretic, frail appearing and ill appearing Nutritional Appearance: cachectic Orientation: alert and awake Resp Effort & Inspection: normal respiratory effort and able to speak in complete sentences Auscultation: rhonchi (Coarse lung sounds throughout) Cardio Rate: tachycardic Rhythm: regular rhythm Pulses: radial pulses present GI Inspection: normal to inspection, no abdominal wall ecchymosis and non-distended Palpation: soft, not firm, no guarding, not rigid, tender in the LLQ and in the RLQ and No ascites Auscultation: normal bowel sounds Skin General skin exam: no rashes or lesions noted Course Vital Signs Vital signs: Vital Signs Temperature 36.8 C 02/13/25 14:19 Pulse 125 H 02/13/25 14:19 Respiratory Rate 22 02/13/25 14:19 Blood Pressure 155/101 H 02/13/25 14:19 Pulse Oximetry 94 02/13/25 14:19 Temperature 36.8 C 02/13/25 14:19 Temperature Source Oral 02/13/25 14:19 Pulse 125 H 02/13/25 14:19 Respiratory Rate 22 02/13/25 14:19 Blood Pressure 155/101 H 02/13/25 14:19 Blood Pressure Position Supine 02/13/25 14:19 Pulse Oximetry 94 02/13/25 14:19 Oxygen Delivery Method Room Air 02/13/25 14:19 Oxygen Flow Rate 0 02/13/25 14:19 Medical Decision Making Quality:SDOH Health Related Social Needs: No Data to Display PFSH All Active Problems (Updated 02/13/25 @ 14:59 by Jackson Armenta MD) Alcohol withdrawal seizure (Acute) History of TB skin testing (Acute) Chronic insomnia (Acute) Hemoptysis (Acute) Rash (Acute) Anxiety disorder (Acute) Anemia (Chronic) Frequent headaches (Acute) Weight loss (Acute) Sensorineural hearing loss (SNHL) of left ear with unrestricted hearing of right ear (Acute) Shoulder pain, right (Acute) Sensation of fullness in left ear (Acute) Chronic headache (Acute) Tobacco abuse (Acute) Hypomagnesemia (Acute) Hypokalemia (Acute) COVID-19 ruled out by laboratory testing (Acute) Exposure to hepatitis C (Acute) serology neg 10/2018 Alteration in patient safety due to identified suicide risk (Acute) Polysubstance abuse (Acute) History of substance abuse (Chronic 09/09/17) Attention deficit disorder (Acute 04/15/18) continue adderall as directed Alcoholism (Chronic 08/15/17) start revia Medical History (Updated 02/13/25 @ 14:59 by Jackson Armenta MD) Alcohol withdrawal Surgical History Fracture, Open Treatment CAROLE ARREOLA; RIGHT DISTAL RADIUS Family History Mother Alcohol abuse History of Father Alcohol abuse history of Sister No problems noted. Son Alcohol abuse history of Asthma Maternal Grandfather , age 76 No problems noted. Social History Smoking/Tobacco Use Status: Current every day Tobacco Type: cigarettes and smokeless tobacco Tobacco: How many years used: 10 Smokeless tobacco user: chewing tobacco (and smoking) Quit status: not considering quitting Second Hand Exposure: Yes Smoking risk assessment performed?: Yes Alcohol Intake: current Alcohol Intake frequency: a few times a month Alcohol type: beer Drug use: Current Sobriety Substance use type: marijuana and crack/cocaine Details: Occasional marijuana, has not used cocaine in x1 week per patients. GIULIANA RN 11/17/24 Caregiver/Support person: No Household members: family Housing: house Communication Needs: Hard of Hearing Do you need help understanding health information?: Never Pets and animals: No Sexually active: Yes Do you think of yourself as: straight/heterosexual Current gender identity: male What is your relationship status?: refused to answer How often do you talk on the phone with friends or family?: never How often do you get together with friends or relatives?: never How often do you attend jewish or evangelical services?: decline to answer Do you belong to any clubs or organized social groups?: no Panel score (0-1 are the most socially isolated patients): 0 What type of physical activity do you participate in: none and other Frequency: does not exercise Seatbelt use: sometimes Helmet use: Yes Helmet use: always Drive intox or ride w/intox bobcat driver/labor: No Do you feel safe at home: Yes Do you feel safe in your relationship?: Yes
--- NOTE | 2025-02-13 14:54 | ED.PROG_ITS ---
Date of service: 02/13/25 Time of Service: 14:54 Medical Decision Making patient seen in conjuction with VICE PRESIDENT AND PORTFOLIO MANAGER. Face to face provided by me secondary to medical complexity. Called to room for ongoing seizure activity. patient has history of significant alcohol use disorder but has been vomiting for several days. does have history of etoh withdrawal seizures. IM ativan given while working on obtaining IV access and then phenobarb started. Will continue aggressive resusctiation. CT imaging given complaints of cough and abdominal pain. Will require ICU admission. Quality:[facility] Health Related Social Needs: No Data to Display Critical Care Time Critical Care Time Critical Care Time: Yes Total Critical Care Time: 33 Attestation: CRITICAL CARE Upon my evaluation, this patient had a high probability of imminent or life- threatening deterioration due to alcohol withdrawal which required my direct attention, intervention, and personal management. I have personally provided 33 minutes of critical care time exclusive of time spent on separately billable procedures. Time includes review of laboratory data, radiology results, discussion with consultants, and monitoring for potential decompensation. Interventions were performed as documented above Discharge Plan Disposition Patient Disposition: Admit to [facility] Discharge Details Clinical Impression: Alcoholism, Alcohol withdrawal seizure Primary Care Provider: Hernesto Beverly ED Provider: Maame Santo Home Meds and New Rx's Prescriptions: No Action buprenorphine-naloxone [Suboxone] 8-2 mg film 1 film SL DAILY trazodone 100 mg tablet 300 mg PO .pm Qty: 90 6RF Rx Instructions: 300 mg pm multivitamin [Multiple Vitamins] Tablet 1 tab PO DAILY Qty: 30 0RF thiamine mononitrate (vit B1) [Vitamin B-1 (mononitrate)] 100 mg Tablet 100 mg PO DAILY Qty: 30 0RF folic acid 1 mg Tablet 1 mg PO DAILY Qty: 30 0RF buprenorphine-naloxone [Suboxone] 12-3 mg film 1 film Patient Comments: PLACE ONE FILM UNDER THE TONGUE AND ALLOW TO DISSOLVE ONCE DAILY
--- NOTE | 2025-02-13 14:59 | RESPIRATORY ---
02/13/2025 Called to ED, upon arrival pt had just had a seizure per MD TRINA at bedside. No interventions from RT needed at this time, pt is maintaining his airway.. Ambu-bag, suction, nasal airway, oral airway set up at bedside; ETCO2 cannula placed and emergency intubation go bag at bedside.
[2025-02-13 15:09] LABS: Abs Immature Grans 0.07 10^3/uL (0.0-0.06); Absolute Basophil Count 0.07 10^3/uL (0.0-0.2); Absolute Neutrophil Count 12.45 10^3/uL (1.2-6.7); Basophils % 0.5 %; HCT 40.4 % (40.0-50.0); HGB 13.8 g/dL (13.5-17.5); Immature Grans % 0.5 %; Lymphocytes % 5.6 %; MCH 29.8 pg (27.0-33.0); MCHC 34.2 % (32.0-36.0); MCV 87 fL (80-95); MPV 11.2 fL (8.0-11.0); Monocytes % 3.5 %; Neutrophils % 89.9 %; Platelet Count 149 10^3/uL (130-400); RBC 4.63 10^6/uL (4.36-5.78); RDW-SD 41.5 fL; WBC 13.85 10^3/uL (4.4-10.8)
[2025-02-13 15:10] LABS: Absolute Lymphocyte Count 0.78 10^3/uL (1.2-3.4); Absolute Monocyte Count 0.48 10^3/uL (0.1-0.8)
[2025-02-13] MEDS: MULTIVITAMIN 10 ML, THIAMINE 100 MG, FOLIC ACID 1 MG in DEXTROSE 5%-0.45% SALINE 1,000 ML 168.867 ML IV (15:14)
[2025-02-13] MEDS: Omnipaque 350 MG/ML 100 ML BTL IJ (15:19)
[2025-02-13] MEDS: Normal Saline - Diluent 50 ML VIAL IJ (15:20)
[2025-02-13 15:22] LABS: INR 1.1 (0.9-1.1); PTT Activated 26.1 sec (20.6-30.2); Prothrombin Time 10.7 sec (9.1-11.1)
[2025-02-13 15:24] LABS: ETHANOL BLOOD 10.5 mg/dL (<10); PHOSPHORUS 4.7 mg/dL (2.6-4.7)
[2025-02-13 15:26] LABS: Creatine Kinase 457 U/L (39-308)
[2025-02-13 15:27] LABS: ALT 304 U/L (16-63); AST 317 U/L (15-37); Alkaline Phosphatase 540 U/L (46-116); Anion Gap 24.8 mmol/L (3-11); BUN 10 mg/dL (7-18); Bilirubin, Total 1.4 mg/dL (0.2-1.0); CO2 18.2 mmol/L (21.0-32.0); CREATININE 0.9 mg/dL (0.70-1.30); Calcium 10.5 mg/dL (8.5-10.1); Chloride 87 mmol/L (98-107); Estimated GFR 119.31 (mL/min/1.73m2); Glucose 134 mg/dL (74-106); Magnesium 2.2 mg/dL (1.8-2.4); Potassium 3.6 mmol/L (3.5-5.1); Sodium 130 mmol/L (136-145); Total Protein 9.4 g/dL (6.4-8.2)
--- NOTE | 2025-02-13 16:15 | DI.CT_ITS ---
Exam(s) CT HEAD WO EXAM: CT HEAD WO CLINICAL HISTORY: new onset seizure. TECHNIQUE: Imaging Protocol: Axial computed tomography images with coronal and sagittal reformatted images were created and reviewed COMPARISON: CT CT HEAD CERVICAL SPINE WO from 11/17/2024 FINDINGS: There are no skull fractures. There is no fluid in the visualized paranasal sinuses. There is no evidence of intracranial hemorrhage, mass effect, or shift of midline structures. There are no extra-axial fluid collections. The ventricles are not enlarged or shifted and there is no blo od within the ventricular system nor within the basal cisterns. IMPRESSION: No acute intracranial findings on this noninfused CT scan of the brain. Called by myself to ER 02/13/2025 at 4:41 p.m. RADIATION DOSE DELIVERED: 822.53mGy.cm Total DLP DATA REPOSITORY: All CT scans at this facility are submitted to the National Radiology Data Registry (NRDR) Dose Index Registry (DIR) with the [employer] ([employer]). RADIATION OPTIMIZATION: All CT scans at this facility use at least one of these dose optimization te chniques: automated exposure control; mA and/or kV adjustment per patient size (includes targeted exa ms where dose is matched to clinical indication); or iterative reconstruction.
[2025-02-13 16:19] LABS: Lipase 662 U/L (<78)
[2025-02-13] MEDS: Normal Saline 1,000 ML 1000 ML IV ×2 (16:46→18:13)
[2025-02-13 16:59] LABS: BE (Venous) 2 mmol/L (-2-3); HCO3 (Venous) 27 mmol/L (23-28); O2 Sat (Venous) 72 %; TCO2 (Venous) 25 mmol/L (24-29); pCO2 (Venous) 41 mmHg (41-51); pH (Venous) 7.42 (7.31-7.41); pO2 (Venous) 41 mmHg
[2025-02-13 17:03] LABS: Lactate 1.5 mmol/L (<or=2.0)
[2025-02-13 17:15] LABS: Acetaminophen < 2 ug/mL (10-30)
[2025-02-13 17:59] LABS: Ammonia < 10 umol/L (11-32)
[2025-02-13] MEDS: DOXYCYCLINE 100 MG in Normal Saline 100 ML IVPB (18:01)
[2025-02-13] MEDS: cefTRIAXone 2 GM/50 ML BAG IVPB (18:02)
--- NOTE | 2025-02-13 19:42 | W.PM.HP.N ---
Date of service: 02/13/25 Time of Service: 19:42 Assessment and Plan Assessment and plan (1) Alcohol withdrawal seizure: Start date: 02/13/25 Status: Acute Assessment and plan: This is a 29-year-old gentleman who lives with his grandfather who does supply him with his alcohol being beer recently with decreased drinking since October 2024. He presents with frequent vomiting but also slight abdominal discomfort and diarrhea recently possibly indicating gastroenteritis but appearing to be associated with chronic alcohol use as well. He denies any marijuana use. He did have a tonic-clonic seizure in the ED and has had a history of alcohol withdrawal seizures in the past. He also required intubation years ago for alcohol withdrawal. He will be admitted to the ICU for close observation and phenobarbital protocol without further loading dose but only as needed use. He is encephalopathic with mild delirium but not manifesting hallucinations. There is some concern of other etiologies for his seizure and teleneurology did recommend MRI of the brain with and without contrast. He also recommended lumbar puncture after MRI if patient remains encephalopathic. He was initiated on 2 g of ceftriaxone to be given at high dose until further evaluation of his mental status. He is found also to have bilateral lower lobe infiltrates and doxycycline was initiated. Seizure precaution as per alcohol withdrawal protocol. Teleneurology did not recommend any other antilipid's at this time. They also did not recommend aggressive phenobarbital treatment. They did advise treatment with high-dose thiamine for the possibility of Warnicke's encephalopathy. The patient was recently started on hydroxyzine and Poison Control thought that this was most likely not contributing to his presentation. Close monitoring was recommended as we are doing. He is a full code. (2) Encephalopathy acute: Start date: 02/13/25 Status: Acute Assessment and plan: As above. Further evaluation with MRI of the brain with and without contrast and consider LP. Patient ammonia level was normal though his liver function test were elevated. Doubt hepatic encephalopathy at this time. (3) Pneumonia: Start date: 02/13/25 Status: Acute Assessment and plan: Bilateral lower lobe pneumonia with patient on high-dose Rocephin for his encephalopathic state but also doxycycline IV was initiated. Patient not hypoxic. (4) Acute dehydration: Status: Acute Assessment and plan: IV hydration with patient receiving 2 L of normal saline and now at 150 cc/h normal saline for hydration. Watch for fluid overload. Monitor urine output. (5) Hyperemesis: Start date: 02/13/25 Status: Acute Assessment and plan: Patient has reported frequent emesis with nausea and also diarrhea. This may be associated with his alcohol consumption but also gastroenteritis is a possibility. Monitor clinically while rehydrating. Symptomatic treatment. (6) Hypopyrexia: Start date: 02/13/25 Status: Acute Assessment and plan: Patient does have decreased appetite and decreased intake recently may be associated with his progressive encephalopathy. Monitor as we treat for alcohol withdrawal, encephalopathy and pneumonia. (7) Polysubstance abuse: Status: Chronic Assessment and plan: Urine drug screen for multiple substances. Some of these will be send outs and will not be available immediately. Monitor for withdrawal. Continue Suboxone with patient's VPMS indicating he is receiving his take-home Suboxone on a routine basis and has been compliant up to this hospitalization. (8) Alcoholism: Status: Chronic Assessment and plan: Patient has been drinking less but continues daily beer intake. Long-term sobriety would be best. He did achieve sobriety for years and then rebounded recently. (9) Attention deficit disorder: Status: Chronic Assessment and plan: Patient may be self treating with alcoholism and multiple substances. He is not on treatment for this problem. (10) Depression: Status: Chronic Assessment and plan: Continue outpatient medical therapy. Patient is on trazodone. This also may contribute to his self treating and polysubstance abuse. History of Present Illness History of Present Illness Chief Complaint: Nausea and vomiting with poor intake over 2 weeks, diarrhea Narrative: This is a 29-year-old male patient who has known alcohol use with beer use on a daily basis having decreased amount of beer drunk daily since his last hospitalization in late October 2024. Presents with a at least 1 week not 2 to 3-week history of decreased intake with frequent nausea and vomiting worsening over the last week with diarrhea and eating or drinking very little with decreased urine output. He has some abdominal discomfort and was brought to the ED because of weakness and his persistent nausea and vomiting. He was found to have clinical dehydration and was started on IV hydration with minimal urine output. He was not hypotensive. He did have a short tonic-clonic seizure in the ED and did receive Ativan. He also was loaded with phenobarbital but did not have the complete loading dose because of the patient's decreased alcohol use recently and by recommendation from neurology. [facility] [place] neurology did not recommend antiepileptics and also stated that the full phenobarbital protocol did not need to be initiated. He did remain on the phenobarbital protocol for as needed use. They were concerned about other causes of encephalopathy and stated that he was not clearing his mentation, LP should be performed the patient placed on IV ceftriaxone high-dose until MRI of the brain with and without contrast could be obtained. He did have bilateral lower lobe lung infiltrates with pneumonia which would be treated with IV Rocephin and doxycycline. He was oxygenating well on room air and had a mild cough but no other respiratory complaints. His VBG did not show hypoxemia or hypercapnia. He did have hyponatremia which appears chronic and stable and this most likely was not contributing to his change in mental status. He does have elevated liver function test having had hepatitis C which was treated and cured but also having chronic alcoholism. He did have slightly elevated WBC but no fever. Alcohol level was low at 10 which was consistent with his history. Urine drug screen was performed and pending. He did receive phenobarbital and Ativan in the ED. Send out urine drug screen for fentanyl, xylazine buprenorphine as well as oxycodone were obtained. Patient was not able to give much history being encephalopathic delirium so he would awaken attempt to answer questions. He was admitted to the ICU for close monitoring and an MRI of the brain with and without contrast and continued IV hydration with IV antibiotic therapy. As stated, lumbar puncture should be considered if patient is not improving and MRI of the brain unrevealing. He is a full code. Review of Systems Narrative: 13 point review of system otherwise unrevealing or unobtainable. [facility] All Active Problems (Updated 02/14/25 @ 06:31 by Vega Lackey) Encephalopathy acute (Acute) Alcohol withdrawal seizure (Acute) Pneumonia (Acute) Metabolic encephalopathy (Acute) Acute dehydration (Acute) Seizure (Acute) Hyperemesis (Acute) Hypopyrexia (Acute) Acute dehydration (Acute) History of TB skin testing (Acute) Chronic insomnia (Acute) Hemoptysis (Acute) Rash (Acute) Anxiety disorder (Acute) Anemia (Chronic) Frequent headaches (Acute) Weight loss (Acute) Sensorineural hearing loss (SNHL) of left ear with unrestricted hearing of right ear (Acute) Shoulder pain, right (Acute) Sensation of fullness in left ear (Acute) Chronic headache (Acute) Tobacco abuse (Acute) Hypomagnesemia (Acute) Hypokalemia (Acute) COVID-19 ruled out by laboratory testing (Acute) Depression (Chronic) Exposure to hepatitis C (Acute) serology neg 10/2018 Alteration in patient safety due to identified suicide risk (Acute) Polysubstance abuse (Chronic) History of substance abuse (Chronic 09/09/17) Attention deficit disorder (Chronic 04/15/18) continue adderall as directed Alcoholism (Chronic 08/15/17) start revia Medical History Alcohol withdrawal Surgical History Fracture, Open Treatment CAROLE ARREOLA; RIGHT DISTAL RADIUS Family History Mother Alcohol abuse History of Father Alcohol abuse history of Sister No problems noted. Son Alcohol abuse history of Asthma Maternal Grandfather , age 76 No problems noted. Social History Smoking/Tobacco Use Status: Current every day Tobacco Type: cigarettes and smokeless tobacco Tobacco: How many years used: 10 Smokeless tobacco user: chewing tobacco (and smoking) Quit status: not considering quitting Second Hand Exposure: Yes Smoking risk assessment performed?: Yes Alcohol Intake: current Alcohol Intake frequency: a few times a month Alcohol type: beer Drug use: Current Sobriety Substance use type: marijuana and crack/cocaine Details: Occasional marijuana, has not used cocaine in x1 week per patients. GIULIANA, RN 11/17/24 Caregiver/Support person: No Household members: family Housing: house Communication Needs: Hard of Hearing Do you need help understanding health information?: Never Pets and animals: No Sexually active: Yes Do you think of yourself as: straight/heterosexual Current gender identity: male What is your relationship status?: refused to answer How often do you talk on the phone with friends or family?: never How often do you get together with friends or relatives?: never How often do you attend restorationism or druze services?: decline to answer Do you belong to any clubs or organized social groups?: no Panel score (0-1 are the most socially isolated patients): 0 What type of physical activity do you participate in: none and other Frequency: does not exercise Seatbelt use: sometimes Helmet use: Yes Helmet use: always Drive 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 or ride w/intox 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 truck 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: No Do you feel safe at home: Yes Do you feel safe in your relationship?: Yes Meds Allergies and Home Medications Allergies Allergy/AdvReac Type Severity Reaction Status Date / Time Sulfa (Sulfonamide Allergy Unknown Hives Verified 02/13/25 15:11 Antibiotics) Home Medications ?Medication ?Instructions ?Recorded ?Confirmed ?Type folic acid 1 mg tablet 1 mg PO DAILY #30 tabs 11/18/24 02/13/25 Rx multivitamin (Multiple Vitamins 1 tab PO DAILY #30 tabs 11/18/24 02/13/25 Rx tablet) thiamine mononitrate (vit B1) 100 100 mg PO DAILY #30 tabs 11/18/24 02/13/25 Rx mg tablet (Vitamin B-1 (mononitrate)) trazodone 100 mg tablet 300 mg (3 x 100 mg) PO .pm #90 01/26/25 02/13/25 Rx tab-caps buprenorphine 12 mg-naloxone 3 mg 1 film sublingual DAILY 02/13/25 02/13/25 History sublingual film (Suboxone) buprenorphine 2 mg-naloxone 0.5 mg 1 film sublingual DAILY 02/13/25 02/13/25 History sublingual film (Suboxone) hydroxyzine HCl 25 mg tablet 25 mg PO TID 02/13/25 02/13/25 History Exam Narrative Exam Narrative: General: Patient appears cachectic and chronically ill, he awakens in regards to the interviewer but is not oriented to place or time. He is oriented to person. He appears in moderate distress from his encephalopathy. HEENT: Normocephalic, eyes with pupils equal and reactive to light symmetrically and slightly spasmodic with direct light testing. Extraocular movements intact. Sclera anicteric. Oropharynx with dry mucosa and poor dentition. Neck: Supple without JVD. Back: To posture without CVA tenderness. Lungs: Bronchovesicular breath sounds diffusely with rhonchi particularly cough, no focalizing rales but coarse crackles diffusely. Decreased aeration at bases. Overall fair aeration. Heart: Regular rate and rhythm with no murmurs or gallops appreciated. Abdomen: Slightly protuberant, diffuse guarding without focal tenderness or rebound and no palpable hepatosplenomegaly. Bowel sounds are positive but decreased in all quadrants. Genitalia/rectal: Exam deferred. Extremities: No clubbing, cyanosis or pitting edema. Muscle wasting diffusely. Peripheral pulses intact. Skin: Pale, warm and dry. Neuro: Cranial nerves II through XII appear to be grossly intact, no focal motor deficits the patient appears generally weak and minimally cooperative with exam with his encephalopathic state. No tremor. Normal tone. Psych: Patient is encephalopathic with flattened affect. He is minimally conversant. Remote and recent memory not testable. Results Imaging Imaging Studies: EXAM: CT HEAD WO Date exam: 02/13/2025 CLINICAL HISTORY: new onset seizure. TECHNIQUE: Imaging Protocol: Axial computed tomography images with coronal and sagittal reformatted images were created and reviewed COMPARISON: CT CT HEAD CERVICAL SPINE WO from 11/17/2024 FINDINGS: There are no skull fractures. There is no fluid in the visualized paranasal sinuses. There is no evidence of intracranial hemorrhage, mass effect, or shift of midline structures. There are no extra-axial fluid collections. The ventricles are not enlarged or shifted and there is no blood within the ventricular system nor within the basal cisterns. IMPRESSION: No acute intracranial findings on this noninfused CT scan of the brain. EXAM: CT CHEST/ABD/PEL W Date of exam: 02/13/2025 CLINICAL HISTORY: cough, vomiting, LLQ pain x 1 week. TECHNIQUE: Imaging Protocol: Axial computed tomography images with coronal and sagittal reformatted images were created and reviewed CONTRAST MATERIAL: Intravenous: Omnipaque 350 Contrast volume:80 mL Oral: None COMPARISON: CT RENAL COLIC WO CONTRAST from 09/16/[address] CHEST HIGH RESOLUTION from 08/30/2024 FINDINGS: CHEST: LUNGS: There are multiple foci of patchy infiltrate in both lower lobes, somewhat more prominent on the left side but significant bilaterally. There is relative sparing of the upper lobes and right middle lobe as well as the left lung lingular segment. There are no pleural effusions. No significant findings in the trachea and mainstem bronchi.. No central pulmonary emboli identified. MEDIASTINUM: There is no hilar nor mediastinal adenopathy. Visualized thyroid unremarkable. CARDIAC: Heart size is normal. There is no pericardial effusion.Caliber of the thoracic aorta is within normal limits. No dissection. OSSEOUS: No significant osseous lesions.No shift of the interventricular septum.. ABDOMEN: There is no ascites. LIVER: Liver size is prominent and liver is very hypodense implying severe steatosis. This was not evident in 2016. There no discrete focal hepatic lesions nor dilatation of intrahepatic ducts. No evidence of Budd-Chiari thrombosis intrahepatic veins nor of the intrahepatic IVC and intrahepatic portal veins are also patent. GALLBLADDER/BILIARY: The gallbladder is mildly distended but not edematous and does not contain radiopaque calculi. The CBD is not dilated. PANCREAS: No evidence of pancreatic mass nor dilatation of the pancreatic duct. SPLEEN: Spleen is not enlarged. There are no intrasplenic lesions. Splenic and portal veins are patent. ADRENALS: There are no significant adrenal masses. KIDNEYS: No calculi nor hydronephrosis. No solid renal masses. No cysts evident. ABDOMINAL AORTA: Abdominal aorta is not enlarged. LYMPH NODES: There is no retroperitoneal nor paraaortic adenopathy. ABDOMINAL WALL: No evidence of significant anterior abdominal wall nor inguinal hernia. GI: There is no evidence of bowel obstruction.No free air. PELVIS: LYMPH NODES: There is no intrapelvic nor inguinal adenopathy. GI: There is radiopaque material in the cecum. No evidence of appendicitis. There is radiopaque material within the sigmoid. No evidence of sigmoid diverticular disease. Mild wall thickening which may be due to incomplete distension versus subtle colitis in the sigmoid. URINARY BLADDER: There is mild uniform thickening of the urinary bladder wall. No gas within the bladder lumen. No intraluminal calculi nor clots nor masses. REPRODUCTIVE: Prostate size normal. Seminal vesicles are slightly prominent and hypodense but unchanged from 2016. there is no obturator nor other intrapelvic adenopathy. There is no free fluid in the dependent aspect of the pelvis. OSSEOUS: No fractures. No significant osseous lesions. Sacroiliac joints appear unremarkable. Spina bifida occulta noted at the S1 level, unchanged. No significant osseous lesions. No disc space narrowing nor obvious abnormality in the thoracic and lumbar vertebrae and sacrum. No disc height loss nor endplate destruction.. No listhesis. IMPRESSION: 1. There are significant patchy infiltrates in both lower lobes, somewhat more prominent on the left side. There are no pleural effusions and no intrathoracic adenopathy. 2. Hepatomegaly and prominent hepatic steatosis. No discrete focal hepatic lesions. Normal spleen size. No ascites. 3. Somewhat distended gallbladder lumen. No calcified gallstones noted. No gallbladder wall edema nor dilatation of the CBD. 4. Other findings as above. Labs 02/13/25 14:53 02/13/25 19:38 Labs: Laboratory Results - last 24 hr 02/13/25 02/13/25 02/13/25 14:53 14:58 16:54 WBC 13.85 H RBC 4.63 Hgb 13.8 Hct 40.4 MCV 87 MCH 29.8 MCHC 34.2 RDW 13.0 Plt Count 149 MPV 11.2 H Immature Gran % 0.5 Neutrophils % 89.9 Lymphocytes % 5.6 Monocytes % 3.5 Eosinophils % 0.0 Basophils % 0.5 Nucleated RBC % 0.0 Absolute Neutrophils 12.45 H Absolute Lymphocytes 0.78 L Absolute Monocytes 0.48 Absolute Eosinophils 0.00 Absolute Basophils 0.07 PT 10.7 INR 1.1 APTT 26.1 VBG pH 7.42 H VBG pCO2 41 VBG pO2 41 VBG HCO3 27 VBG Total CO2 25 VBG O2 Saturation 72 VBG Base Excess 2 VBG Lactate 1.5 Sodium 130 L Potassium 3.6 Chloride 87 L Carbon Dioxide 18.2 L Anion Gap 24.8 H BUN 10 Creatinine 0.9 Est GFR (CKD-EPI 2020) 119.31 Glucose 134 H Calcium 10.5 H Phosphorus 4.7 Cancelled Magnesium 2.2 Total Bilirubin 1.4 H AST 317 H ALT 304 H Alkaline Phosphatase 540 H Ammonia Creatine Kinase 457 H Total Protein 9.4 H Albumin 4.0 Lipase 662 H Acetaminophen < 2 Ethyl Alcohol 10.5 H 02/13/25 17:43 WBC RBC Hgb Hct MCV MCH MCHC RDW Plt Count MPV Immature Gran % Neutrophils % Lymphocytes % Monocytes % Eosinophils % Basophils % Nucleated RBC % Absolute Neutrophils Absolute Lymphocytes Absolute Monocytes Absolute Eosinophils Absolute Basophils PT INR APTT VBG pH VBG pCO2 VBG pO2 VBG HCO3 VBG Total CO2 VBG O2 Saturation VBG Base Excess VBG Lactate Sodium Potassium Chloride Carbon Dioxide Anion Gap BUN Creatinine Est GFR (CKD-EPI 2020) Glucose Calcium Phosphorus Magnesium Total Bilirubin AST ALT Alkaline Phosphatase Ammonia < 10 L Creatine Kinase Total Protein Albumin Lipase Acetaminophen Ethyl Alcohol Last Vital Signs Temp 36.8 C 02/13/25 14:19 Pulse 120 H 02/13/25 18:40 Resp 13 02/13/25 18:40 BP 129/96 H 02/13/25 18:30 Pulse Ox 96 02/13/25 18:40 PAWSS Have you Been Recently Intoxicated or Drunk Within the Last 30 days?: Yes Have you Ever Experienced Previous Episodes of Alcohol Withdrawal?: Yes Have you ever Experienced Withdrawal Seizures?: Yes Have you ever Experienced Delirium Tremens(DT)s?: Yes Have you ever undergone Alcohol Rehabilitation Treatment (i.e, inpt ot outpatient treatment programs)?: Yes Have you ever Experienced Blackouts?: Yes Have you ever Combined Alcohol with other Downers within the last 90 days?: No Have you ever Combined Alcohol with any other Substance of Abuse during the last 90 days?: No Positive Blood Alcohol level on Presentation? [PCS.BAL]: Yes Evidence of Increased Autonomic Activity (i.e. HR>120, tremor, sweating, agitation, nausea)?: Yes Result: 8 Time Spent Time spent with Patient: >75 minutes Time was spent: preparing to see the patient(eg.review tests), obtaining and/or reviewing separately otained hiistory, ordering medications,tests, procedures, referring, communicating with other health field care manager, indepentently interpreting results and care coordination
--- NOTE | 2025-02-13 19:45 | W.EDPROG ---
Date of service: 02/13/25 Time of Service: 19:45 Medical Decision Making Care was accepted from [facility] nurse practitioner as an alcohol withdrawal seizure patient had received phenobarb and Ativan for a witnessed seizure in the emergency department tonic-clonic lasting 1 minute. On assessment patient is postictal but responsive he is alert and oriented x 2 slow to respond consistent with seizure no visible sign of trauma, abdomen mildly tender mucous membranes no meningismus pupils equal round reactive to light and accommodation. I spoke with patient's caregiver, his grandfather who he lives with and tells me that patient has been drinking between 20 and 30 ounces sometimes less of beer since October. He is not drinking heavily like he used to do and sometimes he only has 15 to 20 ounces of beer. Patient states this is secondary to nausea and vomiting which has been intermittent for him. He states that he is unable to ambulate secondary to weakness and unsteady gait and this has been for about 3 months. He states he was seen in [place] by his doctor and he was started on hydroxyzine and started feeling much worse at that time. He was taking hydroxyzine 75 mg 3 times daily. He states he self discontinued this 2 days ago but feels worse despite this. Patient is quite tired, he is falling asleep several times at we are talking but easily awakes at the sound of his voice. I ordered a CT head secondary to the seizure and confusion and there is no evidence of acute abnormality per radiology interpretation of my review. I subsequently ordered an ammonia blood cultures lactate VBG after reviewing labs with significant dehydration and elevated bicarb and gap, VBG is not grossly abnormal ammonia within normal limits magnesium 2.[address] chest shows evidence of multifocal pneumonia we will treat with ceftriaxone and doxycycline and continue to monitor on telemetry. Patient was notably tachycardic this is impure improved dramatically after 2 L of NS and continued monitoring. Patient did receive 260 mg of phenobarbital will discontinue the phenobarb at this time as I do not suspect or have lower suspicion that this is an alcohol withdrawal seizure. I suspect patient may have an element of Warnicke's encephalopathy that has been progressive. He was evaluated by neurology as his case is not straightforward and we talked about performing a lumbar puncture however neurologist feels that as patient does have an obvious source of infection holding off on LP and potentially ordering an MR RI with and without contrast tomorrow and LP as needed if patient is not improving although he shown that he is improving at this time. So we will hold phenobarb will continue performing CIWA's and reinitiate phenobarb only if patient has a positive CIWA. He is resting comfortably in the room without a notable CIWA at this time. Neurology recommended Ativan as needed for recurrent seizures EEG. Case was discussed with admitting hospitalist who admit to their service Quality:[facility] Health Related Social Needs: No Data to Display Critical Care Time Critical Care Time Attestation: 45 minutes of critical care time secondary to alteration minutes mental status likely seizure with postictal state with acute dehydration multifocal pneumonia requiring CTs, neurology consultation and admission to the IVU ICU, diagnostic lab interpretation and review fluid resuscitation and IV antibiotics Discharge Plan Disposition Patient Disposition: Admit to [facility] Discharge Details Clinical Impression: Seizure, Alcoholism, Acute dehydration, Metabolic encephalopathy, Pneumonia Primary Care Provider: Hernesto [facility] ED Provider: Majo Ordoñez Olanta Meds and New Rx's Prescriptions: No Action trazodone 100 mg tablet 300 mg PO .pm Qty: 90 6RF Rx Instructions: 300 mg pm multivitamin [Multiple Vitamins] Tablet 1 tab PO DAILY Qty: 30 0RF thiamine mononitrate (vit B1) [Vitamin B-1 (mononitrate)] 100 mg Tablet 100 mg PO DAILY Qty: 30 0RF folic acid 1 mg Tablet 1 mg PO DAILY Qty: 30 0RF buprenorphine-naloxone [Suboxone] 12-3 mg film 1 film sublingual DAILY Patient Comments: PLACE ONE FILM UNDER THE TONGUE AND ALLOW TO DISSOLVE ONCE DAILY buprenorphine-naloxone [Suboxone] 2-0.5 mg film 1 film sublingual DAILY Patient Comments: PLACE ONE FILM UNDER THE TONGUE AND ALLOW TO DISSOLVE ONCE DAILY hydroxyzine HCl 25 mg tablet 25 mg PO TID
[2025-02-13 20:00] LABS: Anion Gap 8.5 mmol/L (3-11); BUN 10 mg/dL (7-18); CO2 27.5 mmol/L (21.0-32.0); CREATININE 0.6 mg/dL (0.70-1.30); Chloride 94 mmol/L (98-107); Estimated GFR 134.85 (mL/min/1.73m2); Glucose 115 mg/dL (74-106); PHOSPHORUS 2.7 mg/dL (2.6-4.7); Potassium 3.6 mmol/L (3.5-5.1); Sodium 130 mmol/L (136-145)
[2025-02-13 20:05] LABS: ESR 71 mm/hr (0-15)
[2025-02-13 20:10] LABS: C-Reactive Protein 4.84 mg/dL (<or=0.5)
[2025-02-13] MEDS: Enoxaparin 40 MG/0.4 ML SYR SC (20:41)
[2025-02-13] MEDS: traZODone 100 MG TAB 300 MG PO (22:26)
[2025-02-13] MEDS: THIAMINE 500 MG in Normal Saline 100 ML 200 MG IVPB (22:27)
[2025-02-13 22:51] LABS: Anion Gap 8.8 mmol/L (3-11); BUN 9 mg/dL (7-18); CO2 26.2 mmol/L (21.0-32.0); CREATININE 0.6 mg/dL (0.70-1.30); Calcium 8.5 mg/dL (8.5-10.1); Chloride 96 mmol/L (98-107); Estimated GFR 134.85 (mL/min/1.73m2); Glucose 120 mg/dL (74-106); Potassium 3.5 mmol/L (3.5-5.1); Sodium 131 mmol/L (136-145)
[2025-02-13] MEDS: Normal Saline 1,000 ML 150 ML IV (23:49)
[2025-02-14] VITALS (21 sets, daily range): BP systolic 105–127; BP diastolic 68–88; PULSE 75–160; RESP 9–17; TEMP 36.7–37.2; O2SAT 92–98
--- NOTE | 2025-02-14 00:54 | W.PC.ACHO ---
Registration Status: Primary Language: Preferred Language: ED Information & Data Chief Complaint Abd Prob 02/13/25 15:08 Chief Complaint Abd Prob 02/13/25 14:48 Other Complaint Nausea/Vomit/Diar 02/13/25 14:19 Triage Note Pt states n/v/abd pain x 1 02/13/25 14:19 week LLQ. Diaphoretic. Tachycardic. Does state he is a drinker but has been unable to drink because of the vomiting. Also c/o a cough Medical / Surgical History (Last Updated 02/13/25 @ 19:54 by Vega Lackey) Alcohol withdrawal (Last Reviewed 02/13/25 @ 19:42 by Vega Lackey) Fracture, Open Treatment Most Recent Vital Signs Temperature 37.2 C 02/13/25 21:13 Temperature Source Temporal Artery Scan 02/13/25 21:13 Pulse 103 H 02/13/25 20:10 Pulse 100 H 02/13/25 20:10 Respiratory Rate 14 02/13/25 20:10 Respiratory Effort Normal 02/13/25 21:13 Respiratory Depth Normal 02/13/25 21:13 Respiratory Pattern Normal 02/13/25 21:13 Blood Pressure 123/84 02/13/25 20:00 Blood Pressure Mean 96 02/13/25 20:00 Blood Pressure Position Supine 02/13/25 14:19 Pulse Oximetry 97 02/13/25 20:10 Respiratory End-tidal CO2 32 02/13/25 15:40 Oxygen Delivery Method Room Air 02/13/25 14:19 Oxygen Flow Rate 0 02/13/25 14:19 Allergies Sulfa (Sulfonamide Antibiotics) Allergy (Unknown, Verified 02/13/25 15:11) Hives Precautions Isolation Seizure precaution 02/13/25 15:08 Active Medications Generic Name Dose Route Start Last Admin Trade Name Freq PRN Reason Stop Dose Admin Enoxaparin Sodium 40 mg 02/13/25 19:00 02/13/25 20:41 Enoxaparin 40 Mg/0.4 Ml Syr SC 40 mg Q24H JUAN ALBERTO Administration Sodium Chloride 1,000 mls @ 150 mls/hr 02/13/25 18:15 02/13/25 23:49 Saline 1000ml Bag IV 150 mls/hr INFUSION JUAN ALBERTO Administration Thiamine HCl 500 mg/ Sodium 105 mls @ 200 mls/hr 02/13/25 22:00 02/13/25 23:01 Chloride IVPB 02/16/25 14:32 Infused Q8H JUAN ALBERTO Infusion Iohexol 100 ml 02/13/25 15:30 02/13/25 15:19 Omnipaque 350 Mg/Ml 100 Ml Btl IJ 03/15/25 23:59 80 ml DIRECTED JUAN ALBERTO Administration Sodium Chloride 50 ml 02/13/25 15:30 02/13/25 15:20 Normal Saline - Diluent 50 Ml Vial IJ 50 ml .FOR DI USE JUAN ALBERTO Administration Trazodone HCl 300 mg 02/13/25 21:30 02/13/25 22:26 Trazodone 100 Mg Tab PO 300 mg HS JUAN ALBERTO Administration IV IV Catheter Type [Right Peripheral IV Antecubital] IV Catheter Gauge [Right 18 Antecubital] Diet Orders Category Date Time Status Regular/Normal [DIET] Nutrition 02/13/25 Dinner Active Diagnostics 02/14/25 02/13/25 02/13/25 Range/Units 05:35 19:38 19:36 WBC Pending (4.4-10.8) 10^3/uL RBC Pending (4.36-5.78) 10^6/uL Hgb Pending (13.5-17.5) g/dL Hct Pending (40.0-50.0) % MCV Pending (80-95) fL MCH Pending (27.0-33.0) pg MCHC Pending (32.0-36.0) % RDW Pending (11.8-14.1) % Plt Count Pending (130-400) 10^3/uL MPV Pending (8.0-11.0) fL Immature Gran % Pending % Neutrophils % Pending % Lymphocytes % Pending % Monocytes % Pending % Eosinophils % Pending % Basophils % Pending % Nucleated RBC % (0.0-0.3) % Absolute Neutrophils Pending (1.2-6.7) 10^3/uL Absolute Lymphocytes Pending (1.2-3.4) 10^3/uL Absolute Monocytes Pending (0.1-0.8) 10^3/uL Absolute Eosinophils Pending (0.0-0.7) 10^3/uL Absolute Basophils Pending (0.0-0.2) 10^3/uL ESR (0-15) mm/hr PT (9.1-11.1) sec INR (0.9-1.1) APTT (20.6-30.2) sec VBG pH (7.31-7.41) VBG pCO2 (41-51) mmHg VBG pO2 mmHg VBG HCO3 (23-28) mmol/L VBG Total CO2 (24-29) mmol/L VBG O2 Saturation % VBG Base Excess (-2-3) mmol/L VBG Lactate (<or=2.0) mmol/L Sodium Pending 130 L (136-145) mmol/L Potassium Pending 3.6 (3.5-5.1) mmol/L Chloride Pending 94 L (98-107) mmol/L Carbon Dioxide Pending 27.5 (21.0-32.0) mmol/L Anion Gap Pending 8.5 (3-11) mmol/L BUN Pending 10 (7-18) mg/dL Creatinine Pending 0.6 L (0.70-1.30) mg/dL Est GFR (CKD-EPI 2020) Pending 134.85 (mL/min/1.73m2) Glucose Pending 115 H (74-106) mg/dL Calcium Pending 9.0 (8.5-10.1) mg/dL Phosphorus 2.7 (2.6-4.7) mg/dL Magnesium (1.8-2.4) mg/dL Total Bilirubin Pending (0.2-1.0) mg/dL AST Pending (15-37) U/L ALT Pending (16-63) U/L Alkaline Phosphatase Pending (46-116) U/L Ammonia (11-32) umol/L Creatine Kinase (39-308) U/L C-Reactive Protein (<or=0.5) mg/dL Total Protein Pending (6.4-8.2) g/dL Albumin Pending (3.4-5.0) g/dL Lipase (<78) U/L Whole Bld Vitamin B1 U Noroxymorphone LCMSMS Urine Opiates Screen Ur Buprenorphine Pending Ur Norbuprenorphine Pending U Noroxycodone LC/MS/MS Ur Oxycodone LC/MS/MS Ur Oxycodone Interp Ur Oxymorphone LC/MS/MS U Methadone Metabolites Acetaminophen (10-30) ug/mL Urine Barbiturates Ur Phencyclidine Scrn Ur Amphetamines Screen U Benzodiazepines Scrn Urine Cocaine Screen Ur THC Screen Chain of Custody Urine Alcohol Ethyl Alcohol (<10) mg/dL Urine Xylazine 02/13/25 02/13/25 02/13/25 Range/Units 18:19 17:43 16:54 WBC (4.4-10.8) 10^3/uL RBC (4.36-5.78) 10^6/uL Hgb (13.5-17.5) g/dL Hct (40.0-50.0) % MCV (80-95) fL MCH (27.0-33.0) pg MCHC (32.0-36.0) % RDW (11.8-14.1) % Plt Count (130-400) 10^3/uL MPV (8.0-11.0) fL Immature Gran % % Neutrophils % % Lymphocytes % % Monocytes % % Eosinophils % % Basophils % % Nucleated RBC % (0.0-0.3) % Absolute Neutrophils (1.2-6.7) 10^3/uL Absolute Lymphocytes (1.2-3.4) 10^3/uL Absolute Monocytes (0.1-0.8) 10^3/uL Absolute Eosinophils (0.0-0.7) 10^3/uL Absolute Basophils (0.0-0.2) 10^3/uL ESR (0-15) mm/hr PT (9.1-11.1) sec INR (0.9-1.1) APTT (20.6-30.2) sec VBG pH 7.42 H (7.31-7.41) VBG pCO2 41 (41-51) mmHg VBG pO2 41 mmHg VBG HCO3 27 (23-28) mmol/L VBG Total CO2 25 (24-29) mmol/L VBG O2 Saturation 72 % VBG Base Excess 2 (-2-3) mmol/L VBG Lactate 1.5 (<or=2.0) mmol/L Sodium (136-145) mmol/L Potassium (3.5-5.1) mmol/L Chloride (98-107) mmol/L Carbon Dioxide (21.0-32.0) mmol/L Anion Gap (3-11) mmol/L BUN (7-18) mg/dL Creatinine (0.70-1.30) mg/dL Est GFR (CKD-EPI 2020) (mL/min/1.73m2) Glucose (74-106) mg/dL Calcium (8.5-10.1) mg/dL Phosphorus (2.6-4.7) mg/dL Magnesium (1.8-2.4) mg/dL Total Bilirubin (0.2-1.0) mg/dL AST (15-37) U/L ALT (16-63) U/L Alkaline Phosphatase (46-116) U/L Ammonia < 10 L (11-32) umol/L Creatine Kinase (39-308) U/L C-Reactive Protein (<or=0.5) mg/dL Total Protein (6.4-8.2) g/dL Albumin (3.4-5.0) g/dL Lipase (<78) U/L Whole Bld Vitamin B1 U Noroxymorphone LCMSMS Pending Urine Opiates Screen Ur Buprenorphine Ur Norbuprenorphine U Noroxycodone LC/MS/MS Pending Ur Oxycodone LC/MS/MS Pending Ur Oxycodone Interp Pending Ur Oxymorphone LC/MS/MS Pending U Methadone Metabolites Acetaminophen (10-30) ug/mL Urine Barbiturates Ur Phencyclidine Scrn Ur Amphetamines Screen U Benzodiazepines Scrn Urine Cocaine Screen Ur THC Screen Chain of Custody Urine Alcohol Ethyl Alcohol (<10) mg/dL Urine Xylazine Pending 02/13/25 02/13/25 02/13/25 Range/Units 16:32 14:58 14:53 WBC 13.85 H (4.4-10.8) 10^3/uL RBC 4.63 (4.36-5.78) 10^6/uL Hgb 13.8 (13.5-17.5) g/dL Hct 40.4 (40.0-50.0) % MCV 87 (80-95) fL MCH 29.8 (27.0-33.0) pg MCHC 34.2 (32.0-36.0) % RDW 13.0 (11.8-14.1) % Plt Count 149 (130-400) 10^3/uL MPV 11.2 H (8.0-11.0) fL Immature Gran % 0.5 % Neutrophils % 89.9 % Lymphocytes % 5.6 % Monocytes % 3.5 % Eosinophils % 0.0 % Basophils % 0.5 % Nucleated RBC % 0.0 (0.0-0.3) % Absolute Neutrophils 12.45 H (1.2-6.7) 10^3/uL Absolute Lymphocytes 0.78 L (1.2-3.4) 10^3/uL Absolute Monocytes 0.48 (0.1-0.8) 10^3/uL Absolute Eosinophils 0.00 (0.0-0.7) 10^3/uL Absolute Basophils 0.07 (0.0-0.2) 10^3/uL ESR 71 H (0-15) mm/hr PT 10.7 (9.1-11.1) sec INR 1.1 (0.9-1.1) APTT 26.1 (20.6-30.2) sec VBG pH (7.31-7.41) VBG pCO2 (41-51) mmHg VBG pO2 mmHg VBG HCO3 (23-28) mmol/L VBG Total CO2 (24-29) mmol/L VBG O2 Saturation % VBG Base Excess (-2-3) mmol/L VBG Lactate (<or=2.0) mmol/L Sodium 130 L (136-145) mmol/L Potassium 3.6 (3.5-5.1) mmol/L Chloride 87 L (98-107) mmol/L Carbon Dioxide 18.2 L (21.0-32.0) mmol/L Anion Gap 24.8 H (3-11) mmol/L BUN 10 (7-18) mg/dL Creatinine 0.9 (0.70-1.30) mg/dL Est GFR (CKD-EPI 2020) 119.31 (mL/min/1.73m2) Glucose 134 H (74-106) mg/dL Calcium 10.5 H (8.5-10.1) mg/dL Phosphorus Cancelled 4.7 (2.6-4.7) mg/dL Magnesium 2.2 (1.8-2.4) mg/dL Total Bilirubin 1.4 H (0.2-1.0) mg/dL AST 317 H (15-37) U/L ALT 304 H (16-63) U/L Alkaline Phosphatase 540 H (46-116) U/L Ammonia (11-32) umol/L Creatine Kinase 457 H (39-308) U/L C-Reactive Protein 4.84 H (<or=0.5) mg/dL Total Protein 9.4 H (6.4-8.2) g/dL Albumin 4.0 (3.4-5.0) g/dL Lipase 662 H (<78) U/L Whole Bld Vitamin B1 Pending U Noroxymorphone LCMSMS Urine Opiates Screen Ur Buprenorphine Ur Norbuprenorphine U Noroxycodone LC/MS/MS Ur Oxycodone LC/MS/MS Ur Oxycodone Interp Ur Oxymorphone LC/MS/MS U Methadone Metabolites Acetaminophen < 2 (10-30) ug/mL Urine Barbiturates Ur Phencyclidine Scrn Ur Amphetamines Screen U Benzodiazepines Scrn Urine Cocaine Screen Ur THC Screen Chain of Custody Urine Alcohol Ethyl Alcohol 10.5 H (<10) mg/dL Urine Xylazine 02/13/25 02/13/25 Range/Units 14:49 10:30 WBC (4.4-10.8) 10^3/uL RBC (4.36-5.78) 10^6/uL Hgb (13.5-17.5) g/dL Hct (40.0-50.0) % MCV (80-95) fL MCH (27.0-33.0) pg MCHC (32.0-36.0) % RDW (11.8-14.1) % Plt Count (130-400) 10^3/uL MPV (8.0-11.0) fL Immature Gran % % Neutrophils % % Lymphocytes % % Monocytes % % Eosinophils % % Basophils % % Nucleated RBC % (0.0-0.3) % Absolute Neutrophils (1.2-6.7) 10^3/uL Absolute Lymphocytes (1.2-3.4) 10^3/uL Absolute Monocytes (0.1-0.8) 10^3/uL Absolute Eosinophils (0.0-0.7) 10^3/uL Absolute Basophils (0.0-0.2) 10^3/uL ESR (0-15) mm/hr PT (9.1-11.1) sec INR (0.9-1.1) APTT (20.6-30.2) sec VBG pH (7.31-7.41) VBG pCO2 (41-51) mmHg VBG pO2 mmHg VBG HCO3 (23-28) mmol/L VBG Total CO2 (24-29) mmol/L VBG O2 Saturation % VBG Base Excess (-2-3) mmol/L VBG Lactate (<or=2.0) mmol/L Sodium 131 L (136-145) mmol/L Potassium 3.5 (3.5-5.1) mmol/L Chloride 96 L (98-107) mmol/L Carbon Dioxide 26.2 (21.0-32.0) mmol/L Anion Gap 8.8 (3-11) mmol/L BUN 9 (7-18) mg/dL Creatinine 0.6 L (0.70-1.30) mg/dL Est GFR (CKD-EPI 2020) 134.85 (mL/min/1.73m2) Glucose 120 H (74-106) mg/dL Calcium 8.5 (8.5-10.1) mg/dL Phosphorus (2.6-4.7) mg/dL Magnesium (1.8-2.4) mg/dL Total Bilirubin (0.2-1.0) mg/dL AST (15-37) U/L ALT (16-63) U/L Alkaline Phosphatase (46-116) U/L Ammonia (11-32) umol/L Creatine Kinase (39-308) U/L C-Reactive Protein (<or=0.5) mg/dL Total Protein (6.4-8.2) g/dL Albumin (3.4-5.0) g/dL Lipase (<78) U/L Whole Bld Vitamin B1 U Noroxymorphone LCMSMS Urine Opiates Screen Pending Ur Buprenorphine Ur Norbuprenorphine U Noroxycodone LC/MS/MS Ur Oxycodone LC/MS/MS Ur Oxycodone Interp Ur Oxymorphone LC/MS/MS U Methadone Metabolites Pending Acetaminophen (10-30) ug/mL Urine Barbiturates Pending Ur Phencyclidine Scrn Pending Ur Amphetamines Screen Pending U Benzodiazepines Scrn Pending Urine Cocaine Screen Pending Ur THC Screen Pending Chain of Custody Pending Urine Alcohol Pending Ethyl Alcohol (<10) mg/dL Urine Xylazine 02/13/25 22:30 Blood Culture - Pending Blood 02/13/25 14:53 Blood Culture - Pending Blood Intake and Output - 24 Hour Total 02/13/25 14:15 thru 02/13/25 23:50 Intake Total 3266.2 Balance 3266.2 Weight 53.9 kg Intake: IV 3266.2 Falls Risk Assessment History of Falls No History 02/13/25 21:13 Contributing Factors Impairments,Medications 02/13/25 21:13 Ambulatory Aids Independent 02/13/25 21:13 Tubes/Lines With any additional score 02/13/25 21:13 Gait Evaluation W/any additional score 02/13/25 21:13 Cognition Cognitive impairment 02/13/25 21:13 Fall Total Score 61 02/13/25 21:13 Level of Risk High Risk 02/13/25 21:13 Problems (Last Updated 02/13/25 @ 19:54 by Vega Lackey) Pneumonia (Acute) Hyperemesis (Acute) Hypopyrexia (Acute) Acute dehydration (Acute) Depression (Chronic) Polysubstance abuse (Chronic) Attention deficit disorder (Chronic 04/15/18) Alcoholism (Chronic 08/15/17) Notes 02/13/25 14:59 Respiratory by Julia Bates 02/13/2025 Called to ED, upon arrival pt had just had a seizure per MD TRINA at bedside. No interventions from RT needed at this time, pt is maintaining his airway.. Ambu-bag, suction, nasal airway, oral airway set up at bedside; ETCO2 cannula placed and emergency intubation go bag at bedside. Initialized on 02/13/25 14:59 - END OF NOTE v v v v v v v v v Sending and/or Receiving Nurses: Please use comment section below to note any information pertinent to the patient hand-off not included above. Information / Comments: Report received from: KIM Fuentes
[2025-02-14 01:19] LABS: Bilirubin Small (Negative); Blood Negative (Negative); Clarity Clear (Clear); Glucose Negative (Negative); Ketones 80 mg/dL (Negative); Leukocyte Esterase Negative (Negative); Nitrite Negative (Negative); Specific Gravity 1.015 (1.005-1.025); pH 6.5 (5-8)
[2025-02-14 01:27] LABS: Bacteria Rare HPF (Negative); C & S Indicated? No; Casts 0-2 Hyaline LPF (Negative); Crystals Negative HPF (Negative); Epithelial Cells Negative HPF (Negative); Mucus Trace (Negative); RBC 0-2 HPF (0-2)
[2025-02-14 01:32] LABS: *AMPHETAMINES SCREEN URINE Negative (Negative); *BARBITURATES SCREEN URINE Positive (Negative); *BENZODIAZEPINES SCREEN URINE Negative (Negative); Cannabinoids THC Negative (Negative); Cocaine Screen,Urine Negative (Negative); METHADONE URINE SCREEN Negative (Negative); OPIATES URINE SCREEN Negative (Negative)
[2025-02-14 01:59] LABS: Tricyclic Antidepressants Negative (Negative)
[2025-02-14] MEDS: THIAMINE 500 MG in Normal Saline 100 ML 200 MG IVPB ×3 (05:44→22:47)
[2025-02-14 06:01] LABS: Abs Immature Grans 0.04 10^3/uL (0.0-0.06); Absolute Basophil Count 0.04 10^3/uL (0.0-0.2); Absolute Eosinophil Count 0.04 10^3/uL (0.0-0.7); Absolute Lymphocyte Count 0.71 10^3/uL (1.2-3.4); Absolute Neutrophil Count 8.29 10^3/uL (1.2-6.7); Basophils % 0.4 %; Eosinophils % 0.4 %; HCT 30.6 % (40.0-50.0); HGB 10.6 g/dL (13.5-17.5); Immature Grans % 0.4 %; Lymphocytes % 7.4 %; MCHC 34.6 % (32.0-36.0); MCV 87 fL (80-95); MPV 11.4 fL (8.0-11.0); Monocytes % 5.2 %; Neutrophils % 86.2 %; RBC 3.53 10^6/uL (4.36-5.78); RDW 12.8 % (11.8-14.1); RDW-SD 40.4 fL; WBC 9.62 10^3/uL (4.4-10.8)
[2025-02-14] MEDS: PHENobarbital 130 MG/ML VIAL IVP ×5 (06:03→17:29)
[2025-02-14 06:16] LABS: ALT 170 U/L (16-63); AST 152 U/L (15-37); Albumin 2.6 g/dL (3.4-5.0); Alkaline Phosphatase 324 U/L (46-116); BUN 6 mg/dL (7-18); Bilirubin, Total 1.2 mg/dL (0.2-1.0); CREATININE 0.5 mg/dL (0.70-1.30); Calcium 8.6 mg/dL (8.5-10.1); Chloride 99 mmol/L (98-107); Estimated GFR 142.48 (mL/min/1.73m2); Glucose 95 mg/dL (74-106); Potassium 3.3 mmol/L (3.5-5.1); Sodium 133 mmol/L (136-145); Total Protein 6.3 g/dL (6.4-8.2)
[2025-02-14 06:24] LABS: Diff Comment Diff Reviewed; Platelet Count 97 10^3/uL (130-400); RBC Morphology Normal
[2025-02-14] MEDS: Normal Saline 1,000 ML 150 ML IV ×2 (06:26→15:22)
--- NOTE | 2025-02-14 08:00 | DI.MRI_ITS ---
Exam(s) MR BRAIN WO/W EXAM: MR BRAIN WO/W CLINICAL HISTORY: New Onset Seizures TECHNIQUE: Multiplanar multisequence MRI of the brain was performed. CONTRAST MATERIAL: IV Contrast: 10 mL of Dotarem contrast administered. COMPARISON: MR MR BRAIN WO/W from 11/18/[address] HEAD WO from 02/13/2025 FINDINGS: VENTRICLES AND EXTRA AXIAL SPACES: Normal in size and morphology for the patient's age. HEMORRHAGE: None. CEREBRAL PARENCHYMA: No focus of restricted diffusion to suggest acute infarct. No space-occupying le los identified. The temporal lobes are symmetric. There is normal signal. MIDLINE SHIFT: None. BRAINSTEM/CEREBELLUM: Normal. CALVARIUM: Normal. ENHANCEMENT: No suspicious enhancement identified. VISUALIZED PARANASAL SINUSES/MASTOIDS: There is again seen a mucous retention cyst in the left maxill lucille sinus. The remaining visualized paranasal sinuses are clear. BOIS FORTE OF HART: Normal flow void. PITUITARY GLAND: Unremarkable. OTHER FINDINGS: IMPRESSION: Unremarkable MRI of the brain. DATA REPOSITORY:
--- NOTE | 2025-02-14 08:22 | PDOC.CMIN ---
Date of service: 02/14/25 Time of Service: 08:22 Care Management Initial Assmt Initial Assessment Reason for Hospitalization: alcohol withdrawal seizures Functional Status/Living Situation Patient Presentation: Paulie lives with his grandparents in a single family home in [place]. His parents also live in [place] and he has 3 siblings who live locally. Paulie informed CM that his family is fairly close and keep in regular contact with one another. Paulie is not currently employed. He shared that his last job was last summer, working at [employer] He is independent at baseline and does not receive any community services. Paulie was admitted with encephalopathy and seizures. He has had alcohol withdrawal seizures in the past and has decreased his alcohol consumption recently. When CM met with him, Paulie was polite but not very talkative. He was slow to respond to questions and answered with as few words as possible. He is on the phenobarbital protocol and has been scoring 11-13 on the CIWA scale today. Town of Residence: [place] Resides with: Other (grandparents) Significant Other/Family: Local Employment Status: Unemployed Instrumental Activities of Daily Living (ADLs): Independent Medications Medication Management: No Issues/Barriers identified Physical Functioning/Mobility Assistive Device: none Advance Directives Advance Directives: Do you have an Advance Directive: N 05/28/21 10:15 AD On File at [facility]: N 05/28/21 10:15 Date Asked 02/13/25 02/14/25 10:42 AD Date Reviewed COLST On File at [facility] COLST Date Scanned Code Status Resuscitation Status Full Code Portal Pt does not currently have a portal and education provided: Yes Insurance Coverage/Financial Issues Insurance: Medicaid Care Team Visit Care Team Role Provider Type Hernesto Beverly MD Primary Care Provider [facility] STAFF PHYSICIAN Ema Jackson Other Providers WALKING DRAGLINE OILER Addis Galloway Other Providers WALKING DRAGLINE OILER Yolanda Jo Other Providers WALKING DRAGLINE OILER Abram Yip Other Providers OTHER Mary Sheppard RN Other Providers WALKING DRAGLINE OILER Arianna Puente Other Providers WALKING DRAGLINE OILER KINA Martinez Emergency Provider PHYSICIANS E [employer] Nba Puente MD Admit Provider [facility] STAFF PHYSICIAN Attending Provider Discharge Potential Discharge Needs: PCP F/U Appt Anticipated Barriers to Discharge: None Identified Patient/Family Education Needs: Review discharge instructions, discuss Ask Me Three Transportation: Private vehicle Plan: Anticipate Paulie will be discharged home with no new services when medically cleared. He will follow up with his PCP and plan of care and transport with family. CM will follow and continue to support discharge planning. Social Determinants of Health Screening Social Determinants of health last assessed in clinic: 02/13/25 Will the Patient Participate in the Screening?: Unable to obtain Do you worry about having a steady place to live?: no Problems where you live: no known problems In the past 12 months, have you had to go without electric, gas, oil or water in your home?: no Has lack of transportation kept you from medical appointments or from doing things needed for daily living?: no Has anyone in your life made you feel unsafe or unsupported?: no How hard is it for you to pay for the very basics like food, housing, medical care, and heating? Would you say it is:: Not hard at all Do you want help finding or keeping work or a job?: I do not need or want help If for any reason you need help with day-to-day activities such as bathing, preparing meals, shopping, managing finances, etc., do you get the help you need?: I don?t need any help How often do you feel lonely or isolated from those around you?: Never Do you speak a language other than Frisian at home?: No Does the patient want assistance with any of the above?: No Comments: Patient fell asleep after first pair of questions. PFSH All Active Problems (Updated 02/14/25 @ 13:09 by Nba Puente MD) Transaminitis (Acute) Proximal muscle weakness (Acute) Anorexia (Acute) Patient with hyporexia prior to hospitalization 02/13/2025, poor intake for weeks with malnourishment and dehydration. Encephalopathy acute (Acute) Alcohol withdrawal seizure (Acute) Pneumonia (Acute) Metabolic encephalopathy (Acute) Acute dehydration (Acute) Seizure (Acute) Hyperemesis (Acute) Acute dehydration (Acute) History of TB skin testing (Acute) Chronic insomnia (Acute) Hemoptysis (Acute) Rash (Acute) Anxiety disorder (Acute) Anemia (Chronic) Frequent headaches (Acute) Weight loss (Acute) Sensorineural hearing loss (SNHL) of left ear with unrestricted hearing of right ear (Acute) Shoulder pain, right (Acute) Sensation of fullness in left ear (Acute) Chronic headache (Acute) Tobacco abuse (Acute) Hypomagnesemia (Acute) Hypokalemia (Acute) COVID-19 ruled out by laboratory testing (Acute) Depression (Chronic) Exposure to hepatitis C (Acute) serology neg 10/2018 Alteration in patient safety due to identified suicide risk (Acute) Polysubstance abuse (Chronic) History of substance abuse (Chronic 09/09/17) Attention deficit disorder (Chronic 04/15/18) continue adderall as directed Alcoholism (Chronic 08/15/17) start revia Medical History (Updated 02/14/25 @ 13:09 by Nba Puente MD) Alcohol withdrawal Surgical History Fracture, Open Treatment CAROLE ARREOLA; RIGHT DISTAL RADIUS Family History Mother Alcohol abuse History of Father Alcohol abuse history of Sister No problems noted. Son Alcohol abuse history of Asthma Maternal Grandfather , age 76 No problems noted. Social History Smoking/Tobacco Use Status: Current every day Tobacco Type: cigarettes and smokeless tobacco Tobacco: How many years used: 10 Smokeless tobacco user: chewing tobacco (and smoking) Quit status: not considering quitting Second Hand Exposure: Yes Smoking risk assessment performed?: Yes Alcohol Intake: current Alcohol Intake frequency: a few times a month Alcohol type: beer Drug use: Current Sobriety Substance use type: marijuana and crack/cocaine Details: Occasional marijuana, has not used cocaine in x1 week per patients. GIULIANA, RN 11/17/24 Caregiver/Support person: No Household members: family Housing: house Communication Needs: Hard of Hearing Do you need help understanding health information?: Never Pets and animals: No Sexually active: Yes Do you think of yourself as: straight/heterosexual Current gender identity: male What is your relationship status?: refused to answer How often do you talk on the phone with friends or family?: never How often do you get together with friends or relatives?: never How often do you attend mosque or amish services?: decline to answer Do you belong to any clubs or organized social groups?: no Panel score (0-1 are the most socially isolated patients): 0 What type of physical activity do you participate in: none and other Frequency: does not exercise Seatbelt use: sometimes Helmet use: Yes Helmet use: always Drive intox or ride w/intox electric lift truck driver: No Do you feel safe at home: Yes Do you feel safe in your relationship?: Yes
[2025-02-14] MEDS: Folic Acid 1 MG TAB PO (08:45)
[2025-02-14] MEDS: Multivitamin TAB 1 TAB PO (08:45)
[2025-02-14] MEDS: DOXYCYCLINE 100 MG in Normal Saline 100 ML IVPB ×2 (08:45→21:14)
[2025-02-14] MEDS: Buprenorphine/Naloxone 2 mg/0.5 mg FILM 1 EACH SL (09:00)
[2025-02-14] MEDS: Buprenorphine/Naloxone 12 mg/3 mg FILM 1 EACH SL (09:00)
[2025-02-14] MEDS: Acetaminophen 325 MG TAB PO (11:09)
[2025-02-14] MEDS: Gadoterate meglumine 20 ML SYRINGE 10 ML IVP (12:09)
--- NOTE | 2025-02-14 12:49 | W.PM.PROGNOT ---
Date of Service Date of service: 02/14/25 Time of Service: 12:49 Assessment and Plan Assessment and plan (1) Alcohol withdrawal seizure: Start date: 02/13/25 Status: Acute Assessment and plan: This is a 29-year-old gentleman who lives with his grandfather who does supply him with his alcohol being beer recently with decreased drinking since October 2024. He presents with frequent vomiting but also slight abdominal discomfort and diarrhea recently possibly indicating gastroenteritis but appearing to be associated with chronic alcohol use as well. He denies any marijuana use. He did have a tonic-clonic seizure in the ED and has had a history of alcohol withdrawal seizures in the past. He also required intubation years ago for alcohol withdrawal. He will be admitted to the ICU for close observation and phenobarbital protocol without further loading dose but only as needed use. He is encephalopathic with mild delirium but not manifesting hallucinations. There is some concern of other etiologies for his seizure and teleneurology did recommend MRI of the brain with and without contrast. He also recommended lumbar puncture after MRI if patient remains encephalopathic. He was initiated on 2 g of ceftriaxone to be given at high dose until further evaluation of his mental status. He is found also to have bilateral lower lobe infiltrates and doxycycline was initiated. Seizure precaution as per alcohol withdrawal protocol. Teleneurology did not recommend any other antilipid's at this time. They also did not recommend aggressive phenobarbital treatment. They did advise treatment with high-dose thiamine for the possibility of Warnicke's encephalopathy. The patient was recently started on hydroxyzine and Poison Control thought that this was most likely not contributing to his presentation. Close monitoring was recommended as we are doing. He is a full code. 02/14/25 Per medical records, pt was to be on thiamine replacement as an outpatient. I don't think I can get a reliable history on if he has been taking this or not. Would continue with high dose thiamine at this point. (2) Encephalopathy acute: Start date: 02/13/25 Status: Acute Assessment and plan: As above. Further evaluation with MRI of the brain with and without contrast and consider LP. Patient ammonia level was normal though his liver function test were elevated. Doubt hepatic encephalopathy at this time. 02/14/25 UDS is still pending but encephalopathy has essentially resolved (3) Pneumonia: Start date: 02/13/25 Status: Acute Assessment and plan: Bilateral lower lobe pneumonia with patient on high-dose Rocephin for his encephalopathic state but also doxycycline IV was initiated. Patient not hypoxic. 02/14/25 C/w rocephin and doxycylcine. Fever curve and lab work reassuring. Blood cultures pending (4) Acute dehydration: Status: Acute Assessment and plan: IV hydration with patient receiving 2 L of normal saline and now at 150 cc/h normal saline for hydration. Watch for fluid overload. Monitor urine output. 02/14/25 On D51/2NS with electrolytes (5) Hyperemesis: Start date: 02/13/25 Status: Acute Assessment and plan: Patient has reported frequent emesis with nausea and also diarrhea. This may be associated with his alcohol consumption but also gastroenteritis is a possibility. Monitor clinically while rehydrating. Symptomatic treatment. 02/14/25 Continue with antiemetics (6) Hypopyrexia: Start date: 02/13/25 Assessment and plan: Patient does have decreased appetite and decreased intake recently may be associated with his progressive encephalopathy. Monitor as we treat for alcohol withdrawal, encephalopathy and pneumonia. (7) Polysubstance abuse: Status: Chronic Assessment and plan: Urine drug screen for multiple substances. Some of these will be send outs and will not be available immediately. Monitor for withdrawal. Continue Suboxone with patient's VPMS indicating he is receiving his take-home Suboxone on a routine basis and has been compliant up to this hospitalization. (8) Alcoholism: Status: Chronic Assessment and plan: Patient has been drinking less but continues daily beer intake. Long-term sobriety would be best. He did achieve sobriety for years and then rebounded recently. (9) Attention deficit disorder: Status: Chronic Assessment and plan: Patient may be self treating with alcoholism and multiple substances. He is not on treatment for this problem. (10) Depression: Status: Chronic Assessment and plan: Continue outpatient medical therapy. Patient is on trazodone. This also may contribute to his self treating and polysubstance abuse. (11) Proximal muscle weakness: Status: Acute Assessment and plan: Although it would be fairly rare, I believe an evaluation for polymyositis should be pursued in light of muscle weakness, elevated ck, elevated LFT's, insidious onset of disease process. I have also ordered a tick/lyme panel for completeness. CRP/CK/ESR/Aldolase ordered. (12) Transaminitis: Status: Acute Assessment and plan: acute and chronic hepatitis panel pending Subjective Subjective Interval history since last seen: Pt seen and examined in his room this am. POC d/w pt as well as with bedside nurse during ICU huddle. Pt does complain of pain with coughing Exam Narrative Exam Narrative: HEENT: NCAT MMM EOMI PERRLA NECK: NO LAD NO JVD CV: RRR NO MRG LUNGS: CTAB NO AMU ABD: SNDNTBSA EXT: NO CCE MS/NEURO bilat UE: 3/5 bilat hand pronation: 3/5 bilat akshat 3/5 with plantar flexion and dorsiflexion bilat hip: 3/5 hip flexion Objective Last Vital Signs Temp 37.2 C 02/14/25 08:54 Pulse 105 H 02/14/25 06:18 Resp 14 02/14/25 05:01 BP 111/79 02/14/25 06:18 Pulse Ox 93 02/14/25 06:18 Laboratory Results - last 24 hr 02/13/25 02/13/25 02/13/25 10:30 14:53 14:58 WBC 13.85 H RBC 4.63 Hgb 13.8 Hct 40.4 MCV 87 MCH 29.8 MCHC 34.2 RDW 13.0 Plt Count 149 MPV 11.2 H Immature Gran % 0.5 Neutrophils % 89.9 Lymphocytes % 5.6 Monocytes % 3.5 Eosinophils % 0.0 Basophils % 0.5 Nucleated RBC % 0.0 Absolute Neutrophils 12.45 H Absolute Lymphocytes 0.78 L Absolute Monocytes 0.48 Absolute Eosinophils 0.00 Absolute Basophils 0.07 RBC Morphology ESR 71 H PT 10.7 INR 1.1 APTT 26.1 VBG pH VBG pCO2 VBG pO2 VBG HCO3 VBG Total CO2 VBG O2 Saturation VBG Base Excess VBG Lactate Sodium 131 L 130 L Potassium 3.5 3.6 Chloride 96 L 87 L Carbon Dioxide 26.2 18.2 L Anion Gap 8.8 24.8 H BUN 9 10 Creatinine 0.6 L 0.9 Est GFR (CKD-EPI 2020) 134.85 119.31 Glucose 120 H 134 H Calcium 8.5 10.5 H Phosphorus 4.7 Cancelled Magnesium 2.2 Total Bilirubin 1.4 H AST 317 H ALT 304 H Alkaline Phosphatase 540 H Ammonia Creatine Kinase 457 H C-Reactive Protein 4.84 H Total Protein 9.4 H Albumin 4.0 Lipase 662 H Urine Color Urine Clarity Urine pH Ur Specific Matthews Urine Protein Urine Ketones Urine Blood Urine Nitrite Urine Bilirubin Urine Urobilinogen Ur Leukocyte Esterase Urine RBC Urine WBC Ur Epithelial Cells Urine Crystals Urine Bacteria Urine Casts Urine Mucus Ur Culture Indicated? Urine Glucose Urine Opiates Screen Urine Methadone Screen Acetaminophen < 2 Ur Barbiturates Screen Ur Tricyclics Screen Ur Amphetamines Screen U Benzodiazepines Scrn Urine Cocaine Screen Ur THC Screen Ethyl Alcohol 10.5 H 02/13/25 02/13/25 02/13/25 16:54 17:43 19:38 WBC RBC Hgb Hct MCV MCH MCHC RDW Plt Count MPV Immature Gran % Neutrophils % Lymphocytes % Monocytes % Eosinophils % Basophils % Nucleated RBC % Absolute Neutrophils Absolute Lymphocytes Absolute Monocytes Absolute Eosinophils Absolute Basophils RBC Morphology ESR PT INR APTT VBG pH 7.42 H VBG pCO2 41 VBG pO2 41 VBG HCO3 27 VBG Total CO2 25 VBG O2 Saturation 72 VBG Base Excess 2 VBG Lactate 1.5 Sodium 130 L Potassium 3.6 Chloride 94 L Carbon Dioxide 27.5 Anion Gap 8.5 BUN 10 Creatinine 0.6 L Est GFR (CKD-EPI 2020) 134.85 Glucose 115 H Calcium 9.0 Phosphorus 2.7 Magnesium Total Bilirubin AST ALT Alkaline Phosphatase Ammonia < 10 L Creatine Kinase C-Reactive Protein Total Protein Albumin Lipase Urine Color Urine Clarity Urine pH Ur Specific Matthews Urine Protein Urine Ketones Urine Blood Urine Nitrite Urine Bilirubin Urine Urobilinogen Ur Leukocyte Esterase Urine RBC Urine WBC Ur Epithelial Cells Urine Crystals Urine Bacteria Urine Casts Urine Mucus Ur Culture Indicated? Urine Glucose Urine Opiates Screen Urine Methadone Screen Acetaminophen Ur Barbiturates Screen Ur Tricyclics Screen Ur Amphetamines Screen U Benzodiazepines Scrn Urine Cocaine Screen Ur THC Screen Ethyl Alcohol 02/14/25 02/14/25 01:10 05:50 WBC 9.62 RBC 3.53 L Hgb 10.6 L D Hct 30.6 L MCV 87 MCH 30.0 MCHC 34.6 RDW 12.8 Plt Count 97 L MPV 11.4 H Immature Gran % 0.4 Neutrophils % 86.2 Lymphocytes % 7.4 Monocytes % 5.2 Eosinophils % 0.4 Basophils % 0.4 Nucleated RBC % 0.0 Absolute Neutrophils 8.29 H Absolute Lymphocytes 0.71 L Absolute Monocytes 0.50 Absolute Eosinophils 0.04 Absolute Basophils 0.04 RBC Morphology Normal ESR PT INR APTT VBG pH VBG pCO2 VBG pO2 VBG HCO3 VBG Total CO2 VBG O2 Saturation VBG Base Excess VBG Lactate Sodium 133 L Potassium 3.3 L Chloride 99 Carbon Dioxide 27.0 Anion Gap 7.0 BUN 6 L Creatinine 0.5 L Est GFR (CKD-EPI 2020) 142.48 Glucose 95 Calcium 8.6 Phosphorus Magnesium Total Bilirubin 1.2 H AST 152 H ALT 170 H Alkaline Phosphatase 324 H Ammonia Creatine Kinase C-Reactive Protein Total Protein 6.3 L Albumin 2.6 L Lipase Urine Color Yellow Urine Clarity Clear Urine pH 6.5 Ur Specific Matthews 1.015 Urine Protein 100 H Urine Ketones 80 H Urine Blood Negative Urine Nitrite Negative Urine Bilirubin Small H Urine Urobilinogen 2.0 H Ur Leukocyte Esterase Negative Urine RBC 0-2 Urine WBC 3-5 Ur Epithelial Cells Negative Urine Crystals Negative Urine Bacteria Rare Urine Casts 0-2 Hyaline Urine Mucus Trace Ur Culture Indicated? No Urine Glucose Negative Urine Opiates Screen Negative Urine Methadone Screen Negative Acetaminophen Ur Barbiturates Screen Positive A Ur Tricyclics Screen Negative Ur Amphetamines Screen Negative U Benzodiazepines Scrn Negative Urine Cocaine Screen Negative Ur THC Screen Negative Ethyl Alcohol PAWSS Have you Been Recently Intoxicated or Drunk Within the Last 30 days?: Yes Have you Ever Experienced Previous Episodes of Alcohol Withdrawal?: Yes Have you ever Experienced Withdrawal Seizures?: Yes Have you ever Experienced Delirium Tremens(DT)s?: Yes Have you ever undergone Alcohol Rehabilitation Treatment (i.e, inpt ot outpatient treatment programs)?: Yes Have you ever Experienced Blackouts?: Yes Have you ever Combined Alcohol with other Downers within the last 90 days?: No Have you ever Combined Alcohol with any other Substance of Abuse during the last 90 days?: No Positive Blood Alcohol level on Presentation? [PCS.BAL]: Yes Evidence of Increased Autonomic Activity (i.e. HR>120, tremor, sweating, agitation, nausea)?: Yes Result: 8 Time Spent with Patient Time Spent with Patient: 35-49 minutes Time was spent: preparing to see the patient(eg.review tests), obtaining and/or reviewing [facility], ordering medications,tests, procedures, referring, communicating with other health health care specialist, indepentently interpreting results, counseling the patient and care coordination
--- NOTE | 2025-02-14 16:15 | PT.INNT ---
PT Notes Visit Reasons: Seizure Patient approached for PT assessment in a.m. however at MRI and reapproached after lunch in which patient was unable to arouse. Will attempt evaluation on 02/15/2025 with anticipation of patient being more alert.
[2025-02-14] MEDS: cefTRIAXone 2 GM/50 ML BAG IVPB (17:30)
[2025-02-14] MEDS: DEXTROSE 5%-0.45% SALINE 1,000 ML 150 ML IV (21:14)
[2025-02-14] MEDS: traZODone 100 MG TAB 300 MG PO (21:14)
[2025-02-14] MEDS: Enoxaparin 40 MG/0.4 ML SYR SC (21:14)
[2025-02-15] VITALS (28 sets, daily range): BP systolic 106–127; BP diastolic 67–99; PULSE 66–104; RESP 7–22; TEMP 36.5–36.9; O2SAT 94–99
[2025-02-15] MEDS: PHENobarbital 130 MG/ML VIAL IVP ×3 (01:44→06:07)
[2025-02-15] MEDS: DEXTROSE 5%-0.45% SALINE 1,000 ML 150 ML IV (05:18)
[2025-02-15] MEDS: cefTRIAXone 2 GM/50 ML BAG IVPB ×2 (06:06→17:38)
[2025-02-15] MEDS: THIAMINE 500 MG in Normal Saline 100 ML 200 MG IVPB ×3 (06:08→21:54)
[2025-02-15 06:50] LABS: ESR 39 mm/hr (0-15)
[2025-02-15 07:23] LABS: LDH 218 U/L (85-227)
[2025-02-15] MEDS: Normal Saline Flush 10 ML SYR (07:56)
[2025-02-15] MEDS: DOXYCYCLINE 100 MG in Normal Saline 100 ML IVPB ×2 (07:56→20:31)
[2025-02-15] MEDS: Multivitamin TAB 1 TAB PO (07:57)
[2025-02-15] MEDS: Buprenorphine/Naloxone 12 mg/3 mg FILM 1 EACH SL (07:57)
[2025-02-15] MEDS: Buprenorphine/Naloxone 2 mg/0.5 mg FILM 1 EACH SL (07:57)
[2025-02-15] MEDS: Folic Acid 1 MG TAB PO (07:57)
--- NOTE | 2025-02-15 10:02 | CMPROGNOTE_ITS ---
Date of service: 02/15/25 Time of Service: 10:03 Care Management Progress Note Progress Note Text Progress Note Text: Paulie was lying in bed when CM met with him. He stated that he is still not feeling well today, and he feels very weak. Per RN, he has had several family visitors today, which he was happy about. CM discussed recovery from his alcohol use, and he stated that he once was sober for about three years, and his grandparents were a good support to him during that time. He stated that he felt that he would be able to just have a beer, but now he reports that he doesn't think he will be successful with moderation. He stated that he has met with re covery coaches and attended AA, but he doesn't feel that it is a good fit because of the baptist component. CM discussed [facility], which is a secular alternative, and offered to provide some information about the program, which is online, and he was receptive to the information. CM will continue to follow. Discharge Potential Discharge Needs: PCP F/U Appt Anticipated Barriers to Discharge: None Identified Patient/Family Education Needs: Review discharge instructions, discuss Ask Me Three Transportation: Private vehicle Plan: Anticipate Paulie will be discharged home with no new services when medically cleared. He will follow up with his PCP and plan of care and transport with family. CM will follow and continue to support discharge planning. Social Determinants of Health Screening Social Determinants of health last assessed in clinic: 02/13/25 Will the Patient Participate in the Screening?: Unable to obtain Do you worry about having a steady place to live?: no Problems where you live: no known problems In the past 12 months, have you had to go without electric, gas, oil or water in your home?: no Has lack of transportation kept you from medical appointments or from doing things needed for daily living?: no Has anyone in your life made you feel unsafe or unsupported?: no How hard is it for you to pay for the very basics like food, housing, medical care, and heating? Would you say it is:: Not hard at all Do you want help finding or keeping work or a job?: I do not need or want help If for any reason you need help with day-to-day activities such as bathing, preparing meals, shopping, managing finances, etc., do you get the help you need?: I don?t need any help How often do you feel lonely or isolated from those around you?: Never Do you speak a language other than Lao at home?: No Does the patient want assistance with any of the above?: No Comments: Patient fell asleep after first pair of questions.
[2025-02-15 11:29] LABS: Fentanyl Scr w/Rfx Confirm Negative ng/mL (<1)
--- NOTE | 2025-02-15 12:12 | PDOC.EEG_ITS ---
Neurology EEG EEG: [facility] Department of Neurology INPATIENT EEG REPORT Date of Recordin02/15/25 Interpreting Physician: Dr. Indu Adam Reason for study: Paulie Caban is a 29 year-old with known alcoholism who was admitted after presenting with nausea/emesis and poor PO intake with a witnessed GTC in the ER. No further seizure events, but he has had prolonged encephalopathy, now resolved. He is on SIAZ protocol with phenobarbital. Current Medications: Current Medications Acetaminophen (Acetaminophen 325 Mg Tab) 0 mg PO Q4H PRN PRN Last Admin: 02/14/25 11:09 Dose: 650 mg Benzonatate (Benzonatate 200 Mg Cap) 200 mg PO TID PRN PRN PRN Reason: Cough Buprenorphine/Naloxone (Buprenorphine/Naloxone 2 Mg/0.5 Mg Film) 1 each SL DAILY [facility] Last Admin: 02/15/25 07:57 Dose: 1 each Buprenorphine/Naloxone (Buprenorphine/Naloxone 12 Mg/3 Mg Film) 1 each SL DAILY [facility] Last Admin: 02/15/25 07:57 Dose: 1 each Docusate Sodium (Docusate Sodium 100 Mg Cap) 100 mg PO TID PRN PRN Enoxaparin Sodium (Enoxaparin 40 Mg/0.4 Ml Syr) 40 mg SC Q24H [facility] Last Admin: 02/14/25 21:14 Dose: 40 mg Folic Acid (Folic Acid 1 Mg Tab) 1 mg PO DAILY [facility] Last Admin: 02/15/25 07:57 Dose: 1 mg Ceftriaxone Sodium/Dextrose (Rocephin) 2 gm in 50 mls @ 100 mls/hr IVPB Q12H [facility] Last Infusion: 02/15/25 06:54 Dose: Infused Doxycycline Hyclate 100 mg/ (Sodium Chloride) 100 mls @ 100 mls/hr IVPB Q12H [facility] Last Infusion: 02/15/25 09:00 Dose: Infused Thiamine HCl 500 mg/ Sodium (Chloride) 105 mls @ 200 mls/hr IVPB Q8H [facility] Stop: 02/16/25 14:32 Last Infusion: 02/15/25 07:20 Dose: Infused Multivitamins (Multivitamin Tab) 1 tab PO DAILY [facility] Last Admin: 02/15/25 07:57 Dose: 1 tab Ondansetron HCl (Ondansetron 4 Mg/2 Ml Vial) 4 mg IVP Q4H PRN PRN PRN Reason: Nausea / Vomiting Phenobarbital Sodium (Phenobarbital 130 Mg/Ml Vial) 130 mg IVP DIRECTED PRN PRN Reason: for mild anxiety/agitation Last Admin: 02/15/25 06:07 Dose: 130 mg Polyethylene Glycol (Polyethylene Glycol 3350 17 Gm Packet) 17 gm PO DAILY PRN PRN PRN Reason: Constipation Trazodone HCl (Trazodone 100 Mg Tab) 300 mg PO HS JUAN ALBERTO Last Admin: 02/14/25 21:14 Dose: 300 mg METHODS: A 21 channel digitized electroencephalogram was performed in the [facility] Med/Surg Floor or ICU. The 10/20 international system of electrode placement was used and bipolar and referential electrode montages were recorded. In addition to EEG the patient was monitored for EKG and lateral/vertical eye movements. Activation procedures of photic stimulation and hyperventilation were performed if applicable. Video was used during activation procedures and during events where applicable. The duration of the recording was 30 minutes. DESCRIPTION OF EEG: The patient was noted to be awake only during the recording. During maximal wakefulness a 9-Hz posterior background rhythm was present which was well- modulated, symmetrical, reactive to eye opening, and of moderate voltage. With eye opening the background activity changed to a low voltage mixture of alpha, beta, and occasional theta range frequencies. Faster frequencies were present in the bilateral anterior head regions. There was a normal anterior-posterior voltage gradient. No drowsiness or stage II sleep was recorded. The recording was complicated by near constant movement and muscle artifact. Activating Procedures: Photic stimulation was performed which produced a symmetrical posterior driving response at various flash frequencies. Hyperventilation was performed with moderate effort and produced no physiological slowing of the background. EKG: EKG revealed normal sinus rhythm. INTERPRETATION: This EEG is normal during the awake state as well as during photic stimulation and hyperventilation. PRIOR EEG: none CLINICAL CORRELATION: No focal regions of cerebral dysfunction or epileptiform activity was present. No sleep was recorded during the study which reduces the sensitivity of the exam. If seizure remains a part of the differential, consider a repeat sleep- deprived EEG or overnight ambulatory EEG. Epilepsy remains a clinical diagnosis and a normal EEG does not rule out epilepsy. Clinical correlation is advised. Indu Adam MD Date of service: 02/15/25
--- NOTE | 2025-02-15 12:54 | PGE_ITS ---
Date of Service Date of service: 02/15/25 Time of Service: 13:02 Assessment and Plan Assessment and plan (1) Alcohol withdrawal seizure: Start date: 02/13/25 Status: Acute Assessment and plan: Presumed alcohol withdrawal. There is some concern of other etiologies for his seizure, teleneurology recommended MRI of the brain with and without contrast and EEG, both reassuring. On phenobarbital, no recurrence of seizure activity. (2) Encephalopathy acute: Start date: 02/13/25 Status: Acute Assessment and plan: As above. F UDS not revealing, ammonia normal, EEG and MRI reassuring, mental status has normalize, no indication for LP. Continue thiamine for now. (3) Pneumonia: Start date: 02/13/25 Status: Acute Assessment and plan: Bilateral lower lobe pneumonia on admission. C/w rocephin and doxycylcine. (4) Acute dehydration: Status: Acute Assessment and plan: Now taking oral fluids, can stop IV fluids. (5) Hyperemesis: Start date: 02/13/25 Status: Acute Assessment and plan: Patient has reported frequent emesis with nausea and also diarrhea. This is likely associated with his alcohol consumption Continue with symptomatic care (6) Polysubstance abuse: Status: Chronic Assessment and plan: Urine drug screen only showed barbituates (phenobarb), some still pending. Continue suboxone for OUD. (7) Alcoholism: Status: Chronic Assessment and plan: Patient has been drinking less but continues daily beer intake. Long-term sobriety would be best. He did achieve sobriety for years and then rebounded recently. Encourage social support, offer acamprosate on discharge. (8) Depression: Status: Chronic Assessment and plan: Continue outpatient medical therapy. Patient is on trazodone. He was recently restarted on escitalopram at 20mg dose, his weakness started soon after this, so I don't think he should restart. (9) Proximal muscle weakness: Status: Acute Assessment and plan: -CRP and CPK mildly elevated, no h/o muscular disease -This may simply be alcohol related., will follow. -Although it would be fairly rare, evaluation for polymyositis could be considered -tick/lyme panel for completeness. Aldolase pending. (10) Transaminitis: Status: Acute Assessment and plan: Likely alcohol related, acute and chronic hepatitis panel pending, follow Subjective Subjective Patient reports: voiding w/o difficulty; denies diarrhea, nausea, vomiting, shortness of breath or fever Interval history since last seen: Events: Hit hard stop overnight with phenobarbital protocol dose. MRI done 02/14, no abnormalities EEG done 02/15, read normal He is still feeling weak all over. He can barely sit up or support himself on his feet. Not a lot of pain. He has felt this way since he was given a new medication by his psychiatric provider a couple weeks ago (escitalopram 20mg is new per records). He continues to feel anxious. He was hungry and had a Mcgriddle this morning and felt worse after eating. He still feels dizzy/spinning when lifting his head or moving around. Exam Narrative Exam Narrative: GEN: Alert and oriented, thin, NAD HEENT: No nystagums, PERRL, EOMI CV: RRR NO MRG LUNGS: CTAB, normal effot ABD: soft, NT EXT: NO CCE, muscles not tender MS/NEURO: 4/5 strength UE/LE, symmetric Objective Last Vital Signs Temp 36.7 C 02/15/25 03:52 Pulse 82 02/15/25 08:01 Resp 13 02/15/25 08:01 BP 116/99 H 02/15/25 08:01 Pulse Ox 96 02/15/25 08:01 Laboratory Results - last 24 hr 02/15/25 02/15/25 05:50 05:58 ESR 39 H Lactate Dehydrogenase 218 Phenobarbital 27.0 Hep B Core Total Ab Cancelled Hepatitis C Antibody Cancelled PAWSS Have you Been Recently Intoxicated or Drunk Within the Last 30 days?: Yes Have you Ever Experienced Previous Episodes of Alcohol Withdrawal?: Yes Have you ever Experienced Withdrawal Seizures?: Yes Have you ever Experienced Delirium Tremens(DT)s?: Yes Have you ever undergone Alcohol Rehabilitation Treatment (i.e, inpt ot outpatient treatment programs)?: Yes Have you ever Experienced Blackouts?: Yes Have you ever Combined Alcohol with other Downers within the last 90 days?: No Have you ever Combined Alcohol with any other Substance of Abuse during the last 90 days?: No Positive Blood Alcohol level on Presentation? [PCS.BAL]: Yes Evidence of Increased Autonomic Activity (i.e. HR>120, tremor, sweating, agitation, nausea)?: Yes Result: 8 Time Spent with Patient Time Spent with Patient: >50 minutes Time was spent: preparing to see the patient(eg.review tests), obtaining and/or reviewing separately otained hiistory, ordering medications,tests, procedures, referring, communicating with other health residential care officer, indepentently interpreting results, counseling the patient and care coordination
--- NOTE | 2025-02-15 14:41 | PT.INIE ---
PT Notes Visit Reasons: Seizure Physical Therapy Inpatient Initial Evaluation Date: 02/15/2025 Referring Doctor: Nba Puente MD PT Orders: PT CONSULT: Eval/Treat Precautions: Fall. Standard. Activity as tolerated. Patient Profile/Admitting Diagnosis: Solomon is a 29-year-old male admitted for management of EtOH withdrawal seizure, acute encephalopathy, pneumonia, acute dehydration, hyperemesis, polysubstance abuse, alcoholism, ADD, and depression. PMHX: All Active Problems (Updated 02/14/25 @ 06:31 by Vega Lackey) Encephalopathy acute (Acute) Alcohol withdrawal seizure (Acute) Pneumonia (Acute) Metabolic encephalopathy (Acute) Acute dehydration (Acute) Seizure (Acute) Hyperemesis (Acute) Hypopyrexia (Acute) Acute dehydration (Acute) History of TB skin testing (Acute) Chronic insomnia (Acute) Hemoptysis (Acute) Rash (Acute) Anxiety disorder (Acute) Anemia (Chronic) Frequent headaches (Acute) Weight loss (Acute) Sensorineural hearing loss (SNHL) of left ear with unrestricted hearing of right ear (Acute) Shoulder pain, right (Acute) Sensation of fullness in left ear (Acute) Chronic headache (Acute) Tobacco abuse (Acute) Hypomagnesemia (Acute) Hypokalemia (Acute) COVID-19 ruled out by laboratory testing (Acute) Depression (Chronic) Exposure to hepatitis C (Acute) serology neg 10/2018 Alteration in patient safety due to identified suicide risk (Acute) Polysubstance abuse (Chronic) History of substance abuse (Chronic 09/09/17) Attention deficit disorder (Chronic 04/15/18) continue adderall as directed Alcoholism (Chronic 08/15/17) start revia Medical History Alcohol withdrawal Surgical History Fracture, Open Treatment CAROLE ARREOLA; RIGHT DISTAL RADIUS Social History/Home Situation: Lives with grandfather in a private home. Independent inside home with a single point cane for up to 20-30 feet. Equipment Owned/DME: SPC Subjective: Nauseous when he was mobilized out of bed. Still felt weak but tolerated transfer from bed to chair using a front-wheeled walker. Feels pain all over but was okay to move slowly out of bed. reported headache throughout session that did not worsen. Objective: General Observation: Slow to move due to ETOH withdrawal symptoms and generalized weakness. Telemetry monitoring in place. Mental Status: Alert and oriented as to person, place, time, and purpose. Able to pay attention, focus, and respond appropriately. Pain: Minimal generalized pain and headache Vital Signs: Closely monitored via telemetry ROM: Right Upper Extremity: Shoulder Flexion WFL. Shoulder abduction WFL. Elbow flexion WFL. Wrist flexion WFL. Functional opening and closing of hand WFL. Left Upper Extremity: Shoulder Flexion WFL. Shoulder abduction WFL. Elbow flexion WFL. Wrist flexion WFL. Functional opening and closing of hand WFL. Right Lower Extremity: Hip flexion WFL. Hip abduction WFL. Knee flexion WFL. Ankle dorsiflexion WFL. Ankle plantarflexion WFL. Left Lower Extremity: Hip flexion WFL. Hip abduction WFL. Knee flexion WFL. Ankle dorsiflexion to neutral only. Ankle plantarflexion WFL. Strength: Right Upper Extremity: Shoulder flexors 4-/5. Shoulder abductors 4-/5. Elbow flexors 4-/5. Elbow extensors 4-/5. Utilization Management Manager strong. Left Upper Extremity: Shoulder flexors 3/5. Shoulder abductors 3/5. Elbow flexors 3/5. Elbow extensors 3/5. Utilization Management Manager weaker than the R but remains functional. Right Lower Extremity: Hip flexors 4-/5. Hip abductors 4-/5. Knee flexors 4-/5. Knee extensors 4-/5. Ankle dorsiflexors 4-/5. Ankle plantarflexors 4-/5. Left Lower Extremity: Hip flexors 3/5. Hip abductors 3/5. Knee flexors 3/5. Knee extensors 3/5. Ankle dorsiflexors 3-/5. Ankle plantarflexors 4-/5. Bed Mobility/Transfers: Moderate cueing provided for use of B hands as needed for support, movement sequence, AD management, and posture to reduce fall risk and minimize pain report Rolling minimal assist Supine to sit minimal assist Sit to stand minimal assist using FWW Stand to sit minimal assist using FWW Bed to reclining chair minimal assist using FWW Gait: Completed small steps about 6 steps from bedside to bedside recliner using his FWW with contact guard assist. Movement transistions slow due to persistent ETOH withrawal symptoms and generalized weakness. Steps asymmetrical but no LOB. Nausea worsened and sensation of vomiting felt with minimal vomitus expelled right after sitting odnw onto chair. Minimal shortness of breath resolved with rest. Balance: Static Sitting: Fair Dynamic Sitting: Fair Static Standing: Poor Dynamic Standing: Poor Special Tests: Mobility Limitations Standardized Measure [facility] AM-PAC 6 clicks Basic Mobility Inpatient Short Form: Raw Score: 17 CMS Score: 51% deficitt Informed Consent/Education: Patient was instructed in purpose of PT consult and plan of care. Agreeable to proceed with established PT POC to achieve personal goals. Assessment: Persistent ETOH withrawal symptoms now somewhat controlled with medical management in ICU as patient was able to be mobilized out of bed ensuring slow and safe movement transitions throughout. Nausea worsened but subsided eventually once patient was able to adjust to sitting. Activity tolerance improved as of today with vital signs staying WNL throughout session. L UE/LE weaker compared to the R, with patient stating that this is a new issue for him, will continue to monitor and consult with hopsitalist as needed. Patient presents with clinical signs and symptoms consistent with current/admitting diagnoses that have resulted to mobility limitations, gait instability, generalized weakness, and overall ADL decline as demonstrated by the following impairment level findings: 1. Decreased strength to B UE/LE [] major muscle groups with L side more affected than the R 2. Impaired sitting/standing balance 3. Impaired activity tolerance 5. Shortness of breath 6. Fatigue and nausea Impairments are contributing to the following functional limitations: 1. Decline in bed mobility skills 2. Decline in transfer skills 3. Difficulty with ambulation without assistive device and physical assistance 4. Increased completion time for mobility ADL performance 5. Increased risk for falls 6. Difficulty with managing steps alone safely Patient is assessed as a 05363 moderate complexity based on the following: History: 29-year-old male with past medical history as indicated above Examination: Demonstrable impairment in strength, balance, and mobility level with underlying impairments and functional limitations as exhibited above as well as deficit score of 51% utilizing the [facility] Mobility Inpatient Short Form Presentation: Evolving Decision Makin moderate complexity Goals: Goals X1 week 1. Supine-Sit independent 2. Sit-Supine independent 3. Sit-Stand independent 4. Stand-Sit independent with no AD 5. Bed-Chair independent with no AD 6. Chair-Bed independent with no AD 7. Independent gait on level surface with use of SPC for at least 100 feet without report of pain nor dyspnea 8. Independent stair negotiation while holding onto B rails for at least 3 steps without report of pain nor dyspnea 9. Independent with home exercise program 10. Good static and dynamic standing balance/tolerance Plan of Care/Treatment Plan: 1-2x/day, 7 days/week x 1 week. Plan of care has been reviewed with the WAREHOUSE DELIVERY DRIVER providing the service under Physical Therapy direction. Initiate Physical Therapy intervention for pain management as needed, strengthening, bed mobility, transfers, gait, stairs, balance training, and use of assistive device. DISCHARGE RECOMMENDATIONS: [] Home with no services [] [] Home with services [specify] [] Home with outpatient PT [] [] SNF for continued rehabilitation [] [] [facility] [] [] SNF versus LTC based on ability to participate and progress [] [X] Short-term SNF vs PT based on progress of patient towards goals TREATMENT CODE/TIME: 31674 x 30 minutes for 1 unit, 45009 x 27 minutes for 2 units (14:41-15:38). Thank you for the opportunity to participate in the care of this patient. Letty Quinn PT, DPT, CLT [facility] [place], [place]
[2025-02-15 18:26] LABS: CRP, High Sensitivity >15.00 mg/L (See Note)
[2025-02-15] MEDS: traZODone 100 MG TAB 300 MG PO (20:31)
[2025-02-15] MEDS: Enoxaparin 40 MG/0.4 ML SYR SC (20:32)
[2025-02-15] MEDS: Acetaminophen 325 MG TAB PO (21:39)
[2025-02-16 03:08] VITALS: BP 105/71; PULSE 65; RESP 18; TEMP 36.6; O2SAT 97
--- NOTE | 2025-02-16 04:47 | W.PC.ACHO ---
Registration Status: Primary Language: Preferred Language: ED Information & Data Chief Complaint Abd Prob 02/13/25 15:08 Chief Complaint Abd Prob 02/13/25 14:48 Other Complaint Nausea/Vomit/Diar 02/13/25 14:19 Triage Note Pt states n/v/abd pain x 1 02/13/25 14:19 week LLQ. Diaphoretic. Tachycardic. Does state he is a drinker but has been unable to drink because of the vomiting. Also c/o a cough Medical / Surgical History (Last Updated 02/14/25 @ 07:19 by Vega Lackey) Alcohol withdrawal (Last Reviewed 02/14/25 @ 06:16 by Vega Lackey) Fracture, Open Treatment Most Recent Vital Signs Temperature 36.6 C 02/16/25 03:08 Temperature Source Temporal Artery Scan 02/16/25 03:08 Pulse 65 02/16/25 03:08 Pulse 66 02/15/25 21:00 Respiratory Rate 18 02/16/25 03:08 Respiratory Effort Normal 02/13/25 21:13 Respiratory Depth Normal 02/13/25 21:13 Respiratory Pattern Normal 02/13/25 21:13 Blood Pressure 105/71 02/16/25 03:08 Blood Pressure Mean 94 02/15/25 20:00 Blood Pressure Position Supine 02/13/25 14:19 Pulse Oximetry 97 02/16/25 03:08 Respiratory End-tidal CO2 32 02/13/25 15:40 Oxygen Delivery Method Room Air 02/16/25 03:08 Oxygen Flow Rate 0 02/16/25 03:08 Pain Level 6 02/16/25 03:08 Allergies Sulfa (Sulfonamide Antibiotics) Allergy (Unknown, Verified 02/13/25 15:11) Hives Precautions Isolation Seizure precaution 02/13/25 15:08 Active Medications Generic Name Dose Route Start Last Admin Trade Name Freq PRN Reason Stop Dose Admin Acetaminophen 0 mg 02/13/25 18:06 02/15/25 21:39 Acetaminophen 325 Mg Tab PO 650 mg Q4H PRN PRN Administration Buprenorphine/Naloxone 1 each 02/14/25 08:30 02/15/25 07:57 Buprenorphine/Naloxone 2 Mg/0.5 Mg Film SL 1 each DAILY JUAN ALBERTO Administration Buprenorphine/Naloxone 1 each 02/14/25 08:30 02/15/25 07:57 Buprenorphine/Naloxone 12 Mg/3 Mg Film SL 1 each DAILY JUAN ALBERTO Administration Enoxaparin Sodium 40 mg 02/14/25 20:00 02/15/25 20:32 Enoxaparin 40 Mg/0.4 Ml Syr SC 40 mg Q24H JUAN ALBERTO Administration Folic Acid 1 mg 02/14/25 08:30 02/15/25 07:57 Folic Acid 1 Mg Tab PO 1 mg DAILY JUAN ALBERTO Administration Ceftriaxone Sodium/Dextrose 2 gm in 50 mls @ 100 mls/hr 02/14/25 18:00 02/15/25 18:15 Rocephin IVPB Infused Q12H JUAN ALBERTO Infusion Doxycycline Hyclate 100 mg/ 100 mls @ 100 mls/hr 02/14/25 08:00 02/15/25 21:37 Sodium Chloride IVPB Infused Q12H JUAN ALBERTO Infusion Thiamine HCl 500 mg/ Sodium 105 mls @ 200 mls/hr 02/14/25 22:00 02/15/25 22:26 Chloride IVPB 02/16/25 14:32 Infused Q8H JUAN ALBERTO Infusion Multivitamins 1 tab 02/14/25 08:30 02/15/25 07:57 Multivitamin Tab PO 1 tab DAILY JUAN ALBERTO Administration Phenobarbital Sodium 130 mg 02/13/25 20:59 02/15/25 06:07 Phenobarbital 130 Mg/Ml Vial IVP 130 mg DIRECTED PRN Administration for mild anxiety/agitation Trazodone HCl 300 mg 02/13/25 21:30 02/15/25 20:31 Trazodone 100 Mg Tab PO 300 mg HS JUAN ALBERTO Administration IV IV Catheter Type [Right Saline Lock Antecubital] IV Catheter Gauge [Right 18 Antecubital] Diagnostics 02/16/25 02/15/25 02/15/25 Range/Units 05:35 05:58 05:50 ESR 39 H (0-15) mm/hr Sodium Pending Potassium Pending Chloride Pending Carbon Dioxide Pending Anion Gap Pending BUN Pending Creatinine Pending Est GFR (CKD-EPI 2020) Pending Glucose Pending Calcium Pending Total Bilirubin Pending AST Pending ALT Pending Alkaline Phosphatase Pending Lactate Dehydrogenase 218 (85-227) U/L Creatine Kinase Pending C-React Prot High Sens Pending Total Protein Pending Albumin Pending Aldolase Pending Urine Fentanyl Screen (<1) ng/mL Phenobarbital 27.0 (15.0-40.0) ug/mL B. divergens/MO-1 PCR Pending Babesia duncani (PCR) Pending Babesia microti DNA PCR Pending Lyme Disease Antibody Pending E.chaffeensis DNA (PCR) Pending E.ewingii/canis DNA PCR Pending E.muris eauclairensis (PCR) Pending Hepatitis A IgM Ab Pending Hep Bs Antigen Pending Hep Bs Antibody Pending Hep Bs Antibody, Quant Pending Hep B Core Total Ab Cancelled Hepatitis C Antibody Cancelled A. phagocytophilum (PCR) Pending Blood B. miyamotoi (PCR) Pending 02/14/25 Range/Units 01:10 ESR (0-15) mm/hr Sodium Potassium Chloride Carbon Dioxide Anion Gap BUN Creatinine Est GFR (CKD-EPI 2020) Glucose Calcium Total Bilirubin AST ALT Alkaline Phosphatase Lactate Dehydrogenase (85-227) U/L Creatine Kinase C-React Prot High Sens Total Protein Albumin Aldolase Urine Fentanyl Screen Negative (<1) ng/mL Phenobarbital (15.0-40.0) ug/mL B. divergens/MO-1 PCR Babesia duncani (PCR) Babesia microti DNA PCR Lyme Disease Antibody E.chaffeensis DNA (PCR) E.ewingii/canis DNA PCR E.muris eauclairensis (PCR) Hepatitis A IgM Ab Hep Bs Antigen Hep Bs Antibody Hep Bs Antibody, Quant Hep B Core Total Ab Hepatitis C Antibody A. phagocytophilum (PCR) Blood B. miyamotoi (PCR) 02/13/25 22:30 Blood Culture - Preliminary Blood NO GROWTH 48 HOURS 02/13/25 14:53 Blood Culture - Preliminary Blood NO GROWTH 48 HOURS Intake and Output - 24 Hour Total 02/13/25 14:15 thru 02/15/25 22:26 Intake Total 67102.7 Output Total 8080 Balance 2605.7 Weight 53.9 kg Intake: IV 9183.7 Oral 1502 Output: Urine 8080 Other: Urine Color Pale Yellow Urine Appearance Clear Urine Odor Normal Comment Not measured- mixed w/ stool Stool Size Small Stool Characteristics Liquid Falls Risk Assessment History of Falls No History 02/13/25 21:13 Contributing Factors Impairments,Medications 02/13/25 21:13 Ambulatory Aids Independent 02/13/25 21:13 Tubes/Lines With any additional score 02/13/25 21:13 Gait Evaluation W/any additional score 02/13/25 21:13 Cognition Cognitive impairment 02/13/25 21:13 Fall Total Score 61 02/13/25 21:13 Level of Risk High Risk 02/13/25 21:13 Problems (Last Updated 02/14/25 @ 07:19 by eVga Lackey) Transaminitis (Acute) Proximal muscle weakness (Acute) Encephalopathy acute (Acute) Alcohol withdrawal seizure (Acute) Pneumonia (Acute) Hyperemesis (Acute) Acute dehydration (Acute) Depression (Chronic) Polysubstance abuse (Chronic) Attention deficit disorder (Chronic 04/15/18) Alcoholism (Chronic 08/15/17) Notes 02/13/25 14:59 Respiratory by Julia Bates 02/13/2025 Called to ED, upon arrival pt had just had a seizure per MD TRINA at bedside. No interventions from RT needed at this time, pt is maintaining his airway.. Ambu-bag, suction, nasal airway, oral airway set up at bedside; ETCO2 cannula placed and emergency intubation go bag at bedside. Initialized on 02/13/25 14:59 - END OF NOTE v v v v v v v v v Sending and/or Receiving Nurses: Please use comment section below to note any information pertinent to the patient hand-off not included above. Information / Comments: VSS, has not gotten up out of bed. supportive family. Alert and orientated by 4. 18G right AC Report received from:
[2025-02-16] MEDS: THIAMINE 500 MG in Normal Saline 100 ML 200 MG IVPB ×2 (05:36→13:45)
[2025-02-16] MEDS: cefTRIAXone 2 GM/50 ML BAG IVPB (06:20)
[2025-02-16 07:40] VITALS: BP 119/90; PULSE 78; RESP 18; TEMP 36.6; O2SAT 98
[2025-02-16] MEDS: Folic Acid 1 MG TAB PO (08:14)
[2025-02-16] MEDS: Multivitamin TAB 1 TAB PO (08:14)
[2025-02-16] MEDS: DOXYCYCLINE 100 MG in Normal Saline 100 ML IVPB (08:14)
[2025-02-16] MEDS: Buprenorphine/Naloxone 2 mg/0.5 mg FILM 1 EACH SL (08:15)
[2025-02-16] MEDS: Buprenorphine/Naloxone 12 mg/3 mg FILM 1 EACH SL (08:15)
[2025-02-16 09:51] LABS: HBs Antibody, Quant 14.3 mIU/mL (See Note); Hepatitis B Surface Ab Positive (See Note)
[2025-02-16 10:03] LABS: Alcohol Negative mg/dL (Cutoff: 10); Amphetamines Negative; Barbiturates Presumptive Positive ng/mL; Benzodiazepines Presumptive Positive ng/mL; Cocaine Negative; Opiates Negative; Phencyclidine Negative ng/mL (Cutoff: 25); Tetrahydrocannabinol Negative ng/mL (Cutoff: 50)
--- NOTE | 2025-02-16 10:03 | PDOC.CMPRO ---
Date of service: 02/16/25 Time of Service: 10:03 Care Management Progress Note Progress Note Text Progress Note Text: Paulie was ambulating in the hallway with PT when CM first met with him this morning. He stated that he is feeling better and was able to work well with the therapist. Paulie has stabilized from an AUD perspective and has only been scoring 0 to 2 on on the CIWA scale. There had been discussion about Paulie perhaps benefiting from STR as initially he was very weak but the current PT recommendation is now for home health PT which he is agreeable to. Discharge Potential Discharge Needs: PCP F/U Appt and Other ([facility] treatment possibly) Anticipated Barriers to Discharge: None Identified Patient/Family Education Needs: Review discharge instructions, discuss Ask Me Three Transportation: Private vehicle Plan: Anticipate Paulie will be discharged home, possibly with new PT services, when medically cleared. He will follow up with his PCP and plan of care and transport with family. CM will follow and continue to support discharge planning. Social Determinants of Health Screening Social Determinants of health last assessed in clinic: 02/13/25 Will the Patient Participate in the Screening?: Unable to obtain Do you worry about having a steady place to live?: no Problems where you live: no known problems In the past 12 months, have you had to go without electric, gas, oil or water in your home?: no Has lack of transportation kept you from medical appointments or from doing things needed for daily living?: no Has anyone in your life made you feel unsafe or unsupported?: no How hard is it for you to pay for the very basics like food, housing, medical care, and heating? Would you say it is:: Not hard at all Do you want help finding or keeping work or a job?: I do not need or want help If for any reason you need help with day-to-day activities such as bathing, preparing meals, shopping, managing finances, etc., do you get the help you need?: I don?t need any help How often do you feel lonely or isolated from those around you?: Never Do you speak a language other than Sammarinese at home?: No Does the patient want assistance with any of the above?: No Comments: Patient fell asleep after first pair of questions.
[2025-02-16] MEDS: Nicotine 21 MG/24 HR PATCH TD (10:40)
[2025-02-16 11:28] LABS: Xylazine, Confirmation Urine Negative ng/mL (<50)
[2025-02-16 11:43] LABS: Hepatitis A Antibody IgM Negative (Negative); Hepatitis B Core Antibody Negative (Negative); Hepatitis B surface Ag Negative (Negative); Hepatitis C Ab w Rflx HCV PCR Reactive (Negative)
[2025-02-16 11:45] LABS: ALT 165 U/L (16-63); AST 111 U/L (15-37); Albumin 3.6 g/dL (3.4-5.0); Alkaline Phosphatase 330 U/L (46-116); Anion Gap 13.3 mmol/L (3-11); BUN 7 mg/dL (7-18); Bilirubin, Total 0.5 mg/dL (0.2-1.0); CO2 25.7 mmol/L (21.0-32.0); CREATININE 0.6 mg/dL (0.70-1.30); Calcium 9.9 mg/dL (8.5-10.1); Chloride 96 mmol/L (98-107); Creatine Kinase 147 U/L (39-308); Estimated GFR 134.85 (mL/min/1.73m2); Glucose 160 mg/dL (74-106); Potassium 3.6 mmol/L (3.5-5.1); Sodium 135 mmol/L (136-145); Total Protein 8.3 g/dL (6.4-8.2)
[2025-02-16 11:46] VITALS: BP 112/81; PULSE 98; RESP 18; TEMP 37.1; O2SAT 96
[2025-02-16 12:03] LABS: Lyme Ab w Rflx to Lyme Confirm Negative (Negative)
[2025-02-16] MEDS: Acetaminophen 325 MG TAB PO (12:08)
--- NOTE | 2025-02-16 13:19 | PHA.REVIEW2 ---
Pharmacy Admission Review Admission Clinical Review Admission Pharmacy Review: Transaminitis (Acute) Proximal muscle weakness (Acute) Encephalopathy acute (Acute) Alcohol withdrawal seizure (Acute) Pneumonia (Acute) Hyperemesis (Acute) Acute dehydration (Acute) Sulfa (Sulfonamide Antibiotics) Allergy (Unknown, Verified 02/13/25 15:11) Hives Resuscitation Status Full Code Height 5 ft 7 in Weight 53.9 kg Pharmacy Admission Review Renal Dosing Renal Dosing: BUN 7 mg/dL (7-18) 02/16/25 11:10 Creatinine 0.6 mg/dL (0.70-1.30) L 02/16/25 11:10 Medications needing adjustments: Reviewed (CrCl 139 mL/min) List of meds needing interventions: Current medications are okay Anticoagulation Anticoagulation: Hgb 10.6 g/dL (13.5-17.5) L D 02/14/25 05:50 Hct 30.6 % (40.0-50.0) L 02/14/25 05:50 Plt Count 97 10^3/uL (130-400) L 02/14/25 05:50 INR 1.1 (0.9-1.1) 02/13/25 14:53 Creatinine 0.6 mg/dL (0.70-1.30) L 02/16/25 11:10 DVT Prophylaxis: Reviewed Medications: Enoxaparin (40mgd aily) Relevant Labs Relevant Labs: ESR 39 mm/hr (0-15) H 02/15/25 05:50 Sodium 135 mmol/L (136-145) L 02/16/25 11:10 Potassium 3.6 mmol/L (3.5-5.1) 02/16/25 11:10 Chloride 96 mmol/L (98-107) L 02/16/25 11:10 Phosphorus 2.7 mg/dL (2.6-4.7) 02/13/25 19:38 Magnesium 2.2 mg/dL (1.8-2.4) 02/13/25 14:53 C-Reactive Protein 4.84 mg/dL (<or=0.5) H 02/13/25 14:53 Electrolytes, C-Reactive P, ESR: Reviewed (AST/ALT decreased from 152/170 to 111/165) Cardiac Review BP, HR, EF%: Reviewed (BP WNL, HR 98) QTc Review QTc: Reviewed (485 from 02/13/25) IV to PO Switch IV Medications: Intervened (ceftriaxone, doxycycline, phenobarbital and thiamine. Asked provider if Zofran could be changed from IV to PO - provider changed order.) Home Meds Home Med List reviewed: Reviewed Relevent Home Meds Not ordered & why?: hydroxyzine Current Meds Current Medication Order Review: Intervened Comments: Added IV order set phenobarbital for alcohol withdrawal CIWA 2 @1211 Soft Stop: 991.5mg hard Stop: 1322mg Total so far: 1300mg as of 02/15/25 at 0609 Informed provider that patient is at hard stop, provider aware Pharmacy Antibiotic Review Relevant Labs: Relevant Labs 02/15/25 05:50 C-React Prot High Sens >15.00 WBC 9.62 10^3/uL (4.4-10.8) 02/14/25 05:50 Temperature 37.1 C Temperature 36.6 C Temperature 36.6 C Microbiology 02/13/25 22:30 Blood Culture - Preliminary Blood NO GROWTH 48 HOURS 02/13/25 14:53 Blood Culture - Preliminary Blood NO GROWTH 48 HOURS Pharmacy Antibiotic Activity: C/S review and Reviewed, no change Comments: Patient is on ceftriaxone and doxycycline, day 3, for pneumonia
--- NOTE | 2025-02-16 14:10 | W.PM.PROGNOT ---
Date of Service Date of service: 02/16/25 Time of Service: 12:30 Assessment and Plan Assessment and plan (1) Alcohol withdrawal seizure: Start date: 02/13/25 Status: Acute Assessment and plan: Presumed alcohol withdrawal. There is some concern of other etiologies for his seizure, teleneurology recommended MRI of the brain with and without contrast and EEG, both reassuring. Has been on phenobarbital protocol, no recurrence of seizure activity. (2) Encephalopathy acute: Start date: 02/13/25 Status: Acute Assessment and plan: A/w alcohol intoxication, seizure with post-ictal state. UDS not revealing, ammonia normal, EEG and MRI reassuring, mental status has normalized, no indication for LP. Continue thiamine for now. (3) Pneumonia: Start date: 02/13/25 Status: Acute Assessment and plan: Bilateral lower lobe pneumonia on admission. C/w rocephin and doxycylcine. (4) Hyperemesis: Start date: 02/13/25 Status: Acute Assessment and plan: Patient has reported frequent emesis with nausea and also diarrhea. This is likely associated with his alcohol consumption Continue with symptomatic care (5) Polysubstance abuse: Status: Chronic Assessment and plan: Urine drug screen only showed barbituates (phenobarb), some still pending. Continue suboxone for OUD. (6) Alcoholism: Status: Chronic Assessment and plan: Patient has been drinking less but continues daily beer intake. Long-term sobriety would be best. Encourage social support, offer acamprosate on discharge. (7) Depression: Status: Chronic Assessment and plan: Continue outpatient medical therapy. Patient is on trazodone. He was recently restarted on escitalopram at 20mg dose, his weakness started soon after this, so I don't think he should restart. (8) Proximal muscle weakness: Status: Acute Assessment and plan: -CRP and CPK mildly elevated, no h/o muscular disease -This may simply be alcohol related, normalization of CPK and improvement in LFTs suggest this. -Although it would be fairly rare, evaluation for polymyositis could be considered -Lyme negative, rest of tick panel for completeness pending. Aldolase pending. -Working with PT (9) Transaminitis: Status: Acute Assessment and plan: Likely alcohol related, acute and chronic hepatitis panel negative except known HCV exposure, viral load pending. He is hep B immune. (10) Anemia: Status: Chronic Assessment and plan: H/h dropped with hydration, no known bleeding, follow with morning labs. (11) Hyponatremia: Status: Acute Assessment and plan: A/w dehydration, not bad enough to effect mental status. Normalizing. Subjective Subjective Patient reports: voiding w/o difficulty and nausea; denies diarrhea, vomiting, shortness of breath or fever Interval history since last seen: 24 hr: Transferred to floor from ICU He still feels quite tired, weak. Eating little. Still anxious, but getting a little better. No abnormal movement. Feels achey all over, no focal joint pain. Exam Narrative Exam Narrative: GEN: Alert and oriented, thin, NAD HEENT: No nystagums, PERRL, EOMI CV: RRR NO MRG LUNGS: CTAB, normal effort ABD: soft, NT EXT: NO CCE, muscles not tender. No joint swelling or pain with ROM MS/NEURO: 4/5 strength UE/LE, symmetric, speech slow but linear, coherent. Moves slow, but normal tone. Mild tremor with hands extended only Objective Last Vital Signs Temp 37.1 C 02/16/25 11:46 Pulse 98 H 02/16/25 11:46 Resp 18 02/16/25 11:46 BP 112/81 02/16/25 11:46 Pulse Ox 96 02/16/25 11:46 Laboratory Results - last 24 hr 02/14/25 02/15/25 02/16/25 01:10 05:50 11:10 Sodium 135 L Potassium 3.6 Chloride 96 L Carbon Dioxide 25.7 Anion Gap 13.3 H BUN 7 Creatinine 0.6 L Est GFR (CKD-EPI 2020) 134.85 Glucose 160 H Calcium 9.9 Total Bilirubin 0.5 AST 111 H ALT 165 H Alkaline Phosphatase 330 H Creatine Kinase 147 C-React Prot High Sens >15.00 Total Protein 8.3 H Albumin 3.6 Urine Opiates Screen Negative U Methadone Metabolites Negative Urine Barbiturates Presumptive Positive A Ur Phencyclidine Scrn Negative Ur Amphetamines Screen Negative U Benzodiazepines Scrn Presumptive Positive A Urine Cocaine Screen Negative Ur THC Screen Negative Chain of Custody Not Applicable Urine Alcohol Negative Urine Xylazine Negative Lyme Disease Antibody Negative Hepatitis A IgM Ab Negative Hep Bs Antigen Negative Hep Bs Antibody Positive Hep Bs Antibody, Quant 14.3 Hep B Core Total Ab Negative Hepatitis C Antibody Reactive A PAWSS Have you Been Recently Intoxicated or Drunk Within the Last 30 days?: Yes Have you Ever Experienced Previous Episodes of Alcohol Withdrawal?: Yes Have you ever Experienced Withdrawal Seizures?: Yes Have you ever Experienced Delirium Tremens(DT)s?: Yes Have you ever undergone Alcohol Rehabilitation Treatment (i.e, inpt ot outpatient treatment programs)?: Yes Have you ever Experienced Blackouts?: Yes Have you ever Combined Alcohol with other Downers within the last 90 days?: Yes Have you ever Combined Alcohol with any other Substance of Abuse during the last 90 days?: Yes Positive Blood Alcohol level on Presentation? [PCS.BAL]: Yes Evidence of Increased Autonomic Activity (i.e. HR>120, tremor, sweating, agitation, nausea)?: Yes Result: 10 Time Spent with Patient Time Spent with Patient: >50 minutes Time was spent: preparing to see the patient(eg.review tests), obtaining and/or reviewing separately otained hiistory, ordering medications,tests, procedures, referring, communicating with other health acute care physical therapist, indepentently interpreting results, counseling the patient and care coordination
--- NOTE | 2025-02-16 14:36 | PTTR_ITS ---
PT Notes Visit Reasons: Seizure Physical Therapy Inpatient Treatment Note Date: 02/16/2025 Precautions: Fall. Standard. Activity as tolerated. Subjective: Nausea resolved as of yesterday. Motivated to push himself during today's session. Objective: General Observation: Movement speed much improved today. Grandfather present in room during session. Grandmother came in towards the end of the afternoon session. Mental Status: More awake and oriented as to person, place, time, and purpose. Able to pay attention, focus, and respond appropriately. Pain: Minimal generalized pain and headache Vital Signs: Closely monitored via telemetry Bed Mobility/Transfers: Moderate cueing provided for use of B hands as needed for support, movement sequence, AD management, and posture to reduce fall risk and minimize pain report Rolling independent Supine to sit independent Sit to stand stand by assist with FWW Stand to sit stand by assist with FWW Bed to reclining stand by assist with FWW THERA EX: Direct one-on-one guidance on safe and correct performance of strengthening exercises as follows: B shoulder extension x 10 using 3 lb DB Forward/diagonal punches B UE x 10 using 3 lb DB Seated marches using green TB x 10 Seated clam shell ex using green TB x 10 Seated hip abduction using green TB x 10 Resited knee flexion aginats green TB x 10 Standing partial knee bends x 10 Gait: Covered a distance of 75 feet + 100 feet + 100 feet using FWW with ataxic gait but appeared more stable and more able to control movement better than yesterday. Steps appeared more symmetrical. No LOB. No nausea reported throughout. Minimal shortness of breath resolved with rest. Balance: Static Sitting: Fair Dynamic Sitting: Fair Static Standing: Poor Dynamic Standing: Poor Assessment: Significant improvement in mobility performance today with continued recovery from withdrawal symptoms and medical management. Activity tolerance improved as well with vital signs staying WNL throughout session. Strength now more symmetrical however L knee flexion remains weaker compared to R. DISCHARGE RECOMMENDATIONS: [] Home with no services [] [X] Home with services. Patient will benefit from home health PT services in order to progress mobility level using least restrictive assistive ambulatory device, assess home safety, identify additional equipment needs, and establish a functional maintenance program that will increase ability of patient to remain at home. [] Home with outpatient PT [] [] SNF for continued rehabilitation [] [] Chief Business Development Officer Care [] [] SNF versus LTC based on ability to participate and progress [] TREATMENT CODE/TIME: Session 1--75301 x 43 minutes for 3 units (10:59-11:42). Session 2--80949 x 23 minutes for 2 units (14:36-14:59).
[2025-02-16 15:24] VITALS: BP 104/71; PULSE 79; RESP 18; TEMP 36.6; O2SAT 98
--- NOTE | 2025-02-16 17:09 | CHAPLAIN ---
Paulie was out working with PT when I stopped in. I spoke with his grandfather who was visiting Paulie. I will try to meet with Paulie tomorrow.
[2025-02-16] MEDS: Doxycycline Hyclate 100 MG CAP PO (19:50)
[2025-02-16] MEDS: traZODone 100 MG TAB 300 MG PO (19:50)
[2025-02-16] MEDS: Cefpodoxime 200 MG TAB PO (19:50)
[2025-02-16] MEDS: Enoxaparin 40 MG/0.4 ML SYR SC (19:50)
[2025-02-16 23:17] VITALS: BP 104/74; PULSE 71; RESP 18; TEMP 36.4; O2SAT 97
--- NOTE | 2025-02-17 06:54 | NUR.NOTE ---
Nursing Note: Laboratory unable to obtain am labs. CHERI TORO
[2025-02-17 07:30] VITALS: BP 119/84; PULSE 81; RESP 15; TEMP 36.7; O2SAT 98
[2025-02-17] MEDS: Buprenorphine/Naloxone 12 mg/3 mg FILM 1 EACH SL (07:41)
[2025-02-17] MEDS: Nicotine 21 MG/24 HR PATCH TD (07:41)
[2025-02-17] MEDS: Multivitamin TAB 1 TAB PO (07:42)
[2025-02-17] MEDS: Thiamine 100 MG TAB PO (07:42)
[2025-02-17] MEDS: Buprenorphine/Naloxone 2 mg/0.5 mg FILM 1 EACH SL (07:42)
[2025-02-17] MEDS: Doxycycline Hyclate 100 MG CAP PO (07:42)
[2025-02-17] MEDS: Cefpodoxime 200 MG TAB PO (07:42)
[2025-02-17] MEDS: Folic Acid 1 MG TAB PO (07:42)
--- NOTE | 2025-02-17 08:33 | PTTR_ITS ---
PT Notes Visit Reasons: Seizure Physical Therapy Inpatient Treatment Note Date: 02/17/2025 Precautions: Fall. Standard. Activity as tolerated. Subjective: [place] that he is almost back to how h ehas been. Hopeful about going home today. Objective: General Observation: Movement speed much improved today. Mental Status: More awake and oriented as to person, place, time, and purpose. Able to pay attention, focus, and respond appropriately. Pain: None reported Vital Signs: Closely monitored via telemetry Bed Mobility/Transfers: Moderate cueing provided for use of B hands as needed for support, movement sequence, AD management, and posture to reduce fall risk and minimize pain report Rolling independent Supine to sit independent Sit to stand supervision with FWW Stand to sit supervision with FWW Bed to reclining supervision with FWW THERA EX: Reviewed on safe and correct performance of strengthening exercises as follows: B shoulder extension x 10 using 3 lb DB Forward/diagonal punches B UE x 10 using 3 lb DB Seated marches using green TB x 10 Seated clam shell ex using green TB x 10 Seated hip abduction using green TB x 10 Resited knee flexion aginats green TB x 10 Standing partial knee bends x 10 Gait: Covered a distance of 500 feet using FWW with minimal ataxia observed. 2 brief standing rests needed. Steps appeared more symmetrical. No LOB. No nausea reported throughout. Minimal shortness of breath resolved with rest. Balance: Static Sitting: Fair Dynamic Sitting: Fair Static Standing: Poor Dynamic Standing: Poor Assessment: Significant improvement in mobility performance today with continued recovery from withdrawal symptoms and medical management. Activity tolerance improved as well with vital signs staying WNL throughout session. Strength now more symmetrical however L knee flexion remains weaker compared to R. DISCHARGE RECOMMENDATIONS: [] Home with no services [] [X] Home with services. Patient will benefit from home health PT services in order to progress mobility level using least restrictive assistive ambulatory device, assess home safety, identify additional equipment needs, and establish a functional maintenance program that will increase ability of patient to remain at home. [] Home with outpatient PT [] [] SNF for continued rehabilitation [] [] Emr Implementation Specialist Care [] [] SNF versus LTC based on ability to participate and progress [] TREATMENT CODE/TIME: 02911 x 31 minutes for 2 units (08:33-09:04).
--- NOTE | 2025-02-17 09:21 | PDOC.CMPRO ---
Date of service: 02/17/25 Time of Service: 09:21 Care Management Progress Note Discharge Potential Discharge Needs: PCP F/U Appt Anticipated Barriers to Discharge: None Identified Patient/Family Education Needs: Review discharge instructions, discuss Ask Me Three Transportation: Private vehicle Plan: Anticipate Paulie will be discharged home, possibly with new PT services, when medically cleared. He will follow up with his PCP and plan of care and transport with family. CM will follow and continue to support discharge planning. Social Determinants of Health Screening Social Determinants of health last assessed in clinic: 02/13/25 Will the Patient Participate in the Screening?: Unable to obtain Do you worry about having a steady place to live?: no Problems where you live: no known problems In the past 12 months, have you had to go without electric, gas, oil or water in your home?: no Has lack of transportation kept you from medical appointments or from doing things needed for daily living?: no Has anyone in your life made you feel unsafe or unsupported?: no How hard is it for you to pay for the very basics like food, housing, medical care, and heating? Would you say it is:: Not hard at all Do you want help finding or keeping work or a job?: I do not need or want help If for any reason you need help with day-to-day activities such as bathing, preparing meals, shopping, managing finances, etc., do you get the help you need?: I don?t need any help How often do you feel lonely or isolated from those around you?: Never Do you speak a language other than Moroccan at home?: No Does the patient want assistance with any of the above?: No Comments: Patient fell asleep after first pair of questions.
--- NOTE | 2025-02-17 09:59 | PDOC.HHF2F ---
Home Health Referral Home Health Orders Clinical synopsis of why skilled professionals are needed: This is a 29-year-old male patient who has known alcohol use disorder who presented with 2-3 week of progressive general weakness and minimal food intake, progressing to frequent vomiting, diarrhea, and LLQ abdominal pain a/w a declining intake of beer. He also had active depression and was given escitalopram 20mg by his psychiatric provider 2 weeks prior, but felt worse with headaches and dizziness after taking this, so stopped after 2 days. He had an approximately 1 minute tonic/clonic seizure in the emergency room that resolved in after 4mg lorazepam. He was started on phenobarbital protocol for withdrawal and admitted to the ICU. His CT Chest/Abd/pelvis in the ED was significant for patchy infiltrate in both lower lung lobes, hepatomegaly without signs of cirrhosis. Head CT was negative. Teleneurology was consulted and recommended MRI which was negative and EEG was done which did not show epileptiform activity. His mental status cleared and the seizure was felt to be related to alcohol withdrawal. His pneumonia was treated with ceftriaxone and doxycyline. He transitioned to oral therapy 02/16 and completed a 5 day course. His sodium was low at 130 and improved to 135. He had profound weakness and elevated CPK at 457 and CRP at 4.84 and ESR of 71. His liver was also inflamed and lipase mildly elevated at 662. Myopathies and polymyositis were considered, but his CPK, ESR, and proximal muscle weakness improved, and it was felt his myopathy was related to alcohol and poor nutrition. He began to eat more as he recovered, and his muscle aching also improved. Lyme was negative, and the rest of the tick panel and aldolase were pending at discharge. . He was evaluated by physical therapy and his exercise capacity improved, and home health PT was recommended at discharge. His alcohol use disorder was discussed. He met with a manager recovery on the day of discharge. He agreed to try acamprosate at discharge. He also has a therapist and psychiatric provider. We recommended he not resume his SSRI for now. He was maintained on his Suboxone. His UDS did not show additional drugs of abuse. His hemoglobin dropped from 13.8 to 10.6 after initial hydration, and his platelets dropped from 149 to 97. He did not have bleeding or symptoms of anemia. We were note able to get follow up labs, he declined further labs before discharge as he is a difficult stick. PCP follow up: Follow up 2 weeks Alcohol use disorder treatment/support Follow CBC, consider iron/b12 Follow liver function and electrolytes with CMP He needs expert phlebotomy Labs pending at discharge: Tick panel Aldolase Medical diagnosis necessitation home health referral: muscle weakness Physical Therapist: Check all that apply Increase strength & endurance for safe mobility at home: Ordered To design/establish home maintenance program: Ordered Home safety evaluation and teaching/gait training including stair management (if applicable): Ordered Home Bound Status Requires the aid of supportive device (check all that apply): Walker Describe why leaving home would require a considerable and taxing effort: Requires frequent rest periods Encounter Date and Reason: I certify that a FTF encounter for this patient was performed on February 17, 2025 and that such encounter was related to the primary reason the patient requires home health services. The encounter was conducted in the following manner: By me as the certifying physician, PIGS FEET FINISHER, PA or By an inpatient physician, PIGS FEET FINISHER or PA during an inpatient stay who communicated findings to me, Certification And Authentication I certify that I composed the above information based on my clinical judgment relating to this patient's medical condition and, if applicable, clinical findings communicated to me by the NPP or inpatient physician who performed the FTF encounter. Name of Provider that will be monitoring home health services: Hernesto Beverly
--- NOTE | 2025-02-17 10:01 | W.PM.DS.N ---
Date of service: 02/17/25 Time of Service: 10:01 DS: Diagnosis Discharge Diagnosis (1) Alcohol withdrawal seizure: Status: Acute (2) Encephalopathy acute: Status: Acute (3) Pneumonia: Status: Acute (4) Hyperemesis: Status: Acute (5) Polysubstance abuse: Status: Chronic (6) Alcoholism: Status: Chronic (7) Depression: Status: Chronic (8) Proximal muscle weakness: Status: Acute (9) Transaminitis: Status: Acute (10) Anemia: Status: Chronic (11) Hyponatremia: Status: Acute Discharge Plan Disposition Patient Disposition: Home W/Home Health Services Condition: Improving Discharge Details Reason For Visit: Seizure Admit Date/Time: 02/13/25 18:01 Admit Provider: N[place] Puente Attending Provider: Nba Puente Primary Care Provider: Hernesto Beverly Hospital Course Hospital Course: This is a 29-year-old male patient who has known alcohol use disorder who presented with 2-3 week of progressive general weakness and minimal food intake, progressing to frequent vomiting, diarrhea, and LLQ abdominal pain a/w a declining intake of beer. He also had active depression and was given escitalopram 20mg by his psychiatric provider 2 weeks prior, but felt worse with headaches and dizziness after taking this, so stopped after 2 days. He had an approximately 1 minute tonic/clonic seizure in the emergency room that resolved in after 4mg lorazepam. He was started on phenobarbital protocol for withdrawal and admitted to the ICU. His CT Chest/Abd/pelvis in the ED was significant for patchy infiltrate in both lower lung lobes, hepatomegaly without signs of cirrhosis. Head CT was negative. Teleneurology was consulted and recommended MRI which was negative and EEG was done which did not show epileptiform activity. His mental status cleared and the seizure was felt to be related to alcohol withdrawal. His pneumonia was treated with ceftriaxone and doxycyline. He transitioned to oral therapy 02/16 and completed a 5 day course. His sodium was low at 130 and improved to 135. He had profound weakness and elevated CPK at 457 and CRP at 4.84 and ESR of 71. His liver was also inflamed and lipase mildly elevated at 662. Myopathies and polymyositis were considered, but his CPK, ESR, and proximal muscle weakness improved, and it was felt his myopathy was related to alcohol and poor nutrition. He began to eat more as he recovered, and his muscle aching also improved. Lyme was negative, and the rest of the tick panel and aldolase were pending at discharge. . He was evaluated by physical therapy and his exercise capacity improved, and home health PT was recommended at discharge. His alcohol use disorder was discussed. He met with a men's basketball coach on the day of discharge. He agreed to try acamprosate at discharge. He also has a therapist and psychiatric provider. We recommended he not resume his SSRI for now. He was maintained on his Suboxone. His UDS did not show additional drugs of abuse. His hemoglobin dropped from 13.8 to 10.6 after initial hydration, and his platelets dropped from 149 to 97. He did not have bleeding or symptoms of anemia. We were note able to get follow up labs, he declined further labs before discharge as he is a difficult stick. PCP follow up: Follow up 2 weeks Alcohol use disorder treatment/support Follow CBC, consider iron/b12 Follow liver function and electrolytes with CMP He needs expert phlebotomy Labs pending at discharge: Tick panel Aldolase Home Meds and New Rx's Prescriptions: New nicotine 21 mg/24 hr Patch 24 Hour 21 mg transdermal DAILY PRN PRNQty: 30 0RF acamprosate 333 mg tablet,delayed release (DR/EC) 666 mg PO BID Qty: 180 2RF Rx Instructions: administer with mid-day and evening meals doxycycline hyclate 100 mg Capsule 100 mg PO BID Qty: 1 0RF cefpodoxime 200 mg Tablet 200 mg PO BID Qty: 1 0RF Continued trazodone 100 mg tablet 300 mg PO .pm Qty: 90 6RF Rx Instructions: 300 mg pm multivitamin [Multiple Vitamins] Tablet 1 tab PO DAILY Qty: 30 0RF thiamine mononitrate (vit B1) [Vitamin B-1 (mononitrate)] 100 mg Tablet 100 mg PO DAILY Qty: 30 0RF folic acid 1 mg Tablet 1 mg PO DAILY Qty: 30 0RF buprenorphine-naloxone [Suboxone] 12-3 mg film 1 film sublingual DAILY Patient Comments: PLACE ONE FILM UNDER THE TONGUE AND ALLOW TO DISSOLVE ONCE DAILY buprenorphine-naloxone [Suboxone] 2-0.5 mg film 1 film sublingual DAILY Patient Comments: PLACE ONE FILM UNDER THE TONGUE AND ALLOW TO DISSOLVE ONCE DAILY hydroxyzine HCl 25 mg tablet 25 mg PO TID Discharge Instructions Instructions: Alcohol Use Disorder (DC), Alcohol Poisoning (DC) Additional Instructions: Follow up with your PCP and therapist to help with mood and alcohol. You can start the acamprosate right away. Continue to take plenty of protein in your diet to recover muscle strength take one more dose of each antibiotic this evening Stand Alone Forms: Nursing Discharge Form Referrals: Hernesto Beverly MD [Primary Care Provider] - 02/22/25 3:00 pm Activity:: Activity as Tolerated Equipment/Supplies:: No Equipment Needed Diet:: As Tolerated Discharge Orders Discharge Orders: Discharge Order (Routine); Ordered 02/17/25 Ordered By: Keith Wilkerson DS: Summary Time Spent with Patient providing and/or coordinating discharge services: Greater than 30 minutes Status at Discharge Functional status at discharge: uses cane/walker Overall status at discharge: patient is progressing back to baseline Mental Status: mental status grossly normal Speech and Movement: speech and movement normal Mood: congruent mood Affect: normal affect Quality:SDOH Health Related Social Needs: No Data to Display Exam Narrative Exam Narrative: GEN: Alert and oriented, thin, NAD HEENT: No nystagums, PERRL, EOMI CV: RRR NO MRG LUNGS: CTAB, normal effort ABD: soft, NT EXT: NO CCE, muscles not tender. No joint swelling or pain with ROM MS/NEURO: 4/5 strength UE/LE, symmetric, speech normal, coherent. Moving more naturally, no tremor Psych Mental Status: mental status grossly normal Speech and Movement: speech and movement normal Mood: congruent mood Affect: normal affect DS: Data Vitals/I&O Vitals and I&O: Vital Signs Temperature 36.7 C 02/17/25 07:30 Temperature Source Temporal Artery Scan 02/17/25 07:30 Pulse 81 02/17/25 07:30 Pulse 66 02/15/25 21:00 Respiratory Rate 15 02/17/25 07:30 Respiratory Effort Normal 02/13/25 21:13 Respiratory Depth Normal 02/13/25 21:13 Respiratory Pattern Normal 02/13/25 21:13 Blood Pressure 119/84 02/17/25 07:30 Blood Pressure Mean 94 02/15/25 20:00 Blood Pressure Position Supine 02/13/25 14:19 Pulse Oximetry 98 02/17/25 07:30 Respiratory End-tidal CO2 32 02/13/25 15:40 Oxygen Delivery Method Nasal Cannula 02/17/25 07:30 Oxygen Flow Rate 0 02/16/25 23:17 Pain Level 0 02/16/25 23:17 Comment pt refused vitals 02/17/25 03:23 Intake & Output 02/16/25 02/16/25 02/17/25 11:59 23:59 11:59 Intake Total 735 / 840 105 / 840 Output Total 275 / 425 150 / 425 725 / 725 Balance 460 / 415 -45 / 415 -725 / -725 Intake: IV 255 / 360 105 / 360 Oral 480 / 480 Output: Urine 275 / 425 150 / 425 725 / 725 Other: Urine Color Yellow Urine Appearance Clear Urine Odor Normal Stool Size Small Stool Characteristics Soft Data Completed and Pending Labs on day of discharge: Labs from last 24 hours 02/17/25 02/16/25 02/15/25 05:35 11:10 05:50 WBC Cancelled RBC Cancelled Hgb Cancelled Hct Cancelled MCV Cancelled MCH Cancelled MCHC Cancelled RDW Cancelled Plt Count Cancelled MPV Cancelled Immature Gran % Cancelled Neutrophils % Cancelled Band Neutrophils % Cancelled Lymphocytes % Cancelled Atypical Lymphs % Cancelled Monocytes % Cancelled Eosinophils % Cancelled Basophils % Cancelled Metamyelocytes % Cancelled Myelocytes % Cancelled Promyelocytes % Cancelled Other Cells % Cancelled Nucleated RBC % Cancelled Absolute Neutrophils Cancelled Absolute Lymphocytes Cancelled Absolute Monocytes Cancelled Absolute Eosinophils Cancelled Absolute Basophils Cancelled RBC Morphology Cancelled Polychromasia Cancelled Hypochromasia Cancelled Poikilocytosis Cancelled Basophilic Stippling Cancelled Anisocytosis Cancelled Microcytosis Cancelled Macrocytosis Cancelled Spherocytes Cancelled Tear Drop Cells Cancelled Ovalocytes Cancelled Stomatocytes Cancelled [place] Bodies Cancelled [place] Cells/Echinocytes Cancelled Acanthocytes (Spur) Cancelled Schistocytes Cancelled Sodium Cancelled 135 L Potassium Cancelled 3.6 Chloride Cancelled 96 L Carbon Dioxide Cancelled 25.7 Anion Gap Cancelled 13.3 H BUN Cancelled 7 Creatinine Cancelled 0.6 L Est GFR (CKD-EPI 2020) Cancelled 134.85 Glucose Cancelled 160 H Calcium Cancelled 9.9 Magnesium Cancelled Total Bilirubin 0.5 AST 111 H ALT 165 H Alkaline Phosphatase 330 H Creatine Kinase 147 C-React Prot High Sens >15.00 Total Protein 8.3 H Albumin 3.6 U 6-MR-Ujexovhr LCMSMS Ur Butalbital Confirm Urine Opiates Screen U Methadone Metabolites Urine Barbiturates Ur Barbiturate Interp Urine Clobazam Ur Desmethylclobazam Ur Phencyclidine Scrn Ur Amphetamines Screen Ur Amobarbital GC/MS U Pentobarbital GC/MS U Phenobarbital GC/MS U Secobarbital GC/MS U a-Hydroxylprazolam U Alprazolam Cnf LCMSMS Urine Chlordiazepoxide U Benzodiazepines Scrn U Benzodiazepine Intrp U 7-Amino Clonzep LCMSMS U Clonazepam Conf LCMSMS Ur Diazepam Confirm Ur Nordiazepam LC/MS/MS U Flurazepam Cnf LCMSMS U Lorazepam Cn LCMSMS Ur Oxazepam LC/MS/MS Ur Temazepam Cfm LCMSMS Ur Prazepam Confirm U Triazolam Cn LCMSMS U k-IN-Jjuqnrghq LCMSMS U x-CF-Hbgdpjjmt LCMSMS U Midazolam Cnf LCMSMS Ur Zolpidem Confirm U Zolpidem Ph-4-COOH U Flunitrazepam Confirm U 4-Q-Qsyuphops LCMSMS Urine Cocaine Screen Ur THC Screen Chain of Custody Urine Alcohol Urine Xylazine Lyme Disease Antibody Negative Hepatitis A IgM Ab Negative Hep Bs Antigen Negative Hep Bs Antibody Positive Hep Bs Antibody, Quant 14.3 Hep B Core Total Ab Negative Hepatitis C Antibody Reactive A HCV RNA Qual (PCR) Pending Hepatitis C RNA Quant Pending 02/14/25 01:10 WBC RBC Hgb Hct MCV MCH MCHC RDW Plt Count MPV Immature Gran % Neutrophils % Band Neutrophils % Lymphocytes % Atypical Lymphs % Monocytes % Eosinophils % Basophils % Metamyelocytes % Myelocytes % Promyelocytes % Other Cells % Nucleated RBC % Absolute Neutrophils Absolute Lymphocytes Absolute Monocytes Absolute Eosinophils Absolute Basophils RBC Morphology Polychromasia Hypochromasia Poikilocytosis Basophilic Stippling Anisocytosis Microcytosis Macrocytosis Spherocytes Tear Drop Cells Ovalocytes Stomatocytes [place] Bodies [place] Cells/Echinocytes Acanthocytes (Spur) Schistocytes Sodium Potassium Chloride Carbon Dioxide Anion Gap BUN Creatinine Est GFR (CKD-EPI 2020) Glucose Calcium Magnesium Total Bilirubin AST ALT Alkaline Phosphatase Creatine Kinase C-React Prot High Sens Total Protein Albumin U 8-BI-Mpbgjvxw LCMSMS Pending Ur Butalbital Confirm Pending Urine Opiates Screen Negative U Methadone Metabolites Negative Urine Barbiturates Presumptive Positive A Ur Barbiturate Interp Pending Urine Clobazam Pending Ur Desmethylclobazam Pending Ur Phencyclidine Scrn Negative Ur Amphetamines Screen Negative Ur Amobarbital GC/MS Pending U Pentobarbital GC/MS Pending U Phenobarbital GC/MS Pending U Secobarbital GC/MS Pending U a-Hydroxylprazolam Pending U Alprazolam Cnf LCMSMS Pending Urine Chlordiazepoxide Pending U Benzodiazepines Scrn Presumptive Positive A U Benzodiazepine Intrp Pending U 7-Amino Clonzep LCMSMS Pending U Clonazepam Conf LCMSMS Pending Ur Diazepam Confirm Pending Ur Nordiazepam LC/MS/MS Pending U Flurazepam Cnf LCMSMS Pending U Lorazepam Cn LCMSMS Pending Ur Oxazepam LC/MS/MS Pending Ur Temazepam Cfm LCMSMS Pending Ur Prazepam Confirm Pending U Triazolam Cn LCMSMS Pending U h-MT-Jnantifrv LCMSMS Pending U y-TA-Jwuavocke LCMSMS Pending U Midazolam Cnf LCMSMS Pending Ur Zolpidem Confirm Pending U Zolpidem Ph-4-COOH Pending U Flunitrazepam Confirm Pending U 5-C-Rqwioqilm LCMSMS Pending Urine Cocaine Screen Negative Ur THC Screen Negative Chain of Custody Not Applicable Urine Alcohol Negative Urine Xylazine Negative Lyme Disease Antibody Hepatitis A IgM Ab Hep Bs Antigen Hep Bs Antibody Hep Bs Antibody, Quant Hep B Core Total Ab Hepatitis C Antibody HCV RNA Qual (PCR) Hepatitis C RNA Quant Preliminary micro results at discharge 02/13/25 22:30 Blood Culture - Preliminary Blood NO GROWTH 72 HOURS 02/13/25 14:53 Blood Culture - Preliminary Blood NO GROWTH 72 HOURS PFSH All Active Problems (Updated 02/17/25 @ 09:58 by Keith Wilkerson) Hyponatremia (Acute) Transaminitis (Acute) Proximal muscle weakness (Acute) Anorexia (Acute) Patient with hyporexia prior to hospitalization 02/13/2025, poor intake for weeks with malnourishment and dehydration. Encephalopathy acute (Acute) Pneumonia (Acute) Metabolic encephalopathy (Acute) Acute dehydration (Acute) Seizure (Acute) Hyperemesis (Acute) Alcohol withdrawal seizure (Acute) History of TB skin testing (Acute) Chronic insomnia (Acute) Hemoptysis (Acute) Rash (Acute) Anxiety disorder (Acute) Anemia (Chronic) Frequent headaches (Acute) Weight loss (Acute) Sensorineural hearing loss (SNHL) of left ear with unrestricted hearing of right ear (Acute) Shoulder pain, right (Acute) Sensation of fullness in left ear (Acute) Chronic headache (Acute) Tobacco abuse (Acute) Hypomagnesemia (Acute) Hypokalemia (Acute) COVID-19 ruled out by laboratory testing (Acute) Depression (Chronic) Alteration in patient safety due to identified suicide risk (Acute) Exposure to hepatitis C (Acute) serology neg 10/2018 Polysubstance abuse (Chronic) History of substance abuse (Chronic 09/09/17) Attention deficit disorder (Chronic 04/15/18) continue adderall as directed Alcoholism (Chronic 08/15/17) start revia Medical History (Updated 02/17/25 @ 09:58 by Keith Wilkerson) Alcohol withdrawal Surgical History Fracture, Open Treatment CAROLE ARREOLA; RIGHT DISTAL RADIUS Family History Mother Alcohol abuse History of Father Alcohol abuse history of Sister No problems noted. Son Alcohol abuse history of Asthma Maternal Grandfather , age 76 No problems noted. Social History Smoking/Tobacco Use Status: Current every day Tobacco Type: cigarettes and smokeless tobacco Tobacco: How many years used: 10 Smokeless tobacco user: chewing tobacco (and smoking) Quit status: not considering quitting Second Hand Exposure: Yes Smoking risk assessment performed?: Yes Alcohol Intake: current Alcohol Intake frequency: a few times a month Alcohol type: beer Drug use: Current Sobriety Substance use type: marijuana and crack/cocaine Details: Occasional marijuana, has not used cocaine in x1 week per patients. GIULIANA RN 11/17/24 Caregiver/Support person: No Household members: family Housing: house Communication Needs: Hard of Hearing Do you need help understanding health information?: Never Pets and animals: No Sexually active: Yes Do you think of yourself as: straight/heterosexual Current gender identity: male What is your relationship status?: refused to answer How often do you talk on the phone with friends or family?: never How often do you get together with friends or relatives?: never How often do you attend taoism or presybeterian services?: decline to answer Do you belong to any clubs or organized social groups?: no Panel score (0-1 are the most socially isolated patients): 0 What type of physical activity do you participate in: none and other Frequency: does not exercise Seatbelt use: sometimes Helmet use: Yes Helmet use: always Drive intox or ride w/intox courtesy bus driver: No Do you feel safe at home: Yes Do you feel safe in your relationship?: Yes Time Spent with Patient Time Spent with Patient: 45-69 minutes Time was spent: preparing to see the patient(eg.review tests), obtaining and/or reviewing separately otained hiistory, ordering medications,tests, procedures, referring, communicating with other health director day care center, indepentently interpreting results, counseling the patient and care coordination
--- NOTE | 2025-02-17 11:03 | NUR.NOTE ---
Nursing Note: RN spoke with scrum coach, pt agreed to follow up with them to help w/ sobriety upon Discharge.
[2025-02-17 11:49] LABS: Buprenorphine 179.7 ng/mL (Cutoff: 5.0); Norbuprenorphine 512.2 ng/mL (Cutoff: 2.5)
[2025-02-17 12:42] LABS: HCV RNA Qualitative Undetected (Undetected)
--- NOTE | 2025-02-17 13:41 | PDOC.CMDIS ---
Date of service: 02/17/25 Time of Service: 13:41 LACE Index Scoring Tool Questions: Length of Stay (in days): 4 - 6 Was the patient admitted via the E.D.?: Yes Comorbidities: Liver or Renal Disease E.D. Visits: 2 Answers: Total Score: 14 Risk of Readmission: High Risk Care Management Discharge Plan Reason for Hospitalization: seizure Discharge Plan: Paulie will be discharged home with new home health orders for PT. He will follow up with his community providers and plan of care and transport with family. Patient/Family Education Needs: review of discharge instructions, limitations, follow up plan, AUD resources, discuss Ask me three. Services Needed at Discharge: Home Health Care Services SDOH Health Related Social Needs: No Data to Display
[2025-02-17 15:32] LABS: 2-OH-Ethyl-Flurazepam Negative ng/mL (Cutoff: 10); 7-NH-Clonazepam Negative ng/mL (Cutoff: 10); 7-NH-Flunitrazepam Negative ng/mL (Cutoff: 10); Alpha OH-Alprazolam Negative ng/mL (Cutoff: 10); Alpha-OH Midazolam Negative ng/mL (Cutoff: 10); Alpha-OH-Triazolam Negative ng/mL (Cutoff: 10); Alprazolam Negative ng/mL (Cutoff: 10); Benzodiazepines Interpretation Positive.; Chlordiazepoxide Negative ng/mL (Cutoff: 10); Clobazam Negative ng/mL (Cutoff: 10); Clonazepam Negative ng/mL (Cutoff: 10); Diazepam Negative ng/mL (Cutoff: 10); Flurazepam Negative ng/mL (Cutoff: 10); Lorazepam 1315 ng/mL (Cutoff: 10); Midazolam Negative ng/mL (Cutoff: 10); N-Desmethylclobazam Negative ng/mL (Cutoff: 10); Prazepam Negative ng/mL (Cutoff: 10); Temazepam Negative ng/mL (Cutoff: 10); Triazolam Negative ng/mL (Cutoff: 10); Zolpidem Carboxylic acid Negative ng/mL (Cutoff: 10)
[2025-02-17 19:38] LABS: Noroxycodone-by LC-MS/MS Negative ng/mL (Cutoff: 25); Noroxymorphone-by LC-MS/MS Negative ng/mL (Cutoff: 25); Oxycodone Interpretation Negative.; Oxycodone-by LC-MS/MS Negative ng/mL (Cutoff: 25); Oxymorphone-by LC-MS/MS Negative ng/mL (Cutoff: 25)
[2025-02-18 00:10] LABS: Thiamine (Vitamin B1), WB 60 nmol/L (70-180)
[2025-02-18 00:25] LABS: Anaplasma phagocytophilum Negative (Negative); B. miyamotoi PCR Negative (Negative); Babesia divergens/MO-1 Negative (Negative); Babesia duncani Negative (Negative); Babesia microti Negative (Negative); Ehrlichia chaffeensis Negative (Negative); Ehrlichia ewingii/canis Negative (Negative); Ehrlichia muris eauclairensis Negative (Negative)
[2025-02-18 10:00] LABS: Aldolase 6.4 U/L (<7.7)
[2025-02-18 11:42] LABS: Amobarbital Negative ng/mL (Cutoff: 100); Barbiturates Interpretation Positive.; Butalbital Negative ng/mL (Cutoff: 100); Pentobarbital Negative ng/mL (Cutoff: 100); Secobarbital Negative ng/mL (Cutoff: 100)
== END 2025-02-17 11:38 | disposition home health service (06) | DRG 896 ==
LOC: ER 18:48 → ICU 20:50 → MS 02-15 21:27
PROVIDERS: Emergency Medicine; Family Medicine; Nurse Practitioner Family; Admitting Provider Hospitalist; Emergency Provider Physician Assistant; PCP Family Medicine; Responsible Provider Family Medicine; Visit Provider Hospitalist
DX: F10.231 Alcohol dependence with withdrawal delirium (principal); G93.41 Metabolic encephalopathy; J18.9 Pneumonia, unspecified organism; E87.1 Hypo-osmolality and hyponatremia; Z68.1 Body mass index [BMI] 19.9 or less, adult; G72.1 Alcoholic myopathy; R56.9 Unspecified convulsions; E86.0 Dehydration; R74.01 Elevation of levels of liver transaminase levels; D64.9 Anemia, unspecified; F32.89 Other specified depressive episodes; F41.9 Anxiety disorder, unspecified; F90.9 Attention-deficit hyperactivity disorder, unspecified type; I73.00 Raynaud's syndrome without gangrene; F19.10 Other psychoactive substance abuse, uncomplicated; R11.2 Nausea with vomiting, unspecified; R19.7 Diarrhea, unspecified; Z79.899 Other long term (current) drug therapy; F51.04 Psychophysiologic insomnia; F17.210 Nicotine dependence, cigarettes, uncomplicated; F17.220 Nicotine dependence, chewing tobacco, uncomplicated; R63.4 Abnormal weight loss
CPT/HCPCS: 00123; 36415; 70553; 74177; 80048; 80053; 80307; 80348; 80365; 80375; 82550; 82805; 83690; 85652; 86141; 86704; 86706; 86709; 86803; 87040; 87340; 87522; 87798; 93005; 96365; 96366; 96367; 96368; 96372; 97110; 97162; 97530; 99291; J1650; 70450; 71260; 80184; 80320; 80329; 80345; 80346; 81003; 81015; 82085; 82140; 83605; 83615; 83735; 84100; 84425; 85025; 85610; 85730; 86140; 86618; 93010; 95816; 99223; 99232; 99233; 99238; J0696; J2060; J2560; J3411; J3490

== ENCOUNTER 2025-03-13 11:38 | Emergency (ER) | payer MEDICAID, SELFPAY ==
[2025-03-13] VITALS (31 sets, daily range): BP systolic 63–106; BP diastolic 30–62; PULSE 47–137; RESP 16–20; TEMP 36.8; O2SAT 94–100
--- NOTE | 2025-03-13 11:58 | W.ED.GENAD ---
Discharge Plan Disposition Patient Disposition: Home Condition: Improving Discharge Details Chief Complaint: Dizzy/Sync Clinical Impression: Orthostatic hypotension, Hypomagnesemia, Elevated LFTs Primary Care Provider: Hernesto Beverly ED Provider: Alyx Sanders Home Meds and New Rx's Prescriptions: No Action nicotine 21-14-7 mg/24 hr patch, TD daily, sequential See Rx Instructions transdermal .COMPLEX Qty: 56 0RF Rx Instructions: apply 1-21 mg NICOTINE PATCH daily for 28 days; follow with 1-14 mg PATCH daily for 14 days, then 1-7mg PATCH daily for 14 days transdermal trazodone 100 mg tablet 300 mg PO .pm Qty: 90 6RF Rx Instructions: 300 mg pm clonidine HCl 0.1 mg tablet 0.1 mg PO DAILY multivitamin [Multiple Vitamins] Tablet 1 tab PO DAILY Qty: 30 0RF thiamine mononitrate (vit B1) [Vitamin B-1 (mononitrate)] 100 mg Tablet 100 mg PO DAILY Qty: 30 0RF folic acid 1 mg Tablet 1 mg PO DAILY Qty: 30 0RF buprenorphine-naloxone [Suboxone] 12-3 mg film 1 film sublingual DAILY Patient Comments: PLACE ONE FILM UNDER THE TONGUE AND ALLOW TO DISSOLVE ONCE DAILY buprenorphine-naloxone [Suboxone] 2-0.5 mg film 1 film sublingual DAILY Patient Comments: PLACE ONE FILM UNDER THE TONGUE AND ALLOW TO DISSOLVE ONCE DAILY hydroxyzine HCl 25 mg tablet 25 mg PO TID nicotine 21 mg/24 hr Patch 24 Hour 21 mg transdermal DAILY PRN PRNQty: 30 0RF acamprosate 333 mg tablet,delayed release (DR/EC) 666 mg PO BID Qty: 180 2RF Rx Instructions: administer with mid-day and evening meals Discharge Instructions Instructions: Orthostatic hypotension, Hepatitis Panel, Hypomagnesemia Additional Instructions: You were found to have orthostatic hypotension today. Your blood pressure is dropping and your heart rate is increasing when you stand. This can be related to medication, dehydration or other issues. You did have improvement after IV fluids today however the orthostatic hypotension did not resolve. You decided to leave prior to receiving more IV fluids. Please continue to hydrate orally at home. Call your doctor first thing tomorrow as you need very close reassessment. Return immediately if you develop any significant lightheadedness, dizziness, or other concerning symptoms. Referrals: Hernesto Beverly MD [Primary Care Provider] - 1 day (Call tomorrow to arrange close follow-up) Discharge Data Discharge Physician: Alyx Sanders [facility] General Date/Time Provider Initiated Documentation: 03/13/25 11:46. HPI Narrative: 30-year-old male with history of polysubstance abuse, alcoholism, ADD and depression presents for evaluation of low blood pressure. Patient states that he got a blood pressure cuff to use at home. Twice this morning his blood pressure was 60s over 40s. He felt slightly dizzy with standing. He does have chronically low blood pressure. Upon arrival to the emergency department blood pressure was in the 90s. He states that that is actually a very good blood pressure for him. He is no longer feeling lightheaded or dizzy. He is tolerating normal p.o. No vomiting or diarrhea. No increased urinary frequency, dysuria, gross hematuria. Denies any calf pain. He does have some ongoing weakness to his left knee and left side. He has been using a cane to assist in ambulation. He does have visiting nurses. Denies any fevers or chills. No chest pain or shortness of breath. No cough or cold. Related Data Home Medications ?Medication ?Instructions ?Recorded ?Confirmed folic acid 1 mg tablet 1 mg PO DAILY #30 tabs 11/18/24 03/13/25 multivitamin (Multiple Vitamins 1 tab PO DAILY #30 tabs 11/18/24 03/13/25 tablet) thiamine mononitrate (vit B1) 100 100 mg PO DAILY #30 tabs 11/18/24 03/13/25 mg tablet (Vitamin B-1 (mononitrate)) trazodone 100 mg tablet 300 mg (3 x 100 mg) PO .pm #90 01/26/25 03/13/25 tab-caps buprenorphine 12 mg-naloxone 3 mg 1 film sublingual DAILY 02/13/25 03/13/25 sublingual film (Suboxone) buprenorphine 2 mg-naloxone 0.5 mg 1 film sublingual DAILY 02/13/25 03/13/25 sublingual film (Suboxone) hydroxyzine HCl 25 mg tablet 25 mg PO TID 02/13/25 03/13/25 acamprosate 333 mg tablet,delayed 666 mg (2 x 333 mg) PO BID #180 02/17/25 03/13/25 release tabs nicotine 21 mg/24 hr daily 21 mg transdermal DAILY PRN PRN 02/17/25 03/13/25 transdermal patch #30 ea nicotine See Rx Instructions transdermal 02/22/25 03/13/25 21mg/24hr-14mg/24hr-7mg/24hr daily .COMPLEX #56 patches transderm patches,sequentl clonidine HCl 0.1 mg tablet 0.1 mg PO DAILY 03/13/25 03/13/25 Previous Rx's ?Medication ?Instructions ?Recorded folic acid 1 mg tablet 1 mg PO DAILY #30 tabs 11/18/24 multivitamin (Multiple Vitamins 1 tab PO DAILY #30 tabs 11/18/24 tablet) thiamine mononitrate (vit B1) 100 100 mg PO DAILY #30 tabs 11/18/24 mg tablet (Vitamin B-1 (mononitrate)) trazodone 100 mg tablet 300 mg (3 x 100 mg) PO .pm #90 01/26/25 tab-caps acamprosate 333 mg tablet,delayed 666 mg (2 x 333 mg) PO BID #180 02/17/25 release tabs nicotine 21 mg/24 hr daily 21 mg transdermal DAILY PRN PRN 02/17/25 transdermal patch #30 ea nicotine See Rx Instructions transdermal 02/22/25 21mg/24hr-14mg/24hr-7mg/24hr daily .COMPLEX #56 patches transderm patches,sequentl Allergies Allergy/AdvReac Type Severity Reaction Status Date / Time Sulfa (Sulfonamide Allergy Unknown Hives Verified 03/13/25 11:42 Antibiotics) General Stated Complaint: Dizzy/Sync YESSENIA: 3 Review of Systems Narrative: Remainder of review of systems otherwise negative except for as noted in the HPI x 10. Exam Narrative Exam Narrative: General: non-toxic, no respiratory distress, comfortable HEENT: normocephalic, atraumatic, lids and lashes normal, PERRL, EOMI, anicteric sclera, no conjunctival injection, moist oral mucosa Card: regular rate and rhythm, S1S2, no murmurs, rubs, or gallops Lungs: good air entry, clear to auscultation bilaterally. no wheezes, rales, rhonchi, or retractions Abd: soft, non-tender, non-distended, normal bowel sounds, no rebound or guarding, no peritoneal signs Musculoskeletal: full range of motion of arms and legs, no tenderness to palpation. no clubbing, cyanosis, or edema Neurologic: GSC 15, CN 2-12 intact bilaterally, speech normal, strength normal, sensation intact distally in all four extremities, gait normal, 2+ biceps tendon reflexes, normal finger to nose, normal rapid alternating movements, no pronator drift Psych: alert and oriented Skin: no petechiae, no lesions, warm and dry Course Vital Signs Vital signs: Vital Signs Temperature 36.8 C 03/13/25 11:40 Pulse 109 H 03/13/25 11:40 Respiratory Rate 20 03/13/25 11:40 Blood Pressure 94/59 L 03/13/25 11:40 Pulse Oximetry 94 03/13/25 11:40 Temperature 36.8 C 03/13/25 11:40 Pulse 109 H 03/13/25 11:40 Respiratory Rate 20 03/13/25 11:40 Blood Pressure 94/59 L 03/13/25 11:40 Blood Pressure Position Sitting 03/13/25 11:40 Pulse Oximetry 94 03/13/25 11:40 Oxygen Delivery Method Room Air 03/13/25 11:40 Oxygen Flow Rate 0 03/13/25 11:40 Medical Decision Making 30-year-old male presents for evaluation of hypotension and dizziness with standing quickly. Patient denies any symptoms at this time. His triage blood pressure is normal. Will check orthostatic blood pressure. Patient had profound orthostatic hypotension. Will check laboratory studies and give IV fluids. Laboratory studies show significant elevation of LFTs. Patient does have mildly low magnesium and this was replaced orally. Unclear etiology however patient does have a history of alcohol abuse. Hepatitis panel will be drawn. After IV fluids orthostatic blood pressure was rechecked. His blood pressure and heart rate were improved however he continues to have orthostatic hypotension. Patient was asymptomatic. He ate lunch and is requesting to be discharged. He understands that I have recommended an additional liter of IV fluids however patient declines. He understands that he is at risk for episodes of dizziness, lightheadedness, syncope due to the orthostatic hypotension. He will continue to hydrate orally at home. He will change positions slowly. He will call his primary care physician tomorrow for close follow-up. He is strongly encouraged to return immediately with any new or worsening symptoms. Quality:SDOH Health Related Social Needs: No Data to Display PFSH All Active Problems (Updated 03/13/25 @ 14:31 by Alyx Sanders MD) Elevated LFTs (Acute) Hypomagnesemia (Acute) Orthostatic hypotension (Acute) Hyponatremia (Acute) Transaminitis (Acute) Proximal muscle weakness (Acute) Anorexia (Acute) Patient with hyporexia prior to hospitalization 02/13/2025, poor intake for weeks with malnourishment and dehydration. Metabolic encephalopathy (Acute) Acute dehydration (Acute) Seizure (Acute) History of TB skin testing (Acute) Chronic insomnia (Acute) Hemoptysis (Acute) Rash (Acute) Anxiety disorder (Acute) Anemia (Chronic) Frequent headaches (Acute) Weight loss (Acute) Sensorineural hearing loss (SNHL) of left ear with unrestricted hearing of right ear (Acute) Shoulder pain, right (Acute) Sensation of fullness in left ear (Acute) Chronic headache (Acute) Tobacco abuse (Acute) Hypomagnesemia (Acute) Hypokalemia (Acute) COVID-19 ruled out by laboratory testing (Acute) Depression (Chronic) Exposure to hepatitis C (Acute) serology neg 10/2018 Alteration in patient safety due to identified suicide risk (Acute) Polysubstance abuse (Chronic) History of substance abuse (Chronic 09/09/17) Attention deficit disorder (Chronic 04/15/18) continue adderall as directed Alcoholism (Chronic 08/15/17) start revia Medical History Alcohol withdrawal seizure Alcohol withdrawal Surgical History Fracture, Open Treatment CAROLE ARREOLA; RIGHT DISTAL RADIUS Family History Mother Alcohol abuse History of Father Alcohol abuse history of Substance use disorder Opioid use disorder, on suboxone Sister No problems noted. Son Alcohol abuse history of Asthma Maternal Grandfather , age 76 No problems noted. Social History Smoking/Tobacco Use Status: Current every day Tobacco Type: cigarettes and smokeless tobacco Tobacco: How many years used: 10 Smokeless tobacco user: chewing tobacco (and smoking) Quit status: not considering quitting Second Hand Exposure: Yes Smoking risk assessment performed?: Yes Alcohol Intake: current Alcohol Intake frequency: a few times a month Alcohol type: beer Drug use: Current Sobriety Substance use type: marijuana and crack/cocaine Details: Occasional marijuana, has not used cocaine in x1 week per patients. GIULIANA RN 11/17/24 Caregiver/Support person: No Household members: family Housing: house Communication Needs: Hard of Hearing Do you need help understanding health information?: Never Pets and animals: No Sexually active: Yes Do you think of yourself as: straight/heterosexual Current gender identity: male What is your relationship status?: refused to answer How often do you talk on the phone with friends or family?: never How often do you get together with friends or relatives?: never How often do you attend islam or adventism services?: decline to answer Do you belong to any clubs or organized social groups?: no Panel score (0-1 are the most socially isolated patients): 0 What type of physical activity do you participate in: none and other Frequency: does not exercise Seatbelt use: sometimes Helmet use: Yes Helmet use: always Drive intox or ride w/intox 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
--- NOTE | 2025-03-13 12:09 | RT.EKG_ITS ---
APPROVED REPORT Exam: Resting ECG Reason for Exam: hypotension Patient Location: E HR:49 bpm ECG Measurements Heart Rate 49 AXIS TX 137 P 82 QRSd 103 QRS 91 QT 474 T 76 QTc 428 Conclusion Sinus bradycardia...rate< 60 Abnormal T, consider ischemia, lateral leads...T <-0.20mV, I aVL V5 V6 Sinus bradycardia with baseline artifact. When conpared to prior 02/13/25 decreased HR is noted. WD
[2025-03-13 12:56] LABS: Abs Immature Grans 0.01 10^3/uL (0.0-0.06); Absolute Basophil Count 0.06 10^3/uL (0.0-0.2); Absolute Eosinophil Count 0.12 10^3/uL (0.0-0.7); Absolute Lymphocyte Count 2.48 10^3/uL (1.2-3.4); Absolute Monocyte Count 0.51 10^3/uL (0.1-0.8); Absolute Neutrophil Count 2.46 10^3/uL (1.2-6.7); Basophils % 1.1 %; Eosinophils % 2.1 %; HCT 33.9 % (40.0-50.0); HGB 11.3 g/dL (13.5-17.5); Immature Grans % 0.2 %; MCH 30.1 pg (27.0-33.0); MCHC 33.3 % (32.0-36.0); MCV 90 fL (80-95); MPV 10.8 fL (8.0-11.0); Neutrophils % 43.6 %; Platelet Count 237 10^3/uL (130-400); RBC 3.76 10^6/uL (4.36-5.78); RDW 13.5 % (11.8-14.1); RDW-SD 44.6 fL; WBC 5.64 10^3/uL (4.4-10.8)
[2025-03-13 13:05] LABS: ALT 867 U/L (16-63); AST 308 U/L (15-37); Albumin 3.6 g/dL (3.4-5.0); Alkaline Phosphatase 152 U/L (46-116); Anion Gap 4.3 mmol/L (3-11); BUN 13 mg/dL (7-18); Bilirubin, Total 0.3 mg/dL (0.2-1.0); CO2 32.7 mmol/L (21.0-32.0); CREATININE 0.9 mg/dL (0.70-1.30); Calcium 9.3 mg/dL (8.5-10.1); Chloride 103 mmol/L (98-107); Estimated GFR 118.57 (mL/min/1.73m2); Glucose 124 mg/dL (74-106); Lipase 34 U/L (<78); Magnesium 1.7 mg/dL (1.8-2.4); Potassium 3.9 mmol/L (3.5-5.1); Sodium 140 mmol/L (136-145); Total Protein 7.1 g/dL (6.4-8.2)
[2025-03-13 13:06] LABS: ETHANOL BLOOD < 3.0 mg/dL (<10)
[2025-03-13] MEDS: Lactated Ringers 1,000 ML 1000 ML IV (14:39)
[2025-03-13] MEDS: Magnesium Oxide 400 MG TAB PO (14:39)
[2025-03-15 10:53] LABS: Hepatitis A Antibody IgM Negative (Negative); Hepatitis B Core Antibody Negative (Negative); Hepatitis B surface Ag Negative (Negative); Hepatitis C Ab w Rflx HCV PCR Reactive (Negative)
[2025-03-16 11:29] LABS: HCV RNA Detection Quantitative 31800 IU/mL (Undetected); HCV RNA Qualitative Detected (Undetected)
== END 2025-03-13 14:54 | disposition home or self-care (01) ==
PROVIDERS: Emergency Provider Emergency Medicine Emergency Medical Services; PCP Family Medicine
DX: I95.1 Orthostatic hypotension (principal); E83.42 Hypomagnesemia; R79.89 Other specified abnormal findings of blood chemistry; R00.1 Bradycardia, unspecified; F19.10 Other psychoactive substance abuse, uncomplicated; F17.210 Nicotine dependence, cigarettes, uncomplicated; F17.290 Nicotine dependence, other tobacco product, uncomplicated
CPT/HCPCS: 36415; 80053; 83690; 86704; 86709; 86803; 87340; 87522; 93005; 99284; 80320; 83735; 85025; 93010

== ENCOUNTER 2025-04-26 12:53 | Outpatient (CLI) | payer MEDICAID, SELFPAY ==
[2025-04-26 11:59] LABS: HCT 38.6 % (40.0-50.0); HGB 12.9 g/dL (13.5-17.5); MCH 30.1 pg (27.0-33.0); MCHC 33.4 % (32.0-36.0); MCV 90 fL (80-95); MPV 10.6 fL (8.0-11.0); Platelet Count 158 10^3/uL (130-400); RBC 4.29 10^6/uL (4.36-5.78); RDW 13.2 % (11.8-14.1); RDW-SD 43.6 fL; WBC 5.96 10^3/uL (4.4-10.8)
[2025-04-26 12:05] LABS: ALT 28 U/L (16-63); AST 36 U/L (15-37); Albumin 3.7 g/dL (3.4-5.0); Alkaline Phosphatase 127 U/L (46-116); Anion Gap 6.1 mmol/L (3-11); BUN 6 mg/dL (7-18); Bilirubin, Total 0.6 mg/dL (0.2-1.0); CO2 29.9 mmol/L (21.0-32.0); Calcium 9.0 mg/dL (8.5-10.1); Chloride 99 mmol/L (98-107); Estimated GFR 127.91 (mL/min/1.73m2); Glucose 79 mg/dL (74-106); Potassium 4.3 mmol/L (3.5-5.1); Sodium 135 mmol/L (136-145); Total Protein 7.8 g/dL (6.4-8.2)
== END 2025-04-26 12:54 | disposition home or self-care (01) ==
LOC: LBO 12:53
PROVIDERS: PCP Family Medicine; Visit Provider Family Medicine
DX: R53.83 Other fatigue (principal); R10.9 Unspecified abdominal pain; G72.89 Other specified myopathies
CPT/HCPCS: 36415; 80053; 80076; 85027; 86803

== ENCOUNTER 2025-05-06 01:02 | Outpatient (CLI) | payer MEDICAID, SELFPAY ==
[2025-05-06 23:24] LABS: Hepatitis C Ab w Rflx HCV PCR Reactive (Negative)
[2025-05-09 13:28] LABS: HCV RNA Detection Quantitative 37 IU/mL (Undetected); HCV RNA Qualitative Detected (Undetected)
== END 2025-05-06 01:03 | disposition home or self-care (01) ==
LOC: LBO 01:02
PROVIDERS: PCP Family Medicine; Visit Provider Family Medicine
DX: B19.20 Unspecified viral hepatitis C without hepatic coma (principal)
CPT/HCPCS: 36415; 86803; 87522

== ENCOUNTER 2025-05-24 07:29 | Emergency (ER) | payer MEDICAID, SELFPAY ==
[2025-05-24 07:30] VITALS: BP 171/81; PULSE 107; RESP 17; TEMP 36.9; O2SAT 98
[2025-05-24 07:34] VITALS: BP 171/81; PULSE 107; RESP 17; TEMP 36.9; O2SAT 98
--- NOTE | 2025-05-24 08:09 | W.ED.GENAD ---
Discharge Plan Disposition Patient Disposition: Home Condition: Stable Discharge Details Clinical Impression: Otitis externa, Cellulitis of foot, left Primary Care Provider: Hernesto Beverly ED Provider: Indu Gonzales Home Meds and New Rx's Prescriptions: New ofloxacin 0.3 % drops 10 drp otic (ear) BID 14 Days Qty: 5 0RF cephalexin 500 mg capsule 500 mg PO QID 10 Days Qty: 40 0RF doxycycline monohydrate 100 mg tablet 100 mg PO BID 10 Days Qty: 20 0RF No Action quetiapine 25 mg tablet 25 mg PO BID Qty: 60 2RF quetiapine 50 mg tablet 50 mg PO BID Qty: 60 2RF trazodone 100 mg tablet 300 mg PO .pm Qty: 90 6RF Rx Instructions: 300 mg pm buprenorphine-naloxone [Suboxone] 12-3 mg film 1 film sublingual DAILY Patient Comments: PLACE ONE FILM UNDER THE TONGUE AND ALLOW TO DISSOLVE ONCE DAILY buprenorphine-naloxone [Suboxone] 2-0.5 mg film 1 film sublingual DAILY Patient Comments: PLACE ONE FILM UNDER THE TONGUE AND ALLOW TO DISSOLVE ONCE DAILY Discharge Instructions Instructions: Cellulitis (Skin Infection), Adult ED, Outer Ear Infection ED Additional Instructions: You were seen in the emergency department today for evaluation of outer ear pain after swimming concerning for an outer ear infection. You also have redness, swelling, and warmth of your left foot that is concerning for cellulitis, a skin and soft tissue infection. You were started on topical eardrops as well as oral antibiotics. Please take all this medication until it is gone, even if it starts to feel better. Your primary care provider needs to reevaluate you in the next few days to discuss this visit and any symptoms that change, worsen, or persist. Please wear earplugs in the future when swimming, and avoid sticking objects into your ear such as Q-tips. Please follow-up with your primary care provider in the next few days to discuss this visit and any symptoms that change, worsen, or persist. Thank you for allowing us to be part of your care. Discharge Data Discharge Date/Time-TO BE ENTERED AT DEPARTURE: 05/24/25 08:34 HPI General Mode of arrival: ambulatory. Date/Time Provider Initiated Documentation: 05/24/25 07:32. Limitations to Documentation: no limitations. Information obtained by: patient and old records reviewed. HPI Narrative: This is a 30-year-old male patient with a past medical history significant for polysubstance use disorder, hepatitis C, presenting for evaluation of ear pain and foot skin changes. The patient reports that he is primarily concerned about his ear. He went swimming for the first time this summer a few days ago, did get water in his right ear. He states that his right ear is his good ear, he has a history of sensorineural hearing loss of the left for which he wears a hearing aid. The patient states that the primary symptom is pain, denies change in hearing. States that he did not injure himself or put anything into the ear. The patient reports that he also has noted some redness, swelling, and pain in his left foot. He woke up a few days ago and had noticed a red bump where he thought that an insect may have bitten him. The redness has spread and now surrounds his toes on the top of his foot. He denies fever, difficulty walking. No drainage, he has been keeping the area clean and dry. Related Data Home Medications ?Medication ?Instructions ?Recorded ?Confirmed trazodone 100 mg tablet 300 mg (3 x 100 mg) PO .pm #90 01/26/25 05/24/25 tab-caps buprenorphine 12 mg-naloxone 3 mg 1 film sublingual DAILY 02/13/25 05/24/25 sublingual film (Suboxone) buprenorphine 2 mg-naloxone 0.5 mg 1 film sublingual DAILY 02/13/25 05/24/25 sublingual film (Suboxone) quetiapine 25 mg tablet 25 mg PO BID #60 tabs 04/21/25 05/24/25 quetiapine 50 mg tablet 50 mg PO BID #60 tabs 04/21/25 05/24/25 cephalexin 500 mg capsule 500 mg PO QID 10 days #40 caps 05/24/25 doxycycline monohydrate 100 mg 100 mg PO BID 10 days #20 tabs 05/24/25 tablet ofloxacin 0.3 % ear drops 10 drp otic (ear) BID 14 days #5 mL 05/24/25 Previous Rx's ?Medication ?Instructions ?Recorded trazodone 100 mg tablet 300 mg (3 x 100 mg) PO .pm #90 01/26/25 tab-caps quetiapine 25 mg tablet 25 mg PO BID #60 tabs 04/21/25 quetiapine 50 mg tablet 50 mg PO BID #60 tabs 04/21/25 cephalexin 500 mg capsule 500 mg PO QID 10 days #40 caps 05/24/25 doxycycline monohydrate 100 mg 100 mg PO BID 10 days #20 tabs 05/24/25 tablet ofloxacin 0.3 % ear drops 10 drp otic (ear) BID 14 days #5 mL 05/24/25 Allergies Allergy/AdvReac Type Severity Reaction Status Date / Time Sulfa (Sulfonamide Allergy Unknown Hives Verified 05/24/25 07:36 Antibiotics) General Stated Complaint: EarProblem YESSENIA: 4 Exam Narrative Exam Narrative: Gen: Awake and alert, in no apparent distress HEENT: Non-icteric sclera, PERRL. Right ear canal mildly erythematous, slightly edematous, no mastoid tenderness or significant exacerbation of the pain with manipulation of the pinna. Partially wax occluded TM appears intact, no effusion or purulence. Left ear TM clear Neck: Supple Lungs: No apparent respiratory distress, normal respiratory effort. CV: Appears well perfused Abdomen: Non-distended MSK: Moves 4 extremities without apparent limitation in ROM Skin: Visualized skin without rashes, cyanosis. The patient's left foot has redness, induration, and swelling from the toes to the distal foot, without purulence or fluctuance. Neuro: Normal Gait, no obvious focal deficits or facial asymmetry. Speaks in full, clear sentences. Psych: Appropriate for situation. Course Vital Signs Vital signs: Vital Signs Temperature 36.9 C 05/24/25 07:30 Pulse 107 H 05/24/25 07:30 Respiratory Rate 17 05/24/25 07:30 Blood Pressure 171/81 H 05/24/25 07:30 Pulse Oximetry 98 05/24/25 07:30 Temperature 36.9 C 05/24/25 07:34 Temperature Source Oral 05/24/25 07:34 Pulse 107 H 05/24/25 07:34 Respiratory Rate 17 05/24/25 07:34 Blood Pressure 171/81 H 05/24/25 07:34 Blood Pressure Position Sitting 05/24/25 07:34 Pulse Oximetry 98 05/24/25 07:34 Oxygen Delivery Method Room Air 05/24/25 07:34 Oxygen Flow Rate 0 05/24/25 07:34 Pain Level 10 05/24/25 07:39 Medical Decision Making This is a 30-year-old male patient presented for evaluation of right ear pain and left foot swelling. My differential includes but is not limited to otitis externa, no evidence for otitis media within the limits of the wax occluded exam. I do not have physical exam evidence concerning for mastoiditis, and the patient is without fever, persistent tachycardia, or other signs of deep space head or neck infection. The patient's left foot has changes concerning for cellulitis. I do not palpate any fluctuance to suggest abscess. I provided the patient with ofloxacin eardrops for his otitis externa, and will start the patient on Keflex and doxycycline (given his Bactrim allergy) for management of his cellulitis. At this time given the brief duration of symptoms and hemodynamic stability I do not see an indication to proceed with laboratory studies or advanced imaging at this time. At this time, the patient has had a full medical evaluation and is safe for discharge to home. They are hemodynamically stable, ambulatory, and tolerating PO. They are understanding of the follow-up plan and return precautions. They left our facility without incident. 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 Metabolic encephalopathy (Acute) Acute dehydration (Acute) Seizure (Acute) History of TB skin testing (Acute) Chronic insomnia (Acute) Hemoptysis (Acute) Rash (Acute) Anxiety disorder (Acute) Anemia (Chronic) Frequent headaches (Acute) Weight loss (Acute) Sensorineural hearing loss (SNHL) of left ear with unrestricted hearing of right ear (Acute) Shoulder pain, right (Acute) Sensation of fullness in left ear (Acute) Chronic headache (Acute) Tobacco abuse (Acute) Hypomagnesemia (Acute) Hypokalemia (Acute) COVID-19 ruled out by laboratory testing (Acute) Depression (Chronic) Exposure to hepatitis C (Acute) serology neg 10/2018 Alteration in patient safety due to identified suicide risk (Acute) Polysubstance abuse (Chronic) History of substance abuse (Chronic 09/09/17) Attention deficit disorder (Chronic 04/15/18) continue adderall as directed Alcoholism (Chronic 08/15/17) start revia Medical History Alcohol withdrawal seizure Alcohol withdrawal Surgical History Fracture, Open Treatment CAROLE ARREOLA; RIGHT DISTAL RADIUS Family History Mother Alcohol abuse History of Father Alcohol abuse history of Substance use disorder Opioid use disorder, on suboxone Sister No problems noted. Son Alcohol abuse history of Asthma Maternal Grandfather , age 76 No problems noted. Social History Smoking/Tobacco Use Status: Current every day Tobacco Type: cigarettes and smokeless tobacco Tobacco: How many years used: 10 Smokeless tobacco user: chewing tobacco (and smoking) Quit status: not considering quitting Second Hand Exposure: Yes Smoking risk assessment performed?: Yes Alcohol Intake: current Alcohol Intake frequency: a few times a month Alcohol type: beer Drug use: Current Sobriety Substance use type: marijuana and crack/cocaine Details: Cocaine uses 2 weeks ago 05/24/25 Caregiver/Support person: No Household members: family Housing: house Communication Needs: Hard of Hearing Do you need help understanding health information?: Never Pets and animals: No Sexually active: Yes Do you think of yourself as: straight/heterosexual Current gender identity: male What is your relationship status?: refused to answer How often do you talk on the phone with friends or family?: never How often do you get together with friends or relatives?: never How often do you attend yazidism or temple services?: decline to answer Do you belong to any clubs or organized social groups?: no Panel score (0-1 are the most socially isolated patients): 0 What type of physical activity do you participate in: none and other Frequency: does not exercise Seatbelt use: sometimes Helmet use: Yes Helmet use: always Drive 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 or ride w/intox commercial relief 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: No Do you feel safe at home: Yes Do you feel safe in your relationship?: Yes PAWSS Have you Been Recently Intoxicated or Drunk Within the Last 30 days?: No Have you Ever Experienced Previous Episodes of Alcohol Withdrawal?: No Have you ever Experienced Withdrawal Seizures?: No Have you ever Experienced Delirium Tremens(DT)s?: No Have you ever undergone Alcohol Rehabilitation Treatment (i.e, inpt ot outpatient treatment programs)?: No Have you ever Experienced Blackouts?: No Have you ever Combined Alcohol with other Downers within the last 90 days?: No Have you ever Combined Alcohol with any other Substance of Abuse during the last 90 days?: No Result: 0
[2025-05-24] MEDS: Ofloxacin 0.3% OTIC 5 ML BTL AU (08:30)
[2025-05-24] MEDS: Doxycycline Hyclate 100 MG CAP PO (08:30)
[2025-05-24] MEDS: Cephalexin 500 MG CAP PO (08:30)
[2025-05-24 08:34] VITALS: BP 114/71; PULSE 87; RESP 16; O2SAT 97
== END 2025-05-24 08:34 | disposition home or self-care (01) ==
PROVIDERS: Emergency Provider Emergency Medicine; PCP Family Medicine
DX: L03.116 Cellulitis of left lower limb (principal); H60.91 Unspecified otitis externa, right ear
CPT/HCPCS: 99283 ×2

== ENCOUNTER 2025-07-22 11:03 | Emergency (ER) | payer MEDICAID, SELFPAY ==
[2025-07-22 11:04] VITALS: BP 120/67; PULSE 128; RESP 16; TEMP 36.6; O2SAT 98
[2025-07-22 11:06] VITALS: BP 120/67; PULSE 128; RESP 16; TEMP 36.6; O2SAT 98
--- NOTE | 2025-07-22 11:30 | DI.RAD_ITS ---
Exam(s) XR ANKLE LT COMPLETE EXAM: XR ANKLE LT COMPLETE CLINICAL HISTORY: overlying skin infeciton, concer for osteo TECHNIQUE: 2D digital imaging was performed. Three views. COMPARISON: CR LEFT ANKLE COMPLETE from 02/03/2009 FINDINGS: BONES: No acute fracture is present. No bony destructive lesion is seen. JOINTS:The ankle mortise is normally aligned. SOFT TISSUE: Swelling around the medial malleolus. No foreign body or abnormal gas collection. IMPRESSION: Soft tissue swelling at the medial malleolus. No visible bony destruction. DATA REPOSITORY: RADIATION DOSE DELIVERED:
--- NOTE | 2025-07-22 11:34 | W.ED.GENAD ---
Discharge Plan Disposition Patient Disposition: Home Discharge Details Clinical Impression: Abscess Primary Care Provider: Hernesto Beverly ED Provider: Gustavo Segura Home Meds and New Rx's Prescriptions: New doxycycline monohydrate 100 mg capsule 100 mg PO BID Qty: 14 0RF Continued quetiapine [Seroquel XR] 150 mg tablet extended release 24 hr 150 mg PO BID Qty: 60 2RF quetiapine [Seroquel] 25 mg tablet 25 mg PO TID PRN (Reason: agitation) Qty: 90 2RF Rx Instructions: * Doses should be at least 4 hours apart * trazodone 100 mg tablet 300 mg PO .pm Qty: 90 6RF Rx Instructions: 300 mg pm buprenorphine-naloxone 8-2 mg film 2 film sublingual DAILY Rx Instructions: place 1 strip/tab under (each) side of tongue Discharge Instructions Instructions: Abscess Incision and Drainage ED Additional Instructions: Please follow-up with your primary care provider regarding your visit to the emergency department today. Be sure to discuss results of all test performed here today to include radiology, and laboratory testing as well as results for any pending cultures. Should your symptoms worsen, or if you develop new concerning symptoms, please return immediately emergency department for further evaluation. HPI General Date/Time Provider Initiated Documentation: 07/22/25 11:22. HPI Narrative: MDM/Narrative: Initial Assessment: 30-year-old male with past med history of polysubstance abuse, IVDA with recurrent abscesses, and hepatitis C chronically, presents for left ankle abscess with elevated heart rate, potential severe infection. Differential Diagnosis: MRSA (IVDA/recurrent abscesses), sepsis (elevated heart rate), osteomyelitis (X-ray to rule out), cutaneous abscess. ED Course: Blood work obtained, IV fluids administered, X-ray performed. Labs are unremarkable. Incision and drainage performed, tolerated well by patient. Will discharge on oral doxycycline given history of recurrent abscesses previously and high suspicion for possible MRSA infection, wound and blood cultures pending. Disposition: Home Follow-Up: This document was created with assistance from [employer] The patient consented to its use. HPI: The patient, with a known history of hepatitis C, presents with an abscess on the ankle. The abscess initially manifested as a large, indurated lump approximately one week ago, which subsequently softened over the course of two days and ruptured last night. The patient reports no associated pain, pyrexia, or chills. The affected area is sensitive to palpation and exhibits throbbing pain upon application of pressure. This morning, the patient observed purulent discharge from the site. The patient has a history of similar abscesses, including a notably larger abscess on the thigh. There is no history of methicillin-resistant Staphylococcus aureus (MRSA) infection. Additionally, the patient reports experiencing dentalgia secondary to broken teeth and has been managing the pain with ibuprofen, with the last dose administered at 0900 hours. ROS: Negative besides as mentioned above Exam: Vital signs: Reviewed. General Appearance: Alert and oriented. No acute distress. HEENT: NCAT, EOMI, not icteric. External ears normal. No rhinorrhea. Moist mucous membranes. Neck: Supple, full range of motion, no observable masses, No meningeal sign. Respiratory: No Respiratory distress. No tachypnea. Cardiovascular: Heart rate 120. Gastrointestinal: Soft, nondistended, No rebound tenderness. Back: No midline tenderness to palpation or palpable step-offs of the C/T/L spine. Skin: 2-inch area of fluctuance, induration, erythema with central spontaneous serous fluid discharge, tender to palpation over medial aspect of left ankle. Neurological: Normal Gait, Grossly intact. Psychiatric: Appropriate for situation. Labs: 07/22/25 11:30 Ankle - Left Skin Culture - Pending 07/22/25 11:55 Blood Blood Culture - Pending 07/22/25 11:22 Blood Blood Culture - Pending Laboratory Tests Range/Units 07/22/25 11:55 WBC (4.4-10.8) 10^3/uL 6.11 RBC (4.36-5.78) 10^6/uL 3.86 L Hgb (13.5-17.5) g/dL 10.8 L Hct (40.0-50.0) % 33.3 L MCV (80-95) fL 86 MCH (27.0-33.0) pg 28.0 MCHC (32.0-36.0) % 32.4 RDW (11.8-14.1) % 13.9 Plt Count (130-400) 10^3/uL 342 MPV (8.0-11.0) fL 9.5 Immature Gran % % 0.2 Neutrophils % % 67.8 Lymphocytes % % 23.6 Monocytes % % 6.1 Eosinophils % % 1.8 Basophils % % 0.5 Nucleated RBC % (0.0-0.3) % 0.0 Absolute Neutrophils (1.2-6.7) 10^3/uL 4.15 Absolute Lymphocytes (1.2-3.4) 10^3/uL 1.44 Absolute Monocytes (0.1-0.8) 10^3/uL 0.37 Absolute Eosinophils (0.0-0.7) 10^3/uL 0.11 Absolute Basophils (0.0-0.2) 10^3/uL 0.03 VBG Lactate (<or=2.0) mmol/L 1.6 Rads: Exam(s) XR ANKLE LT COMPLETE EXAM: XR ANKLE LT COMPLETE CLINICAL HISTORY: overlying skin infeciton, concer for osteo TECHNIQUE: 2D digital imaging was performed. Three views. COMPARISON: CR LEFT ANKLE COMPLETE from 02/03/2009 FINDINGS: BONES: No acute fracture is present. No bony destructive lesion is seen. JOINTS:The ankle mortise is normally aligned. SOFT TISSUE: Swelling around the medial malleolus. No foreign body or abnormal gas collection. IMPRESSION: Soft tissue swelling at the medial malleolus. No visible bony destruction. DATA REPOSITORY: RADIATION DOSE DELIVERED: Related Data Home Medications ?Medication ?Instructions ?Recorded ?Confirmed trazodone 100 mg tablet 300 mg (3 x 100 mg) PO .pm #90 01/26/25 07/22/25 tab-caps quetiapine 150 mg tablet,extended 150 mg PO BID #60 tabs 06/21/25 07/22/25 release 24 hr (Seroquel XR) quetiapine 25 mg tablet (Seroquel) 25 mg PO TID PRN agitation #90 tabs 06/21/25 07/22/25 buprenorphine 8 mg-naloxone 2 mg 2 film sublingual DAILY 07/22/25 07/22/25 sublingual film doxycycline monohydrate 100 mg 100 mg PO BID #14 caps 07/22/25 capsule Previous Rx's ?Medication ?Instructions ?Recorded trazodone 100 mg tablet 300 mg (3 x 100 mg) PO .pm #90 01/26/25 tab-caps quetiapine 150 mg tablet,extended 150 mg PO BID #60 tabs 06/21/25 release 24 hr (Seroquel XR) quetiapine 25 mg tablet (Seroquel) 25 mg PO TID PRN agitation #90 tabs 06/21/25 doxycycline monohydrate 100 mg 100 mg PO BID #14 caps 07/22/25 capsule Allergies Allergy/AdvReac Type Severity Reaction Status Date / Time Sulfa (Sulfonamide Allergy Unknown Hives Verified 07/22/25 11:06 Antibiotics) General Stated Complaint: Cellulitis YESSENIA: 3 Course Vital Signs Vital signs: Vital Signs Temperature 36.6 C 07/22/25 11:04 Pulse 128 H 07/22/25 11:04 Respiratory Rate 16 07/22/25 11:04 Blood Pressure 120/67 07/22/25 11:04 Pulse Oximetry 98 07/22/25 11:04 Temperature 36.6 C 07/22/25 11:06 Pulse 128 H 07/22/25 11:06 Respiratory Rate 16 07/22/25 11:06 Blood Pressure 120/67 07/22/25 11:06 Pulse Oximetry 98 07/22/25 11:06 Pain Level 2 07/22/25 11:06 Lab/Test Results Lab/Test Results: 07/22/25 11:22 Blood Blood Culture - Pending 07/22/25 11:22 Blood Blood Culture - Pending Procedure Abscess Drainage Date of Procedure: 07/22/25 Time of Procedure: 13:05 Provider that performed the procedure: Gustavo Etienne Time Out Performed: Yes Patient Consented: Verbally Sedation administered by provider performing procedure: Yes. Location of Exam: Lower extremity/left Indication: Abscess. Local anesthetic: Lidocaine 1% and with epi, Amount of Local Anesthetic Used (mL): 5. Sterility: Sterile. Procedure Prep: Hand hygiene, Surgical Mask, Sterile Gloves and Chlohexidine. Technique used, incised with blade. Amount of fluid expressed(mL): 3 Irrigation: no irrigation Packing: None. Outcome: Sucessful Procedure Description/Note: 15. Blade was used to incise area over maximal fluctuance and induration as well as site of central pustule. Initially expressed a slight amount of purulent drainage, followed there by approximately 2 to 3 mL of bloody serosanguineous discharge. Patient did note some paresthesias of the toes during the procedure which she reported were improving towards the end of the procedure. Ultrasound: Not used Complications: Other (Paresthesias (resolving)) [facility] All Active Problems (Updated 07/22/25 @ 13:03 by Gustavo Segura MD) Abscess (Acute) Memory changes (Acute) Functional neurological symptom disorder with weakness or paralysis (Acute) Hepatitis C infection (Chronic) Hyponatremia (Acute) Transaminitis (Acute) Proximal muscle weakness (Acute) Anorexia (Acute) Patient with hyporexia prior to hospitalization 02/13/2025, poor intake for weeks with malnourishment and dehydration. Metabolic encephalopathy (Acute) Acute dehydration (Acute) Seizure (Acute) History of TB skin testing (Acute) Chronic insomnia (Acute) Hemoptysis (Acute) Rash (Acute) Anxiety disorder (Acute) Anemia (Chronic) Frequent headaches (Acute) Weight loss (Acute) Sensorineural hearing loss (SNHL) of left ear with unrestricted hearing of right ear (Acute) Shoulder pain, right (Acute) Sensation of fullness in left ear (Acute) Chronic headache (Acute) Tobacco abuse (Acute) Hypomagnesemia (Acute) Hypokalemia (Acute) COVID-19 ruled out by laboratory testing (Acute) Depression (Chronic) Exposure to hepatitis C (Acute) serology neg 10/2018 Alteration in patient safety due to identified suicide risk (Acute) Polysubstance abuse (Chronic) History of substance abuse (Chronic 09/09/17) Attention deficit disorder (Chronic 04/15/18) continue adderall as directed Alcoholism (Chronic 08/15/17) start revia Medical History Alcohol withdrawal seizure Alcohol withdrawal Surgical History Fracture, Open Treatment CAROLE ARREOLA; RIGHT DISTAL RADIUS Family History Mother Alcohol abuse History of Father Alcohol abuse history of Substance use disorder Opioid use disorder, on suboxone Sister No problems noted. Son Alcohol abuse history of Asthma Maternal Grandfather , age 76 No problems noted. Social History Smoking/Tobacco Use Status: Current every day Tobacco Type: cigarettes and smokeless tobacco Tobacco: How many years used: 10 Smokeless tobacco user: chewing tobacco (and smoking) Quit status: not considering quitting Second Hand Exposure: Yes Smoking risk assessment performed?: Yes Alcohol Intake: current Alcohol Intake frequency: a few times a month Alcohol type: beer Drug use: Current Sobriety Substance use type: marijuana and crack/cocaine Details: Cocaine uses 2 weeks ago 05/24/25 Caregiver/Support person: No Household members: family Housing: house Communication Needs: Hard of Hearing Do you need help understanding health information?: Never Pets and animals: No Sexually active: Yes Do you think of yourself as: straight/heterosexual Current gender identity: male What is your relationship status?: refused to answer How often do you talk on the phone with friends or family?: never How often do you get together with friends or relatives?: never How often do you attend mandaeism or christian services?: decline to answer Do you belong to any clubs or organized social groups?: no Panel score (0-1 are the most socially isolated patients): 0 What type of physical activity do you participate in: none and other Frequency: does not exercise Seatbelt use: sometimes Helmet use: Yes Helmet use: always Drive intox or ride w/intox long haul truck driver: No Do you feel safe at home: Yes Do you feel safe in your relationship?: Yes POCUS Exam (ED) Limited Soft Tissue Exam PROVIDER THAT PERFORMED THE STUDY: Gustavo Segura
[2025-07-22 12:11] LABS: Abs Immature Grans 0.01 10^3/uL (0.0-0.06); HCT 33.3 % (40.0-50.0); HGB 10.8 g/dL (13.5-17.5); Immature Grans % 0.2 %; MCH 28.0 pg (27.0-33.0); MCHC 32.4 % (32.0-36.0); MCV 86 fL (80-95); MPV 9.5 fL (8.0-11.0); Platelet Count 342 10^3/uL (130-400); RBC 3.86 10^6/uL (4.36-5.78); RDW 13.9 % (11.8-14.1); RDW-SD 43.8 fL; WBC 6.11 10^3/uL (4.4-10.8)
[2025-07-22] MEDS: Normal Saline 1,000 ML 1000 ML IV (12:19)
[2025-07-22] MEDS: DOXYCYCLINE 100 MG in Normal Saline 100 ML IVPB (13:19)
[2025-07-22 14:18] VITALS: BP 110/70; PULSE 65; RESP 16; TEMP 36.7; O2SAT 98
[2025-07-22] MEDS: Lidocaine 1% Pres-Free W/EPI 1/200,000 30 ML VIAL IJ (14:19)
== END 2025-07-22 14:21 | disposition home or self-care (01) ==
PROVIDERS: Emergency Provider General Practice; PCP Family Medicine
DX: L02.416 Cutaneous abscess of left lower limb (principal)
CPT/HCPCS: 10060; 36415; 87040; 87077; 96361; 96365; 99284; 73610; 83605; 85025; 87070; 87186; 99283; J2004